=== PATIENT | female | born 1980 | race Hispanic/Latino ===

== ENCOUNTER 2018-11-14 14:36 | Emergency (ER) | payer SELFPAY ==
[2018-11-14] MEDS ORDERED: FAMOTIDINE 20 MG/2 ML VIAL IV ONE (16:04)
[2018-11-14] MEDS ORDERED: NA CHLORIDE 0.9% 1,000 ML ONE (16:04)
[2018-11-14] MEDS ORDERED: ONDANSETRON 4 MG/2 ML VIAL ONE (16:04)
[2018-11-14 16:24] LABS: Absolute Lymphocytes (CBC) 1.2 K/uL (0.7-4.9); Basophils % 0.2 % (0-1.3); Hematocrit 37.3 % (36.0-45.0); Lymphocytes % 13.4 % (15.3-44.8); MPV 9.2 fL (7.6-11.3); RBC Red Blood Cell Count 4.87 M/uL (3.86-4.86)
--- NOTE | 2018-11-14 16:27 | RAD REPORT ---
EXAM DESCRIPTION: RAD - Chest Pa And Lat (2 Views) - 11/14/2018 4:10 pm CLINICAL HISTORY: COUGHcough, fever COMPARISON: None. TECHNIQUE: PA and lateral views of the chest were obtained. FINDINGS: The lungs are underinflated. Interstitial and patchy alveolar opacity present at the left lung base. Heart size is normal and central vasculature is within normal limits. No pleural effusi on or pneumothorax seen. No acute bony finding noted. No aortic abnormality. IMPRESSION: Early left lung base pneumonia.
[2018-11-14 16:33] LABS: Albumin 3.6 g/dL (3.4-5.0); Bilirubin Direct 0.1 mg/dL (0-0.2); Bilirubin Total 0.4 mg/dL (0.2-1.0); Potassium 3.4 mmol/L (3.5-5.1); Protein, Total 7.4 g/dL (6.4-8.2)
[2018-11-14] MEDS ORDERED: POTASSIUM 25 MEQ EFFERV TAB ONE (16:56)
[2018-11-14] MEDS ORDERED: DOXYCYCLINE 100 MG CAP PO ONE (16:57)
[2018-11-14] MEDS ORDERED: CALCIUM CARBONATE CHEW 500MG TAB PO SCH (17:00)
--- NOTE | 2018-11-14 17:56 | EDPHYS ---
Physician Documentation [facility] Name: Chantel Davis Age: 38 yrs Sex: Female : 1980 Arrival Date: 11/14/2018 Time: 14:37 Bed 25 Private MD: None, None ED Physician Royer Millan HPI: 11/14 15:12 This 38 yrs old Female presents to ER via Ambulatory with complaints of Cough, rh1 Abdominal Pain, Fever, Nausea. 15:12 The patient or guardian reports cough, that is constant, described as moderate, with rh1 productive sputum, that is yellow, difficulty breathing. Onset: The symptoms/episode began/occurred 2 day(s) ago. Severity of symptoms: At their worst the symptoms were moderate, in the emergency department the symptoms are unchanged. Modifying factors: The symptoms are alleviated by nothing, the symptoms are aggravated by exertion. Associated signs and symptoms: Pertinent positives: fever, nausea, rhinorrhea, vomiting, Pertinent negatives: chest pain, sore throat. The patient has not experienced similar symptoms in the past. The patient has not recently seen a physician. She began with nasal congestion and coughing, fatigue and body aches with fever at home, t - max 100.2, 2 days ago. + yellow productive coughing, and some SOB with exertion, no hemoptysis. She has had N/V x 1 this am, denies any hematemesis, and diarrhea x 1. Pain in upper abdomen worse with emesis, and increased with coughing. Denies any chest pain, no urinary symptoms.. 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 - Social history:: Smoking status: Patient/guardian denies using tobacco. - Ebola Screening: : No symptoms or risks identified at this time. ROS: 15:12 Cardiovascular: Negative for chest pain, palpitations, and edema. rh1 15:12 Constitutional: Positive for body aches, fatigue, fever, malaise, Negative for poor PO intake. 15:12 ENT: Positive for nasal discharge, sinus congestion, Negative for ear pain. 15:12 Respiratory: Positive for cough, shortness of breath, Negative for hemoptysis. 15:12 Abdomen/GI: Positive for abdominal pain, nausea, vomiting, and diarrhea, Negative for hematemesis, rectal bleeding. 15:12 Back: Negative for decreased range of motion, pain at rest, pain with movement. 15:12 : Negative for burning with urination. 15:12 MS/extremity: Negative for swelling, tenderness. 15:12 Neuro: Negative for altered mental status. 15:12 All other systems are negative. Exam: 15:12 Constitutional: This is a well developed, well nourished patient who is awake, alert, rh1 and in no acute distress. Head/Face: Normocephalic, atraumatic. ENT: Nares patent. No nasal discharge, no septal abnormalities noted. Tympanic membranes are normal and external auditory canals are clear. Oropharynx with no redness, swelling, or masses, exudates, or evidence of obstruction, uvula midline. Mucous membranes moist. Neck: Trachea midline, and no cervical lymphadenopathy. Supple, full range of motion without nuchal rigidity. No Meningismus. Chest/axilla: Normal chest wall appearance and motion. Nontender with no deformity. No lesions are appreciated. Cardiovascular: Regular rate and rhythm with a normal S1 and S2. No gallops, murmurs, or rubs. No JVD. No pulse deficits. 15:12 Back: No spinal tenderness. No costovertebral tenderness. Full range of motion. Skin: Warm, dry with normal turgor. Normal color with no rashes, no lesions, and no evidence of cellulitis. MS/ Extremity: Pulses equal, no cyanosis. Neurovascular intact. Full, normal range of motion. 15:12 Respiratory: the patient does not display signs of respiratory distress, Respirations: normal, no use of accessory muscles, no prolonged exhalations, no pursed lip breathing, no retractions, no tachypnea, Breath sounds: decreased breath sounds, that are mild, are heard in the left posterior lower lobe and right posterior lower lobe, wheezing: is not appreciated. 15:12 Abdomen/GI: Inspection: abdomen appears normal, bruising, is not seen, distension, is not seen, Bowel sounds: normal, in all quadrants, active, all quadrants, Palpation: soft, in all quadrants, mild abdominal tenderness, in the epigastric area, rebound tenderness, is not appreciated, involuntary guarding, is not appreciated, Indicators: McBurney's point is not tender, Grijalva's sign is negative, Rovsing's sign is negative. 15:12 Neuro: Orientation: is normal, to person, place \T\ time. Mentation: is normal, lucid, able to follow commands, Motor: is normal, moves all fours, strength is 5/5 in all extremities, Sensation: is normal, no obvious gross deficits, Gait: is steady, at a normal pace, without difficulty. 17:53 Abdomen/GI: Inspection: abdomen appears normal, bruising, is not seen, distension, is rh1 not seen, Bowel sounds: normal, in all quadrants, Palpation: abdomen is soft and non-tender, in all quadrants. Vital Signs: 14:55 BP 129 / 72; Pulse 81; Resp 19 S; Temp 98.2(O); Pulse Ox 97% on R/A; Weight 104.33 kg aa5 (R); Height 5 ft. 2 in. (157.48 cm) (R); Pain 9/10; 16:19 BP 121 / 80; Pulse 72; Resp 17 S; Pulse Ox 97% on R/A; ca1 17:18 BP 108 / 80; Pulse 70; Resp 16; Pulse Ox 100% ; lt1 14:55 Body Mass Index 42.07 (104.33 kg, 157.48 cm) aa5 MDM: 15:12 Patient medically screened. rh1 17:54 Data reviewed: vital signs, nurses notes, lab test result(s), radiologic studies, plain rh1 films, and as a result, I will discharge patient. Data interpreted: Pulse oximetry: on room air is 100 %. Interpretation: normal. Counseling: I had a detailed discussion with the patient and/or guardian regarding: the historical points, exam findings, and any diagnostic results supporting the discharge/admit diagnosis, lab results, radiology results, the need for outpatient follow up, a family practitioner, to return to the emergency department if symptoms worsen or persist or if there are any questions or concerns that arise at home. Response to treatment: the patient's symptoms have markedly improved after treatment. Special discussion: I discussed with the patient/guardian in detail that at this point there is no indication for admission to the hospital. It is understood, however, that if the symptoms persist or worsen the patient needs to return immediately for re-evaluation. 11/14 15:33 Order name: Basic Metabolic Panel; Complete Time: 16:39 11/14 15:33 Order name: CBC with Diff; Complete Time: 16:39 11/14 15:33 Order name: Creatinine for Radiology; Complete Time: 17:06 11/14 15:33 Order name: Hepatic Function; Complete Time: 16:39 11/14 15:33 Order name: Lipase; Complete Time: 16:39 11/14 15:33 Order name: Flu; Complete Time: 16:39 11/14 15:33 Order name: Chest Pa And Lat (2 Views) XRAY; Complete Time: 16:39 11/14 16:30 Order name: Urine Dipstick--Ancillary (enter results) bd 11/14 16:30 Order name: Urine --Ancillary (enter results) bd 11/14 15:33 Order name: IV Saline Lock; Complete Time: 15:59 11/14 15:33 Order name: Labs collected and sent; Complete Time: 15:59 11/14 15:33 Order name: Urine Dipstick-Ancillary (obtain specimen); Complete Time: 16:23 11/14 15:33 Order name: Urine Test (obtain specimen); Complete Time: 16:23 rh1 Administered Medications: 16:22 Drug: Pepcid 20 mg Route: IVP; Site: right antecubital; tr5 17:13 Follow up: Response: Marked relief of symptoms tr5 16:23 Drug: NS 0.9% 1000 ml Route: IV; Rate: 1 bolus; Site: right antecubital; tr5 17:14 Follow up: Response: No adverse reaction; IV Status: Completed infusion; IV Intake: tr5 1000ml 16:23 Drug: Zofran 4 mg Route: IVP; Site: right antecubital; tr5 17:14 Follow up: Response: Nausea is decreased tr5 17:11 Drug: Potassium Effervescent Tablet 50 mEq Route: PO; tr5 17:53 Follow up: Response: No adverse reaction tr5 17:13 Drug: Calcium Carbonate 500 mg 2 tablet Route: PO; tr5 17:52 Follow up: Response: No adverse reaction tr5 17:13 Drug: Doxycycline 100 mg Route: PO; tr5 17:52 Follow up: Response: No adverse reaction tr5 18:04 Drug: Zofran 4 mg Route: PO; tr5 18:05 Follow up: Response: Medication administered at discharge. tr5 Disposition: 17:54 Chart complete. rh1 11/15 07:35 Co-signature as Attending Physician, Royer Millan MD. rn Disposition: 11/14/18 17:55 Discharged to Home. Impression: Unspecified bacterial pneumonia. - Condition is Stable. - Discharge Instructions: Community-Acquired Pneumonia, Adult. - Prescriptions for Zofran 4 mg Oral Tablet - take 1 tablet by ORAL route every 12 hours As needed; 20 tablet. Doxycycline Hyclate 100 mg Oral Tablet - take 1 tablet by ORAL route every 12 hours; 20 tablet. - Medication Reconciliation Form, Thank You Letter, Antibiotic Education, Prescription Opioid Use form. - Follow up: Private Physician; When: 2 - 3 days; Reason: Recheck today's complaints, Continuance of care, Re-evaluation by your physician. Follow up: Emergency Department; When: As needed; Reason: Fever > 102 F, If symptoms return, Trouble breathing, Worsening of condition. - Problem is new. - Symptoms have improved. Signatures: Dispatcher [employer] EDMS Royer Millan MD MD rn Calderon, Audri, RN RN aa5 Tanvi Bucio NP FREELANCE DESIGNER rh1 Migue Rodriguez RN RN tr5 Corrections: (The following items were deleted from the chart) 11/14 17:53 15:12 Abdomen/GI: Inspection: abdomen appears normal, bruising, is not seen, rh1 distension, is not seen, Bowel sounds: normal, in all quadrants, Palpation: abdomen is soft and non-tender, in all quadrants, rh1 18:24 17:55 11/14/2018 17:55 Discharged to Home. Impression: Unspecified bacterial pneumonia. tr5 Condition is Stable. Forms are Medication Reconciliation Form, Thank You Letter, Antibiotic Education, Prescription Opioid Use. Follow up: Private Physician; When: 2 - 3 days; Reason: Recheck today's complaints, Continuance of care, Re-evaluation by your physician. Follow up: Emergency Department; When: As needed; Reason: Fever > 102 F, If symptoms return, Trouble breathing, Worsening of condition. Problem is new. Symptoms have improved. rh1
--- NOTE | 2018-11-14 17:56 | ER ---
Nurse's Notes [facility] Name: Chantel Davis Age: 38 yrs Sex: Female : 1980 Arrival Date: 11/14/2018 Time: 14:37 Bed 25 Private MD: None, None Diagnosis: Unspecified bacterial pneumonia Presentation: 11/14 14:54 Presenting complaint: Patient states: productive cough, fever, nausea, diarrhea, and aa5 upper abd pain that began 3 days ago. Transition of care: patient was not received from another setting of care. Onset of symptoms was November 2018. Risk Assessment: Do you want to hurt yourself or someone else? Patient reports no desire to harm self or others. Initial Sepsis Screen: Does the patient meet any 2 criteria? No. Patient's initial sepsis screen is negative. Does the patient have a suspected source of infection? No. Patient's initial sepsis screen is negative. Care prior to arrival: None. 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 - Social history:: Smoking status: Patient/guardian denies using tobacco. - Ebola Screening: : No symptoms or risks identified at this time. Screenin:00 Abuse screen: Denies threats or abuse. Nutritional screening: No deficits noted. tr5 Tuberculosis screening: No symptoms or risk factors identified. Fall Risk None identified. Assessment: 15:00 General: Appears in no apparent distress. Behavior is calm, cooperative, appropriate tr5 for age. Pain: Complains of pain in abdomen Pain does not radiate. Pain currently is 5 out of 10 on a pain scale. Quality of pain is described as crampy, Pain began gradually, Is intermittent. Neuro: Level of Consciousness is awake, alert, obeys commands, Oriented to person, place, time, Engineering Systems Analyst are equal bilaterally Moves all extremities. Cardiovascular: Heart tones present Capillary refill < 3 seconds Pulses are all present. Edema is absent. Respiratory: Airway is patent Respiratory effort is even, unlabored, Respiratory pattern is regular, symmetrical. Respiratory: Reports cough that is productive. GI: Abdomen is round Bowel sounds present X 4 quads. Abd is soft Reports lower abdominal pain, diarrhea, nausea, vomiting. : No signs and/or symptoms were reported regarding the genitourinary system. EENT: No signs and/or symptoms were reported regarding the EENT system. Derm: Skin is intact, Skin is dry, Skin is normal, Skin temperature is warm. Musculoskeletal: Capillary refill < 3 seconds, Range of motion: intact in all extremities. 16:00 Reassessment: Patient and/or family updated on plan of care and expected duration. Pain tr5 level reassessed. Patient is alert, oriented x 3, equal unlabored respirations, skin warm/dry/pink. 17:00 Reassessment: Patient appears in no apparent distress at this time. Patient and/or tr5 family updated on plan of care and expected duration. Pain level reassessed. Patient is alert, oriented x 3, equal unlabored respirations, skin warm/dry/pink. Vital Signs: 14:55 BP 129 / 72; Pulse 81; Resp 19 S; Temp 98.2(O); Pulse Ox 97% on R/A; Weight 104.33 kg aa5 (R); Height 5 ft. 2 in. (157.48 cm) (R); Pain 9/10; 16:19 BP 121 / 80; Pulse 72; Resp 17 S; Pulse Ox 97% on R/A; ca1 17:18 BP 108 / 80; Pulse 70; Resp 16; Pulse Ox 100% ; lt1 14:55 Body Mass Index 42.07 (104.33 kg, 157.48 cm) aa5 ED Course: 14:37 Patient arrived in ED. ag5 14:39 None, None is Private Physician. ag5 14:55 Triage completed. aa5 14:55 Arm band placed on. aa5 15:00 Placed in gown. Bed in low position. Call light in reach. Door closed. Noise minimized. tr5 15:11 Tanvi Bucio NP is PHCP. rh1 15:11 Royer Millan MD is Attending Physician. rh1 15:40 Missed attempt(s): 20 gauge in left antecubital area. Bleeding controlled, band aid ca1 applied, catheter tip intact. 15:58 Migue Rodriguez, RN is Primary Nurse. tr5 16:08 Chest Pa And Lat (2 Views) XRAY In Process Unspecified. EDMS 16:16 Inserted saline lock: 22 gauge in right antecubital area, using aseptic technique. lt1 16:20 Initial lab(s) drawn, by ED staff, sent to lab. tr5 18:21 No provider procedures requiring assistance completed. IV discontinued. tr5 Administered Medications: 16:22 Drug: Pepcid 20 mg Route: IVP; Site: right antecubital; tr5 17:13 Follow up: Response: Marked relief of symptoms tr5 16:23 Drug: NS 0.9% 1000 ml Route: IV; Rate: 1 bolus; Site: right antecubital; tr5 17:14 Follow up: Response: No adverse reaction; IV Status: Completed infusion; IV Intake: tr5 1000ml 16:23 Drug: Zofran 4 mg Route: IVP; Site: right antecubital; tr5 17:14 Follow up: Response: Nausea is decreased tr5 17:11 Drug: Potassium Effervescent Tablet 50 mEq Route: PO; tr5 17:53 Follow up: Response: No adverse reaction tr5 17:13 Drug: Calcium Carbonate 500 mg 2 tablet Route: PO; tr5 17:52 Follow up: Response: No adverse reaction tr5 17:13 Drug: Doxycycline 100 mg Route: PO; tr5 17:52 Follow up: Response: No adverse reaction tr5 18:04 Drug: Zofran 4 mg Route: PO; tr5 18:05 Follow up: Response: Medication administered at discharge. tr5 Intake: 17:14 IV: 1000ml; Total: 1000ml. tr5 Outcome: 17:55 Discharge ordered by . rh1 18:21 Discharged to home tr5 18:21 Discharged to home ambulatory. 18:21 Condition: stable 18:21 Discharge instructions given to patient, Instructed on discharge instructions, follow up and referral plans. medication usage, Demonstrated understanding of instructions, follow-up care, medications, Prescriptions given X 2. 18:24 Patient left the ED. tr5 Signatures: Dispatcher [employer] EDMS Nisha Azul RN RN aa5 Tanvi Bucio, SIGN SHOP SUPERVISOR SIGN SHOP SUPERVISOR 1 Linda Christensen RN RN [facility] Tahira Brown 5 Yamilex Go lt1 Migue Rodriguez RN RN tr5
[2018-11-14] MEDS ORDERED: ONDANSETRON 4 MG (ODT) TAB ONE (17:59)
[2018-11-14 20:26] LABS: Urine Blood NEGATIVE (NEG); Urine Glucose NEGATIVE (NEG); Urine Protein NEGATIVE (NEG); Urine Specific Gravity 1.015 (1.005-1.030); Urine pH 6.5 (5.0-7.0)
[2018-11-14 21:22] VITALS: BP 108/80; O2SAT 100
[2018-11-14 21:50] VITALS: TEMP 98.2
== END 2018-11-14 18:24 | disposition home or self-care (01) ==
LOC: ER 14:36
DX: J15.9 Unspecified bacterial pneumonia (principal)
CPT/HCPCS: 36415; 71046; 80048; 80076; 81003; 81025; 83690; 85025; 87804; 96361; 96374; 96375; 99284; J2405; J7030

== ENCOUNTER 2019-05-06 12:46 | Emergency (ER) | payer SELFPAY ==
[2019-05-06] MEDS ORDERED: ONDANSETRON 4 MG (ODT) TAB ONE (13:20)
[2019-05-06] MEDS ORDERED: dexAMETHasone 4 MG/ML VIAL ONE (13:20)
--- NOTE | 2019-05-06 14:06 | EDPHYS ---
Physician Documentation [facility] Name: Chantel Davis Age: 39 yrs Sex: Female : 1980 Arrival Date: 05/06/2019 Time: 12:48 Bed 14 Private MD: ED Physician Ben Magana HPI: 05/06 13:11 This 39 yrs old Female presents to ER via Ambulatory with complaints of Chest ps1 Pain, Congestion, Vomiting. 13:11 States that onset of symptoms is 3 days. OOW for tamiflu. States that she has ps1 additionally had fatigue. No reportable fever. Still has nausea and sore throat. . 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 - Social history:: Patient/guardian denies using alcohol, street drugs, tobacco products, Smoking status: Patient denies any tobacco usage or history of. ROS: 13:11 Cardiovascular: Negative for chest pain, palpitations, and edema, MS/Extremity: ps1 Negative for injury and deformity, Skin: Negative for injury, rash, and discoloration, Neuro: Negative for headache, weakness, numbness, tingling, and seizure. 13:11 Constitutional: Positive for fatigue, malaise, poor PO intake. 13:11 ENT: Positive for sore throat. 13:11 Respiratory: Positive for cough. 13:11 Abdomen/GI: Positive for nausea and vomiting. Exam: 13:11 Constitutional: This is a well developed, well nourished patient who is awake, alert, ps1 and in no acute distress. Head/Face: Normocephalic, atraumatic. Eyes: Pupils equal round and reactive to light, extra-ocular motions intact. Lids and lashes normal. Conjunctiva and sclera are non-icteric and not injected. Cardiovascular: Regular rate and rhythm. No gallops, murmurs, or rubs. Normal PMI, no JVD. No pulse deficits. Respiratory: Lungs have equal breath sounds bilaterally, clear to auscultation and percussion. No rales, rhonchi or wheezes noted. No increased work of breathing, no retractions or nasal flaring. Abdomen/GI: Soft, non-tender, with normal bowel sounds. No distension or tympany. No guarding or rebound. No evidence of tenderness throughout. Skin: Warm, dry with normal turgor. Normal color with no rashes, no lesions, and no evidence of cellulitis. MS/ Extremity: Pulses equal, no cyanosis. Neurovascular intact. Full, normal range of motion. Neuro: Awake and alert, GCS 15, oriented to person, place, time, and situation. Cranial nerves II-XII grossly intact. Sensory grossly intact. Vital Signs: 12:52 Pulse 65; Resp 16; Temp 97.9; Pulse Ox 98% ; Weight 104.33 kg; Height 5 ft. 2 in. ll1 (157.48 cm); Pain 6/10; 14:00 BP 131 / 85; Pulse 81; Resp 16 S; Pulse Ox 99% on R/A; ca1 12:52 Body Mass Index 42.07 (104.33 kg, 157.48 cm) ll1 MDM: 13:30 Patient medically screened. ps1 14:08 Data reviewed: vital signs, nurses notes, lab test result(s), and as a result, I will ps1 discharge patient. Counseling: I had a detailed discussion with the patient and/or guardian regarding: the historical points, exam findings, and any diagnostic results supporting the discharge/admit diagnosis, lab results, to return to the emergency department if symptoms worsen or persist or if there are any questions or concerns that arise at home. 05/06 13:01 Order name: Flu; Complete Time: 14:01 ps1 Administered Medications: 13:17 Drug: Zofran (Ondansetron) 4 mg Route: PO; ca1 14:06 Follow up: Response: No adverse reaction; Nausea is decreased ca1 13:18 Drug: Decadron - Dexamethasone 10 mg {Note: PO.} Route: IVP; Site: Other; ca1 14:06 Follow up: Response: No adverse reaction ca1 Disposition: 05/06/19 14:05 Discharged to Home. Impression: Acute viral illness. - Condition is Stable. - Discharge Instructions: Viral Respiratory Infection, [id number]. - Prescriptions for Zofran 4 mg Oral Tablet - take 1 tablet by ORAL route every 12 hours As needed; 20 tablet. Tessalon Perles 100 mg Oral Capsule - take 1 capsule by ORAL route every 8 hours As needed; 15 capsule. - Medication Reconciliation Form, Thank You Letter, Antibiotic Education, Prescription Opioid Use, Work release form form. - Follow up: Emergency Department; When: As needed; Reason: Fever > 102 F, Trouble breathing, Worsening of condition. Follow up: Private Physician; When: As needed; Reason: Further diagnostic work-up, Recheck today's complaints, Continuance of care, Re-evaluation by your physician. - Problem is new. - Symptoms are unchanged. Signatures: Dispatcher [employer] EDBen Montoya MD MD ps1 Fermin, Linda RN RN ca1 Katelyn Abdalla RN RN ll1 Corrections: (The following items were deleted from the chart) 14:17 14:05 05/06/2019 14:05 Discharged to Home. Impression: Acute viral illness. Condition ca1 is Stable. Forms are Medication Reconciliation Form, Thank You Letter, Antibiotic Education, Prescription Opioid Use. Follow up: Emergency Department; When: As needed; Reason: Fever > 102 F, Trouble breathing, Worsening of condition. Follow up: Private Physician; When: As needed; Reason: Further diagnostic work-up, Recheck today's complaints, Continuance of care, Re-evaluation by your physician. Problem is new. Symptoms are unchanged. ps1
--- NOTE | 2019-05-06 14:06 | ER ---
Nurse's Notes [facility] Name: Chantel Davis Age: 39 yrs Sex: Female : 1980 Arrival Date: 05/06/2019 Time: 12:48 Bed 14 Private MD: Diagnosis: Acute viral illness Presentation: 05/06 12:52 Chief complaint: Patient states: 3 days of N/V, cough, chest hurts, nasal congestion. ll1 Burning throat pain. No fever. Dry cough. Coronavirus screen: The patient has NOT traveled to [place] in the past 14 days. Proceed with normal triage procedures. Ebola Screen: No symptoms or risks identified at this time. Initial Sepsis Screen: Does the patient meet any 2 criteria? No. Patient's initial sepsis screen is negative. Does the patient have a suspected source of infection? No. Patient's initial sepsis screen is negative. Risk Assessment: Do you want to hurt yourself or someone else? Patient reports no desire to harm self or others. 12:52 Method Of Arrival: Ambulatory ll1 12:52 Acuity: XENIA 3 ll1 13:22 Onset of symptoms was May 06, 2019. 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 - Social history:: Patient/guardian denies using alcohol, street drugs, tobacco products, Smoking status: Patient denies any tobacco usage or history of. Screenin:10 Abuse screen: Denies threats or abuse. Denies injuries from another. Nutritional ca1 screening: No deficits noted. Tuberculosis screening: No symptoms or risk factors identified. Fall Risk None identified. Assessment: 13:10 General: Appears in no apparent distress. comfortable, Behavior is calm, cooperative, ca1 appropriate for age, Reports chills for 2-3 days. Pain: Complains of pain in epigastric area Pain does not radiate. Pain currently is 4 out of 10 on a pain scale. Pain began 2-3 days ago. Neuro: Level of Consciousness is awake, alert, obeys commands, Oriented to person, place, time, situation, Appropriate for age. Cardiovascular: Heart tones S1 S2 present Capillary refill < 3 seconds Patient's skin is warm and dry. Respiratory: Reports cough that is Airway is patent Respiratory effort is even, unlabored, Respiratory pattern is regular, symmetrical, Breath sounds are clear bilaterally. GI: Abdomen is round non-distended, Bowel sounds present X 4 quads. Abd is soft and non tender X 4 quads. Reports nausea, vomiting. : No signs and/or symptoms were reported regarding the genitourinary system. EENT: Reports nasal congestion nasal discharge that is watery. Derm: Skin is intact, is healthy with good turgor, Skin is pink, warm \T\ dry. Musculoskeletal: Circulation, motion, and sensation intact. Capillary refill < 3 seconds. 14:00 Reassessment: Patient appears in no apparent distress at this time. Patient and/or ca1 family updated on plan of care and expected duration. Pain level reassessed. Patient is alert, oriented x 3, equal unlabored respirations, skin warm/dry/pink. Vital Signs: 12:52 Pulse 65; Resp 16; Temp 97.9; Pulse Ox 98% ; Weight 104.33 kg; Height 5 ft. 2 in. ll1 (157.48 cm); Pain 6/10; 14:00 BP 131 / 85; Pulse 81; Resp 16 S; Pulse Ox 99% on R/A; ca1 12:52 Body Mass Index 42.07 (104.33 kg, 157.48 cm) ll1 ED Course: 12:48 Patient arrived in ED. as 12:54 Triage completed. ll1 12:54 Arm band placed on right wrist. Patient placed in an exam room. ll1 12:59 Linda Christensen RN is Primary Nurse. ca1 13:01 Ben Magana MD is Attending Physician. ps1 13:10 Patient has correct armband on for positive identification. Bed in low position. Call ca1 light in reach. Side rails up X 1. Pulse ox on. NIBP on. Warm blanket given. 13:10 No provider procedures requiring assistance completed. Patient did not have IV access ca1 during this emergency room visit. Patient maintains SpO2 saturation greater than 95% on room air. Administered Medications: 13:17 Drug: Zofran (Ondansetron) 4 mg Route: PO; ca1 14:06 Follow up: Response: No adverse reaction; Nausea is decreased ca1 13:18 Drug: Decadron - Dexamethasone 10 mg {Note: PO.} Route: IVP; Site: Other; ca1 14:06 Follow up: Response: No adverse reaction ca1 Outcome: 14:05 Discharge ordered by . ps1 14:17 Discharged to home ambulatory. ca1 14:17 Condition: stable 14:17 Discharge instructions given to patient, Instructed on discharge instructions, follow up and referral plans. medication usage, Demonstrated understanding of instructions, follow-up care, medications, Prescriptions given X 2. 14:17 Patient left the ED. ca1 Signatures: Moira Red Phillip, MD MD ps1 Linda Christensen RN RN ca1 Katelyn Abdalla RN RN ll1 Corrections: (The following items were deleted from the chart) 13:22 13:10 General: Appears in no apparent distress. comfortable, Behavior is calm, ca1 cooperative, appropriate for age, ca1
[2019-05-06 14:37] VITALS: TEMP 97.9
[2019-05-06 14:38] VITALS: BP 131/85; O2SAT 99
== END 2019-05-06 14:17 | disposition home or self-care (01) ==
LOC: ER 12:46
DX: B34.9 Viral infection, unspecified (principal)
CPT/HCPCS: 87804; 96374; 99284

== ENCOUNTER 2019-08-10 12:18 | Emergency (ER) | payer SELFPAY ==
[2019-08-10] MEDS ORDERED: HYDROCODONE/APAP 10/325 TAB ONE (13:06)
--- NOTE | 2019-08-10 13:51 | RAD REPORT ---
EXAM DESCRIPTION: RAD - Elbow Left 3 View - 08/10/2019 1:39 pm CLINICAL HISTORY: Left elbow pain FINDINGS: No fracture or dislocation is seen.No bone or joint abnormality
--- NOTE | 2019-08-10 14:21 | EDPHYS ---
Physician Documentation [facility] Name: Chantel Davis Age: 39 yrs Sex: Female : 1980 Arrival Date: 08/10/2019 Time: 12:22 Bed 24 Private MD: ED Physician Diogo Mahan HPI: 08/09 13:01 This 39 yrs old Female presents to ER via Ambulatory with complaints of Elbow pm1 Injury. 13:01 The patient or guardian complains of pain. The complaints affect the left elbow. 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 Onset: The symptoms/episode began/occurred 3 day(s) ago. Treatment prior to arrival includes: no previous treatment. Modifying factors: The symptoms are alleviated by remaining still, the symptoms are aggravated by movement, lifting weight, bending arm. Associated signs and symptoms: Pertinent negatives: decreased range of motion, deformity, numbness, tingling. Severity of symptoms: in the emergency department the symptoms are actually worse. The patient has not experienced similar symptoms in the past. The patient has not recently seen a physician. 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 - Social history:: Smoking status: Patient denies any tobacco usage or history of. ROS: 13:01 Constitutional: Negative for fever, chills, and weight loss. pm1 13:01 Cardiovascular: Negative for chest pain, palpitations, and edema, Respiratory: Negative for shortness of breath, cough, wheezing, and pleuritic chest pain, Skin: Negative for injury, rash, and discoloration, Neuro: Negative for headache, weakness, numbness, tingling, and seizure. 13:01 MS/extremity: Positive for pain, swelling, of the left elbow, Negative for decreased range of motion, deformity. 13:01 All other systems are negative. Exam: 13:01 Constitutional: This is a well developed, well nourished patient who is awake, alert, pm1 and in no acute distress. Head/Face: Normocephalic, atraumatic. Neck: Trachea midline, no thyromegaly or masses palpated, and no cervical lymphadenopathy. Supple, full range of motion without nuchal rigidity, or vertebral point tenderness. No Meningismus. Chest/axilla: Normal chest wall appearance and motion. Nontender with no deformity. No lesions are appreciated. Cardiovascular: Regular rate and rhythm with a normal S1 and S2. No gallops, murmurs, or rubs. Normal PMI, no JVD. No pulse deficits. Respiratory: Lungs have equal breath sounds bilaterally, clear to auscultation and percussion. No rales, rhonchi or wheezes noted. No increased work of breathing, no retractions or nasal flaring. Abdomen/GI: Soft, non-tender, with normal bowel sounds. No distension or tympany. No guarding or rebound. No evidence of tenderness throughout. Skin: Warm, dry with normal turgor. Normal color with no rashes, no lesions, and no evidence of cellulitis. 13:01 Musculoskeletal/extremity: Extremities: grossly normal except: noted in the left elbow: tenderness, There is no evidence of decreased ROM, deformity, swelling, ROM: intact in all extremities, Circulation is intact in all extremities. the left hand Sensation intact. 13:01 Neuro: Exam negative for Orientation: is normal, Mentation: is normal, Motor: is normal, Sensation: is normal, no obvious gross deficits. Vital Signs: 12:33 BP 135 / 80; Pulse 67; Resp 18; Temp 98.1; Pulse Ox 98% on R/A; Weight 104.33 kg; ph Height 5 ft. 2 in. (157.48 cm); Pain 7/10; 14:45 BP 149 / 91; Pulse 59; Resp 17; Pulse Ox 98% ; Pain 4/10; ll1 12:33 Body Mass Index 42.07 (104.33 kg, 157.48 cm) ph MDM: 12:36 Patient medically screened. pm1 14:19 Data reviewed: vital signs. Data interpreted: Pulse oximetry: on room air is 98 %. pm1 Interpretation: normal. Counseling: I had a detailed discussion with the patient and/or guardian regarding: the historical points, exam findings, and any diagnostic results supporting the discharge/admit diagnosis, radiology results, the need for outpatient follow up, to return to the emergency department if symptoms worsen or persist or if there are any questions or concerns that arise at home. 08/09 12:54 Order name: Elbow Left 3 View XRAY; Complete Time: 13:58 pm1 08/09 12:54 Order name: Sling; Complete Time: 14:38 pm1 Administered Medications: 13:01 Drug: [place] 10 mg-325 mg 1 tabs {Note: RASS 0.} Route: PO; ll1 14:54 Follow up: Response: No adverse reaction; Pain is decreased; RASS: Alert and Calm (0) ll1 Disposition: 19:40 Co-signature as Attending Physician, Diogo Mahan MD. 7 Disposition: 08/10/19 14:20 Discharged to Home. Impression: Pain in left elbow. - Condition is Stable. - Discharge Instructions: Joint Pain, Musculoskeletal Pain, How to Use a Sling. - Prescriptions for Diclofenac Sodium 75 mg Oral Tablet, Delayed Release (E.C.) - take 1 tablet by ORAL route 2 times per day As needed; 30 tablet. Tramadol 50 mg Oral Tablet - take 1 tablet by ORAL route every 8 hours as needed; 12 tablet. - Work release form, Medication Reconciliation Form, Thank You Letter, Antibiotic Education, Prescription Opioid Use form. - Follow up: Emergency Department; When: As needed; Reason: Worsening of condition. Follow up: Private Physician; When: 2 - 3 days; Reason: Recheck today's complaints, Continuance of care, Re-evaluation by your physician. - Problem is new. - Symptoms have improved. Signatures: Dispatcher [employer] EDMO Steph Baez RN RN Ron Anderson, [facility] pm1 Katelyn Abdalla RN RN 1 Diogo Mahan MD MD 7 Corrections: (The following items were deleted from the chart) 14:51 14:20 08/10/2019 14:20 Discharged to Home. Impression: Pain in left elbow. Condition is ll1 Stable. Forms are Medication Reconciliation Form, Thank You Letter, Antibiotic Education, Prescription Opioid Use. Follow up: Emergency Department; When: As needed; Reason: Worsening of condition. Follow up: Private Physician; When: 2 - 3 days; Reason: Recheck today's complaints, Continuance of care, Re-evaluation by your physician. Problem is new. Symptoms have improved. pm1
--- NOTE | 2019-08-10 14:21 | ER ---
Nurse's Notes [facility] Name: Chantel Davis Age: 39 yrs Sex: Female : 1980 Arrival Date: 08/10/2019 Time: 12:22 Bed 24 Private MD: Diagnosis: Pain in left elbow Presentation: 08/09 12:33 Chief complaint: Patient states: L elbow pain and swelling x 3 weeks, reports that pain ph comes and goes, denies known injury. Coronavirus screen: Patient denies a cough. Patient denies shortness of breath or difficulty breathing. Patient denies measured and/or subjective temperature greater than 100.4F prior to today's visit. Patient denies travel on a cruise ship or to a country the [facility] currently lists as an affected area. Patient denies contact with known and/or suspected case of COVID-19. Ebola Screen: No symptoms or risks identified at this time. Initial Sepsis Screen: Does the patient meet any 2 criteria? No. Patient's initial sepsis screen is negative. Does the patient have a suspected source of infection? No. Patient's initial sepsis screen is negative. Risk Assessment: Do you want to hurt yourself or someone else? Patient reports no desire to harm self or others. Onset of symptoms was August 10, 2019. 12:33 Method Of Arrival: Ambulatory ph 12:33 Acuity: XENIA 4 ph Triage Assessment: 13:03 General: Appears in no apparent distress. Behavior is calm, cooperative, appropriate ll1 for age. Injury Description: no specific injury. 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 - Social history:: Smoking status: Patient denies any tobacco usage or history of. Screenin:03 Abuse screen: Denies threats or abuse. Nutritional screening: No deficits noted. ll1 Tuberculosis screening: No symptoms or risk factors identified. Fall Risk None identified. Total Maria Fall Scale indicates No Risk (0-24 pts). Assessment: 13:01 Pain: Complains of pain in left elbow Pain currently is 7 out of 10 on a pain scale. ll1 Quality of pain is described as aching, Pain began. Neuro: No deficits noted. Cardiovascular: No deficits noted. Respiratory: No deficits noted. Musculoskeletal: Circulation, motion, and sensation intact. Capillary refill < 3 seconds, Range of motion: intact in all extremities, Swelling present in left elbow Tenderness present in left elbow Reports pain in left elbow. 14:00 Reassessment: Patient appears in no apparent distress at this time. No changes from ll1 previously documented assessment. Patient and/or family updated on plan of care and expected duration. Pain level reassessed. Patient is alert, oriented x 3, equal unlabored respirations, skin warm/dry/pink. 14:50 Reassessment: Patient appears in no apparent distress at this time. No changes from ll1 previously documented assessment. Patient and/or family updated on plan of care and expected duration. Pain level reassessed. Patient is alert, oriented x 3, equal unlabored respirations, skin warm/dry/pink. PMS intact pre and post sling application to RUE. . Vital Signs: 12:33 BP 135 / 80; Pulse 67; Resp 18; Temp 98.1; Pulse Ox 98% on R/A; Weight 104.33 kg; ph Height 5 ft. 2 in. (157.48 cm); Pain 7/10; 14:45 BP 149 / 91; Pulse 59; Resp 17; Pulse Ox 98% ; Pain 4/10; ll1 12:33 Body Mass Index 42.07 (104.33 kg, 157.48 cm) ph ED Course: 12:22 Patient arrived in ED. fj1 12:34 Triage completed. ph 12:36 Katelyn Abdalla RN is Primary Nurse. ll1 12:36 Ron Azul NP is PHCP. pm1 12:36 Diogo Mahan MD is Attending Physician. pm1 13:04 Arm band placed on Patient placed in an exam room, on a stretcher. ll1 13:04 Patient has correct armband on for positive identification. Bed in low position. Call ll1 light in reach. Side rails up X 1. 13:42 Elbow Left 3 View XRAY In Process Unspecified. EDMS 14:00 X-ray(s) taken. jp3 14:38 Sling applied to left arm. jp3 14:54 No provider procedures requiring assistance completed. Patient did not have IV access ll1 during this emergency room visit. Administered Medications: 13:01 Drug: [place] 10 mg-325 mg 1 tabs {Note: RASS 0.} Route: PO; ll1 14:54 Follow up: Response: No adverse reaction; Pain is decreased; RASS: Alert and Calm (0) 1 Outcome: 14:20 Discharge ordered by MD. pm1 14:51 Patient left the ED. ll1 14:54 Discharged to home ambulatory. 1 14:54 Condition: stable 14:54 Discharge instructions given to patient, Instructed on discharge instructions, follow up and referral plans. no drinking with medication, no driving heavy equipment, Demonstrated understanding of instructions, follow-up care, medications, Prescriptions given X 2. Signatures: Dispatcher [employer] EDSteph Og, RN RN Ron Anderson NP TOOL KEEPER pm1 Iftikhar Shen jp3 Anthony Ruelas fj1 Katelyn Abdalla RN RN 1
[2019-08-10 15:00] VITALS: BP 135/80; TEMP 98.1; O2SAT 98
== END 2019-08-10 14:51 | disposition home or self-care (01) ==
LOC: ER 12:18
DX: M25.522 Pain in left elbow (principal)
CPT/HCPCS: 99284

== ENCOUNTER 2020-02-01 08:43 | Emergency (ER) | payer SELFPAY ==
[2020-02-01] MEDS ORDERED: ONDANSETRON 4 MG (ODT) TAB ONE (09:23)
--- NOTE | 2020-02-01 09:43 | EDPHYS ---
Physician Documentation [facility] Name: Chantel Davis Age: 39 yrs Sex: Female : 1980 Arrival Date: 02/01/2020 Time: 08:45 Bed 15 Private MD: ED Physician Ben Magana HPI: 01/31 09:18 This 39 yrs old Female presents to ER via Ambulatory with complaints of Sinus kb Congestion, Vomiting, Fever. 09:18 The patient or guardian reports flu symptoms, low-grade fever. Onset: The kb symptoms/episode began/occurred 4 day(s) ago. Severity of symptoms: At their worst the symptoms were moderate, in the emergency department the symptoms are unchanged. Modifying factors: The symptoms are alleviated by nothing, the symptoms are aggravated by nothing. Associated signs and symptoms: Pertinent positives: fever, nausea, rhinorrhea, vomiting, Pertinent negatives: chest pain, diarrhea, ear ache, sore throat. The patient has not experienced similar symptoms in the past. The patient has not recently seen a physician. Pt reports rhinorrhea and congestion for 3-4 days, fever and chills began last night. nausea and vomited x1 this morning. 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 - Social history:: Smoking status: . ROS: 09:18 Cardiovascular: Negative for chest pain, palpitations, and edema, Respiratory: Negative kb for shortness of breath, cough, wheezing, and pleuritic chest pain, MS/Extremity: Negative for injury and deformity, Skin: Negative for injury, rash, and discoloration, Neuro: Negative for headache, weakness, numbness, tingling, and seizure. 09:18 Constitutional: Positive for chills, fever, malaise. 09:18 ENT: Positive for rhinorrhea, sinus congestion. 09:18 Abdomen/GI: Positive for nausea and vomiting. Exam: 09:18 Constitutional: This is a well developed, well nourished patient who is awake, alert, kb and in no acute distress. Head/Face: Normocephalic, atraumatic. ENT: Nares patent. No nasal discharge, no septal abnormalities noted. Tympanic membranes are normal and external auditory canals are clear. Oropharynx with no redness, swelling, or masses, exudates, or evidence of obstruction, uvula midline. Mucous membranes moist. Chest/axilla: Normal chest wall appearance and motion. Nontender with no deformity. No lesions are appreciated. Cardiovascular: Regular rate and rhythm with a normal S1 and S2. No gallops, murmurs, or rubs. Normal PMI, no JVD. No pulse deficits. Respiratory: Lungs have equal breath sounds bilaterally, clear to auscultation and percussion. No rales, rhonchi or wheezes noted. No increased work of breathing, no retractions or nasal flaring. Abdomen/GI: Soft, non-tender, with normal bowel sounds. No distension or tympany. No guarding or rebound. No evidence of tenderness throughout. Skin: Warm, dry with normal turgor. Normal color with no rashes, no lesions, and no evidence of cellulitis. MS/ Extremity: Pulses equal, no cyanosis. Neurovascular intact. Full, normal range of motion. Neuro: Awake and alert, GCS 15, oriented to person, place, time, and situation. Cranial nerves II-XII grossly intact. Motor strength 5/5 in all extremities. Sensory grossly intact. Cerebellar exam normal. Normal gait. Vital Signs: 08:52 BP 134 / 70; Pulse 72; Resp 18; Temp 98.3(O); Pulse Ox 99% on R/A; Weight 109.77 kg tw2 (R); Height 5 ft. 2 in. (157.48 cm); Pain 7/10; 09:56 BP 131 / 86; Pulse 79; Resp 17; Pulse Ox 99% on R/A; tw2 08:52 Body Mass Index 44.26 (109.77 kg, 157.48 cm) tw2 08:52 "sinuses" tw2 MDM: 09:00 Patient medically screened. kb 09:18 Data reviewed: vital signs, nurses notes. Data interpreted: Pulse oximetry: on room air kb is 99 %. Interpretation: normal. 09:41 Counseling: I had a detailed discussion with the patient and/or guardian regarding: the kb historical points, exam findings, and any diagnostic results supporting the discharge/admit diagnosis, lab results, the need for outpatient follow up, a family practitioner, to return to the emergency department if symptoms worsen or persist or if there are any questions or concerns that arise at home. ED course: Pt reports nausea is resolved after zofran. Pt agrees to COVID test and will await results. Pt educated to stay home from work and quarantine until results are called to her. . 01/31 09:01 Order name: Flu; Complete Time: 09:39 kb 01/31 09:01 Order name: Strep; Complete Time: 09:30 kb 01/31 09:12 Order name: Urine Dipstick--Ancillary (enter results); Complete Time: 09:51 bd 01/31 09:12 Order name: Urine --Ancillary (enter results); Complete Time: 09:51 bd 01/31 09:31 Order name: Throat Culture EDWA 01/31 09:42 Order name: COVID-19 kb Administered Medications: 09:11 Drug: Zofran (Ondansetron) 4 mg Route: PO; tw2 09:55 Follow up: Response: No adverse reaction; Nausea is decreased tw2 Disposition: 02/01/20 09:42 Discharged to Home. Impression: Acute upper respiratory infection, unspecified. - Condition is Stable. - Discharge Instructions: Upper Respiratory Infection, Adult, [id number], COVID-19. - Work release form, Medication Reconciliation Form, Thank You Letter, Antibiotic Education, Prescription Opioid Use form. - Follow up: Emergency Department; When: As needed; Reason: Worsening of condition. Follow up: Private Physician; When: 2 - 3 days; Reason: Recheck today's complaints, Continuance of care, Re-evaluation by your physician. Addendum: 02/02/2020 19:04 Addendum: COVID results came in and pt is positive for the virus. Number on k b registration called with no answer. Message left. 19:09 Addendum: Pt called back. Pt educated on positive COVID results and need to stay home k b and quarantine from others.. 02/06/2020 20:58 Co-signature as Attending Physician, Ben Magana MD Did not see or evaluate patient. p s1 Signature for administrative purposes. . Signatures: Dispatcher [employer] EDWA Sirisha Mireles, OBED MORE-Anjali Granados, RN RN tw2 Ben Magana MD MD ps1 Corrections: (The following items were deleted from the chart) 01/31 10:04 09:42 02/01/2020 09:42 Discharged to Home. Impression: Acute upper respiratory tw2 infection, unspecified. Condition is Stable. Forms are Medication Reconciliation Form, Thank You Letter, Antibiotic Education, Prescription Opioid Use. Follow up: Emergency Department; When: As needed; Reason: Worsening of condition. Follow up: Private Physician; When: 2 - 3 days; Reason: Recheck today's complaints, Continuance of care, Re-evaluation by your physician. kb
--- NOTE | 2020-02-01 09:43 | ER ---
Nurse's Notes [facility] Name: Chantel Davis Age: 39 yrs Sex: Female : 1980 Arrival Date: 02/01/2020 Time: 08:45 Bed 15 Private MD: Diagnosis: Acute upper respiratory infection, unspecified Presentation: 01/31 08:52 Chief complaint: Patient states: i have been congested for 4 days, i had chills last tw2 night, and a fever this morning about 4 am it was 100 .something, but then i woke up again and i did not have a fever but i am nauseous and i have a headache too the past couple of days. Coronavirus screen: chills, congestion, fever, headache, Client presents with at least one sign or symptom that may indicate coronavirus-19. Standard/surgical mask placed on the client. Provider contacted for isolation considerations. Ebola Screen: Patient denies travel to an Ebola-affected area in the 21 days before illness onset. Initial Sepsis Screen: Does the patient meet any 2 criteria? No. Patient's initial sepsis screen is negative. Does the patient have a suspected source of infection? No. Patient's initial sepsis screen is negative. Risk Assessment: Do you want to hurt yourself or someone else? Patient reports no desire to harm self or others. Onset of symptoms was February 01, 2020. 08:52 Method Of Arrival: Ambulatory tw2 08:52 Acuity: XENIA 4 tw2 Triage Assessment: 08:55 General: Appears in no apparent distress. obese, well groomed, Behavior is calm, tw2 cooperative, appropriate for age. Pain: Complains of pain in headache and sinuses. EENT: Reports nasal congestion nasal discharge. Neuro: Level of Consciousness is awake, alert, obeys commands, Oriented to person, place, time, situation. Cardiovascular: Patient's skin is warm and dry. Respiratory: Airway is patent Respiratory effort is even, unlabored, Respiratory pattern is regular, symmetrical. GI: Abdomen is round non-distended, obese, Reports nausea. : No signs and/or symptoms were reported regarding the genitourinary system. Derm: No signs and/or symptoms reported regarding the dermatologic system. Musculoskeletal: Range of motion: intact in all extremities. 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 - Social history:: Smoking status: . Screenin:57 Abuse screen: Denies threats or abuse. Nutritional screening: No deficits noted. tw2 Tuberculosis screening: No symptoms or risk factors identified. Fall Risk None identified. Assessment: 08:57 Reassessment: see triage assessment. tw2 09:54 Reassessment: Patient appears in no apparent distress at this time. No changes from tw2 previously documented assessment. Patient and/or family updated on plan of care and expected duration. Pain level reassessed. Patient is alert, oriented x 3, equal unlabored respirations, skin warm/dry/pink. Vital Signs: 08:52 BP 134 / 70; Pulse 72; Resp 18; Temp 98.3(O); Pulse Ox 99% on R/A; Weight 109.77 kg tw2 (R); Height 5 ft. 2 in. (157.48 cm); Pain 7/10; 09:56 BP 131 / 86; Pulse 79; Resp 17; Pulse Ox 99% on R/A; tw2 08:52 Body Mass Index 44.26 (109.77 kg, 157.48 cm) tw2 08:52 "sinuses" tw2 ED Course: 08:45 Patient arrived in ED. as 08:48 Anjali Stone, RN is Primary Nurse. tw2 08:48 Bed in low position. Call light in reach. Pulse ox on. NIBP on. tw2 08:55 Triage completed. tw2 08:55 Arm band placed on. tw2 08:57 Warm blanket given. tw2 09:00 Sirisha [facility]ireles [facility]-C [facility]. kb 09:00 Ben Magana MD is Attending Physician. kb 09:10 Strep Sent. tw2 09:10 Flu Sent. tw2 09:54 No provider procedures requiring assistance completed. Patient did not have IV access tw2 during this emergency room visit. Administered Medications: 09:11 Drug: Zofran (Ondansetron) 4 mg Route: PO; tw2 09:55 Follow up: Response: No adverse reaction; Nausea is decreased tw2 Outcome: 09:42 Discharge ordered by MD. bunch 10:03 Discharged to home ambulatory. tw2 10:03 Condition: stable 10:03 Discharge instructions given to patient, Instructed on discharge instructions, follow up and referral plans. Demonstrated understanding of instructions, follow-up care. 10:04 Patient left the ED. tw2 Addendum: 02/02/2020 19:11 Addendum: COVID-19 Result: Positive result giiven to ED physician to notify pt. i w Physician: Sirisha CLAY Physician was able to contact pt and pt was notified of positive COVID-19 swab result. Physician answered pt questions. Signatures: Sirisha Mireles, OBED MORE-Moira Foss as Zainab Arce, RN RN iw Anjali Stone RN RN tw2
[2020-02-01 09:48] LABS: Urine Blood NEGATIVE (NEG); Urine Glucose NEGATIVE (NEG); Urine Protein TRACE (NEG); Urine Specific Gravity 1.025 (1.005-1.030); Urine pH 6.5 (5.0-7.0)
[2020-02-01 11:39] VITALS: TEMP 98.3; O2SAT 99
[2020-02-01 11:42] VITALS: BP 131/86
== END 2020-02-01 10:04 | disposition home or self-care (01) ==
LOC: ER 08:43
DX: U07.1 COVID-19 (principal); J06.9 Acute upper respiratory infection, unspecified
CPT/HCPCS: 81003; 81025; 87070; 87081; 87804; 99283; U0002

== ENCOUNTER 2020-02-19 11:37 | Emergency (ER) | payer SELFPAY ==
[2020-02-19 14:17] LABS: Absolute Lymphocytes (CBC) 1.1 K/uL (0.7-4.9); Basophils % 0.3 % (0-1.3); Hematocrit 36.7 % (36.0-45.0); Lymphocytes % 5.7 % (15.3-44.8)
[2020-02-19] MEDS ORDERED: ONDANSETRON 4 MG/2 ML VIAL ONE (14:17)
[2020-02-19] MEDS ORDERED: ACETAMINOPHEN 500 MG TAB ONE (14:17)
[2020-02-19] MEDS ORDERED: KETOROLAC 30 MG/ML INJ ONE (14:17)
[2020-02-19 14:18] LABS: Albumin 3.4 g/dL (3.4-5.0); Bilirubin Direct 0.3 mg/dL (0-0.2); Bilirubin Total 0.8 mg/dL (0.2-1.0); Potassium 3.4 mmol/L (3.5-5.1)
--- NOTE | 2020-02-19 14:18 | RAD REPORT ---
EXAM DESCRIPTION: Lynne Single View02/19/2020 1:46 pm CLINICAL HISTORY: Cough COMPARISON: 2019 FINDINGS: The lungs appear clear of acute infiltrate. The heart is normal size IMPRESSION: No acute abnormalities displayed
[2020-02-19] MEDS ORDERED: NA CHLORIDE 0.9% 1,000 ML ONE (14:43)
--- NOTE | 2020-02-19 14:46 | ER ---
Nurse's Notes [facility] Name: Chantel Davis Age: 39 yrs Sex: Female : 1980 Arrival Date: 02/19/2020 Time: 11:39 Bed 18 Private MD: Diagnosis: Urinary tract infection, site not specified Presentation: 02/18 12:33 Chief complaint: Patient states: Had COVID on 24, quarantined for 14 days, went back to [facility] work and started having fever and chills x 2 days, back and chest pain on inspiration x 2 days, took ibuprofen this morning at 1000. Coronavirus screen: chills, fever, Client presents with at least one sign or symptom that may indicate coronavirus-19. Standard/surgical mask placed on the client. Provider contacted for isolation considerations. Client reports previous positive COVID test result. Date of collection: February 01, 2020 The client reports previous COVID testing was negative. results are located within the EHR/EMR. Ebola Screen: No symptoms or risks identified at this time. Initial Sepsis Screen: Does the patient meet any 2 criteria? No. Patient's initial sepsis screen is negative. Does the patient have a suspected source of infection? No. Patient's initial sepsis screen is negative. Risk Assessment: Do you want to hurt yourself or someone else? Patient reports no desire to harm self or others. Onset of symptoms was February 18, 2020. Care prior to arrival: None. 12:33 Method Of Arrival: Ambulatory [facility] 12:33 Acuity: XENIA 3 jl7 Triage Assessment: 12:37 General: Appears in no apparent distress. uncomfortable, Behavior is cooperative, jl7 anxious. Pain: Denies pain. 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 - Social history:: Smoking status: Patient denies any tobacco usage or history of. Screenin:00 Abuse screen: Denies threats or abuse. Denies injuries from another. Nutritional ca1 screening: No deficits noted. Tuberculosis screening: No symptoms or risk factors identified. Fall Risk IV access (20 points). Assessment: 13:00 General: Appears in no apparent distress. comfortable, Behavior is calm, cooperative, ca1 appropriate for age. General: Reports fever for 1-2 days. Pain: Complains of pain in back and chest Pain currently is 6 out of 10 on a pain scale. Pain began 1 day ago. Neuro: Level of Consciousness is awake, alert, obeys commands, Oriented to person, place, time, situation. Cardiovascular: Heart tones S1 S2 present Capillary refill < 3 seconds Patient's skin is warm and dry. Respiratory: Airway is patent Respiratory effort is even, unlabored, Respiratory pattern is regular, symmetrical, Breath sounds are clear bilaterally. GI: Abdomen is round non-distended, Bowel sounds present X 4 quads. Abd is soft and non tender X 4 quads. : No signs and/or symptoms were reported regarding the genitourinary system. EENT: No signs and/or symptoms were reported regarding the EENT system. Derm: Skin is intact, is healthy with good turgor, Skin is pink, warm \T\ dry. Musculoskeletal: Circulation, motion, and sensation intact. Capillary refill < 3 seconds. 14:00 Reassessment: Patient appears in no apparent distress at this time. Patient and/or ca1 family updated on plan of care and expected duration. Pain level reassessed. Patient is alert, oriented x 3, equal unlabored respirations, skin warm/dry/pink. 15:00 Reassessment: Patient appears in no apparent distress at this time. Patient and/or ca1 family updated on plan of care and expected duration. Pain level reassessed. Patient is alert, oriented x 3, equal unlabored respirations, skin warm/dry/pink. Pending completion of IVF bolus. 15:55 Reassessment: Patient appears in no apparent distress at this time. Patient is alert, ca1 oriented x 3, equal unlabored respirations, skin warm/dry/pink. Vital Signs: 12:33 BP 140 / 75; Pulse 108; Resp 17; Temp 100; Pulse Ox 99% ; Weight 108.86 kg; Height 5 jl7 ft. 2 in. (157.48 cm); Pain 0/10; 14:30 BP 135 / 86; Pulse 92; Resp 16 S; Pulse Ox 100% on R/A; ca1 15:30 BP 129 / 81; Pulse 98; Resp 16 S; Temp 98.3(O); Pulse Ox 100% ; ca1 12:33 Body Mass Index 43.90 (108.86 kg, 157.48 cm) jl7 ED Course: 11:39 Patient arrived in ED. ag5 12:37 Triage completed. jl7 12:37 Arm band placed on right wrist. jl7 12:52 Javier Alcocer PA is PHCP. cp 12:52 Javier Sands MD is Attending Physician. cp 12:54 Linda Christensen RN is Primary Nurse. ca1 13:00 Patient has correct armband on for positive identification. Bed in low position. Call ca1 light in reach. Side rails up X2. Pulse ox on. NIBP on. 13:35 Inserted saline lock: 20 gauge in right forearm, using aseptic technique. Blood jd3 collected. 13:37 Influenza Screen (a \T\ B) Sent. ca1 13:37 Strep Sent. ca1 13:47 XRAY Chest (1 view) In Process Unspecified. EDMS 15:59 No provider procedures requiring assistance completed. IV discontinued, intact, ca1 bleeding controlled, No redness/swelling at site. Pressure dressing applied. Administered Medications: 13:32 Drug: Tylenol 1000 mg Route: PO; ca1 14:30 Follow up: Response: No adverse reaction; Temperature is decreased ca1 14:00 Drug: Zofran (Ondansetron) 4 mg Route: IVP; Site: right antecubital; ca1 15:00 Follow up: Response: No adverse reaction; Nausea is decreased ca1 14:02 Drug: TORadol - Ketorolac 15 mg Route: IVP; Site: right antecubital; ca1 15:00 Follow up: Response: No adverse reaction; Pain is decreased ca1 14:31 Drug: NS 0.9% 1000 ml Route: IV; Rate: 1 bolus; Site: left antecubital; ca1 15:36 Follow up: Response: No adverse reaction; IV Status: Completed infusion; IV Intake: ca1 1000ml 14:55 Drug: Bactrim (160 mg-800 mg (DS) 1 tablet Route: PO; ca1 15:30 Follow up: Response: No adverse reaction ca1 14:58 Drug: Potassium Effervescent Tablet 25 mEq Route: PO; ca1 15:30 Follow up: Response: No adverse reaction ca1 15:04 Drug: Rocephin 1 grams Route: IV; Rate: calculated rate; Site: right forearm; ca1 15:36 Follow up: Response: No adverse reaction; IV Status: Completed infusion ca1 Intake: 15:36 IV: 1000ml; Total: 1000ml. ca1 Outcome: 14:45 Discharge ordered by . cp 15:59 Discharged to home ambulatory. ca1 15:59 Condition: stable 15:59 Discharge instructions given to patient, Instructed on discharge instructions, follow up and referral plans. medication usage, Demonstrated understanding of instructions, follow-up care, medications, Prescriptions given X 2. 16:01 Patient left the ED. ca1 Addendum: 02/23/2020 08:02 Addendum: Culture Results: Positive urine culture. No further action required. Bacteria a a5 sensitive to prescribed antibiotic. Signatures: Dispatcher [employer] EDMS Nisha Azul RN RN aa5 Javier Alcocer PA PA cp Leal, Jahala, RN RN jl7 Siva Kumar RN RN jd3 Linda Christensen RN RN ca1 Tahira Brown ag5 Corrections: (The following items were deleted from the chart) 02/18 16:01 15:00 Reassessment: Patient appears in no apparent distress at this time. Patient ca1 and/or family updated on plan of care and expected duration. Pain level reassessed. Patient is alert, oriented x 3, equal unlabored respirations, skin warm/dry/pink. ca1
--- NOTE | 2020-02-19 14:47 | EDPHYS ---
Physician Documentation [facility] Name: Chantel Davis Age: 39 yrs Sex: Female : 1980 Arrival Date: 02/19/2020 Time: 11:39 Bed 18 Private MD: ED Physician Javier Sands HPI: 02/18 13:15 This 39 yrs old Female presents to ER via Ambulatory with complaints of Fever. cp 13:15 The patient reports fever, that was measured at 102 degrees Fahrenheit. cp 13:15 Onset: The symptoms/episode began/occurred 2 day(s) ago. Associated signs and symptoms: cp Pertinent positives: abdominal pain, chest pain, cough, back pain, Pertinent negatives: diarrhea, vomiting. Patient reports being diagnosed with COVID-19 on 02-01-2020. Patient states she quarantined for 14 days. Fever times 2 days. Chest, mid back, abdomen pain. 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 - Social history:: Smoking status: Patient denies any tobacco usage or history of. ROS: 13:20 Constitutional: Negative for poor PO intake. cp 13:20 Eyes: Negative for injury, pain, redness, and discharge. cp 13:20 Cardiovascular: Positive for chest pain, Negative for palpitations. 13:20 Respiratory: Positive for cough, Negative for shortness of breath, wheezing. 13:20 Abdomen/GI: Positive for abdominal pain, Negative for vomiting, diarrhea, constipation. 13:20 Back: Positive for pain at rest, of the left mid back. 13:20 : Negative for urinary symptoms. 13:20 Neuro: Negative for altered mental status, headache, weakness. 13:20 All other systems are negative. Exam: 13:25 Constitutional: The patient appears in no acute distress, alert, awake, comfortable, cp non-diaphoretic, non-toxic, well developed, well nourished. 13:25 Head/Face: Normocephalic, atraumatic. cp 13:25 Eyes: Periorbital structures: appear normal, Conjunctiva: normal, no exudate, no injection, Sclera: no appreciated abnormality, Lids and lashes: appear normal, bilaterally. 13:25 ENT: External ear(s): are unremarkable, Ear canal(s): are normal, clear, TM's: dullness, bilaterally, Nose: is normal, Mouth: Lips: moist, Oral mucosa: pink and intact, moist, Posterior pharynx: Airway: no evidence of obstruction, patent. 13:25 Neck: ROM/movement: is normal, is supple, without pain, no range of motions limitations. 13:25 Chest/axilla: Inspection: normal, Palpation: is normal, no crepitus, no tenderness. 13:25 Cardiovascular: Rate: tachycardic, Rhythm: regular. 13:25 Respiratory: the patient does not display signs of respiratory distress, Respirations: normal, no use of accessory muscles, no retractions, labored breathing, is not present, Breath sounds: are clear throughout, no decreased breath sounds, no stridor, no wheezing. 13:25 Abdomen/GI: Inspection: abdomen appears normal, Bowel sounds: active, all quadrants, Palpation: soft, in all quadrants, nontender, in all quadrants, rebound tenderness, is not appreciated, involuntary guarding, is not appreciated. 13:25 Back: pain, that is very mild, of the left mid back, ROM is normal. 13:25 Skin: no rash present. 13:25 Neuro: Orientation: to person, place \T\ time. Mentation: is normal, Motor: moves all fours, strength is normal. Vital Signs: 12:33 BP 140 / 75; Pulse 108; Resp 17; Temp 100; Pulse Ox 99% ; Weight 108.86 kg; Height 5 jl7 ft. 2 in. (157.48 cm); Pain 0/10; 14:30 BP 135 / 86; Pulse 92; Resp 16 S; Pulse Ox 100% on R/A; ca1 15:30 BP 129 / 81; Pulse 98; Resp 16 S; Temp 98.3(O); Pulse Ox 100% ; ca1 12:33 Body Mass Index 43.90 (108.86 kg, 157.48 cm) 7 MDM: 12:52 Patient medically screened. [facility] 14:00 Differential diagnosis: URI, bronchitis, pneumonia gastroenteritis, meningitis, cp pyelonephritis, UTI. 14:45 Data reviewed: vital signs, nurses notes, lab test result(s), radiologic studies, plain cp films. 14:45 Counseling: I had a detailed discussion with the patient and/or guardian regarding: the cp historical points, exam findings, and any diagnostic results supporting the discharge/admit diagnosis, lab results, radiology results, to return to the emergency department if symptoms worsen or persist or if there are any questions or concerns that arise at home. Response to treatment: the patient's symptoms have markedly improved after treatment, and as a result, I will discharge patient. 02/18 13:12 Order name: Urine Microscopic Only; Complete Time: 15:44 02/18 15:44 Interpretation: Normal except: UWBC TNTC; UBACT >50. 02/18 13:12 Order name: Basic Metabolic Panel; Complete Time: 14:21 02/18 14:21 Interpretation: Normal except: K 3.4; GLUC 211; BUN 5; GFR 81. 02/18 13:12 Order name: CBC with Diff; Complete Time: 14:21 02/18 14:22 Interpretation: Normal except: WBC 19.5; RBC 5.00; HGB 11.8; MCV 73.3; MCH 23.6; RDW cp 16.5; DIANE% 83.8; LYM% 5.7; NEUT A 16.4; MNA 2.0. 02/18 13:12 Order name: Hepatic Function; Complete Time: 14:21 02/18 13:12 Order name: Lipase; Complete Time: 14:21 02/18 13:12 Order name: Influenza Screen (a \T\ B); Complete Time: 14:21 02/18 13:12 Order name: XRAY Chest (1 view); Complete Time: 14:21 02/18 13:12 Order name: Strep; Complete Time: 14:21 02/18 14:19 Order name: Throat Culture [facility] 02/18 14:41 Order name: Urine Dipstick--Ancillary (enter results) [facility] 02/18 14:41 Order name: Urine --Ancillary (enter results) [facility] 02/18 15:29 Order name: Urine Culture [facility] 02/18 13:12 Order name: Urine Dipstick-Ancillary (obtain specimen); Complete Time: 14:39 cp 02/18 13:12 Order name: Urine Test (obtain specimen); Complete Time: 14:38 cp 02/18 13:12 Order name: IV Saline Lock; Complete Time: 13:35 cp 02/18 13:12 Order name: Labs collected and sent; Complete Time: 13:35 cp 02/18 14:37 Order name: PO challenge; Complete Time: 14:56 cp Administered Medications: 13:32 Drug: Tylenol 1000 mg Route: PO; ca1 14:30 Follow up: Response: No adverse reaction; Temperature is decreased ca1 14:00 Drug: Zofran (Ondansetron) 4 mg Route: IVP; Site: right antecubital; ca1 15:00 Follow up: Response: No adverse reaction; Nausea is decreased ca1 14:02 Drug: TORadol - Ketorolac 15 mg Route: IVP; Site: right antecubital; ca1 15:00 Follow up: Response: No adverse reaction; Pain is decreased ca1 14:31 Drug: NS 0.9% 1000 ml Route: IV; Rate: 1 bolus; Site: left antecubital; ca1 15:36 Follow up: Response: No adverse reaction; IV Status: Completed infusion; IV Intake: ca1 1000ml 14:55 Drug: Bactrim (160 mg-800 mg (DS) 1 tablet Route: PO; ca1 15:30 Follow up: Response: No adverse reaction ca1 14:58 Drug: Potassium Effervescent Tablet 25 mEq Route: PO; ca1 15:30 Follow up: Response: No adverse reaction ca1 15:04 Drug: Rocephin 1 grams Route: IV; Rate: calculated rate; Site: right forearm; ca1 15:36 Follow up: Response: No adverse reaction; IV Status: Completed infusion ca1 Disposition: 02/19/20 14:45 Discharged to Home. Impression: Urinary tract infection, site not specified. - Condition is Stable. - Discharge Instructions: Urinary Tract Infection, Adult. - Prescriptions for Zofran 4 mg Oral Tablet - take 1 tablet by ORAL route every 12 hours As needed; 20 tablet. Bactrim DS 800- 160 mg Oral Tablet - take 1 tablet by ORAL route every 12 hours for 7 days; 14 tablet. - Medication Reconciliation Form, Thank You Letter, Antibiotic Education, Prescription Opioid Use, Work release form form. - Follow up: Private Physician; When: 2 - 3 days; Reason: Recheck today's complaints. - Problem is new. - Symptoms have improved. Addendum: 02/20/2020 17:58 Co-signature as Attending Physician, Javier Sands MD I agree with the assessment and c logan plan of care. Signatures: Dispatcher [employer] EDNE Javier Sands MD MD cha Page, Corey, Leena Reyes cp, RN RN jl7 Linda Christensen RN RN ca1 Corrections: (The following items were deleted from the chart) 02/18 16:01 14:45 02/19/2020 14:45 Discharged to Home. Impression: Urinary tract infection, site ca1 not specified. Condition is Stable. Forms are Medication Reconciliation Form, Thank You Letter, Antibiotic Education, Prescription Opioid Use. Follow up: Private Physician; When: 2 - 3 days; Reason: Recheck today's complaints. Problem is new. Symptoms have improved. cp
[2020-02-19] MEDS ORDERED: SMZ./TMP. 800/160 MG TABLET ONE (15:13)
[2020-02-19] MEDS ORDERED: CEFTRIAXONE/SWI 1gm 1 GM/10 ML SYR ONE (15:14)
[2020-02-19] MEDS ORDERED: POTASSIUM 25 MEQ EFFERV TAB ONE (15:14)
[2020-02-19 15:23] LABS: Urine Bacteria >50 /HPF (<20); Urine RBC <5 /HPF (NONE SEEN)
[2020-02-19 16:43] LABS: Urine Blood TRACE (NEG); Urine Glucose NEGATIVE (NEG); Urine Protein 2+ (NEG); Urine pH 6.5 (5.0-7.0)
[2020-02-23 17:01] VITALS: O2SAT 100
[2020-02-23 17:02] VITALS: BP 129/81; TEMP 98.3
== END 2020-02-19 16:01 | disposition home or self-care (01) ==
LOC: ER 11:37
DX: N39.0 Urinary tract infection, site not specified (principal); Z20.828 Contact with and (suspected) exposure to other viral communicable diseases
CPT/HCPCS: 36415; 71045; 80048; 80076; 81003; 81015; 81025; 83690; 85025; 87070; 87077; 87081; 87086; 87088; 87186; 87804; 96361; 96365; 96375; 99284; J0696; J2405; J7030

== ENCOUNTER 2020-12-17 15:44 | Emergency (ER) | payer SELFPAY ==
[2020-12-17 17:21] LABS: Absolute Lymphocytes (CBC) 2.2 K/uL (0.7-4.9); Basophils % 0.5 % (0-1.3); Hematocrit 29.2 % (36.0-45.0); Lymphocytes % 28.7 % (15.3-44.8); MPV 8.3 fL (7.6-11.3)
[2020-12-17 17:25] LABS: Protime INR 1.12
[2020-12-17] MEDS ORDERED: NA CHLORIDE 0.9% 1,000 ML ONE ×2 (17:42→20:55)
[2020-12-17 17:45] LABS: BUN Blood Urea Nitrogen 9 mg/dL (7-18); Bicarbonate 27 mmol/L (21-32); Glucose Level 347 mg/dL (74-106); Potassium 3.6 mmol/L (3.5-5.1); Sodium Level 137 mmol/L (136-145)
[2020-12-17 17:47] LABS: HCG, Quantitative < 1 mIU/mL (1-3)
[2020-12-17 17:57] LABS: Urine Blood 2+ (Negative); Urine Glucose 2+ (Negative); Urine Protein Negative (Negative); Urine Specific Gravity 1.025 (1.005-1.030)
[2020-12-17 18:50] LABS: Urine Specific Gravity/Preg 1.025 (1.005-1.030)
[2020-12-17 19:02] LABS: Anisocytosis 1+; Blood Morphology Comment NOTED (NOT SEEN); Hypochromasia 1+; Platelet Estimate ADEQ; Polychromasia 1+; White Blood Cell Scan OK (OK)
--- NOTE | 2020-12-17 19:42 | RAD REPORT ---
EXAM DESCRIPTION: US - Transvaginal Study Probe - 12/17/2020 7:01 pm CLINICAL HISTORY: VAGINAL BLEEDING Preliminary findings provided at time of the study. COMPARISON: CT ABD PELVIS W CONTRAST dated 04/14/2015 TECHNIQUE: Endovaginal sonography was performed. FINDINGS: Uterine size is normal with no myometrial mass. No endometrial mass, polyp or hematoma. No abnormality of the endometrial cavity identifiable. Endometrial thickness is 3 mm. Right ovary is identified and shows normal blood flow within the ovarian stroma. An 18 millimeter rig ht ovarian anechoic cyst is present. Left ovary is not clearly identified may be posterior to the uterus. No left adnexal mass identifiabl e. IMPRESSION: No endometrial abnormality. Uterus normal size. No significant right ovarian or right adnexal finding. Nonvisualization of the left ovary due to bowel or posterior uterine positioning. No left adnexal mas s identifiable.
[2020-12-17] MEDS ORDERED: INSULIN -REGULAR HUMAN 50 UNIT/0.5 ML ML ONE (20:57)
[2020-12-17] MEDS ORDERED: ACETAMINOPHEN 500 MG TAB ONE (21:43)
--- NOTE | 2020-12-17 22:21 | ER ---
Nurse's Notes [facility] Name: Chantel Davis Age: 40 yrs Sex: Female : 1980 Arrival Date: 12/17/2020 Time: 15:46 Bed 16 Private MD: Diagnosis: Abnormal uterine and vaginal bleeding, unspecified;Diabetes mellitus due to underlying condition with hyperglycemia Presentation: 12/17 16:05 Chief complaint: Patient states: "I have been on my period for about a month now, today vg1 I noticed to flow get heavier" States blood is dark read, having 'small chunks of clots' and is having to change pad and tampon every hour. Denies NVD. Coronavirus screen: Vaccine status: Patient reports receiving the 2nd dose of the covid vaccine. Ebola Screen: Patient negative for fever greater than or equal to 101.5 degrees Fahrenheit, and additional compatible Ebola Virus Disease symptoms. Initial Sepsis Screen: Does the patient meet any 2 criteria? No. Patient's initial sepsis screen is negative. Does the patient have a suspected source of infection? No. Patient's initial sepsis screen is negative. Risk Assessment: Do you want to hurt yourself or someone else? Patient reports no desire to harm self or others. Onset of symptoms was December 17, 2020. 16:05 Method Of Arrival: Ambulatory vg1 16:05 Acuity: XENIA 3 vg1 Triage Assessment: 16:08 General: Appears in no apparent distress. comfortable, Behavior is calm, cooperative. vg1 Pain: Complains of pain in suprapubic area, right lower quadrant and left lower quadrant. : Reports vaginal bleeding that is with clots, heavy flow dark red. 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 - Social history:: Smoking status: Patient denies any tobacco usage or history of. Screenin:14 Abuse screen: Denies threats or abuse. Nutritional screening: No deficits noted. ll1 Tuberculosis screening: No symptoms or risk factors identified. Fall Risk IV access (20 points). Gait- Weak (10 pts.). Total Maria Fall Scale indicates Low Risk Score (25-44 pts). Fall prevention measures have been instituted. Side Rails Up X 2 Frequent Obs/Assesments occuring As available Patient and Family Educated on Fall Prevention Program and strategies. Assessment: 17:05 Reassessment: No changes from previously documented assessment. Patient and/or family ll1 updated on plan of care and expected duration. Pain level reassessed. Patient is alert, oriented x 3, equal unlabored respirations, skin warm/dry/pink. 17:57 Reassessment: No changes from previously documented assessment. Patient and/or family ll1 updated on plan of care and expected duration. Pain level reassessed. Patient is alert, oriented x 3, equal unlabored respirations, skin warm/dry/pink. 19:03 Reassessment: No changes from previously documented assessment. Patient and/or family ll1 updated on plan of care and expected duration. Pain level reassessed. Patient is alert, oriented x 3, equal unlabored respirations, skin warm/dry/pink. 19:59 Reassessment: Patient appears in no apparent distress at this time. Accucheck glucose cc4 338 mg/dl; Blank Alcocer NP notified. 20:35 Reassessment: No changes from previously documented assessment. 1000 ml NS hung to cc4 right AC saline lock \\T\\ infusing \\T\\ bolus rate with no s/sx's of infection/infiltration of site; Humulin R (novolin) insulin 5 units given IV as ordered; NAD. 21:19 Pain: Complains of pain in scalp Pain currently is 8 out of 10 on a pain scale. cc4 21:47 Reassessment: Reports decreasing headache to "4" on pain scale; accucheck glucose 276 cc4 mg/dl with SONIYA Gilliland notified with no new orders rec'd. 22:50 : Reports vaginal bleeding that is heavy flow. cc4 Vital Signs: 16:05 BP 133 / 69; Pulse 93; Resp 16; Temp 98.3; Pulse Ox 100% ; Weight 113.4 kg; Height 5 vg1 ft. 2 in. (157.48 cm); Pain 4/10; 17:08 BP 140 / 75 Supine; Pulse 88; ll1 17:10 BP 148 / 90 Sitting; Pulse 91; ll1 17:12 BP 158 / 103 Standing; Pulse 91; ll1 22:50 BP 144 / 83; Pulse 88; Resp 20; Temp 98.1; Pulse Ox 98% on R/A; cc4 16:05 Body Mass Index 45.73 (113.40 kg, 157.48 cm) vg1 ED Course: 15:46 Patient arrived in ED. mr 16:08 Triage completed. vg1 16:08 Arm band placed on. vg1 16:12 Katelyn Abdalla, NATAN is Primary Nurse. ll1 16:12 Patient placed in an exam room, on a stretcher. ll1 16:14 Javier Alcocer PA is PHCP. cp 16:14 Royer Millan MD is Attending Physician. cp 17:14 Patient has correct armband on for positive identification. Bed in low position. Call ll1 light in reach. Side rails up X 1. Pulse ox on. NIBP on. 19:01 US Transvaginal Study (Probe) In Process Unspecified. EDMS 19:03 Inserted. ll1 22:19 Kelsie Funk MD is Referral Physician. cp 22:50 Assist provider with pelvic exam: Performed by Javier QUINONES Patient tolerated well. cc4 22:50 IV discontinued, intact, bleeding controlled, No redness/swelling at site. Pressure cc4 dressing applied. Administered Medications: 12/18 05:33 Discontinued: NS 0.9% 1000 ml IV at 1 bolus Per protocol; 1000 mL bolus cc4 12/17 17:21 Drug: NS 0.9% 1000 ml Route: IV; Rate: 1 bolus; Site: right forearm; ll1 20:35 Drug: NS 0.9% 1000 ml Route: IV; Rate: 1 bolus; Site: right antecubital; cc4 22:50 Follow up: IV Intake: 2000ml cc4 20:35 Drug: Insulin Regular Human 5 units {Co-Signature: dc2 (Makayla Bryson RN).} Route: cc4 IVP; Site: right antecubital; 22:50 Follow up: Response: No adverse reaction; Blood sugar is lowered cc4 21:19 Drug: Acetaminophen 1000 mg Route: PO; cc4 22:50 Follow up: Response: No adverse reaction; Pain is decreased cc4 Intake: 22:50 IV: 2000ml; Total: 2000ml. cc4 Outcome: 22:21 Discharge ordered by . cp 22:50 Discharged to home ambulatory. cc4 22:50 Condition: stable 22:50 Discharge instructions given to patient, Instructed on discharge instructions, follow up and referral plans. medication usage, Demonstrated understanding of instructions, follow-up care, medications, Prescriptions given X 2. 23:43 Patient left the ED. em Signatures: Dispatcher [employer] [facility] ZaragozaOlivia romo Edgar, RN RN em Javier Alcocer, PA PA Kati Oakes, RN RN vg1 Katelyn Abdalla RN RN ll1 Deysi Keating RN RN cc4 Makayla Bryson RN dc2
--- NOTE | 2020-12-17 22:21 | EDPHYS ---
Physician Documentation [facility] Name: Chantel Davis Age: 40 yrs Sex: Female : 1980 Arrival Date: 12/17/2020 Time: 15:46 Bed 16 Private MD: ED Physician Royer Millan HPI: 12/17 19:33 This 40 yrs old Female presents to ER via Ambulatory with complaints of cp Vaginal Bleeding. 19:33 The patient presents with vaginal bleeding that is with clots. Onset: The cp symptoms/episode began/occurred 1 month(s) ago. Associated signs and symptoms: Pertinent positives: cramping, dizziness, Pertinent negatives: fever, vomiting, urinary symptoms. Severity of symptoms: in the emergency department the symptoms are unchanged, despite home interventions. The patient is sexually active, does not use protection during intercourse. The patient's method of control includes nothing. Patient reports vaginal bleeding became heavier today with passage of clots. [address]RA[address] FREIGHT: 16:08 LMP 11/17/2020 vg1 Historical: - Allergies: 16:08 No Known Allergies; vg1 - Home Meds: 16:08 None [Active]; vg1 - PMHx: 16:08 None; vg1 - PSHx: 16:08 Ligation of fallopian tube; vg1 - Immunization history:: Adult Immunizations up to date, Client reports receiving the 2nd dose of the Covid vaccine. - Social history:: Smoking status: Patient denies any tobacco usage or history of. ROS: 19:40 Constitutional: Negative for body aches, chills, fever, poor PO intake. cp 19:40 Eyes: Negative for injury, pain, redness, and discharge. cp 19:40 ENT: Negative for ear pain, sore throat, difficulty swallowing, difficulty handling secretions. 19:40 Cardiovascular: Negative for chest pain, edema, palpitations. 19:40 Respiratory: Negative for cough, shortness of breath, wheezing. 19:40 Abdomen/GI: Positive for abdominal cramps, Negative for nausea, vomiting, and diarrhea. 19:40 Back: Negative for radiated pain. 19:40 : Positive for vaginal bleeding. 19:40 Neuro: Positive for dizziness, Negative for altered mental status, headache, syncope, weakness. 19:40 All other systems are negative. Exam: 19:45 Constitutional: The patient appears in no acute distress, alert, awake, cp non-diaphoretic, non-toxic, well developed, well nourished, obese. 19:45 Head/Face: Normocephalic, atraumatic. cp 19:45 Eyes: Periorbital structures: appear normal, Conjunctiva: normal, no exudate, no injection, Sclera: no appreciated abnormality, Lids and lashes: appear normal, bilaterally. 19:45 ENT: External ear(s): are unremarkable, Nose: is normal, Mouth: Lips: moist, Oral mucosa: moist, Posterior pharynx: Airway: no evidence of obstruction, patent. 19:45 Chest/axilla: Inspection: normal. 19:45 Cardiovascular: Rate: normal, Rhythm: regular, Edema: is not appreciated, JVD: is not appreciated. 19:45 Respiratory: the patient does not display signs of respiratory distress, Respirations: normal, no use of accessory muscles, no retractions, labored breathing, is not present, Breath sounds: are clear throughout, no decreased breath sounds, no stridor, no wheezing. 19:45 Abdomen/GI: Inspection: abdomen appears normal, Bowel sounds: active, all quadrants, Palpation: abdomen is soft and non-tender, in all quadrants, voluntary guarding, is not appreciated, involuntary guarding, is not appreciated. 19:45 Back: pain, is absent, ROM is normal. 19:45 Neuro: Orientation: to person, place \T\ time. Mentation: is normal, Motor: moves all fours, strength is normal, Sensation: is normal. 20:15 : Pelvic Exam: External exam: is normal, Speculum exam: mild bleeding, no cervicitis, cp os that is closed, the nurse was present for the exam. Vital Signs: 16:05 BP 133 / 69; Pulse 93; Resp 16; Temp 98.3; Pulse Ox 100% ; Weight 113.4 kg; Height 5 vg1 ft. 2 in. (157.48 cm); Pain 4/10; 17:08 BP 140 / 75 Supine; Pulse 88; ll1 17:10 BP 148 / 90 Sitting; Pulse 91; ll1 17:12 BP 158 / 103 Standing; Pulse 91; ll1 22:50 BP 144 / 83; Pulse 88; Resp 20; Temp 98.1; Pulse Ox 98% on R/A; cc4 16:05 Body Mass Index 45.73 (113.40 kg, 157.48 cm) vg1 MDM: 16:22 Patient medically screened. cp 22:20 Data reviewed: vital signs, nurses notes, lab test result(s), radiologic studies, cp ultrasound. 22:20 Differential diagnosis: dysmenorrhea, uterine fibroids, urinary tract infection, cp vaginosis, DKA. Counseling: I had a detailed discussion with the patient and/or guardian regarding: the historical points, exam findings, and any diagnostic results supporting the discharge/admit diagnosis, lab results, radiology results, the need for outpatient follow up, for definitive care, a family practitioner, an OB/Gyne specialist, to return to the emergency department if symptoms worsen or persist or if there are any questions or concerns that arise at home. Response to treatment: the patient's symptoms have markedly improved after treatment, patient is well hydrated. VSS. Discussed labs indicating diabetes and anemia. Will start patient on Metformin and Provera. Patient instructed on need for urgent f/u for diabetes and to return to ED worsening bleeding. 12/17 16:27 Order name: Abo/rh Typing cp 12/17 16:27 Order name: Basic Metabolic Panel cp 12/17 16:27 Order name: CBC with Diff cp 12/17 16:27 Order name: Quantitative Hcg; Complete Time: 17:49 cp 12/17 16:27 Order name: PT-INR; Complete Time: 17:49 cp 12/17 16:27 Order name: Ptt, Activated; Complete Time: 17:49 cp 12/17 16:27 Order name: ABO/RH typing; Complete Time: 19:12 EDMS 12/17 16:28 Order name: Basic Metabolic Panel; Complete Time: 17:49 EDMS 12/17 19:13 Interpretation: Normal except: GLUC 347. cp 12/17 16:28 Order name: CBC with Automated Diff; Complete Time: 19:12 EDMS 12/17 17:49 Interpretation: Normal except: HGB 9.0; HCT 29.2; MCV 66.5; MCH 20.4; MCHC 30.7; RDW cp 16.7. 12/17 17:25 Order name: CBC Smear Scan; Complete Time: 19:12 EDMS 12/17 17:57 Order name: Urine Dipstick-Ancillary; Complete Time: 19:12 EDMS 12/17 19:13 Interpretation: Normal except: UGLUC 2+; UKET Trace; UBLD 2+. cp 12/17 17:59 Order name: Urine --Ancillary (enter results); Complete Time: 19:12 eb 12/17 20:12 Order name: Glucose, Ancillary Testing; Complete Time: 21:01 EDMS 12/17 22:01 Order name: Glucose, Ancillary Testing EDMS 12/17 16:27 Order name: Orthostatics; Complete Time: 17:12 cp 12/17 16:27 Order name: IV Saline Lock; Complete Time: 16:50 cp 12/17 16:27 Order name: Labs collected and sent; Complete Time: 16:51 cp 12/17 16:27 Order name: NPO; Complete Time: 16:51 cp 12/17 16:27 Order name: Urine Dipstick-Ancillary (obtain specimen); Complete Time: 17:12 cp 12/17 16:27 Order name: Urine Test (obtain specimen); Complete Time: 17:12 cp 12/17 16:27 Order name: Pelvic Exam Setup; Complete Time: 17:21 cp 12/17 16:27 Order name: Cath; Complete Time: 17:43 cp 12/17 17:50 Order name: US Transvaginal Study (Probe); Complete Time: 19:45 cp 12/17 19:45 Interpretation: Reviewed report. cp 12/17 19:13 Order name: Accucheck Blood Glucose; Complete Time: 22:48 cp 12/17 21:46 Order name: Accucheck Blood Glucose; Complete Time: 22:42 cp Administered Medications: 12/18 05:33 Discontinued: NS 0.9% 1000 ml IV at 1 bolus Per protocol; 1000 mL bolus cc4 12/17 17:21 Drug: NS 0.9% 1000 ml Route: IV; Rate: 1 bolus; Site: right forearm; ll1 20:35 Drug: NS 0.9% 1000 ml Route: IV; Rate: 1 bolus; Site: right antecubital; cc4 22:50 Follow up: IV Intake: 2000ml cc4 20:35 Drug: Insulin Regular Human 5 units {Co-Signature: dc2 (Makayla Bryson RN).} Route: cc4 IVP; Site: right antecubital; 22:50 Follow up: Response: No adverse reaction; Blood sugar is lowered cc4 21:19 Drug: Acetaminophen 1000 mg Route: PO; cc4 22:50 Follow up: Response: No adverse reaction; Pain is decreased cc4 Disposition Summary: 12/17/20 22:21 Discharge Ordered Location: Home cp Problem: new cp Symptoms: have improved cp Condition: Stable cp Diagnosis - Abnormal uterine and vaginal bleeding, unspecified cp - Diabetes mellitus due to underlying condition with hyperglycemia cp Followup: cp - With: Private Physician - When: 1 - 2 days - Reason: hyperglycemia Followup: cp - With: Kelsie Funk MD - When: 2 - 3 days - Reason: vaginal bleed Discharge Instructions: - Discharge Summary Sheet cp - Abnormal Uterine Bleeding cp - Hyperglycemia cp - Dysfunctional Uterine Bleeding cp - Blood Glucose Monitoring, Adult cp Forms: - Medication Reconciliation Form cp - Thank You Letter cp - Antibiotic Education cp - Prescription Opioid Use cp - Work release form cc4 Prescriptions: - Provera 10 mg Oral tablet - take 1 tablet by ORAL route once daily for 7 days; 7 tablet; Refills: 0, cp Product Selection Permitted - Metformin 500 mg Oral Tablet - take 1 tablet by ORAL route once daily for 7 days Then take 1 tablet with cp morning meals AND evening meals; 21 tablet; Refills: 0, Product Selection Permitted Addendum: 12/21/2020 01:57 Co-signature as Attending Physician, Royer Millan MD. r n Signatures: Dispatcher [employer] Royer Martinez MD MD rn Page, Corey, PA PA cp Garcia, Victoria RN RN vg1 Katelyn Abdalla RN RN ll1 Deysi Keating RN RN cc4 Makayla Bryson RN dc2 Corrections: (The following items were deleted from the chart) 12/17 22:26 22:21 Hyperglycemia, unspecified cp cp
[2020-12-17 23:54] VITALS: TEMP 98.3; O2SAT 100
[2020-12-17 23:57] VITALS: BP 158/103
== END 2020-12-17 23:43 | disposition home or self-care (01) ==
LOC: ER 15:44
DX: N93.9 Abnormal uterine and vaginal bleeding, unspecified (principal); E11.65 Type 2 diabetes mellitus with hyperglycemia
CPT/HCPCS: 36415; 76830; 80048; 81003; 81025; 82947; 84702; 85025; 85610; 85730; 86900; 86901; 96374; 99284; J7030

== ENCOUNTER 2021-04-28 17:51 | Emergency (ER) | payer SELFPAY ==
[2021-04-28 20:02] LABS: SARS-COV-2 RT PCR NEGATIVE (NEGATIVE)
--- NOTE | 2021-04-28 20:21 | ER ---
Nurse's Notes [facility] Name: Chantel Davis Age: 41 yrs Sex: Female : 1980 Arrival Date: 04/28/2021 Time: 17:53 Bed 11 Private MD: Diagnosis: Viral infection, unspecified Presentation: 04/28 18:00 Chief complaint: Patient states: "Since yesterday I've had a fever, congestion and sore ab2 throat." Patient denies chest pain or SOB. Coronavirus screen: Vaccine status: Patient reports receiving the 2nd dose of the covid vaccine. Client denies travel out of the [place] in the last 14 days. congestion, fever, headache, runny nose, sore throat, Client presents with at least one sign or symptom that may indicate coronavirus-19. Standard/surgical mask placed on the client. Provider contacted for isolation considerations. Ebola Screen: Patient negative for fever greater than or equal to 101.5 degrees Fahrenheit, and additional compatible Ebola Virus Disease symptoms Patient denies exposure to infectious person. Patient denies travel to an Ebola-affected area in the 21 days before illness onset. No symptoms or risks identified at this time. Initial Sepsis Screen: Does the patient meet any 2 criteria? No. Patient's initial sepsis screen is negative. Does the patient have a suspected source of infection? No. Patient's initial sepsis screen is negative. Risk Assessment: Do you want to hurt yourself or someone else? Patient reports no desire to harm self or others. Onset of symptoms is unknown. 18:00 Method Of Arrival: Ambulatory ab2 18:00 Acuity: XENIA 4 ab2 Triage Assessment: 18:04 General: Appears in no apparent distress. comfortable, Behavior is calm, cooperative, ab2 appropriate for age. Pain: Complains of pain in head Pain currently is 7 out of 10 on a pain scale. Respiratory:. Historical: - Allergies: 18:03 No Known Allergies; ab2 - PMHx: 18:03 Diabetes mellitus; ab2 - PSHx: 18:03 Ligation of fallopian tube; ab2 - Immunization history:: Adult Immunizations up to date, Client reports receiving the 2nd dose of the Covid vaccine, Flu vaccine is not up to date. - Social history:: Smoking status: Patient denies any tobacco usage or history of. Screenin:51 Abuse screen: Denies threats or abuse. Denies injuries from another. Nutritional ld1 screening: No deficits noted. Tuberculosis screening: No symptoms or risk factors identified. Fall Risk None identified. Assessment: 18:51 Reassessment: see triage assessment. Cardiovascular: Capillary refill < 3 seconds ld1 Patient's skin is warm and dry. Respiratory: Airway is patent Respiratory effort is even, unlabored, Breath sounds are clear bilaterally. Vital Signs: 18:00 BP 154 / 81; Pulse 96; Resp 18; Temp 98.2(TE); Pulse Ox 98% on R/A; Weight 99.79 kg; ab2 Height 5 ft. 2 in. (157.48 cm); Pain 7/10; 18:00 Body Mass Index 40.24 (99.79 kg, 157.48 cm) ab2 ED Course: 17:53 Patient arrived in ED. as 18:03 Triage completed. ab2 18:05 Arm band placed on left wrist. ab2 18:10 [facility] Tomlin [facility]. jr8 18:10 Royer Millan MD is Attending Physician. jr8 18:17 Trudy Campos RN is Primary Nurse. ld1 18:51 Patient has correct armband on for positive identification. Bed in low position. Call ld1 light in reach. Side rails up X2. Pulse ox on. NIBP on. Door closed. Noise minimized. 18:51 COVID-19/FLU A+B (Document "Date of Onset" if Symptomatic) Sent. ld1 18:51 No provider procedures requiring assistance completed. Patient did not have IV access ld1 during this emergency room visit. Administered Medications: 20:31 Drug: Zofran (Ondansetron) 4 mg Route: PO; vc1 20:31 Follow up: Response: No adverse reaction vc1 Outcome: 20:20 Discharge ordered by . jr8 20:31 Discharged to home ambulatory. vc1 20:31 Condition: good 20:31 Discharge instructions given to patient, Instructed on discharge instructions, follow up and referral plans. medication usage, Demonstrated understanding of instructions, follow-up care, medications, Prescriptions given X 3. 20:31 Patient left the ED. vc1 Signatures: Moira Red as Aleksey Tomlin PA PA jr8 Trudy Campos, RN RN ld1 Jordan Damon ab2 Calcote, Kristi, RN RN vc1
--- NOTE | 2021-04-28 20:21 | EDPHYS ---
Physician Documentation [facility] Name: Chantel Davis Age: 41 yrs Sex: Female : 1980 Arrival Date: 04/28/2021 Time: 17:53 Bed 11 Private MD: ED Physician Royer Millan HPI: 04/28 18:41 This 41 yrs old Female presents to ER via Ambulatory with complaints of Fever, jr8 Congestion, Headache, Runny Nose. 18:41 Onset: The symptoms/episode began/occurred acutely, yesterday. Modifying factors: there jr8 are no obvious modifying factors. Associated signs and symptoms: Pertinent positives: decreased appetite, nausea. Severity of symptoms: At their worst the symptoms were mild in the emergency department the symptoms are unchanged. The patient has not experienced similar symptoms in the past. The patient has not recently seen a physician. Historical: - Allergies: 18:03 No Known Allergies; ab2 - PMHx: 18:03 Diabetes mellitus; ab2 - PSHx: 18:03 Ligation of fallopian tube; ab2 - Immunization history:: Adult Immunizations up to date, Client reports receiving the 2nd dose of the Covid vaccine, Flu vaccine is not up to date. - Social history:: Smoking status: Patient denies any tobacco usage or history of. ROS: 18:41 Constitutional: Positive for chills, fever. jr8 18:41 ENT: Positive for rhinorrhea, sore throat. 18:41 Abdomen/GI: Positive for nausea and vomiting, Negative for abdominal pain, diarrhea. 18:41 Neuro: Positive for dizziness. 18:41 All other systems are negative. Exam: 18:41 Eyes: Pupils equal round and reactive to light, extra-ocular motions intact. Lids and jr8 lashes normal. Conjunctiva and sclera are non-icteric and not injected. Cornea within normal limits. Periorbital areas with no swelling, redness, or edema. ENT: Nares patent. No nasal discharge, no septal abnormalities noted. Tympanic membranes are normal and external auditory canals are clear. Oropharynx with no redness, swelling, or masses, exudates, or evidence of obstruction, uvula midline. Mucous membranes moist. Neck: Trachea midline, no thyromegaly or masses palpated, and no cervical lymphadenopathy. Supple, full range of motion without nuchal rigidity, or vertebral point tenderness. No Meningismus. Cardiovascular: Regular rate and rhythm with a normal S1 and S2. No gallops, murmurs, or rubs. Normal PMI, no JVD. No pulse deficits. Respiratory: Lungs have equal breath sounds bilaterally, clear to auscultation and percussion. No rales, rhonchi or wheezes noted. No increased work of breathing, no retractions or nasal flaring. Abdomen/GI: Soft, non-tender, with normal bowel sounds. No distension or tympany. No guarding or rebound. No evidence of tenderness throughout. Back: No spinal tenderness. No costovertebral tenderness. Full range of motion. Skin: Warm, dry with normal turgor. Normal color with no rashes, no lesions, and no evidence of cellulitis. MS/ Extremity: Pulses equal, no cyanosis. Neurovascular intact. Full, normal range of motion. Neuro: Awake and alert, GCS 15, oriented to person, place, time, and situation. Cranial nerves II-XII grossly intact. Motor strength 5/5 in all extremities. Sensory grossly intact. Vital Signs: 18:00 BP 154 / 81; Pulse 96; Resp 18; Temp 98.2(TE); Pulse Ox 98% on R/A; Weight 99.79 kg; ab2 Height 5 ft. 2 in. (157.48 cm); Pain 7/10; 18:00 Body Mass Index 40.24 (99.79 kg, 157.48 cm) ab2 MDM: 18:10 Patient medically screened. [facility] 20:20 Data reviewed: vital signs, nurses notes, lab test result(s), and as a result, I will [facility] discharge patient. Data interpreted: Pulse oximetry: on room air is 98 %. Interpretation: normal. Counseling: I had a detailed discussion with the patient and/or guardian regarding: the historical points, exam findings, and any diagnostic results supporting the discharge/admit diagnosis, lab results, the need for outpatient follow up, a family practitioner, to return to the emergency department if symptoms worsen or persist or if there are any questions or concerns that arise at home. 04/28 18:33 Order name: COVID-19/FLU A+B (Document "Date of Onset" if Symptomatic); Complete Time: 20:19 Administered Medications: 20:31 Drug: Zofran (Ondansetron) 4 mg Route: PO; vc1 20:31 Follow up: Response: No adverse reaction vc1 Disposition: 04/29 07:16 Co-signature as Attending Physician, Royer Millan MD. rn Disposition Summary: 04/28/21 20:20 Discharge Ordered Location: Home jr8 Problem: new jr8 Symptoms: have improved jr8 Condition: Stable jr8 Diagnosis - Viral infection, unspecified jr8 Followup: jr8 - With: Private Physician - When: 1 week - Reason: Recheck today's complaints, Continuance of care, Re-evaluation by your physician Discharge Instructions: - Discharge Summary Sheet jr8 - Viral Respiratory Infection jr8 Forms: - Medication Reconciliation Form jr8 - Thank You Letter jr8 - Antibiotic Education jr8 - Prescription Opioid Use jr8 Prescriptions: - Zofran 4 mg Oral Tablet - take 1 tablet by ORAL route every 12 hours As needed; 20 tablet; Refills: 0, jr8 Product Selection Permitted - Tessalon Perles 100 mg Oral Capsule - take 1 capsule by ORAL route every 8 hours As needed; 15 capsule; Refills: 0, jr8 Product Selection Permitted - Medrol (Facundo) 4 mg Oral Tablets, Dose Pack - take 1 tablet by ORAL route as directed - follow package instructions; 1 jr8 packet; Refills: 0, Product Selection Permitted Signatures: Dispatcher [employer] Royer Martinez MD MD rn Roszak, Josh, PA PA jr8 Jordan Damon ab2 Kristi Hanson RN RN vc1
[2021-04-28] MEDS ORDERED: ONDANSETRON 4 MG (ODT) TAB ONE (20:30)
[2021-04-28 20:36] VITALS: BP 154/81; TEMP 98.2; O2SAT 98
== END 2021-04-28 20:31 | disposition home or self-care (01) ==
LOC: ER 17:51
DX: B34.9 Viral infection, unspecified (principal); Z20.822 Contact with and (suspected) exposure to COVID-19; E11.9 Type 2 diabetes mellitus without complications
CPT/HCPCS: 0240U; 99284

== ENCOUNTER 2021-07-27 11:16 | Emergency (ER) | payer SELFPAY ==
--- NOTE | 2021-07-27 15:09 | RAD REPORT ---
EXAM DESCRIPTION: RAD - Chest Pa And Lat (2 Views) - 07/27/2021 2:49 pm CLINICAL HISTORY: Cough COMPARISON: Portable chest 02/19/2020 TECHNIQUE: Frontal and lateral views of the chest were obtained. FINDINGS: The lungs are clear. Interstitial pattern is similar to comparison. Heart size is normal and central vasculature is within normal limits. No pleural effusion or pneumothorax seen. No acute bony finding noted. No aortic abnormality. IMPRESSION: No acute cardiopulmonary process.
--- NOTE | 2021-07-27 15:17 | EDPHYS ---
Physician Documentation [facility] Name: Chantel Davis Age: 41 yrs Sex: Female : 1980 Arrival Date: 07/27/2021 Time: 11:19 Bed Waiting Private MD: ED Physician Adriana Cast HPI: 07/27 13:51 This 41 yrs old Female presents to ER via Ambulatory with complaints of Cough, pm1 Congestion. 13:51 The patient or guardian reports cough. Onset: The symptoms/episode began/occurred pm1 yesterday. Severity of symptoms: in the emergency department the symptoms are actually worse. Modifying factors: The symptoms are alleviated by nothing, the symptoms are aggravated by nothing. Associated signs and symptoms: Pertinent positives: sore throat, shortness of breath, Pertinent negatives: chest pain, ear ache, fever. The patient has not experienced similar symptoms in the past. The patient has not recently seen a physician. Patient with onset of sore throat with coughing and shortness of breath. 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 - Social history:: Smoking status: Patient denies any tobacco usage or history of. ROS: 13:51 Constitutional: Negative for fever, chills, and weight loss. pm1 13:51 Cardiovascular: Negative for chest pain, palpitations, and edema. 13:51 Abdomen/GI: Negative for abdominal pain, nausea, vomiting, diarrhea, and constipation, Back: Negative for injury and pain, MS/Extremity: Negative for injury and deformity, Skin: Negative for injury, rash, and discoloration, Neuro: Negative for headache, weakness, numbness, tingling, and seizure. 13:51 ENT: Positive for sore throat, Negative for ear pain. 13:51 Respiratory: Positive for cough, shortness of breath. 13:51 All other systems are negative. Exam: 13:51 Constitutional: This is a well developed, well nourished patient who is awake, alert, pm1 and in no acute distress. Head/Face: Normocephalic, atraumatic. 13:51 Back: No spinal tenderness. No costovertebral tenderness. Full range of motion. Skin: Warm, dry with normal turgor. Normal color with no rashes, no lesions, and no evidence of cellulitis. MS/ Extremity: Pulses equal, no cyanosis. Neurovascular intact. Full, normal range of motion. 13:51 Eyes: Exam is negative for acute changes, Periorbital structures: appear normal, Extraocular movements: no acute changes. 13:51 ENT: Posterior pharynx: Tonsils: bilaterally enlarged, with erythema, no exudate, no ulcerations, erythema, that is moderate, peritonsillar mass, is not appreciated, pooling of secretions, is not appreciated. 13:51 Neck: Lymph nodes: lymphadenopathy is appreciated. 13:51 Cardiovascular: Exam negative for acute changes, Rate: normal, Rhythm: regular, Pulses: no pulse deficits are appreciated, Heart sounds: normal. 13:51 Respiratory: Exam negative for acute changes, respiratory distress, shortness of breath. 13:51 Neuro: Exam negative for acute changes, Orientation: is normal, Mentation: is normal, Motor: is normal, moves all fours. Vital Signs: 11:39 Pulse 70; Temp 97.9; Pulse Ox 100% ; Weight 111.13 kg; Height 5 ft. 2 in. (157.48 cm); ap3 13:02 BP 145 / 78; ap3 11:39 Body Mass Index 44.81 (111.13 kg, 157.48 cm) ap3 MDM: 13:44 Patient medically screened. pm1 15:15 Data reviewed: vital signs. Data interpreted: Pulse oximetry: on room air is 100 %. pm1 Interpretation: normal. Counseling: I had a detailed discussion with the patient and/or guardian regarding: the historical points, exam findings, and any diagnostic results supporting the discharge/admit diagnosis, lab results, radiology results, the need for outpatient follow up, to return to the emergency department if symptoms worsen or persist or if there are any questions or concerns that arise at home. 07/27 11:43 Order name: Flu; Complete Time: 12:22 ap3 07/27 11:43 Order name: COVID-19 SARS RT PCR (Document "Date of Onset" if Symptomatic); Complete ap3 Time: 13:08 05/20 13:51 Order name: Strep; Complete Time: 14:14 pm1 07/27 13:51 Order name: Chest Pa And Lat (2 Views) XRAY; Complete Time: 15:15 pm1 07/27 14:14 Order name: Throat Culture EDMS Administered Medications: No medications were administered Disposition Summary: 07/27/21 15:16 Discharge Ordered Location: Home pm1 Problem: new pm1 Symptoms: have improved pm1 Condition: Stable pm1 Diagnosis - Acute pharyngitis, unspecified pm1 Followup: pm1 - With: Emergency Department - When: As needed - Reason: Worsening of condition Followup: pm1 - With: Private Physician - When: 2 - 3 days - Reason: Recheck today's complaints, Continuance of care, Re-evaluation by your physician Discharge Instructions: - Discharge Summary Sheet pm1 - Pharyngitis pm1 - Cough, Adult pm1 Forms: - Medication Reconciliation Form pm1 - Thank You Letter pm1 - Antibiotic Education pm1 - Prescription Opioid Use pm1 Prescriptions: - Guaifenesin AC 10-100 mg/5 mL Oral Liquid - take 10 milliliters by ORAL route every 4 hours As needed; 240 milliliter; pm1 Refills: 0, Product Selection Permitted Signatures: Dispatcher [employer] EDRon Bennett NP UTILITY SPECIALIST pm1 Cindy Alcantar, RN RN ap3
--- NOTE | 2021-07-27 15:17 | ER ---
Nurse's Notes [facility] Name: Chantel Davis Age: 41 yrs Sex: Female : 1980 Arrival Date: 07/27/2021 Time: 11:19 Bed Waiting Private MD: Diagnosis: Acute pharyngitis, unspecified Presentation: 07/27 11:39 Chief complaint: Patient states: she started having cough and congestion yesterday ap3 afternoon. patient states symptoms have worsened since onset. Coronavirus screen: congestion, cough unrelated to allergies, fatigue. Ebola Screen: No symptoms or risks identified at this time. Initial Sepsis Screen: Does the patient meet any 2 criteria? No. Patient's initial sepsis screen is negative. Does the patient have a suspected source of infection? No. Patient's initial sepsis screen is negative. Risk Assessment: Do you want to hurt yourself or someone else? Patient reports no desire to harm self or others. Onset of symptoms was July 26, 2021. 11:39 Method Of Arrival: Ambulatory ap3 11:39 Acuity: XENIA 4 ap3 Triage Assessment: 11:41 General: Appears in no apparent distress. Behavior is calm, cooperative. General: ap3 Reports chills for feeling ill for fatigue for. Pain: Complains of pain in general body aches. Neuro: Level of Consciousness is awake, alert, obeys commands, Oriented to person, place, time, situation, Gait is steady, Speech is normal. Cardiovascular: Patient's skin is warm and dry. Respiratory: Reports cough that is Airway is patent Breath sounds are clear bilaterally. 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 - Social history:: Smoking status: Patient denies any tobacco usage or history of. Screenin:41 Abuse screen: Denies threats or abuse. Nutritional screening: No deficits noted. ap3 Tuberculosis screening: No symptoms or risk factors identified. Fall Risk None identified. Assessment: 15:42 Reassessment: Patient appears in no apparent distress at this time. Patient and/or ss family updated on plan of care and expected duration. Pain level reassessed. Patient is alert, oriented x 3, equal unlabored respirations, skin warm/dry/pink. Vital Signs: 11:39 Pulse 70; Temp 97.9; Pulse Ox 100% ; Weight 111.13 kg; Height 5 ft. 2 in. (157.48 cm); ap3 13:02 BP 145 / 78; ap3 11:39 Body Mass Index 44.81 (111.13 kg, 157.48 cm) ap3 ED Course: 11:19 Patient arrived in ED. mr 11:40 Triage completed. ap3 11:42 Arm band placed on right wrist. ap3 11:42 Patient has correct armband on for positive identification. Pulse ox on. NIBP on. ap3 11:50 Ron Azul NP is PHCP. pm1 11:50 Adriana Cast MD is Attending Physician. pm1 14:51 Chest Pa And Lat (2 Views) XRAY In Process Unspecified. EDMS 14:56 No provider procedures requiring assistance completed. Patient did not have IV access ap3 during this emergency room visit. Administered Medications: No medications were administered Medication: 11:42 VIS not applicable for this client. ap3 Outcome: 14:56 Discharged to home ambulatory. ap3 14:56 Condition: good 15:16 Discharge ordered by . pm1 15:42 Discharge instructions given to patient, Instructed on discharge instructions, follow ss up and referral plans. medication usage, Demonstrated understanding of instructions, follow-up care, medications, Prescriptions given X 1. 15:43 Patient left the ED. ss Signatures: Dispatcher [employer] [facility] NikOlivia mr MosleyMikayla, RN RN ss Ron Azul, SONIYA SUPERVISOR GENERAL pm1 Cindy Alcantar RN RN ap3
[2021-07-27 15:50] VITALS: TEMP 97.9; O2SAT 100
[2021-07-27 15:52] VITALS: BP 145/78
== END 2021-07-27 15:43 | disposition home or self-care (01) ==
LOC: ER 11:16
DX: J02.9 Acute pharyngitis, unspecified (principal); R05.9 Cough, unspecified; Z20.822 Contact with and (suspected) exposure to COVID-19; E11.9 Type 2 diabetes mellitus without complications
CPT/HCPCS: 71046; 87070; 87081; 87804; 99283; U0003

== ENCOUNTER 2023-01-12 12:43 | Emergency (ER) | payer SELFPAY ==
[2023-01-12] MEDS ORDERED: ONDANSETRON 4 MG (ODT) TAB ONE (13:26)
[2023-01-12 13:41] LABS: SARS-CoV-2 Antigen Rapid Res Negative (Negative)
[2023-01-12 14:23] LABS: Absolute Lymphocytes (CBC) 3.4 K/uL (0.7-4.9); Hematocrit 24.1 % (36.0-45.0); Lymphocytes % 31.4 % (15.3-44.8); MCV 51.5 fL (80-100); MPV 8.3 fL (7.6-11.3); Platelets 408 thou/uL (152-406); RBC Red Blood Cell Count 4.68 M/uL (3.86-4.86)
[2023-01-12 14:25] LABS: Specific Gravity 1.005 (1.005-1.030)
[2023-01-12 14:30] LABS: Specific Gravity 1.005 (1.005-1.030); Urine Bacteria 20-50 /HPF (<20); Urine Bilirubin NEGATIVE (Negative); Urine Blood Negative (Negative); Urine Clarity Extremely Turbid (Clear); Urine Color Colorless (Yellow); Urine Crystals Unidentified Few /HPF (None Seen); Urine Glucose NEGATIVE (Negative); Urine Mucus Slight /HPF (None Seen); Urine Protein NEGATIVE (Negative); Urine RBC <5 /HPF (None Seen); Urine Urobilinogen Normal (Normal)
[2023-01-12 14:47] LABS: Albumin 3.9 g/dL (3.4-5.0); Bilirubin Total 0.4 mg/dL (0.2-1.0); Potassium 3.2 mEq/L (3.5-5.1); Protein, Total 8.4 g/dL (6.4-8.2)
--- NOTE | 2023-01-12 15:59 | RAD REPORT ---
EXAM DESCRIPTION: CT - Abdomen Pelvis W Contrast - 01/12/2023 3:02 pm CLINICAL HISTORY: Abd pain;Nausea / vomiting COMPARISON: CT ABD PELVIS W CONTRAST dated 04/14/2015; CT ABD PELVIS W CONTRAST dated 06/25/2014; CT AB D PELVIS W CONTRAST dated 05/29/2014 TECHNIQUE: Thin cut axial CT imaging of the abdomen and pelvis was performed following intravenous a dministration of 100 mL Isovue 300. Multiplanar reformats were generated and reviewed. All CT scans are performed using dose optimization technique as appropriate and may include automated exposure control or mA/KV adjustment according to patient size. FINDINGS: No suspicious findings in the lung bases. The liver, spleen, adrenal glands, and pancreas show no suspicious findings. Gallbladder was surgical ly removed. Symmetric renal function is seen with no hydronephrosis or suspicious renal mass. Progressive enlargement of right adnexal cystic lesion now measuring 14.2 x 9.4 cm in greatest axial dimensions , previously measured 6.5 x 4.4 cm. Complex left ovarian cystic lesion measuring up to 3.2 cm, with a marginally enhancing component is grossly stable in size, although the marginally enhance component appears new. No dilated bowel loops or bowel wall thickening. No free air, free fluid or inflammatory stranding. N o hernia, mass or bulky lymphadenopathy. The urinary bladder is without significant finding. No suspicious bony findings. IMPRESSION: Progressive enlargement of right adnexal thin-walled cystic lesion, now up to 14.2 cm in greatest dimension. Given the size and progressive enlargement, concern for underlying cystic malign nusrat should be raised, and gynecologic referral for appropriate management is recommended. Probably physiologic cystic lesion of the left ovary as above. No other acute intra- abdominal process.
[2023-01-12 16:03] LABS: White Blood Cell Scan OK (OK)
[2023-01-12 16:04] LABS: Platelet Estimate ADEQ
[2023-01-12 16:05] LABS: Anisocytosis 1+; Blood Morphology Comment NOTED (NOT SEEN); Poikilocytosis 3+; Polychromasia 3+
--- NOTE | 2023-01-12 16:23 | EDPHYS ---
Physician Documentation [facility] Name: Chantel Davis Age: 42 yrs Sex: Female : 1980 Arrival Date: 01/12/2023 Time: 12:43 Bed 5 Private MD: ED Physician Royer Millan HPI: 01/12 13:17 This 42 yrs old Female presents to ER via Ambulatory with complaints of rn Vomiting. 13:17 The patient presents to the emergency department with nausea, vomiting. Onset: The rn symptoms/episode began/occurred yesterday. Possible causes: unknown. The symptoms are aggravated by nothing. The symptoms are alleviated by nothing. Severity of symptoms: At their worst the symptoms were mild in the emergency department the symptoms are unchanged. The patient has not experienced similar symptoms in the past. The patient has not recently seen a physician. Patient reports nausea and vomiting, several times began yesterday, associated with sore throat, headache, myalgias. No shortness of breath. No abdominal pain. Has had cholecystectomy in past. No urinary symptoms. Denies .. Historical: - Allergies: 13:05 No Known Allergies; cm10 - PMHx: 13:05 diabetes mellitus; cm10 - PSHx: 13:05 Ligation of fallopian tube; cm10 - Immunization history:: Adult Immunizations unknown. - Social history:: Smoking status: Patient denies any tobacco usage or history of. - Family history:: not pertinent. - Hospitalizations: : No recent hospitalization is reported. ROS: 13:17 Constitutional: Negative for fever, chills, and weight loss, Eyes: Negative for injury, rn pain, redness, and discharge, ENT: Positive for sore throat and congestion Neck: Negative for injury, pain, and swelling, Cardiovascular: Negative for chest pain, palpitations, and edema, Respiratory: Negative for shortness of breath, cough, wheezing, and pleuritic chest pain, Abdomen/GI: Positive for nausea/vomiting Back: Negative for injury and pain, : Negative for injury, bleeding, discharge, and swelling, MS/Extremity: Negative for injury and deformity, Skin: Negative for injury, rash, and discoloration, Neuro: Positive for headache and generalized weakness Exam: 13:17 Constitutional: This is a well developed, well nourished patient who is awake, alert, rn and in no acute distress. Head/Face: Normocephalic, atraumatic. Eyes: Pupils equal round and reactive to light, extra-ocular motions intact. ENT: Mild pharyngeal erythema, no stridor Neck: Trachea midline, no masses palpated, and no cervical lymphadenopathy. Supple, full range of motion without nuchal rigidity, or vertebral point tenderness. No Meningismus. Cardiovascular: Regular rate and rhythm. No pulse deficits. Respiratory: No increased work of breathing, no retractions or nasal flaring. Abdomen/GI: Soft, non-tender Neuro: Awake and alert, GCS 15 Vital Signs: 13:04 BP 134 / 73; Pulse 75; Resp 18; Temp 97.2; Pulse Ox 100% on R/A; Weight 95.25 kg; cm10 Height 5 ft. 2 in. ; Pain 7/10; 14:06 BP 115 / 63; Pulse 74; Resp 18; Pulse Ox 100% on R/A; mb9 16:07 BP 119 / 65; Pulse 72; Resp 18; Pulse Ox 99% on R/A; mb9 13:04 Body Mass Index 38.41 (95.25 kg, 157.48 cm) cm10 13:04 Pain Scale: Adult cm10 MDM: 13:05 Patient medically screened. rn 16:21 Differential diagnosis: Nonspecific abd pain, cholecystitis, pancreatitis, rn appendicitis, diverticulitis, viral gastroenteritis, gastroenteritis. Data reviewed: vital signs, nurses notes, lab test result(s), radiologic studies, CT scan, and as a result, I will discharge patient. Counseling: I had a detailed discussion with the patient and/or guardian regarding the historical points, exam findings, and any diagnostic results supporting the discharge/admit diagnosis, lab results, radiology results, the need for outpatient follow up, to return to the emergency department if symptoms worsen or persist or if there are any questions or concerns that arise at home. Special discussion: I discussed with the patient/guardian in detail that at this point there is no indication for admission to the hospital. It is understood, however, that if the symptoms persist or worsen the patient needs to return immediately for re-evaluation. Based on the history and exam findings, there is no indication for further emergent testing or inpatient evaluation. I discussed with the patient/guardian the need to see the OB Gyne specialist for further evaluation of the symptoms. I discussed with the patient/guardian the need to see the primary care provider for further evaluation of the symptoms. ED course: CT shows enlargement of previous right adnexal cyst. Spoke at length with patient, knows about cyst and knows that had been growing but did not follow-up when told she needed to see some specialist in [place]. Reports uterus has been biopsied 2 years ago and was negative but cyst was never biopsied. Also reports has heavy vaginal bleeding but no current bleeding from vagina or stool. No clear etiology for vomiting but will DC home with as needed Zofran and urged her to follow-up with gynecology for cyst and vaginal bleeding.. 01/12 13:12 Order name: Flu; Complete Time: 13:48 cm10 01/12 13:12 Order name: SARS RAPID; Complete Time: 13:48 cm10 01/12 13:49 Order name: Urinalysis w/ reflexes; Complete Time: 16:10 rn 01/12 13:49 Order name: Test, Urine; Complete Time: 16:10 rn 01/12 13:55 Order name: CBC with Diff; Complete Time: 16:12 rn 01/12 13:55 Order name: CMP; Complete Time: 16:10 rn 01/12 14:30 Order name: CBC Smear Scan; Complete Time: 16:12 EDNE 01/12 14:33 Order name: Urine Culture EDNE 01/12 13:55 Order name: CT Abd/Pelvis - IV Contrast Only; Complete Time: 16:10 rn 01/12 13:55 Order name: IV Start; Complete Time: 14:06 rn Administered Medications: 13:16 Drug: Ondansetron Oral Disintegrating Tablet Oral Disintegrating Tablet 4 mg PO once cm10 Route: PO; 14:06 Follow up: Response: No adverse reaction mb9 Disposition Summary: 01/12/23 16:23 Discharge Ordered Notes: Location: Home rn Problem: new rn Symptoms: have improved rn Condition: Stable rn Diagnosis - Vomiting rn - Adnexal mass rn - Anemia, unspecified rn Followup: rn - With: Private Physician - When: As needed - Reason: Recheck today's complaints, Re-evaluation by your physician Discharge Instructions: - Discharge Summary Sheet rn - Anemia rn - Vomiting, Adult rn Forms: - Medication Reconciliation Form rn - Thank You Letter rn - Antibiotic digital media intern - Prescription Opioid Use rn - Patient Portal Instructions rn - Leadership Thank You Letter rn Prescriptions: - ondansetron 4 mg Oral Tablet,disintegrating - take 1 tablet ORAL route every 8-12 hours As needed; 12 tablet; Refills: 0, rn Product Selection Permitted Signatures: Dispatcher [employer] Royer Martinez MD MD rn Sabiha Red RN RN cm10 Olivia South RN mb9
--- NOTE | 2023-01-12 16:23 | ER ---
Nurse's Notes [facility] Name: Chantel Davis Age: 42 yrs Sex: Female : 1980 Arrival Date: 01/12/2023 Time: 12:43 Bed 5 Private MD: Diagnosis: Vomiting;Adnexal mass;Anemia, unspecified Presentation: 01/12 13:04 Chief complaint: Patient states: vomiting, headache and decrease in appetite X2 days. cm10 pt also reports that she has had abdominal pain. Coronavirus screen: Vaccine status: Patient reports receiving the 2nd dose of the covid vaccine. Client denies travel out of the [place] in the last 14 days. Ebola Screen: Patient denies travel to an Ebola-affected area in the 21 days before illness onset. No symptoms or risks identified at this time. Initial Sepsis Screen: Does the patient meet any 2 criteria? No. Patient's initial sepsis screen is negative. Does the patient have a suspected source of infection? No. Patient's initial sepsis screen is negative. Risk Assessment: Do you want to hurt yourself or someone else? Patient reports no desire to harm self or others. Onset of symptoms was January 12, 2023. 13:04 Method Of Arrival: Ambulatory cm10 13:04 Acuity: XENIA 3 cm10 Triage Assessment: 13:10 General: Appears in no apparent distress. comfortable, Behavior is calm, cooperative. cm10 Pain: Complains of pain in head and abdomen. EENT: No deficits noted. No signs and/or symptoms were reported regarding the EENT system. Neuro: No deficits noted. Moses Agitation-Sedation Scale (RASS): 0 - Alert and Calm Level of Consciousness is awake, alert, obeys commands, Oriented to person, place, time, situation. Cardiovascular: No deficits noted. Patient's skin is warm and dry. Respiratory: No deficits noted. Airway is patent Respiratory effort is even, unlabored, Respiratory pattern is regular, symmetrical. GI: Reports nausea, vomiting. : No deficits noted. No signs and/or symptoms were reported regarding the genitourinary system. Derm: No deficits noted. No signs and/or symptoms reported regarding the dermatologic system. Skin is intact, Skin is pink, warm \T\ dry. Musculoskeletal: No deficits noted. No signs and/or symptoms reported regarding the musculoskeletal system. Range of motion: intact in all extremities. Historical: - Allergies: 13:05 No Known Allergies; cm10 - PMHx: 13:05 diabetes mellitus; cm10 - PSHx: 13:05 Ligation of fallopian tube; cm10 - Immunization history:: Adult Immunizations unknown. - Social history:: Smoking status: Patient denies any tobacco usage or history of. - Family history:: not pertinent. - Hospitalizations: : No recent hospitalization is reported. Screenin:55 [facility] ED Fall Risk Assessment (Adult) History of falling in the last 3 months, mb9 including since admission No falls in past 3 months (0 pts) Confusion or Disorientation No (0 pts) Intoxicated or Sedated No (0 pts) Impaired Gait No (0 pts) Mobility Assist Device Used No (0 pt) Altered Elimination No (0 pt) Score/Fall Risk Level 0 - 2 = Low Risk Oriented to surroundings, Maintained a safe environment, Educated pt \T\ family on fall prevention, incl call for assistance when getting out of bed. Abuse screen: Denies threats or abuse. Nutritional screening: No deficits noted. Tuberculosis screening: No symptoms or risk factors identified. Assessment: 13:55 Reassessment: pt brought back to ER 5. mb9 14:07 General: Appears in no apparent distress. Behavior is calm, cooperative. Pain: mb9 Complains of pain in abdomen Pain radiates to RLQ and RUQ. Neuro: Moses Agitation-Sedation Scale (RASS): 0 - Alert and Calm Level of Consciousness is awake, alert, obeys commands, Oriented to person, place, time, situation, Appropriate for age. Cardiovascular: Patient's skin is warm and dry. Respiratory: Airway is patent Respiratory effort is even, unlabored, Respiratory pattern is regular, symmetrical, Breath sounds are clear bilaterally. GI: Abdomen is round non-distended, Bowel sounds present X 4 quads. Abd is soft Abdomen is tender to palpation in right upper quadrant and right lower quadrant Reports nausea, vomiting. : No signs and/or symptoms were reported regarding the genitourinary system. EENT: No signs and/or symptoms were reported regarding the EENT system. Derm: Skin is pink, warm \T\ dry. Musculoskeletal: Range of motion: intact in all extremities. 16:00 Reassessment: No changes from previously documented assessment. Patient and/or family mb9 updated on plan of care and expected duration. Pain level reassessed. Patient is alert, oriented x 3, equal unlabored respirations, skin warm/dry/pink. Vital Signs: 13:04 BP 134 / 73; Pulse 75; Resp 18; Temp 97.2; Pulse Ox 100% on R/A; Weight 95.25 kg; cm10 Height 5 ft. 2 in. ; Pain 7/10; 14:06 BP 115 / 63; Pulse 74; Resp 18; Pulse Ox 100% on R/A; mb9 16:07 BP 119 / 65; Pulse 72; Resp 18; Pulse Ox 99% on R/A; mb9 13:04 Body Mass Index 38.41 (95.25 kg, 157.48 cm) cm10 13:04 Pain Scale: Adult cm10 ED Course: 12:45 Patient arrived in ED. mr 13:05 Royer Millan MD is Attending Physician. rn 13:05 Triage completed. cm10 13:06 Arm band placed on Patient placed in waiting room. cm10 13:16 SARS RAPID Sent. cm10 13:16 Flu Sent. cm10 13:53 Olivia South, NATAN is Primary Nurse. mb9 13:55 Placed in gown. Bed in low position. Call light in reach. Side rails up X 1. Client mb9 placed on continuous cardiac and pulse oximetry monitoring. NIBP monitoring applied. 14:06 Inserted saline lock: 20 gauge in right antecubital area, using aseptic technique. mb9 Blood collected. 14:06 CMP Sent. mb9 14:06 CBC with Diff Sent. mb9 14:06 Test, Urine Sent. mb9 14:06 Urinalysis w/ reflexes Sent. mb9 14:08 No provider procedures requiring assistance completed. mb9 15:04 CT Abd/Pelvis - IV Contrast Only In Process Unspecified. EDMS 16:31 IV discontinued, intact, bleeding controlled, No redness/swelling at site. Pressure mb9 dressing applied. Administered Medications: 13:16 Drug: Ondansetron Oral Disintegrating Tablet Oral Disintegrating Tablet 4 mg PO once cm10 Route: PO; 14:06 Follow up: Response: No adverse reaction mb9 Medication: 14:08 VIS not applicable for this client. mb9 Outcome: 16:23 Discharge ordered by . rn 16:32 Discharged to home ambulatory, mb9 16:32 Condition: stable 16:32 Discharge instructions given to patient, Instructed on discharge instructions, follow up and referral plans. Demonstrated understanding of instructions, follow-up care, medications, Prescriptions given X 1, 16:32 Patient left the ED. mb9 Signatures: Dispatcher [employer] EDOlivia Kyle, Mitchel Grullon Royer Millan MD MD rn Breneman, Olivia Santana RN RN mb9 Sabiha Red RN RN cm10
[2023-01-12 16:41] VITALS: TEMP 97.2
[2023-01-12 16:52] VITALS: BP 119/65; O2SAT 99
== END 2023-01-12 16:32 | disposition home or self-care (01) ==
LOC: ER 12:43
DX: R11.10 Vomiting, unspecified (principal); D64.9 Anemia, unspecified; N83.8 Other noninflammatory disorders of ovary, fallopian tube and broad ligament
CPT/HCPCS: 36415; 74177; 80053; 81001; 81025; 85025; 87077; 87086; 87088; 87186; 87804; 87811; 99284; Q0162; Q9967

== ENCOUNTER → 2023-06-02 | Emergency (ER) | payer SELFPAY ==
[~2023-06-02] MED LIST: KETOROLAC 30 MG/ML INJ ONE; NA CHLORIDE 0.9% 1,000 ML ONE; ONDANSETRON 4 MG/2 ML VIAL ONE
[2023-06-02 15:43] LABS: Specific Gravity 1.013 (1.005-1.030)
[2023-06-02 15:48] LABS: Specific Gravity 1.013 (1.005-1.030); Sqamous Epithelial <5 /HPF (None Seen); Urine Bacteria <20 /HPF (<20); Urine Bilirubin NEGATIVE (Negative); Urine Blood 3+ (OVER) (Negative); Urine Clarity Extremely Turbid (Clear); Urine Color Light-Orange (Yellow); Urine Culture Reflex Order NOT NEEDED; Urine Glucose NEGATIVE (Negative); Urine Ketones NEGATIVE (Negative); Urine Microscopic Reflex YN ORDER UMIC; Urine Nitrite NEGATIVE (Negative); Urine Protein TRACE (Negative); Urine RBC >50 /HPF (None Seen); Urine Urobilinogen Normal (Normal)
[2023-06-02 15:49] LABS: Absolute Eosinophils 0.1 K/uL (0-0.5); Absolute Lymphocytes (CBC) 1.8 K/uL (0.7-4.9); Absolute Monocytes 1.2 K/uL (0.1-1.3); Absolute Neutrophil 13.3 K/uL (1.8-8.0); Basophils % 0.3 % (0-1.3); Eosinophils % 0.6 % (0-4.4); Hematocrit 27.6 % (36.0-45.0); Hemoglobin 7.9 g/dL (12.0-15.0); Lymphocytes % 11.1 % (15.3-44.8); MCH 16.1 pg (27.0-35.0); MCHC 28.8 g/dL (32.0-36.0); MPV 8.6 fL (7.6-11.3); Platelets 408 thou/uL (152-406); RBC Red Blood Cell Count 4.92 M/uL (3.86-4.86); Red Cell Distribution Width 19.1 % (12.1-15.2)
[2023-06-02 16:00] LABS: Albumin 3.6 g/dL (3.4-5.0); Albumin/Globulin Ratio 0.7 (1.1-1.8); Anion Gap 8.3 mEq/L (5.0-15.0); Bilirubin Total 0.4 mg/dL (0.2-1.0); Potassium 3.3 mEq/L (3.5-5.1); Protein, Total 8.6 g/dL (6.4-8.2)
--- NOTE | 2023-06-02 16:53 | RAD REPORT ---
EXAM DESCRIPTION: CT - Abdomen Pelvis W Contrast - 06/02/2023 4:28 pm CLINICAL HISTORY: Abdominal pain COMPARISON: January 2023 TECHNIQUE: Computed axial tomography of the abdomen pelvis was obtained. 100 cc Isovue-300 was admin istered intravenously. Oral contrast was not requested which limits evaluation of bowel and appendix All CT scans are performed using dose optimization technique as appropriate and may include automated exposure control or mA/KV adjustment according to patient size. FINDINGS: Cholecystectomy. The liver, spleen, pancreas, adrenal and kidneys appear unremarkable. There is no evidence of diverticulitis. Normal appendix 14.3 x 8.6 cm cystic mass upper pelvis/lower abdomen without significant change from the 2022. It has enlarged from 2016. 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 5.1 centimeter complex cystic mass left adnexa may represent an additional cystic ovarian neoplasm, b enign ovarian complex cyst or tubo-ovarian abscess
--- NOTE | 2023-06-02 19:03 | RAD REPORT ---
EXAM DESCRIPTION: US - Transvaginal Study Probe - 06/02/2023 6:37 pm CLINICAL HISTORY: Pelvic pain COMPARISON: June 02, 2023 FINDINGS: The uterus measures 10 x 5 x 5 cm. 2.3 centimeter palpable solid mass is present within the uterine body compatible with a fibroid. The endometrial stripe measures 9 millimeters. 9 millimeter heterogeneous structure within cervix probably complex nabothian cyst. 1 centimeter isoe choic structure within the cervix may represent a fibroid The right ovary. Normal in size and echotexture. Blood flow is present to the right ovary. A cystic m ass abuts the right ovary and superior aspect of the uterus. It is only partially included in the fie ld of view. Left ovary/adnexa not well visualized. There is an approximately 5 centimeter heterogeneous mass cont aining solid and cystic appearing elements. No significant free fluid is seen. IMPRESSION: Patient's known large cystic mass upper pelvis/abdomen extending to the right and left o f midline is only partially imaged on this exam. A 5 centimeter complex cystic mass left adnexa may represent a tubo-ovarian abscess or hemorrhagic ov rodney cyst
--- NOTE | 2023-06-02 19:13 | ER ---
Nurse's Notes [facility] Name: Chantel Davis Age: 43 yrs Sex: Female : 1980 Arrival Date: 06/02/2023 Time: 15:02 Bed 10 Private MD: Diagnosis: Lower abdominal pain, unspecified-adnexal masses;Anemia, unspecified Presentation: 06/01 15:15 Chief complaint: Patient states: "I've had lower abdominal pain for 3 days now that mb9 radiates to my back." Pt denies N/V/D and urinary symptoms. Coronavirus screen: Vaccine status: Patient reports receiving the 2nd dose of the covid vaccine. Ebola Screen: No symptoms or risks identified at this time. Initial Sepsis Screen: Does the patient meet any 2 criteria? No. Patient's initial sepsis screen is negative. Does the patient have a suspected source of infection? No. Patient's initial sepsis screen is negative. Risk Assessment: Do you want to hurt yourself or someone else? Patient reports no desire to harm self or others. Onset of symptoms was June 02, 2023. 15:15 Method Of Arrival: Ambulatory mb9 15:15 Acuity: XENIA 3 mb9 Triage Assessment: 15:16 General: Appears in no apparent distress. Behavior is calm, cooperative. Pain: mb9 Complains of pain in abdomen Pain radiates to back. EENT: No signs and/or symptoms were reported regarding the EENT system. Neuro: Moses Agitation-Sedation Scale (RASS): 0 - Alert and Calm Level of Consciousness is awake, alert, obeys commands, Oriented to person, place, time, situation, Appropriate for age. Cardiovascular: Patient's skin is warm and dry. Respiratory: Airway is patent Respiratory effort is even, unlabored, Respiratory pattern is regular, symmetrical. GI: Abdomen is round non-distended, Abdomen is tender to palpation in suprapubic area, right lower quadrant and left lower quadrant Patient currently denies diarrhea, nausea, vomiting. : No signs and/or symptoms were reported regarding the genitourinary system. Derm: Skin is pink, warm \\T\\ dry. Musculoskeletal: Range of motion: intact in all extremities. 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 - Social history:: Smoking status: Patient denies any tobacco usage or history of. Screenin:41 [facility] ED Fall Risk Assessment (Adult) History of falling in the last 3 months, mb9 including since admission No falls in past 3 months (0 pts) Confusion or Disorientation No (0 pts) Intoxicated or Sedated No (0 pts) Impaired Gait No (0 pts) Mobility Assist Device Used No (0 pt) Altered Elimination No (0 pt) Score/Fall Risk Level 0 - 2 = Low Risk Oriented to surroundings, Maintained a safe environment, Educated pt \\T\\ family on fall prevention, incl call for assistance when getting out of bed. Abuse screen: Denies threats or abuse. Nutritional screening: No deficits noted. Tuberculosis screening: No symptoms or risk factors identified. Assessment: 16:05 General: Appears in no apparent distress. Behavior is calm, cooperative. Pain: tl4 Complains of pain in abdomen. Neuro: Level of Consciousness is awake, alert, obeys commands, Oriented to person, place, time, situation, Moves all extremities. Speech is normal, Facial symmetry appears normal. Cardiovascular: Capillary refill < 3 seconds Patient's skin is warm and dry. Respiratory: Airway is patent Respiratory effort is even, unlabored, Respiratory pattern is regular, symmetrical, Breath sounds are clear bilaterally. GI: Abdomen is non-distended, Bowel sounds present X 4 quads. Abd is soft Abdomen is tender to palpation in right lower quadrant and left lower quadrant. : No deficits noted. No signs and/or symptoms were reported regarding the genitourinary system. EENT: No deficits noted. No signs and/or symptoms were reported regarding the EENT system. Derm: No deficits noted. No signs and/or symptoms reported regarding the dermatologic system. Musculoskeletal: No deficits noted. No signs and/or symptoms reported regarding the musculoskeletal system. 17:05 Reassessment: No changes from previously documented assessment. Patient and/or family tl4 updated on plan of care and expected duration. Pain level reassessed. Patient is alert, oriented x 3, equal unlabored respirations, skin warm/dry/pink. 19:02 Reassessment: Patient and/or family updated on plan of care and expected duration. Pain tl4 level reassessed. Patient is alert, oriented x 3, equal unlabored respirations, skin warm/dry/pink. Vital Signs: 15:15 BP 135 / 87; Pulse 83; Resp 18; Temp 98.2; Pulse Ox 100% ; Weight 92.53 kg; Height 5 mb9 ft. 2 in. ; Pain 7/10; 16:15 BP 110 / 62; Pulse 72; Resp 16; Pulse Ox 99% on R/A; Pain 7/10; tl4 17:05 BP 138 / 79; Pulse 61; Resp 18; Pulse Ox 100% on R/A; Pain 4/10; tl4 19:51 BP 127 / 74; Pulse 72; Resp 18; Temp 97.9; Pulse Ox 99% on R/A; Pain 6/10; tl4 15:15 Body Mass Index 37.31 (92.53 kg, 157.48 cm) mb9 15:15 Pain Scale: Adult mb9 16:15 Pain Scale: Adult tl4 17:05 Pain Scale: Adult tl4 19:51 Pain Scale: Adult tl4 ED Course: 15:05 Patient arrived in ED. im 15:05 [facility] kb 15:05 Aleksandra Ponce MD is Attending Physician. kb 15:11 Arm band placed on. mb9 15:16 Triage completed. mb9 15:27 CBC with Diff Sent. mb9 15:27 CMP Sent. mb9 15:27 Lipase Sent. mb9 15:27 Test, Urine Sent. mb9 15:27 Urinalysis w/ reflexes Sent. mb9 15:27 Initial lab(s) drawn, by ia, sent to lab. Urine collected: clean catch specimen, clear. mb9 Inserted saline lock: 20 gauge in right antecubital area, using aseptic technique. Blood collected. 15:41 Placed in gown. Bed in low position. Call light in reach. Side rails up X 1. Client mb9 placed on continuous cardiac and pulse oximetry monitoring. NIBP monitoring applied. Door closed. Noise minimized. Warm blanket given. 15:42 No provider procedures requiring assistance completed. mb9 15:44 Miguel Angel Guevara, RN is Primary Nurse. tl4 16:07 Provided Education on: ED process. tl4 16:30 CT Abd/Pelvis - IV Contrast Only In Process Unspecified. EDMS 18:39 US Transvaginal Study (Probe) In Process Unspecified. EDMS 19:40 IV discontinued, intact, bleeding controlled, No redness/swelling at site. Pressure tl4 dressing applied. Administered Medications: 16:05 Drug: NS 0.9% IV 1000 ml IV at 1 bolus Per protocol; 1000 mL bolus Route: IV; Rate: 1 tl4 bolus; Site: right antecubital; 19:51 Follow up: Response: No adverse reaction; IV Status: Completed infusion; IV Intake: tl4 1000ml 16:05 Drug: TORadol - Ketorolac IVP 15 mg IVP once Route: IVP; Site: right antecubital; tl4 19:51 Follow up: Response: Pain is decreased tl4 16:05 Drug: Ondansetron IVP 4 mg IVP once; over 2 minutes Route: IVP; Site: right antecubital;tl4 19:51 Follow up: Response: No adverse reaction tl4 Medication: 15:42 VIS not applicable for this client. mb9 Intake: 19:51 IV: 1000ml; Total: 1000ml. tl4 Outcome: 19:12 Discharge ordered by . kb 19:55 Discharged to home ambulatory, tl4 19:55 Condition: stable 19:55 Discharge instructions given to patient, Instructed on discharge instructions, follow up and referral plans. medication usage, Demonstrated understanding of instructions, follow-up care, medications, 19:55 Patient left the ED. tl4 Signatures: Dispatcher [employer] EDMS Sirisha Mireles, OBED PATELP-Olivia Romo, RN RN mb9 Ekta Flaherty Toni RN RN tl4 Corrections: (The following items were deleted from the chart) 15:16 15:16 PSHx: Ligation of fallopian tube; vesta serrato9
--- NOTE | 2023-06-02 19:13 | EDPHYS ---
Physician Documentation [facility] Name: Chantel Davis Age: 43 yrs Sex: Female : 1980 Arrival Date: 06/02/2023 Time: 15:02 Bed 10 Private MD: ED Physician Aleksandra Ponce HPI: 06/01 15:24 This 43 yrs old Female presents to ER via Ambulatory with complaints of kb Abdominal Pain, Low Back Pain. 15:24 Pt is a 43 year old female who presents for lower abd pain that started 3 days ago. kb Denies fever, n/v/d. Reports she is currently on her cycle. . 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 - Social history:: Smoking status: Patient denies any tobacco usage or history of. ROS: 15:23 Constitutional: As per HPI kb Exam: 15:23 Constitutional: This is a well developed, well nourished patient who is awake, alert, kb and in no acute distress. Head/Face: Normocephalic, atraumatic. ENT: Moist Mucous membranes Cardiovascular: Regular rate Respiratory: Respirations even and unlabored. No increased work of breathing. Talking in full sentences Back: No spinal tenderness. No costovertebral tenderness. Full range of motion. Skin: Warm, dry with normal turgor. Normal color. MS/ Extremity: Pulses equal, no cyanosis. Neurovascular intact. Full, normal range of motion. Neuro: Awake and alert, GCS 15, oriented to person, place, time, and situation. Moves all extremities. Normal gait. 15:23 Abdomen/GI: Inspection: abdomen appears normal, Bowel sounds: normal, Palpation: soft, in all quadrants, mild abdominal tenderness, in the right lower quadrant and left lower quadrant, Vital Signs: 15:15 BP 135 / 87; Pulse 83; Resp 18; Temp 98.2; Pulse Ox 100% ; Weight 92.53 kg; Height 5 mb9 ft. 2 in. ; Pain 7/10; 16:15 BP 110 / 62; Pulse 72; Resp 16; Pulse Ox 99% on R/A; Pain 7/10; tl4 17:05 BP 138 / 79; Pulse 61; Resp 18; Pulse Ox 100% on R/A; Pain 4/10; tl4 19:51 BP 127 / 74; Pulse 72; Resp 18; Temp 97.9; Pulse Ox 99% on R/A; Pain 6/10; tl4 15:15 Body Mass Index 37.31 (92.53 kg, 157.48 cm) mb9 15:15 Pain Scale: Adult mb9 16:15 Pain Scale: Adult tl4 17:05 Pain Scale: Adult tl4 19:51 Pain Scale: Adult tl4 MDM: 15:05 Patient medically screened. kb 15:24 Data reviewed: vital signs, nurses notes. kb 15:24 Differential diagnosis: uti, appendicitis, ovarian cyst. kb 17:53 ED course: Discussed CT findings with pt. Pt states she did follow up with [facility] for the kb mass in her pelvis, they did a cervical biopsy and told her it was not cancer. States she was concerned about cancer so she called them back to confirm and they said they ruled out cancer and the mass was just a cyst. Pt educated to follow back up with [facility] and take her CT results with her. Educated on chance of the masses being cancerous and importance of follow up. Verbal understanding received. . 18:45 Counseling: I had a detailed discussion with the patient and/or guardian regarding the kb historical points, exam findings, and any diagnostic results supporting the discharge/admit diagnosis, lab results, radiology results, the need for outpatient follow up, an OB/Gyne specialist, to return to the emergency department if symptoms worsen or persist or if there are any questions or concerns that arise at home. 19:09 ED course: US results explained to pt and copy given. HPI more consistent with cystic kb mass versus tubo-ovarian abscess. Discussed this differential with patient, patient agrees to follow-up with gynecology. Patient has had no recent illness, no fever, no vaginal discharge. Patient has mild tenderness across lower abdomen but more severe in the right side. Patient educated on return precautions. Verbal understanding received.. 06/01 15:15 Order name: CBC with Diff kb 06/01 15:15 Order name: CMP; Complete Time: 16:02 kb 06/01 15:15 Order name: Lipase; Complete Time: 16:02 kb 06/01 15:15 Order name: Test, Urine; Complete Time: 15:44 kb 06/01 15:15 Order name: Urinalysis w/ reflexes; Complete Time: 15:54 kb 06/01 15:15 Order name: CT Abd/Pelvis - IV Contrast Only; Complete Time: 17:00 kb 06/01 17:13 Order name: US Transvaginal Study (Probe); Complete Time: 19:06 kb 06/01 15:15 Order name: IV Saline Lock; Complete Time: 15:27 kb 06/01 15:15 Order name: Labs collected and sent; Complete Time: 15:27 kb Administered Medications: 16:05 Drug: NS 0.9% IV 1000 ml IV at 1 bolus Per protocol; 1000 mL bolus Route: IV; Rate: 1 tl4 bolus; Site: right antecubital; 19:51 Follow up: Response: No adverse reaction; IV Status: Completed infusion; IV Intake: tl4 1000ml 16:05 Drug: TORadol - Ketorolac IVP 15 mg IVP once Route: IVP; Site: right antecubital; tl4 19:51 Follow up: Response: Pain is decreased tl4 16:05 Drug: Ondansetron IVP 4 mg IVP once; over 2 minutes Route: IVP; Site: right antecubital;tl4 19:51 Follow up: Response: No adverse reaction tl4 Disposition Summary: 06/02/23 19:12 Discharge Ordered Notes: Location: Home kb Condition: Stable kb Diagnosis - Lower abdominal pain, unspecified - adnexal masses kb - Anemia, unspecified kb Followup: kb - With: Emergency Department - When: As needed - Reason: Worsening of condition Followup: kb - With: Private Physician - When: 2 - 3 days - Reason: Recheck today's complaints, Continuance of care, Re-evaluation by your physician Discharge Instructions: - Discharge Summary Sheet kb - Abdominal Pain, Adult, [id number] kb - Ovarian Cyst, [id number] kb Forms: - Medication Reconciliation Form kb - Thank You Letter kb - Antibiotic Education kb - Prescription Opioid Use kb - Patient Portal Instructions kb - Leadership Thank You Letter kb - Work release form tl4 Signatures: Dispatcher [employer] Sirisha Joyner, HARDWOOD SAWYER-C HARDWOOD SAWYER-Ckb Olivia South, RN RN mb9 Miguel Angel Guevara RN RN tl4 Corrections: (The following items were deleted from the chart) 15:16 15:16 PSHx: Ligation of fallopian tube; mb9 mb9 17:56 17:53 ED course: Discussed CT findings with pt. Pt states she did follow up with [facility] kb for the mass in her pelvis, they did a cervical biopsy and told her it was not cancer. States she was concerned about cancer so she called them back to confirm and they said they ruled out cancer and the mass was just a cyst. . kb
[2023-06-02 20:45] LABS: White Blood Cell Scan OK (OK)
[2023-06-02 20:46] LABS: Anisocytosis 1+; Blood Morphology Comment NOTED (NOT SEEN); Platelet Estimate ADEQ; Poikilocytosis 2+
[2023-06-02 21:12] VITALS: BP 127/74; TEMP 97.9; O2SAT 99
== END ==
LOC: ER 15:02
DX: R10.30 Lower abdominal pain, unspecified (principal); D64.9 Anemia, unspecified; D23.9 Other benign neoplasm of skin, unspecified
CPT/HCPCS: 36415; 74177; 76830; 80053; 81001; 81025; 83690; 85025; 96361; 96374; 96375; 99284; J2405; J7030; Q9967

== ENCOUNTER 2023-06-10 07:46 | Emergency (ER) | payer SELFPAY ==
--- OUTSIDE RECORDS SUMMARY | 2023-06-10 07:50 | XMS REPORT | Continuity of Care Document ---
Author Name Unknown Address [address] [facility] [address] [place] [address] [facility] Address [address] [facility] [address] [place] [address] Care Team Providers Care Instrument Specialist Name Role Phone CYNTHIA BELLA Primary Care Physician Unav ailable CYNTHIA BELLA Attending Clinician Unavail able Shayne WHCynthia VELASQUEZ Attending Clinician + Doctor Unassigned, Gregory Attending Clinician U fox Scott MD, Lesterrooq Y Attending Clinician Lab, Ang[facility] Attending Clinician Unavailable JONO OLSON Attending Clinician Unavailable Pgy2 Attending Clinician Unavailable Jono Olson MD Attending Clinician [phone] Arina Rizvi PA-C Attending Clinician [phone] Pgy3 Attending Clinician Unavailable Kita Grey MD Attending Clinician [phone] MANJINDER SU Attending Clinician Unavailable MANJINDER SU Attending Clinician Unavailable ARINA RIZVI Attending Clinician Unavailable Provider, [facility] Temp Attending Clinician Robyn DAVID Salazar Attending Clinician Unavailab le UNKNOWN, ATTENDING Attending Clinician Unavailab JUDITH Santana Attending Clinician Unavailable TIFF MUNOZ Attending Clinician Unavailable PEYMAN LAW Attending Clinician Peyman Owens DO Attending Clinician David Lynne Attending Clinician [phone] Payers Payer Name Policy Type Policy Number Effective Date Expirati on Date Source [id number] 2017 00:00:00 [facility] [id number] 2022 00:00:00 Problems Condition Name Condition Details Condition Category Status Onset Date Resolution Date Last Treatment Date Treating Clinician Comments Source Morbid obesity with body mass index (BMI) of 40.0 or higher Morbid obesity with body mass index (BMI) of 40.0 or higher Disease Active 2021-03 00:00: 00 [facility] Type 2 diabetes mellitus with morbid obesity Type 2 diabetes mellitus with morbid obesity Disease Active 2021-03 00:00: 00 [facility] Abnormal uterine bleeding (AUB) Abnormal uterine bleeding (AUB) Disease Active 2021-03 00:00: 00 [facility] Bulky or enlarged uterus Bulky or enlarged uterus Disease Active 2021-03 00:00: 00 [facility] BMI 45.0-49.9, adult BMI 45.0-49.9, adult Disease Active 05-16 00:00: 00 [facility] Papanicola ou smear of cervix with high grade squamous intraepith elial lesion (HGSIL) Papanicola ou smear of cervix with high grade squamous intraepith elial lesion (HGSIL) Disease Active 05-16 00:00: 00 [facility] Dysplasia of cervix, high grade YUE 2 Dysplasia of cervix, high grade YUE 2 Disease Active 2017-03 0- 00:00: 00 Overview: Formattin g of this note might be different from the original. 38 year old with ASCUS pap 8. Colpo and bx 01/15/2018 - YUE 2Will need cotesting in 1 year [facility] Nipple discharge Nipple discharge Disease Active 2017-03 0- 00:00: 00 [facility] Screening for STD (sexually transmitte d disease) Screening for STD (sexually transmitte d disease) Disease Active 06-28 00:00: 00 Overview: Formattin g of this note might be different from the original. ICD10 Diagnosis Term Content Checker Utility [facility] History of bilateral tubal ligation History of bilateral tubal ligation Disease Active 06-28 00:00: 00 [facility] Other and unspecifie d ovarian cyst Other and unspecifie d ovarian cyst Disease Active 06-28 00:00: 00 [facility] Metrorrhag ia Metrorrhag ia Disease Active 06-28 00:00: 00 [facility] Morbid obesity Morbid obesity Disease Active 06-28 00:00: 00 [facility] Encounter for surveillan ce of contracept darvin, unspecifie d contracept jazmin Encounter for surveillan ce of contracept darvin, unspecifie d contracept jazmin Disease Active 06-28 00:00: 00 Overview: Formattin g of this note might be different from the original. ICD10 Diagnosis Term Content Checker Utility [facility] Obesity, unspecifie d classifica tion, unspecifie d obesity type, unspecifie d whether serious comorbidit y present Obesity, unspecifie d classifica tion, unspecifie d obesity type, unspecifie d whether serious comorbidit y present Disease Active 06-28 00:00: 00 [facility] Allergies, Adverse Reactions, Alerts Allergy Name Allergy Type Status Severity Reaction(s) Onset Date Inactive Date Treating Clinician Comments Source NO KNOWN ALLERGIE S Drug Class Active [facility] Social History Social Habit Start Date Stop Date Quantity Comments Source [facility] 2023-06-03 00:00:00 2023-06-03 00:00:00 Current non-drinker of alcohol (finding) [facility] History of Social function 2023-06-03 00:00:00 2023-06-03 00:00:00 [facility] Exposure to SARS-CoV-2 (event) 2022-01-14 00:00:00 2022-01-24 13:20:00 Not sure [facility] Tobacco use and exposure 2022-01-12 00:00:00 2022-01-12 00:00:00 Smokeless tobacco non-user [facility] Sex Assigned At 1980 00:00:00 1980 00:00:00 [facility] Smoking Status Start Date Stop Date Source Never smoked tobacco [facility] Medications Ordered Medication Name Filled Medication Name Start Date Stop Date Current Medication? Ordering Clinician Indication Dosage Frequency Signature (SIG) Comments Components Source ferrous sulfate (IRON, FERROUS SULFATE,) 325 mg (65 mg iron) tablet 2022-03 00:00: 00 Yes [id number] 325mg Take 1 tablet by mouth in the morning and 1 tablet at noon and 1 tablet in the evening. Take with meals. [facility] ferrous sulfate (IRON, FERROUS SULFATE,) 325 mg (65 mg iron) tablet 2022-03 00:00: 00 Yes [id number] 325mg Take 1 tablet by mouth in the morning and 1 tablet at noon and 1 tablet in the evening. Take with meals. [facility] ferrous sulfate (IRON, FERROUS SULFATE,) 325 mg (65 mg iron) tablet 2022-03 00:00: 00 Yes [id number] 325mg Take 1 tablet by mouth in the morning and 1 tablet at noon and 1 tablet in the evening. Take with meals. [facility] ferrous sulfate (IRON, FERROUS SULFATE,) 325 mg (65 mg iron) tablet 2022-03 00:00: 00 Yes [id number] 325mg Take 1 tablet by mouth in the morning and 1 tablet at noon and 1 tablet in the evening. Take with meals. [facility] ferrous sulfate (IRON, FERROUS SULFATE,) 325 mg (65 mg iron) tablet 2022-03 00:00: 00 Yes [id number] 325mg Take 1 tablet by mouth in the morning and 1 tablet at noon and 1 tablet in the evening. Take with meals. [facility] ferrous sulfate (IRON, FERROUS SULFATE,) 325 mg (65 mg iron) tablet 2022-03 00:00: 00 Yes [id number] 325mg Take 1 tablet by mouth in the morning and 1 tablet at noon and 1 tablet in the evening. Take with meals. [facility] ferrous sulfate (IRON, FERROUS SULFATE,) 325 mg (65 mg iron) tablet 2022-03 00:00: 00 Yes [id number] 325mg Take 1 tablet by mouth in the morning and 1 tablet at noon and 1 tablet in the evening. Take with meals. [facility] ferrous sulfate (IRON, FERROUS SULFATE,) 325 mg (65 mg iron) tablet 2022-03 00:00: 00 Yes [id number] 325mg Take 1 tablet by mouth in the morning and 1 tablet at noon and 1 tablet in the evening. Take with meals. [facility] ferrous sulfate (IRON, FERROUS SULFATE,) 325 mg (65 mg iron) tablet 2022-03 00:00: 00 Yes [id number] 325mg Take 1 tablet by mouth in the morning and 1 tablet at noon and 1 tablet in the evening. Take with meals. [facility] ferrous sulfate (IRON, FERROUS SULFATE,) 325 mg (65 mg iron) tablet 2022-03 00:00: 00 Yes [id number] 325mg Take 1 tablet by mouth in the morning and 1 tablet at noon and 1 tablet in the evening. Take with meals. [facility] ferrous sulfate (IRON, FERROUS SULFATE,) 325 mg (65 mg iron) tablet 2022-03 00:00: 00 Yes [id number] 325mg Take 1 tablet by mouth in the morning and 1 tablet at noon and 1 tablet in the evening. Take with meals. [facility] ferrous sulfate (IRON, FERROUS SULFATE,) 325 mg (65 mg iron) tablet 2022-03 00:00: 00 Yes [id number] 325mg Take 1 tablet by mouth in the morning and 1 tablet at noon and 1 tablet in the evening. Take with meals. [facility] ferrous sulfate (IRON, FERROUS SULFATE,) 325 mg (65 mg iron) tablet 2022-03 00:00: 00 Yes [id number] 325mg Take 1 tablet by mouth in the morning and 1 tablet at noon and 1 tablet in the evening. Take with meals. [facility] ferrous sulfate (IRON, FERROUS SULFATE,) 325 mg (65 mg iron) tablet 2022-0308 00:00: 00 Yes [id number] 325mg Take 1 tablet by mouth in the morning and 1 tablet at noon and 1 tablet in the evening. Take with meals. [facility] docusate 100 mg capsule 2022-03 00:00: 00 Yes [id number] 100mg Take 1 capsule by mouth in the morning. [facility] docusate 100 mg capsule 2022-03 00:00: 00 Yes [id number] 100mg Take 1 capsule by mouth in the morning. [facility] docusate 100 mg capsule 2022-03 00:00: 00 Yes [id number] 100mg Take 1 capsule by mouth in the morning. [facility] docusate 100 mg capsule 2022-03 00:00: 00 Yes [id number] 100mg Take 1 capsule by mouth in the morning. [facility] docusate 100 mg capsule 2022-03 00:00: 00 Yes [id number] 100mg Take 1 capsule by mouth in the morning. [facility] docusate 100 mg capsule 2022-03 00:00: 00 Yes [id number] 100mg Take 1 capsule by mouth in the morning. [facility] docusate 100 mg capsule 2022-03 00:00: 00 Yes [id number] 100mg Take 1 capsule by mouth in the morning. [facility] docusate 100 mg capsule 2022-03 00:00: 00 Yes [id number] 100mg Take 1 capsule by mouth in the morning. [facility] docusate 100 mg capsule 2022-03 00:00: 00 Yes [id number] 100mg Take 1 capsule by mouth in the morning. [facility] docusate 100 mg capsule 2022-03 00:00: 00 Yes [id number] 100mg Take 1 capsule by mouth in the morning. [facility] docusate 100 mg capsule 2022-03 00:00: 00 Yes [id number] 100mg Take 1 capsule by mouth in the morning. [facility] docusate 100 mg capsule 2022-03 00:00: 00 Yes [id number] 100mg Take 1 capsule by mouth in the morning. [facility] docusate 100 mg capsule 2022-03 00:00: 00 Yes [id number] 100mg Take 1 capsule by mouth in the morning. [facility] docusate 100 mg capsule 2022-03 00:00: 00 Yes [id number] 100mg Take 1 capsule by mouth in the morning. [facility] docusate 100 mg capsule 2022-03 00:00: 00 Yes [id number] 100mg Take 1 capsule by mouth in the morning. [facility] docusate 100 mg capsule 2022-03 00:00: 00 Yes [id number] 100mg Take 1 capsule by mouth in the morning. [facility] docusate 100 mg capsule 2022-03 00:00: 00 Yes [id number] 100mg Take 1 capsule by mouth in the morning. [facility] docusate 100 mg capsule 2022-03 00:00: 00 Yes [id number] 100mg Take 1 capsule by mouth in the morning. [facility] docusate 100 mg capsule 2022-03 00:00: 00 Yes [id number] 100mg Take 1 capsule by mouth in the morning. [facility] norethindro ne 0.35 mg tablet 2022-03 00:00: 00 01-15 00:00 :00 No [id number] 1{tbl} Take 1 tablet by mouth in the morning. [facility] norethindro ne 0.35 mg tablet 2022-03 00:00: 00 01-15 00:00 :00 No [id number] 1{tbl} Take 1 tablet by mouth in the morning. [facility] metroNIDAZO LE 500 mg tablet 2021-03 00:00: 00 02-04 05:59 :00 No [id number] 500mg Take 1 tablet by mouth every 12 (twelve) hours for 5 days. [facility] fluconazole (DIFLUCAN) 150 mg tablet 2021-03 00:00: 00 01-30 05:59 :00 No [id number] 150mg Take 1 tablet by mouth once now for 1 dose. [facility] norethindro ne 0.35 mg tablet 2021-03 00:00: 00 01-25 05:59 :00 No [id number] 100 1{tbl} Take 1 tablet by mouth in the morning. [facility] norethindro ne 0.35 mg tablet 2021-03 00:00: 00 01-25 05:59 :00 No [id number] 100 1{tbl} Take 1 tablet by mouth in the morning. [facility] norethindro ne 0.35 mg tablet 2021-03 00:00: 00 01-25 05:59 :00 No [id number] 100 1{tbl} Take 1 tablet by mouth in the morning. [facility] norethindro ne 0.35 mg tablet 2021-03 00:00: 00 01-25 05:59 :00 No [id number] 100 1{tbl} Take 1 tablet by mouth in the morning. [facility] norethindro ne 0.35 mg tablet 2021-03 00:00: 00 01-25 05:59 :00 No [id number] 100 1{tbl} Take 1 tablet by mouth in the morning. [facility] norethindro ne 0.35 mg tablet 2021-03 00:00: 00 01-25 05:59 :00 No [id number] 100 1{tbl} Take 1 tablet by mouth in the morning. [facility] norethindro ne 0.35 mg tablet 2021-03 00:00: 00 01-25 05:59 :00 No [id number] 100 1{tbl} Take 1 tablet by mouth in the morning. [facility] norethindro ne 0.35 mg tablet 2021-03 00:00: 00 01-25 05:59 :00 No [id number] 100 1{tbl} Take 1 tablet by mouth in the morning. [facility] norethindro ne 0.35 mg tablet 2021-03 00:00: 00 01-25 05:59 :00 No [id number] 100 1{tbl} Take 1 tablet by mouth in the morning. [facility] norethindro ne 0.35 mg tablet 2021-03 00:00: 00 01-25 05:59 :00 No [id number] 100 1{tbl} Take 1 tablet by mouth in the morning. [facility] norethindro ne 0.35 mg tablet 2021-03 00:00: 00 01-25 05:59 :00 No [id number] 100 1{tbl} Take 1 tablet by mouth in the morning. [facility] norethindro ne 0.35 mg tablet 2021-03 00:00: 00 01-25 05:59 :00 No [id number] 100 1{tbl} Take 1 tablet by mouth in the morning. [facility] norethindro ne 0.35 mg tablet 2021-03 00:00: 00 01-15 00:00 :00 No [id number] 100 1{tbl} Take 1 tablet by mouth in the morning. [facility] norethindro ne 0.35 mg tablet 2021-03 00:00: 00 01-15 00:00 :00 No [id number] 100 1{tbl} Take 1 tablet by mouth in the morning. [facility] ferrous sulfate 325 mg (65 mg iron) EC tablet 2021-03 00:00: 00 04-15 05:59 :00 No [id number] 325mg Take 1 tablet by mouth in the morning and 1 tablet in the evening. Take with meals. Do all this for 90 days. [facility] ferrous sulfate 325 mg (65 mg iron) EC tablet 2021-03 00:00: 04-15 05:59 :00 No [id number] 325mg Take 1 tablet by mouth in the morning and 1 tablet in the evening. Take with meals. Do all this for 90 days. [facility] ferrous sulfate 325 mg (65 mg iron) EC tablet 2021-03 00:00: 00 04-15 05:59 :00 No [id number] 325mg Take 1 tablet by mouth in the morning and 1 tablet in the evening. Take with meals. Do all this for 90 days. [facility] ferrous sulfate 325 mg (65 mg iron) EC tablet 2021-03 00:00: 00 04-15 05:59 :00 No [id number] 325mg Take 1 tablet by mouth in the morning and 1 tablet in the evening. Take with meals. Do all this for 90 days. [facility] ferrous sulfate 325 mg (65 mg iron) EC tablet 2021-03 00:00: 04-15 05:59 :00 No [id number] 325mg Take 1 tablet by mouth in the morning and 1 tablet in the evening. Take with meals. Do all this for 90 days. [facility] ferrous sulfate 325 mg (65 mg iron) EC tablet 2021-03 00:00: 00 04-15 05:59 :00 No [id number] 325mg Take 1 tablet by mouth in the morning and 1 tablet in the evening. Take with meals. Do all this for 90 days. [facility] ferrous sulfate 325 mg (65 mg iron) EC tablet 2021-03 00:00: 00 04-15 05:59 :00 No [id number] 325mg Take 1 tablet by mouth in the morning and 1 tablet in the evening. Take with meals. Do all this for 90 days. [facility] ferrous sulfate 325 mg (65 mg iron) EC tablet 2021-03 00:00: 00 04-15 05:59 :00 No [id number] 325mg Take 1 tablet by mouth in the morning and 1 tablet in the evening. Take with meals. Do all this for 90 days. [facility] ferrous sulfate 325 mg (65 mg iron) EC tablet 2021-03 00:00: 00 04-15 05:59 :00 No [id number] 325mg Take 1 tablet by mouth in the morning and 1 tablet in the evening. Take with meals. Do all this for 90 days. [facility] ferrous sulfate 325 mg (65 mg iron) EC tablet 2021-03 00:00: 00 04-15 05:59 :00 No [id number] 325mg Take 1 tablet by mouth in the morning and 1 tablet in the evening. Take with meals. Do all this for 90 days. [facility] No known medications 2021-03 11:48: 31 No No known medication s [facility] No known medications 2021-03 11:48: 31 No No known medication s [facility] No known medications 05-16 16:02: 19 No No known medication s [facility] No known medications No [facility] No known medications No Un [facility] ity [facility] No known medications No Un [facility] ity [facility] No known medications No Un charan ity [facility] No known medications No Un [facility] No known medications No Un charan ity [facility] No known medications No Un charan ity [facility] Immunizations Ordered Immunization Name Filled Immunization Name Date Status Comments Source SARS-COV-2 COVID-19 PFIZER VACCINE 2020-06-23 00:00:00 Completed [facility] SARS-COV-2 COVID-19 PFIZER VACCINE 2020-06-23 00:00:00 Completed [facility] SARS-COV-2 COVID-19 PFIZER VACCINE 2020-06-23 00:00:00 Completed [facility] SARS-COV-2 COVID-19 PFIZER VACCINE 2020-06-23 00:00:00 Completed [facility] SARS-COV-2 COVID-19 PFIZER VACCINE 2020-06-23 00:00:00 Completed [facility] SARS-COV-2 COVID-19 PFIZER VACCINE 2020-06-23 00:00:00 Completed [facility] SARS-COV-2 COVID-19 PFIZER VACCINE 2020-06-23 00:00:00 Completed [facility] SARS-COV-2 COVID-19 PFIZER VACCINE 2020-06-23 00:00:00 Completed [facility] SARS-COV-2 COVID-19 PFIZER VACCINE 2020-06-23 00:00:00 Completed [facility] SARS-COV-2 COVID-19 PFIZER VACCINE 2020-06-23 00:00:00 Completed [facility] SARS-COV-2 COVID-19 PFIZER VACCINE 2020-06-23 00:00:00 Completed [facility] SARS-COV-2 COVID-19 PFIZER VACCINE 2020-06-23 00:00:00 Completed [facility] SARS-COV-2 COVID-19 PFIZER VACCINE 2020-06-23 00:00:00 Completed [facility] SARS-COV-2 COVID-19 PFIZER VACCINE 2020-06-02 00:00:00 Completed [facility] SARS-COV-2 COVID-19 PFIZER VACCINE 2020-06-02 00:00:00 Completed [facility] SARS-COV-2 COVID-19 PFIZER VACCINE 2020-06-02 00:00:00 Completed [facility] SARS-COV-2 COVID-19 PFIZER VACCINE 2020-06-02 00:00:00 Completed [facility] SARS-COV-2 COVID-19 PFIZER VACCINE 2020-06-02 00:00:00 Completed [facility] SARS-COV-2 COVID-19 PFIZER VACCINE 2020-06-02 00:00:00 Completed [facility] SARS-COV-2 COVID-19 PFIZER VACCINE 2020-06-02 00:00:00 Completed [facility] SARS-COV-2 COVID-19 PFIZER VACCINE 2020-06-02 00:00:00 Completed [facility] SARS-COV-2 COVID-19 PFIZER VACCINE 2020-06-02 00:00:00 Completed [facility] SARS-COV-2 COVID-19 PFIZER VACCINE 2020-06-02 00:00:00 Completed [facility] SARS-COV-2 COVID-19 PFIZER VACCINE 2020-06-02 00:00:00 Completed [facility] SARS-COV-2 COVID-19 PFIZER VACCINE 2020-06-02 00:00:00 Completed [facility] SARS-COV-2 COVID-19 PFIZER VACCINE 2020-06-02 00:00:00 Completed [facility] Influenza Virus Vaccine Quad .5 mL IM 6+ MO 2019-05-17 00:00:00 Completed [facility] Influenza Virus Vaccine Quad .5 mL IM 6+ MO 2019-05-17 00:00:00 Completed [facility] Influenza Virus Vaccine Quad .5 mL IM 6+ MO 2019-05-17 00:00:00 Completed [facility] Influenza Virus Vaccine Quad .5 mL IM 6+ MO 2019-05-17 00:00:00 Completed [facility] Influenza Virus Vaccine Quad .5 mL IM 6+ MO 2019-05-17 00:00:00 Completed [facility] Influenza Virus Vaccine Quad .5 mL IM 6+ MO 2019-05-17 00:00:00 Completed [facility] Influenza Virus Vaccine Quad .5 mL IM 6+ MO 2019-05-17 00:00:00 Completed [facility] Influenza Virus Vaccine Quad .5 mL IM 6+ MO 2019-05-17 00:00:00 Completed [facility] Influenza Virus Vaccine Quad .5 mL IM 6+ MO 2019-05-17 00:00:00 Completed [facility] Influenza Virus Vaccine Quad .5 mL IM 6+ MO 2019-05-17 00:00:00 Completed [facility] Influenza Virus Vaccine Quad .5 mL IM 6+ MO 2019-05-17 00:00:00 Completed [facility] Influenza Virus Vaccine Quad .5 mL IM 6+ MO 2019-05-17 00:00:00 Completed [facility] Influenza Virus Vaccine Quad .5 mL IM 6+ MO 2019-05-17 00:00:00 Completed [facility] Influenza Virus Vaccine Quad .5 mL IM 6+ MO 2019-05-17 00:00:00 Completed [facility] Influenza Virus Vaccine Quad .5 mL IM 6+ MO 2019-05-17 00:00:00 Completed [facility] Influenza Virus Vaccine Quad .5 mL IM 6+ MO 2019-05-17 00:00:00 Completed [facility] Influenza Virus Vaccine Quad .5 mL IM 6+ MO 2019-05-17 00:00:00 Completed [facility] Influenza Virus Vaccine Quad .5 mL IM 6+ MO 2019-05-17 00:00:00 Completed [facility] Influenza Virus Vaccine Quad .5 mL IM 6+ MO 2019-05-17 00:00:00 Completed [facility] TDAP 2014-01-28 00:00:00 Completed [facility] TDAP 2014-01-28 00:00:00 Completed [facility] TDAP 2014-01-28 00:00:00 Completed [facility] TDAP 2014-01-28 00:00:00 Completed [facility] TDAP 2014-01-28 00:00:00 Completed [facility] TDAP 2014-01-28 00:00:00 Completed [facility] TDAP 2014-01-28 00:00:00 Completed [facility] TDAP 2014-01-28 00:00:00 Completed [facility] TDAP 2014-01-28 00:00:00 Completed [facility] TDAP 2014-01-28 00:00:00 Completed [facility] TDAP 2014-01-28 00:00:00 Completed [facility] TDAP 2014-01-28 00:00:00 Completed [facility] TDAP 2014-01-28 00:00:00 Completed [facility] Tdap 2014-01-28 00:00:00 Completed [facility] Tdap 2014-01-28 00:00:00 Completed [facility] Tdap 2014-01-28 00:00:00 Completed [facility] Tdap 2014-01-28 00:00:00 Completed [facility] Tdap 2014-01-28 00:00:00 Completed [facility] Tdap 2014-01-28 00:00:00 Completed [facility] TDAP 2014-01-28 00:00:00 Completed [facility] TDAP Unknown Completed [facility] Influenza Virus Vaccine Quad .5 mL IM 6+ MO (FLUZONE/FLULAVAL/F LUARIX) Unknown Completed [facility] SARS-COV-2 COVID-19 PFIZER VACCINE Unknown Completed [facility] SARS-COV-2 COVID-19 PFIZER VACCINE Unknown Completed [facility] TDAP Unknown Completed [facility] Influenza Virus Vaccine Quad .5 mL IM 6+ MO (FLUZONE/FLULAVAL/F LUARIX) Unknown Completed [facility] SARS-COV-2 COVID-19 PFIZER VACCINE Unknown Completed [facility] SARS-COV-2 COVID-19 PFIZER VACCINE Unknown Completed [facility] TDAP Unknown Completed [facility] Influenza Virus Vaccine Quad .5 mL IM 6+ MO (FLUZONE/FLULAVAL/F LUARIX) Unknown Completed [facility] SARS-COV-2 COVID-19 PFIZER VACCINE Unknown Completed [facility] SARS-COV-2 COVID-19 PFIZER VACCINE Unknown Completed [facility] TDAP Unknown Completed [facility] Influenza Virus Vaccine Quad .5 mL IM 6+ MO (FLUZONE/FLULAVAL/F LUARIX) Unknown Completed [facility] SARS-COV-2 COVID-19 PFIZER VACCINE Unknown Completed [facility] SARS-COV-2 COVID-19 PFIZER VACCINE Unknown Completed [facility] TDAP Unknown Completed [facility] Influenza Virus Vaccine Quad .5 mL IM 6+ MO (FLUZONE/FLULAVAL/F LUARIX) Unknown Completed [facility] SARS-COV-2 COVID-19 PFIZER VACCINE Unknown Completed [facility] SARS-COV-2 COVID-19 PFIZER VACCINE Unknown Completed [facility] TDAP Unknown Completed [facility] Influenza Virus Vaccine Quad .5 mL IM 6+ MO (FLUZONE/FLULAVAL/F LUARIX) Unknown Completed [facility] SARS-COV-2 COVID-19 PFIZER VACCINE Unknown Completed [facility] SARS-COV-2 COVID-19 PFIZER VACCINE Unknown Completed [facility] HPV9 Unknown Completed [facility] TDAP Unknown Completed [facility] Influenza Virus Vaccine Quad .5 mL IM 6+ MO (FLUZONE/FLULAVAL/F LUARIX) Unknown Completed [facility] SARS-COV-2 COVID-19 PFIZER VACCINE Unknown Completed [facility] SARS-COV-2 COVID-19 PFIZER VACCINE Unknown Completed [facility] HPV9 Unknown Completed [facility] TDAP Unknown Completed [facility] Influenza Virus Vaccine Quad .5 mL IM 6+ MO (FLUZONE/FLULAVAL/F LUARIX) Unknown Completed [facility] SARS-COV-2 COVID-19 PFIZER VACCINE Unknown Completed [facility] SARS-COV-2 COVID-19 PFIZER VACCINE Unknown Completed [facility] HPV9 Unknown Completed [facility] TDAP Unknown Completed [facility] Influenza Virus Vaccine Quad .5 mL IM 6+ MO (FLUZONE/FLULAVAL/F LUARIX) Unknown Completed [facility] SARS-COV-2 COVID-19 PFIZER VACCINE Unknown Completed [facility] SARS-COV-2 COVID-19 PFIZER VACCINE Unknown Completed [facility] HPV9 Unknown Completed [facility] TDAP Unknown Completed [facility] Influenza Virus Vaccine Quad .5 mL IM 6+ MO (FLUZONE/FLULAVAL/F LUARIX) Unknown Completed [facility] SARS-COV-2 COVID-19 PFIZER VACCINE Unknown Completed [facility] SARS-COV-2 COVID-19 PFIZER VACCINE Unknown Completed [facility] HPV9 Unknown Completed [facility] TDAP Unknown Completed [facility] Influenza Virus Vaccine Quad .5 mL IM 6+ MO (FLUZONE/FLULAVAL/F LUARIX) Unknown Completed [facility] SARS-COV-2 COVID-19 PFIZER VACCINE Unknown Completed [facility] SARS-COV-2 COVID-19 PFIZER VACCINE Unknown Completed [facility] HPV9 Unknown Completed [facility] TDAP Unknown Completed [facility] Influenza Virus Vaccine Quad .5 mL IM 6+ MO (FLUZONE/FLULAVAL/F LUARIX) Unknown Completed [facility] SARS-COV-2 COVID-19 PFIZER VACCINE Unknown Completed [facility] SARS-COV-2 COVID-19 PFIZER VACCINE Unknown Completed [facility] HPV9 Unknown Completed [facility] TDAP Unknown Completed [facility] Influenza Virus Vaccine Quad .5 mL IM 6+ MO (FLUZONE/FLULAVAL/F LUARIX) Unknown Completed [facility] SARS-COV-2 COVID-19 PFIZER VACCINE Unknown Completed [facility] SARS-COV-2 COVID-19 PFIZER VACCINE Unknown Completed [facility] TDAP Unknown Completed [facility] Influenza Virus Vaccine Quad .5 mL IM 6+ MO (FLUZONE/FLULAVAL/F LUARIX) Unknown Completed [facility] SARS-COV-2 COVID-19 PFIZER VACCINE Unknown Completed [facility] SARS-COV-2 COVID-19 PFIZER VACCINE Unknown Completed [facility] HPV9 Unknown Completed [facility] TDAP Unknown Completed [facility] Influenza Virus Vaccine Quad .5 mL IM 6+ MO (FLUZONE/FLULAVAL/F LUARIX) Unknown Completed [facility] SARS-COV-2 COVID-19 PFIZER VACCINE Unknown Completed [facility] SARS-COV-2 COVID-19 PFIZER VACCINE Unknown Completed [facility] HPV9 Unknown Completed [facility] TDAP Unknown Completed [facility] Influenza Virus Vaccine Quad .5 mL IM 6+ MO (FLUZONE/FLULAVAL/F LUARIX) Unknown Completed [facility] SARS-COV-2 COVID-19 PFIZER VACCINE Unknown Completed [facility] SARS-COV-2 COVID-19 PFIZER VACCINE Unknown Completed [facility] HPV9 Unknown Completed [facility] TDAP Unknown Completed [facility] Influenza Virus Vaccine Quad .5 mL IM 6+ MO (FLUZONE/FLULAVAL/F LUARIX) Unknown Completed [facility] SARS-COV-2 COVID-19 PFIZER VACCINE Unknown Completed [facility] SARS-COV-2 COVID-19 PFIZER VACCINE Unknown Completed [facility] HPV9 Unknown Completed [facility] TDAP Unknown Completed [facility] Influenza Virus Vaccine Quad .5 mL IM 6+ MO (FLUZONE/FLULAVAL/F LUARIX) Unknown Completed [facility] SARS-COV-2 COVID-19 PFIZER VACCINE Unknown Completed [facility] SARS-COV-2 COVID-19 PFIZER VACCINE Unknown Completed [facility] HPV9 Unknown Completed [facility] TDAP Unknown Completed [facility] Influenza Virus Vaccine Quad .5 mL IM 6+ MO (FLUZONE/FLULAVAL/F LUARIX) Unknown Completed [facility] SARS-COV-2 COVID-19 PFIZER VACCINE Unknown Completed [facility] SARS-COV-2 COVID-19 PFIZER VACCINE Unknown Completed [facility] HPV9 Unknown Completed [facility] TDAP Unknown Completed [facility] Influenza Virus Vaccine Quad .5 mL IM 6+ MO (FLUZONE/FLULAVAL/F LUARIX) Unknown Completed [facility] SARS-COV-2 COVID-19 PFIZER VACCINE Unknown Completed [facility] SARS-COV-2 COVID-19 PFIZER VACCINE Unknown Completed [facility] HPV9 Unknown Completed [facility] TDAP Unknown Completed [facility] Influenza Virus Vaccine Quad .5 mL IM 6+ MO (FLUZONE/FLULAVAL/F LUARIX) Unknown Completed [facility] SARS-COV-2 COVID-19 PFIZER VACCINE Unknown Completed [facility] SARS-COV-2 COVID-19 PFIZER VACCINE Unknown Completed [facility] HPV9 Unknown Completed [facility] TDAP Unknown Completed [facility] Influenza Virus Vaccine Quad .5 mL IM 6+ MO (FLUZONE/FLULAVAL/F LUARIX) Unknown Completed [facility] SARS-COV-2 COVID-19 PFIZER VACCINE Unknown Completed [facility] SARS-COV-2 COVID-19 PFIZER VACCINE Unknown Completed [facility] HPV9 Unknown Completed [facility] TDAP Unknown Completed [facility] Influenza Virus Vaccine Quad .5 mL IM 6+ MO (FLUZONE/FLULAVAL/F LUARIX) Unknown Completed [facility] SARS-COV-2 COVID-19 PFIZER VACCINE Unknown Completed [facility] SARS-COV-2 COVID-19 PFIZER VACCINE Unknown Completed [facility] HPV9 Unknown Completed [facility] TDAP Unknown Completed [facility] Influenza Virus Vaccine Quad .5 mL IM 6+ MO (FLUZONE/FLULAVAL/F LUARIX) Unknown Completed [facility] SARS-COV-2 COVID-19 PFIZER VACCINE Unknown Completed [facility] SARS-COV-2 COVID-19 PFIZER VACCINE Unknown Completed [facility] HPV9 Unknown Completed [facility] TDAP Unknown Completed [facility] Influenza Virus Vaccine Quad .5 mL IM 6+ MO (FLUZONE/FLULAVAL/F LUARIX) Unknown Completed [facility] SARS-COV-2 COVID-19 PFIZER VACCINE Unknown Completed [facility] SARS-COV-2 COVID-19 PFIZER VACCINE Unknown Completed [facility] HPV9 Unknown Completed [facility] TDAP Unknown Completed [facility] Influenza Virus Vaccine Quad .5 mL IM 6+ MO (FLUZONE/FLULAVAL/F LUARIX) Unknown Completed [facility] SARS-COV-2 COVID-19 PFIZER VACCINE Unknown Completed [facility] SARS-COV-2 COVID-19 PFIZER VACCINE Unknown Completed [facility] HPV9 Unknown Completed [facility] TDAP Unknown Completed [facility] Influenza Virus Vaccine Quad .5 mL IM 6+ MO (FLUZONE/FLULAVAL/F LUARIX) Unknown Completed [facility] SARS-COV-2 COVID-19 PFIZER VACCINE Unknown Completed [facility] SARS-COV-2 COVID-19 PFIZER VACCINE Unknown Completed [facility] HPV9 Unknown Completed [facility] TDAP Unknown Completed [facility] Influenza Virus Vaccine Quad .5 mL IM 6+ MO (FLUZONE/FLULAVAL/F LUARIX) Unknown Completed [facility] SARS-COV-2 COVID-19 PFIZER VACCINE Unknown Completed [facility] SARS-COV-2 COVID-19 PFIZER VACCINE Unknown Completed [facility] HPV9 Unknown Completed [facility] TDAP Unknown Completed [facility] Influenza Virus Vaccine Quad .5 mL IM 6+ MO (FLUZONE/FLULAVAL/F LUARIX) Unknown Completed [facility] SARS-COV-2 COVID-19 PFIZER VACCINE Unknown Completed [facility] SARS-COV-2 COVID-19 PFIZER VACCINE Unknown Completed [facility] HPV9 Unknown Completed [facility] TDAP Unknown Completed [facility] Influenza Virus Vaccine Quad .5 mL IM 6+ MO (FLUZONE/FLULAVAL/F LUARIX) Unknown Completed [facility] SARS-COV-2 COVID-19 PFIZER VACCINE Unknown Completed [facility] SARS-COV-2 COVID-19 PFIZER VACCINE Unknown Completed [facility] HPV9 Unknown Completed [facility] Vital Signs Vital Name Observation Time Observation Value Comments S ource Systolic blood pressure 2023-06-03 14:49:00 154 mm[Hg] [facility] Diastolic blood pressure 2023-06-03 14:49:00 82 mm[Hg] [facility] Heart rate 2023-06-03 14:49:00 74 /min [facility] Body temperature 2023-06-03 14:49:00 36.22 Marlene [facility] Respiratory rate 2023-06-03 14:49:00 17 /min [facility] Body height 2023-06-03 14:49:00 157.5 cm [facility] Body weight 2023-06-03 14:49:00 93.35 kg [facility] BMI 2023-06-03 14:49:00 37.64 kg/m2 [facility] Systolic blood pressure 2023-01-28 20:42:00 127 mm[Hg] [facility] Diastolic blood pressure 2023-01-28 20:42:00 69 mm[Hg] [facility] Heart rate 2023-01-28 20:42:00 63 /min [facility] Body temperature 2023-01-28 20:42:00 35.89 Marlene [facility] Respiratory rate 2023-01-28 20:42:00 18 /min [facility] Body height 2023-01-28 20:42:00 157.5 cm [facility] Body weight 2023-01-28 20:42:00 95.391 kg [facility] BMI 2023-01-28 20:42:00 38.46 kg/m2 [facility] Systolic blood pressure 2023-01-15 22:04:00 135 mm[Hg] [facility] Diastolic blood pressure 2023-01-15 22:04:00 78 mm[Hg] [facility] Heart rate 2023-01-15 22:04:00 71 /min [facility] Body temperature 2023-01-15 22:04:00 35.83 Marlene [facility] Respiratory rate 2023-01-15 22:04:00 18 /min [facility] Body height 2023-01-15 22:04:00 157.5 cm [facility] Body weight 2023-01-15 22:04:00 95.981 kg [facility] BMI 2023-01-15 22:04:00 38.70 kg/m2 [facility] Systolic blood pressure 2022-01-24 19:19:00 122 mm[Hg] [facility] Diastolic blood pressure 2022-01-24 19:19:00 72 mm[Hg] [facility] Heart rate 2022-01-24 19:19:00 68 /min [facility] Body temperature 2022-01-24 19:19:00 36.06 Marlene [facility] Respiratory rate 2022-01-24 19:19:00 16 /min [facility] Body height 2022-01-24 19:19:00 157.5 cm [facility] Body weight 2022-01-24 19:19:00 106.278 kg [facility] BMI 2022-01-24 19:19:00 42.85 kg/m2 [facility] Systolic blood pressure 2022-01-12 15:57:00 139 mm[Hg] [facility] Diastolic blood pressure 2022-01-12 15:57:00 70 mm[Hg] [facility] Heart rate 2022-01-12 15:57:00 77 /min [facility] Body temperature 2022-01-12 15:57:00 36 Marlene [facility] Respiratory rate 2022-01-12 15:57:00 18 /min [facility] Body height 2022-01-12 15:57:00 157.5 cm [facility] Body weight 2022-01-12 15:57:00 106.686 kg [facility] BMI 2022-01-12 15:57:00 43.02 kg/m2 [facility] Systolic blood pressure 2019-05-17 20:33:00 130 mm[Hg] [facility] Diastolic blood pressure 2019-05-17 20:33:00 81 mm[Hg] [facility] Heart rate 2019-05-17 20:33:00 74 /min [facility] Body temperature 2019-05-17 20:33:00 36.44 Marlene [facility] Respiratory rate 2019-05-17 20:33:00 16 /min [facility] Body height 2019-05-17 20:33:00 157.5 cm [facility] Body weight 2019-05-17 20:33:00 118.559 kg [facility] BMI 2019-05-17 20:33:00 47.81 kg/m2 [facility] Procedures Procedure Date / Time Performed Performing Clinician Source CANCER ANTIGEN-GI (CA 19-9) 2023-02-13 14:28:00 Sukhdev Scott Y [facility] COMP. METABOLIC PANEL ([id number]) 2023-02-13 14:28:00 Jono Olson [facility] CA-125 2023-02-13 14:28:00 Sukhdev Scott [facility] CBC WITH DIFF 2023-02-13 14:28:00 Sukhdev Scott Y [facility] AUTHORIZATION TO RELEASE PHI TO [facility] 2023-01-28 06:01:00 Doctor Unassigned, Gregory [facility] HIGH RISK HPV-THIN PREP 2023-01-15 22:49:00 Cynthia Bella [facility] PAP SMEAR-LIQUID BASED-CP 2023-01-15 22:49:00 Cynthia Bella [facility] GARDASIL 9 (HPV 9V) VACCINE 2023-01-15 22:13:15 Cynthia Bella [facility] DISCLOSURE AND CONSENT, MEDICAL AND SURGICAL PROCEDURES 2022-01-24 06:01:00 Doctor Unassigned, Gregory [facility] POCT TEST 2022-01-12 18:57:00 Arina Rizvi [facility] ASSIGNMENT OF BENEFITS 2022-01-12 15:50:36 Docto r Unassigned, Gregory [facility] FLU VACC ([id number]), 6+ MONTHS, IM, QUAD 2019-05-17 21:08:32 David Armendariz [facility] NOTICE OF PRIVACY PRACTICES 2019-05-17 20:15:00 Doctor Unassigned, Gregory [facility] Encounters Start Date/Time End Date/Time Encounter Type Admission Type Attending [facility] Care Facility Care Department Encounter ID Source 2023-07-23 14:00:00 2023-07-23 14:00:00 Outpatient R [facility] [id number] [facility] 2023-06-03 09:15:00 2023-06-03 10:15:37 Outpatient R CYNTHIA BELLA [facility] [id number] [facility] 2023-06-03 09:15:00 2023-06-03 10:15:37 Office Visit Cynthia Bella [facility] SOAP [facility] MATERNAL & [facility]ILD HEALTH [facility] ..[id number] [facility] 2023-05-29 16:52:59 2023-05-29 16:52:59 Outpatient [facility] [id number] Parth Torres 2023-05-26 10:55:58 2023-05-26 10:55:58 Outpatient [facility] [id number] Parth aFy Brian 2023-04-01 07:14:37 2023-04-01 23:59:00 Outpatient R CYNTHIA BELLA [facility] [id number] [facility] 2023-04-01 07:14:37 2023-04-01 23:59:00 Hospital Encounter [facility] [facility] ..840.114 350.1.13.10 4.2.7.2.686 [id number] [facility] 2023-04-01 15:00:00 2023-04-01 15:00:00 Outpatient R [facility] [id number] [facility] 2023-04-01 00:00:00 2023-04-01 00:00:00 Patient Secure Msg Doctor Unassigned, Gregory [facility] 03.11.840.114 350.1.13.10 4.2.7.2.686 [id number] [facility] 2023-04-01 00:00:00 2023-04-01 00:00:00 Patient Secure Msg Cynthia Bella [facility] 1.2.840.114 350.1.13.10 4.2.7.2.686 [id number] [facility] 2023-03-17 10:45:00 2023-03-17 10:45:00 Outpatient R [facility] [id number] [facility] 2023-02-26 10:30:00 2023-02-26 10:30:00 Outpatient R CYNTHIA BELLA [facility] [id number] [facility] 2023-02-21 00:00:00 2023-02-21 00:00:00 Patient Secure Msg Doctor Unassigned, Gregory [facility] 1.84.114 350.1.13.10 4.2.7.2.686 [id number] [facility] 2023-02-19 14:00:00 2023-02-19 14:00:00 Outpatient R [facility] [id number] [facility] 2023-02-19 00:00:00 2023-02-19 00:00:00 Telephone Sukhdev [facility] 1..114 350.1.13.10 4.2.7.2.686 [id number] [facility] 2023-02-18 00:00:00 2023-02-18 00:00:00 Patient Secure Msg Doctor Unassigned, Gregory [facility] 1.84.114 350.1.13.10 4.2.7.2.686 [id number] [facility] 2023-02-17 00:00:00 2023-02-17 00:00:00 Telephone Cynthia Bella [facility] 1..114 350.1.13.10 4.2.7.2.686 [id number] [facility] 2023-02-17 00:00:00 2023-02-17 00:00:00 Patient Secure Msg Doctor Unassigned, Gregory [facility] ..114 350.1.13.10 4.2.7.2.686 [id number] [facility] 2023-02-15 00:00:00 2023-02-15 00:00:00 Patient Secure Msg Doctor Unassigned, Gregory [facility] 1.114 350.1.13.10 4.2.7.2.686 [id number] [facility] 2023-02-13 08:30:00 2023-02-13 08:30:00 Foot Miter Operator Visit Lab, Ang-Rmchp Cynthia Bella [facility] 1..114 350.1.13.10 4.2.7.2.686 [id number] [facility] 2023-02-13 08:30:00 2023-02-13 08:26:42 Outpatient R CYNTHIA BELLA [facility] [id number] [facility] 2023-02-13 00:00:00 2023-02-13 00:00:00 Patient Secure Msg Cynthia Bella [facility] 1.114 350.1.13.10 4.2.7.2.686 [id number] [facility] 2023-02-05 00:00:00 2023-02-05 00:00:00 Patient Secure Msg Doctor Unassigned, Gregory [facility] 1.2.840.114 350.1.13.10 4.2.7.2.686 [id number] [facility] 2023-01-28 14:15:00 2023-01-28 16:15:24 Outpatient R JONO OLSON [facility] [id number] [facility] 2023-01-28 14:15:00 2023-01-28 16:15:24 Office Visit Pgy2 Jono Olson [facility] 1.840.114 350.1.13.10 4.2.7.2.686 [id number] [facility] 2023-01-28 00:00:00 2023-01-28 00:00:00 Orders Only Doctor Unassigned, Gregory [facility] 1.2840.114 350.1.13.10 4.2.7.2.686 [id number] [facility] 2023-01-27 00:00:00 2023-01-27 00:00:00 Patient Secure Msg Doctor Unassigned, Gregory [facility] 1.2840.114 350.1.13.10 4.2.7.2.686 [id number] [id number] [facility] 2023-01-24 00:00:00 2023-01-24 00:00:00 Patient Secure Msg Doctor Unassigned, Gregory [facility] 1.2840.114 350.1.13.10 4.2.7.2.686 [id number] [facility] 2023-01-22 00:00:00 2023-01-22 00:00:00 Patient Secure Msg Cynthia Bella [facility] 1.840.114 350.1.13.10 4.2.7.2.686 [id number] [facility] 2023-01-15 16:00:00 2023-01-15 16:46:46 Outpatient R CYNTHIA BELLA [facility] [id number] [facility] 2023-01-15 16:00:00 2023-01-15 16:46:46 Office Visit Cynthia Bella [facility] 1..114 350.1.13.10 4.2.7.2.686 [id number] 107 [id number] [facility] 2023-01-13 00:00:00 2023-01-13 00:00:00 Patient Secure Msg Doctor Unassigned, Gregory [facility] ..114 350.1.13.10 4.2.7.2.686 [id number] [facility] 2022-10-23 13:22:44 2022-10-23 13:22:44 Outpatient [facility] [id number] Parth Aponte Brian 2022-10-15 16:03:53 2022-10-15 16:03:53 Outpatient [facility] [place] [id number] Parth Fay [place] 2022-10-14 15:56:07 2022-10-14 15:56:07 Outpatient [facility] [place] [id number] Parth Aponte [place] 2022-06-20 08:09:58 2022-06-20 08:09:58 Outpatient [facility] [id number] Parth Aponte [place] 2022-03-26 13:00:00 2022-03-26 13:00:00 Outpatient R [facility] [id number] [facility] 2022-02-14 10:30:00 2022-02-14 10:30:00 Outpatient R CYNTHIA BELLA [facility] [id number] [facility] 2022-02-08 00:00:00 2022-02-08 00:00:00 Telephone Arina Rizvi [facility] 1..114 350.1.13.10 4.2.7.2.686 [id number] [facility] 2022-02-07 00:00:00 2022-02-07 00:00:00 Patient Secure Msg Doctor Unassigned, Gregory [facility] 1.2.840.114 350.1.13.10 4.2.7.2.686 [id number] [facility] 2022-02-07 00:00:00 2022-02-07 00:00:00 Patient Secure Msg Doctor Unassigned, Gregory [facility] 1.2.840.114 350.1.13.10 4.2.7.2.686 [id number] [facility] 2022-02-05 00:00:00 2022-02-05 00:00:00 Telephone Pgy3 [facility] 1.2.840.114 350.1.13.10 4.2.7.2.686 [id number] [facility] 2022-01-29 00:00:00 2022-01-29 00:00:00 Telephone Kita Grey [facility] 1.2.840.114 350.1.13.10 4.2.7.2.686 [id number] [facility] 2022-01-28 00:00:00 2022-01-28 00:00:00 Telephone Pgy3 [facility] 1.2.840.114 350.1.13.10 4.2.7.2.686 [id number] [facility] 2022-01-28 00:00:00 2022-01-28 00:00:00 Patient Secure Msg Doctor Unassigned, Gregory [facility] 1.2.840.114 350.1.13.10 4.2.7.2.686 [id number] [facility] 2022-01-25 00:00:00 2022-01-25 00:00:00 Patient Secure Msg Doctor Unassigned, Gregory [facility] 1.2.84.114 350.1.13.10 4.2.7.2.686 [id number] [facility] 2022-01-24 13:30:00 2022-01-24 14:57:38 Outpatient R MANJINDER SU KARREN [facility] [id number] [facility] 2022-01-24 13:30:00 2022-01-24 14:57:38 Office Visit Pgy3 Manjinder Su [facility] 1..114 350.1.13.10 4.2.7.2.686 [id number] [facility] 2022-01-24 00:00:00 2022-01-24 00:00:00 Orders Only Doctor Unassigned, Gregory [facility] 1..114 350.1.13.10 4.2.7.2.686 [id number] [facility] 2022-01-14 00:00:00 2022-01-14 00:00:00 Telephone Dmitri [facility] 1.840.114 350.1.13.10 4.2.7.2.686 [id number] [facility] 2022-01-12 10:45:00 2022-01-12 11:56:21 Outpatient R DMITRI [facility] [id number] [facility] 2022-01-12 10:45:00 2022-01-12 11:56:21 Office Visit Provider[facility] 1.840.114 350.1.13.10 4.2.7.2.686 [id number] [facility] 2022-01-12 00:00:00 2022-01-12 00:00:00 Orders Only Doctor Unassigned, Gregory [facility] .840.114 350.1.13.10 4.2.7.2.686 [id number] [facility] 2022-01-07 08:15:00 2022-01-07 08:15:00 Outpatient R DAVID ARMENDARIZ [facility] [id number] [facility] 2022-01-03 11:00:00 2022-01-03 11:00:00 Outpatient R UNKNOWN, ATTENDING [facility] [id number] [facility] 2021-02-12 10:00:00 2021-02-12 10:00:00 Outpatient R [facility] [id number] [facility] 2021-02-09 00:00:00 2021-02-09 00:00:00 Patient Secure Msg Doctor Unassigned, Gregory [facility] ..840.114 350.1.13.10 4.2.7.2.686 [id number] [facility] 2020-10-26 11:20:00 2020-10-26 11:20:00 Outpatient R JUDITH GUTHRIE [facility] [id number] [facility] 2020-06-23 11:30:00 2020-06-23 11:14:33 Outpatient R TIFF MUNOZ [facility] [id number] [facility] 2020-06-02 11:30:00 2020-06-02 11:30:00 Outpatient PEYMAN LAW [facility] [id number] [facility] 2020-05-30 11:00:00 2020-05-30 11:00:00 Outpatient PEYMAN LAW [facility] [id number] [facility] 2020-05-29 00:00:00 2020-05-29 00:00:00 Patient Outreach Peyman Law [facility] .840.114 350.1.13.10 4.2.7.2.686 [id number] [facility] 2020-05-16 09:30:00 2020-05-16 09:30:00 Outpatient R DAVID ARMENDARIZ [facility] [id number] [facility] 2019-05-25 00:00:00 2019-05-25 00:00:00 Patient Secure Cynthia Romeo [facility] SO[facility] 1.2.840.114 350.1.13.10 4.2.7.2.686 [id number] [facility] 2019-05-17 15:19:29 2019-05-17 16:34:26 Office Visit David Armendariz [facility] 1..840.114 350.1.13.10 4.2.7.2.686 [id number] [facility] 2019-05-17 15:30:00 2019-05-17 15:30:00 Outpatient R JOHAN ARMENDARIZHERVE [facility] [id number] [facility] 2019-05-17 15:30:00 2019-05-17 15:30:00 Outpatient DAVID KIRK [facility] [id number] [facility] 2019-05-17 00:00:00 2019-05-17 00:00:00 Orders Only Doctor Unassigned, Gregory [facility] 1..840.114 350.1.13.10 4.2.7.2.686 [id number] [facility] Results Test Description Test Time Test Comments Results Result Co mments Source [facility]CA 19-9)2023-02-14 13:26:26 * Test Item Value Reference Range Interpretation Comme nts CA 19-9 (test code = 0767038661) 1.8 U/mL 0.0-35.0 SUE (test code = SUE) Biotin has been reported to cause a negative bias, interpret results relative to patient's use of biotin. Lab Interpretation (test code = 15470-3) Normal [id number] 13:26:25* Test Item Value Reference Range Interpretation Comme nts CA-125 (test code = 5043996330) 5.0 U/mL 0.0-35.0 Lab Interpretation (test cod e = 99250-9) Normal [facility] WITH [id number] 07:21:34* Test Item Value Reference Range Interpretation Comme nts WBC (test code = 6690-2) 8.86 See_Comment [Automated [employer]] The system which generated this result transmitted reference range: 4.30 - 11.10 10*3/?L. The reference range was not used to interpret this result as normal/abnormal. RBC (test code = 789-8) 4.66 See_Comment [Automated [employer]] The system which generated this result transmitted reference range: 3.93 - 5.25 10*6/?L. The reference range was not used to interpret this result as normal/abnormal. HGB (test code = 718-7) 6.9 g/dL 11.6-15.0 L HCT (test code = 4544-3) 26.0 % 35.7-45.2 L MCV (test code = 787-2) 55.8 fL 80.6-95.5 L MCH (test code = 785-6) 14.8 pg 25.9-32.8 L MCHC (test code = 786-4) 26.5 g/dL 31.6-35.1 L RDW-SD (test code = 44507-5) 39.4 fL 39.0-49.9 RDW-CV (test code = 788-0) 21.3 % 12.0-15.5 H PLT (test code = 777-3) 351 See_Comment [Automated [employer]] The system which generated this result transmitted reference range: 166 - 358 10*3/?L. The reference range was not used to interpret this result as normal/abnormal. MPV (test code = 98907-5) Not Measured IPF % (test code = 5360051141) 6.5 % 1.3-7.7 Platelet count measured by fluorescence method. NRBC/100 WBC (test code = 9938011817) 0.0 See_Comment [Automated me ssage] The system which generated this result transmitted reference range: 0.0 - 10.0 /100 WBCs. The reference range was not used to interpret this result as normal/abnormal. NRBC x10^3 (test code = 5090125452) See_Comment [Automated messa ge] The system which generated this result transmitted reference range: 10*3/?L. The reference range was not used to interpret this result as normal/abnormal. GRAN MAT (NEUT) % (test code = 770-8) 69.7 % IMM GRAN % (test code = 1901282383) 0.30 % LYMPH % (test code = 736-9) 20.2 % MONO % (test code = 5905-5) 7.7 % EOS % (test code = 713-8) 1.6 % BASO % (test code = 706-2) 0.5 % GRAN MAT x10^3(ANC) (test code = 4510830454) 6.18 10*3/uL 1.88-7.09 IMM GRAN x10^3 (test code = 9502893318) 0.03 10*3/uL 0.00-0.06 LYMPH x10^3 (test code = 731-0) 1.79 10*3/uL 1.32-3.29 MONO x10^3 (test code = 742-7) 0.68 10*3/uL 0.33-0.92 EOS x10^3 (test code = 711-2) 0.14 10*3/uL 0.03-0.39 BASO x10^3 (test code = 704-7) 0.04 10*3/uL 0.01-0.07 Lab Interpretation (test code = 90445-5) Abnormal [facility] IgG AND [id number] 00:12:07* Test Item Value Reference Range Interpretation Comme nts MUMPS VIRUS IgG (test code = 74672) <5.0 AU/mL INTERPRETIVE INF ORMATION: Mumps Ab, IgG by BARBARA 8.9 AU/mL or less .... Negative - No significant level of detectable IgG mumps virus antibody 9.0-10.9 AU/mL ....... Equivocal - Repeat testing in 10-14 days may be helpful 11.0 AU/mL or greater: Positive - IgG antibody to mumps virus detected, which may indicate a current or past exposure/ immunization to mumps virus. The best evidence for current infection is a significant change on two appropriately timed specimens, where both tests are done in the same laboratory at the same time. TESTING PERFORMED AT [facility] [address], [place] [address] [place]. [id number] CLIA NO. [id number] MUMPS VIRUS IgM (test code = 4587) 0.39 IV See_Comment INTERPRETIVE INFORMATION: Mumps Virus Antibody, IgM 0.79 IV or less: Negative - No significant level of detectable IgM antibody to mumps virus. 0.80 - 1.20 IV: Equivocal - Borderline levels of IgM antibody to mumps virus. Repeat testing in 10-14 days may be helpful. 1.21 IV or greater: Positive - Presence of IgM antibody to mumps virus detected, which may indicate a current or recent infection. However, low levels of IgM antibody may occasionally persist for more than 12 months post-infection or immunization. TESTING PERFORMED AT [facility] [address], [place] [address] [place]. [id number] CLIA NO. [id number] [Automated message] The system which generated this result transmitted reference range: <=0.79. The reference range was not used to interpret this result as normal/abnormal. RUBEOLA AB, [id number] 11:43:28* Test Item Value Reference Range Interpretation Comme [facility] RUBEOLA AB, IgG (test code = 57740) 68.0 AU/ML SEE BELOW INTERPRETATION U NITS RANGE ----- ----- NEGATIVE AU/ML <13.5 EQUIVOCAL AU/ML 13.5-16.4 NOTE: CONSIDER RETESTING IN A CLINICALLY SUITABLE PERIOD OF TIME, NO SOONER THAN 1-2 WEEKS. POSITIVE AU/ML >=16.5 VARICELLA ZOSTER [id number] 11:43:28* Test Item Value Reference Range Interpretation Comme nts VARICELLA ZOSTER IgG (test code = 04024) 1013 INDEX SEE BELOW INTERPRETATION V ZV IgG NEGATIVE . . . . . . . . . . . . INDEX <135 EQUIVOCAL. . . . . . . . . . . . INDEX 135-164 NOTE: CONSIDER RETESTING IN A CLINICALLY SUITABLE PERIOD OF TIME, NO SOONER THAN 1-2 WEEKS. POSITIVE . . . . . . . . . . . . INDEX >=165 UNLESS OTHERWISE INDICATED, ALL TESTING PERFORMED AT [facility] [employer] [address] [place] [address] HOSE TENDER: AI TAYLOR M.D. [place] NUMBER [id number] [facility] [place]. [id number] HEPATITIS A TOTAL AB REFLEX TO [id number] 04:13:02* Test Item Value Reference Range Interpretation Comme [facility] HEPATITIS A TOTAL AB (test c ode = 2725) NON-REACTIVE NON-REACTIVE HEPATITIS B SURFACE [id number] 04:13:02* Test Item Value Reference Range Interpretation Comme [facility] HEPATITIS B SURFACE AB (test code = 2737) NON-REACTIVE NON-REACTIVE RUBELLA ANTIBODY [id number] 04:13:02* Test Item Value Reference Range Interpretation Comme [facility] RUBELLA ANTIBODY SCREEN (test code = 4600) 29 IU/ML SEE BELOW RUBELLA IgG INTERP (test code = 67068) REACTIVE REACTIVE INTERPRETATI ON UNITS RANGE NON-REACTIVE/NON-IMMUNE IU/ML <10 REACTIVE/IMMUNE IU/ML >=10 HEMOGLOBIN [id number] 21:01:29* Test Item Value Reference Range Interpretation Comme [facility] HEMOGLOBIN A1c (test code = 20652) 6.8 % 4.2-5.6 H [employer] GUIDELINES FOR HGB A1C: PREDIABETES/INCREASED RISK . . . . . . . 5.7-6.4% DIAGNOSIS OF DIABETES . . . . . . . . . >=6.5% WITH CONFIRMATION OR APPROPRIATE SYMPTOMS NOTE: ASSAY MAY BE AFFECTED BY HEMOGLOBINOPATHIES (SICKLE CELL ANEMIA, S-C DISEASE, OTHERS) OR ARTIFICIALLY LOWERED BY DECREASED RED CELL SURVIVAL (HEMOLYTIC ANEMIAS, BLOOD LOSS, ETC.). CONSIDER ALTERNATE TESTING OR LABORATORY CONSULTATION. CBC W/AUTO DIFF WITH [id number] 15:06:18* Test Item Value Reference Range Interpretation Comme [facility] WBC (test code = 1001) 6.6 K/UL 3.5-11.0 RBC (test code = 1002) 4.60 M/UL 3.80-5.40 HEMOGLOBIN (test code = 1003) 7.4 G/DL 11.5-15.5 L HEMATOCRIT (test code = 1004) 27.9 % 34.0-45.0 L MCV (test code = 1005) 60.7 fL 80.0-99.0 L MCH (test code = 1006) 16.1 PG 25.0-33.0 L MCHC (test code = 1007) 26.5 G/DL 31.0-36.0 L RDW (test code = 1038) 18.9 % 11.5-15.0 H NEUTROPHILS (test code = 1008) 58.2 % AUTOMATED DIFFERENTIAL CONFIRMED WITH MANUAL SLIDE REVIEW. LYMPHOCYTES (test code = 1010) 31.4 % MONOCYTES (test code = 1011) 8.1 % EOSINOPHILS (test code = 1012) 1.8 % BASOPHILS (test code = 1013) 0.3 % IMMATURE GRANULOCYTES (test code = 1036) 0.2 % NUCLEATED RBCS (test code = 1065) 0.0 /100 WBC'S See_Comment [Automated message] The system which generated this result transmitted reference range: 0.0. The reference range was not used to interpret this result as normal/abnormal. PLATELET COUNT (test code = 1015) 399 K/UL 130-400 ABSOLUTE NEUTROPHILS (test code = 1066) 3.82 K/UL 1.50-7.50 ABSOLUTE LYMPHOCYTES (test code = 1067) 2.06 K/UL 1.00-4.00 ABSOLUTE MONOCYTES (test code = 1068) 0.53 K/UL 0.20-1.00 ABSOLUTE EOSINOPHILS (test code = 1040) 0.12 K/UL 0.00-0.50 ABSOLUTE BASOPHILS (test code = 1069) 0.02 K/UL 0.00-0.20 ABS IMMATURE GRANULOCYTES (test code = 1020) 0.01 K/UL 0.00-0.10 ABS NUCLEATED RBCS (test code = 49845) 0.00 K/UL 0.00-0.11 COMMENTS (test code = 1016) (NOTE) MODERATE ANISOCY TOSIS FEW ELLIPTOCYTES MARKED HYPOCHROMASIA MARKED MICROCYTOSIS MODERATE POIKILOCYTOSIS SLIGHT POLYCHROMASIA FEW SCHISTOCYTES FEW TEAR DROP CELLS PLATELETS APPEAR NORMAL [facility] has important pathology staff changes effective 05/08/2022. New pathology staff will provide uninterrupted, excellent patient care and clinical consultation. See URL: [email or web address] UNLESS OTHERWISE INDICATED, ALL TESTING PERFORMED AT [facility] [address] [place] [address] HOSE TENDER: AI TAYLOR M.D. CLIA NUMBER [id number] [facility] [place]. [id number] COMPREHENSIVE METABOLIC [id number] 05:59:27* Test Item Value Reference Range Interpretation Comme nts GLUCOSE (test code = 2217) 102 MG/DL 70-99 H BUN (test code = 2208) 6 MG/DL 6-20 CREATININE (test code = 2214) 0.61 MG/DL 0.60-1.30 eGFR (2020 CKD-EPI) (test code = 66438) 116 ML/MIN/1.73 >60 CALC BUN/CREAT (test code = 2235) 10 RATIO 6-28 SODIUM (test code = 2231) 139 MEQ/L 133-146 POTASSIUM (test code = 2228) 4.1 MEQ/L 3.5-5.4 CHLORIDE (test code = 2215) 104 MEQ/L 95-107 CARBON DIOXIDE (test code = 2206) 24 MEQ/L 19-31 CALCIUM (test code = 2209) 8.9 MG/DL 8.5-10.5 PROTEIN, TOTAL (test code = 2229) 7.5 G/DL 6.1-8.3 ALBUMIN (test code = 2201) 4.4 G/DL 3.5-5.2 CALC GLOBULIN (test code = 2240) 3.1 G/DL 1.9-3.7 CALC A/G RATIO (test code = 2234) 1.4 RATIO 1.0-2.6 BILIRUBIN, TOTAL (test code = 2207) 0.3 MG/DL See_Comment [Automated me ssage] The system which generated this result transmitted reference range: <=1.2. The reference range was not used to interpret this result as normal/abnormal. ALKALINE PHOSPHATASE (test code = 2204) 63 U/L 40-112 AST (test code = 2218) 16 U/L 9-40 ALT (test code = 2219) 10 U/L 5-40 LIPID [id number] 05:59:27* Test Item Value Reference Range Interpretation Comme nts CHOLESTEROL (test code = 2210) 121 MG/DL <200 TRIGLYCERIDES (test code = 2232) 79 MG/DL <150 HDL CHOLESTEROL (test code = 2220) 37 MG/DL >39 L CALC LDL CHOL (test code = 2237) 68 MG/DL <100 NOTE: CALCULATED LDL IS BASED ON JOYCELYN-FRIEDMAN METHOD WHICHINCLUDES ADJUSTABLE TRIGLYCERIDE:VLDL CHOLESTEROL RATIO.THIS FACTOR VARIES BY MEASURED TRIGLYCERIDE AND NON-HDLCHOLESTEROL CONCENTRATIONS WITH INCREASED CALCULATED LDL SEENIN HIGHER TRIGLYCERIDE OR LOWER NON-HDL SPECIMENS. FOR MOREINFORMATION, SEE CLIENT ANNOUNCEMENT AT [email or web address] RATIO LDL/HDL (test code = 2238) 1.84 RATIO <3.22 POCT [id number] 18:57:00* Test Item Value Reference Range Interpretation Comme nts POCT PREG (test code = 1605) Negative On board controls acceptable with C Line (test code = 3574) Yes POCT PREG LOT # (test code = 3575) POCT PREG TEST DATE ( test code = 3576) [id number]57:[facility]* Test Item Value Reference Range Interpretation Comme nts POCT PREG (test code = 1605) Negative On board controls acceptable with C Line (test code = 3574) Yes POCT PREG LOT # (test code = 3575) POCT PREG TEST DATE ( test code = 3576) [facility]-PCR/[id number] 06:23:46* Test Item Value Reference Range Interpretation Comments SARS-CoV-2 INTERPRETATION (test code = 34694) NEGATIVE SEE NOTE SARS-CoV-2 R NA NOT DETECTEDNegative results do not preclude SARS-CoV-2 infection and should notbe used as the sole basis for patient management decisions. Negativeresults must be combined with clinical observations, patient history,and epidemiological information. Optimum specimen types and timingfor peak viral levels during infections caused by SARS-CoV-2 have notbeen determined. Collection of multiple specimens or types ofspecimens may be necessary to detect virus. Improper specimencollection and handling, sequence variability under primers/probes,or organism present below the limit of detection may lead to falsenegative results. Positive and negative predictive values oftesting are highly dependent on prevalence. False negative testresults are more likely when prevalence is high. SOURCE (test code = 34424) NASOPHARYNGEAL Note: Methodolog y is Candice Zenia Real-Time RT-PCR. The expected result or reference range is NEGATIVE (Not Detected). For more information regarding COVID-19 testing to include clinicalinformation, methodology detail, intended use, FDA authorization andrecommended fact sheets for patients or healthcare providers, see [employer] Announcement: SARS-CoV-2 (COVID-19) by NAAT at URL below (note,fact sheets are provided by method given in report:[email or web address]/clinicians/cl ient-communications/ Alternatively, see downloadable PDF fact sheet at:https://www.[employer]/JUMBJ-41-KR-PCR UNLESS OTHERWISE INDICATED, ALL TESTING PERFORMED [facility] [address] [place] [id number] HOSE TENDER: CHU HAAS M.D. CLIA NUMBER [id number] [facility] [place]. [id number]
[2023-06-10] MEDS ORDERED: KETOROLAC 30 MG/ML INJ ONE (08:16)
[2023-06-10] MEDS ORDERED: MORPHINE 4 MG/ML SYR ONE (08:16)
[2023-06-10] MEDS ORDERED: ONDANSETRON 4 MG/2 ML VIAL ONE (08:16)
[2023-06-10 08:19] LABS: Absolute Basophils 0.1 K/uL (0-0.5); Absolute Eosinophils 0.1 K/uL (0-0.5); Absolute Lymphocytes (CBC) 2.1 K/uL (0.7-4.9); Absolute Monocytes 0.7 K/uL (0.1-1.3); Absolute Neutrophil 6.7 K/uL (1.8-8.0); Basophils % 0.5 % (0-1.3); Eosinophils % 1.3 % (0-4.4); Hematocrit 25.2 % (36.0-45.0); Hemoglobin 7.4 g/dL (12.0-15.0); Lymphocytes % 21.5 % (15.3-44.8); MCH 16.6 pg (27.0-35.0); MCHC 29.5 g/dL (32.0-36.0); MCV 56.2 fL (80-100); MPV 8.5 fL (7.6-11.3); Monocytes % 7.3 % (3.3-12.3); Neutrophils % 69.4 % (41.7-73.7); Nucleated Red Blood Cells % 0.1 % (0-0); Platelets 629 thou/uL (152-406); RBC Red Blood Cell Count 4.49 M/uL (3.86-4.86); Red Cell Distribution Width 18.5 % (12.1-15.2)
[2023-06-10 08:33] LABS: Specific Gravity 1.011 (1.005-1.030); Sqamous Epithelial <5 /HPF (None Seen); Urine Bacteria <20 /HPF (<20); Urine Bilirubin NEGATIVE (Negative); Urine Blood Negative (Negative); Urine Clarity Extremely Turbid (Clear); Urine Color Light-Yellow (Yellow); Urine Culture Reflex Order NOT NEEDED; Urine Glucose NEGATIVE (Negative); Urine Ketones NEGATIVE (Negative); Urine Microscopic Reflex YN ORDER UMIC; Urine Mucus Slight /HPF (None Seen); Urine Nitrite NEGATIVE (Negative); Urine Protein NEGATIVE (Negative); Urine RBC <5 /HPF (None Seen); Urine Urobilinogen Normal (Normal); Urine WBC <5 /HPF (<5)
[2023-06-10 08:37] LABS: Albumin 3.1 g/dL (3.4-5.0); Albumin/Globulin Ratio 0.7 (1.1-1.8); Anion Gap 6.6 mEq/L (5.0-15.0); Bilirubin Total 0.4 mg/dL (0.2-1.0); Globulin 4.6 g/dL (2.3-3.5); Potassium 3.6 mEq/L (3.5-5.1); Protein, Total 7.7 g/dL (6.4-8.2)
[2023-06-10 08:47] LABS: White Blood Cell Scan OK (OK)
[2023-06-10 08:48] LABS: Anisocytosis 2+; Blood Morphology Comment NOTED (NOT SEEN); Hypochromasia 2+; Platelet Estimate INCR; Poikilocytosis 2+; Target Cells 1+
--- NOTE | 2023-06-10 10:08 | RAD REPORT ---
EXAM DESCRIPTION: US - Transvaginal Study Probe - 06/10/2023 8:52 am CLINICAL HISTORY: ABD PAIN Pelvic pain. COMPARISON: Transvaginal Study Probe dated 06/02/2023; Abdomen Pelvis W Contrast dated 06/02/2023 FINDINGS: The uterus is normal in size, shape and echotexture. The uterus measures 8.1 cm x 4.9 cm x 5.8 cm. A subserosal uterine fibroid measuring 1.8 cm is noted. The endometrial stripe measures 1 mm, within normal limits Cystic right adnexal mass measuring 13.5 cm measures similar in size compared with the CT from 2023. The right ovary measures 3.9 x 2 x 2.2 cm with volume of 8.9 cc. The left ovary measures 2.9 x 1.9 x 2.3 cm with volume of 6.5 cc. Both ovaries demonstrate vascular flow. The left ovary has severa l hypoechoic cystic spaces which may represent small follicles but the overall appearance of the left ovary and adnexa is abnormal. Normal Doppler blood flow was demonstrated to both ovaries. No significant pelvic ascites. IMPRESSION: 1. Both ovaries demonstrate vascular flow. Atypical appearance of the left ovary when co rrelating with today's pelvic ultrasound and the CT from 06/02/23. There is the suggestion of inflamma tion at this location on the CT. An infectious process such as pelvic inflammatory disease is a consi deration without abscess identified. Suggest gynecology referral and/or short term pelvic ultrasound follow-up. 2. Large right adnexal cystic lesion measuring approximately 13.5 cm. Gynecology referral is recommen ded.
--- NOTE | 2023-06-10 10:16 | ER ---
Nurse's Notes [facility] Name: Chantel Davis Age: 43 yrs Sex: Female : 1980 Arrival Date: 06/10/2023 Time: 07:46 Bed 20 Private MD: Diagnosis: Pelvic and perineal pain;Other ovarian cysts Presentation: 06/09 07:58 Chief complaint: Patient states: ABD PAIN X 3 WEEKS WORSE OVER LAST 2 DAYS. PAIN LOWER db ABD TO BACK PAIN AND NAUSEA. STATES HAS DOCTOR APPT FRIDAY BUT UNABLE TO WAIT BECAUSE TOO PAINFUL. Coronavirus screen: Client denies travel out of the [place] in the last 14 days. At this time, the client does not indicate any symptoms associated with coronavirus-19. Ebola Screen: Patient negative for fever greater than or equal to 101.5 degrees Fahrenheit, and additional compatible Ebola Virus Disease symptoms Patient denies exposure to infectious person. Patient denies travel to an Ebola-affected area in the 21 days before illness onset. No symptoms or risks identified at this time. Initial Sepsis Screen: Does the patient meet any 2 criteria? No. Patient's initial sepsis screen is negative. Does the patient have a suspected source of infection? No. Patient's initial sepsis screen is negative. Risk Assessment: Do you want to hurt yourself or someone else? Patient reports no desire to harm self or others. Onset of symptoms was June 08, 2023. 07:58 Method Of Arrival: Ambulatory db 07:58 Acuity: XENIA 3 db Triage Assessment: 08:00 General: Appears in no apparent distress. comfortable, Behavior is calm, cooperative. db Pain: Complains of pain in back and abdomen. Neuro: Level of Consciousness is awake, alert, obeys commands, Oriented to person, place, time, situation, Speech is normal. Cardiovascular: No deficits noted. Capillary refill < 3 seconds Patient's skin is warm and dry. Respiratory: No deficits noted. Airway is patent Respiratory effort is even, unlabored, Respiratory pattern is regular, symmetrical. GI: Abdomen is non-distended, Reports lower abdominal pain, nausea. : No deficits noted. No signs and/or symptoms were reported regarding the genitourinary system. Derm: No deficits noted. No signs and/or symptoms reported regarding the dermatologic system. Musculoskeletal: No deficits noted. No signs and/or symptoms reported regarding the musculoskeletal system. 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 - Infectious Disease History:: Denies. - Social history:: Smoking status: Patient denies any tobacco usage or history of. Screenin:02 [facility] ED Fall Risk Assessment (Adult) History of falling in the last 3 months, db including since admission No falls in past 3 months (0 pts) Confusion or Disorientation No (0 pts) Intoxicated or Sedated No (0 pts) Impaired Gait No (0 pts) Mobility Assist Device Used No (0 pt) Altered Elimination No (0 pt) Score/Fall Risk Level 0 - 2 = Low Risk Oriented to surroundings, Maintained a safe environment. Abuse screen: Denies threats or abuse. Denies injuries from another. Nutritional screening: No deficits noted. Tuberculosis screening: No symptoms or risk factors identified. Assessment: 08:00 General: Appears in no apparent distress. uncomfortable, Behavior is cooperative. Pain: rs5 Complains of pain in lower abdomen bilat Pain currently is 9 out of 10 on a pain scale. Quality of pain is described as aching, Is continuous. Neuro: Level of Consciousness is awake, alert, obeys commands, Oriented to person, place, time, situation. Cardiovascular: Patient's skin is warm and dry. Rhythm is regular. Respiratory: Airway is patent Respiratory effort is even, unlabored, Respiratory pattern is regular, symmetrical. GI: Abdomen is round non-distended, Bowel sounds present X 4 quads. Abd is soft and non tender X 4 quads. : No signs and/or symptoms were reported regarding the genitourinary system. EENT: No signs and/or symptoms were reported regarding the EENT system. Derm: Skin is intact, Skin is pink, warm \T\ dry. Musculoskeletal: Range of motion: intact in all extremities. 09:05 Reassessment: Patient and/or family updated on plan of care and expected duration. Pain rs5 level reassessed. Patient is alert, oriented x 3, equal unlabored respirations, skin warm/dry/pink. Patient denies pain at this time. Patient states feeling better. Patient states symptoms have improved. 10:01 Reassessment: No changes from previously documented assessment. rs5 10:35 Reassessment: Patient and/or family updated on plan of care and expected duration. Pain rs5 level reassessed. Patient is alert, oriented x 3, equal unlabored respirations, skin warm/dry/pink. Vital Signs: 07:58 BP 132 / 60; Pulse 66; Resp 16; Temp 97.9(O); Pulse Ox 98% on R/A; Weight 92.53 kg; db Height 5 ft. 2 in. ; Pain 9/10; 09:59 BP 125 / 69; Pulse 70; Resp 18; Pulse Ox 99% on R/A; rs5 10:30 BP 127 / 72; Pulse 76; Resp 18; Pulse Ox 99% on R/A; rs5 07:58 Body Mass Index 37.31 (92.53 kg, 157.48 cm) db 07:58 Pain Scale: Adult db ED Course: 07:48 Patient arrived in ED. rg4 07:49 Christopher Bright MD is Attending Physician. ec2 08:00 Triage completed. db 08:00 Arm band placed on Patient placed in an exam room. db 08:02 Patient has correct armband on for positive identification. Call light in reach. Side db rails up X 1. Pulse ox on. NIBP on. 08:05 Cesario Baker, RN is Primary Nurse. rs5 08:05 Inserted saline lock: 22 gauge in right antecubital area, using aseptic technique. rs5 Blood collected. 08:30 No provider procedures requiring assistance completed. rs5 08:54 Transvaginal Study Probe In Process Unspecified. EDMS 10:15 Kelsie Funk MD is Referral Physician. ec2 10:15 Referral Physician role handed off by Kelsie Funk MD ec2 10:35 IV discontinued, intact, bleeding controlled, No redness/swelling at site. Pressure rs5 dressing applied. Administered Medications: 08:10 Drug: TORadol - Ketorolac IVP 15 mg IVP once Route: IVP; Site: right antecubital; rs5 08:32 Follow up: Response: No adverse reaction rs5 08:10 Drug: Ondansetron IVP 4 mg IVP once; over 2 minutes Route: IVP; Site: right antecubital;rs5 08:32 Follow up: Response: No adverse reaction rs5 08:10 Drug: morphine IVP or IV 4 mg IVP once over 4 mins Route: IVP; Infused Over: 4 mins; rs5 Site: right antecubital; 08:31 Follow up: Response: No adverse reaction; Pain is decreased rs5 10:15 Drug: Rocephin (cefTRIAXone) IM 500 mg IM once Route: IM; Site: left deltoid; rs5 10:30 Follow up: Response: No adverse reaction rs5 10:15 Drug: Doxycycline PO 100 mg PO once Route: PO; rs5 10:30 Follow up: Response: No adverse reaction rs5 10:15 Drug: metroNIDAZOLE PO 500 mg PO once Route: PO; rs5 10:30 Follow up: Response: No adverse reaction rs5 Medication: 08:31 VIS not applicable for this client. rs5 Outcome: 10:15 Discharge ordered by . ec2 10:35 Discharged to home ambulatory, rs5 10:35 Condition: stable rs5 10:35 Discharge instructions given to patient, family, Instructed on discharge instructions, follow up and referral plans. medication usage, Demonstrated understanding of instructions, follow-up care, medications, Prescriptions given X 3, 10:40 Patient left the ED. rs5 Signatures: Dispatcher [employer] Shikha Ohara rg4 Regine Freeman RN RN db Cesario Baker RN RN rs5 Christopher Bright MD MD ec2
--- NOTE | 2023-06-10 10:16 | EDPHYS ---
Physician Documentation [facility] Name: Chantel Davis Age: 43 yrs Sex: Female : 1980 Arrival Date: 06/10/2023 Time: 07:46 Bed 20 Private MD: ED Physician Christopher Bright HPI: 06/09 08:06 This 43 yrs old Female presents to ER via Ambulatory with complaints of ec2 Abdominal Pain. 08:06 Patient arrives today due to concern for lower abdominal pain. Patient reports history ec2 of previous hemorrhagic cyst, complaining of lower abdominal pain. No issues with p.o. intake, recently seen and had an ultrasound that showed a hemorrhagic cyst. Previous history of bilateral salpingectomy as well as cholecystectomy.. 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 - Infectious Disease History:: Denies. - Social history:: Smoking status: Patient denies any tobacco usage or history of. ROS: 08:06 Constitutional: as per hpi ec2 Exam: 08:06 Constitutional: GEN: NAD Head: atraumatic Eyes: EOMI Ears: External ears are ec2 normal. CV: regular rate LUNGS: no respiratory distress ABD: non-distended, soft, not guarding, not rigid SKIN: no evidence of rashes MSK: no evidence of trauma NEURO: moves all extremities equally Vital Signs: 07:58 BP 132 / 60; Pulse 66; Resp 16; Temp 97.9(O); Pulse Ox 98% on R/A; Weight 92.53 kg; db Height 5 ft. 2 in. ; Pain 9/10; 09:59 BP 125 / 69; Pulse 70; Resp 18; Pulse Ox 99% on R/A; rs5 10:30 BP 127 / 72; Pulse 76; Resp 18; Pulse Ox 99% on R/A; rs5 07:58 Body Mass Index 37.31 (92.53 kg, 157.48 cm) db 07:58 Pain Scale: Adult db MDM: 07:58 Patient medically screened. ec2 08:06 Data reviewed: vital signs. ED course: Patient arrives today due to concern for lower ec2 abdominal pain but examination markable for abdominal findings noted above. Will obtain lab work treat the patient symptoms and obtain ultrasound. Evaluate for UTI, electrolyte disturbance, anemia, . External control patient recent ultrasound that showed hemorrhagic cyst as well as negative urine studies. 08:40 ED course: CBC shows anemia, metabolic profile is reassuring. Urine is noninfectious ec2 appearing. Lipase within normal ranges. Urine test negative. . 10:14 ED course: Ultrasound shows possible inflammation around the left ovary, will start the ec2 patient on antibiotics. Patient with follow-up with gynecology in 2 days, will have her proceed with this. Otherwise will discharge home and instructed on [id number] medications. . 06/09 08:04 Order name: CBC with Diff; Complete Time: 08:51 ec2 06/09 08:04 Order name: CMP; Complete Time: 08:39 ec2 06/09 08:04 Order name: Lipase; Complete Time: 08:39 ec2 06/09 08:04 Order name: Test, Urine; Complete Time: 08:39 ec2 06/09 08:04 Order name: Urinalysis w/ reflexes; Complete Time: 08:39 ec2 06/09 08:48 Order name: CBC Smear Scan; Complete Time: 08:51 EDMS 06/09 08:30 Order name: Transvaginal Study Probe; Complete Time: 10:13 EDMS 06/09 08:04 Order name: IV Saline Lock; Complete Time: 08:27 ec2 06/09 08:04 Order name: Labs collected and sent; Complete Time: 08:27 ec2 Administered Medications: 08:10 Drug: TORadol - Ketorolac IVP 15 mg IVP once Route: IVP; Site: right antecubital; rs5 08:32 Follow up: Response: No adverse reaction rs5 08:10 Drug: Ondansetron IVP 4 mg IVP once; over 2 minutes Route: IVP; Site: right antecubital;rs5 08:32 Follow up: Response: No adverse reaction rs5 08:10 Drug: morphine IVP or IV 4 mg IVP once over 4 mins Route: IVP; Infused Over: 4 mins; rs5 Site: right antecubital; 08:31 Follow up: Response: No adverse reaction; Pain is decreased rs5 10:15 Drug: Rocephin (cefTRIAXone) IM 500 mg IM once Route: IM; Site: left deltoid; rs5 10:30 Follow up: Response: No adverse reaction rs5 10:15 Drug: Doxycycline PO 100 mg PO once Route: PO; rs5 10:30 Follow up: Response: No adverse reaction rs5 10:15 Drug: metroNIDAZOLE PO 500 mg PO once Route: PO; rs5 10:30 Follow up: Response: No adverse reaction rs5 Disposition Summary: 06/10/23 10:15 Discharge Ordered Condition: Stable ec2 Diagnosis - Pelvic and perineal pain ec2 - Other ovarian cysts ec2 Followup: ec2 - With: Kelsie Funk MD - When: - Reason: Recheck today's complaints Followup: ec2 - With: Private Physician - When: - Reason: Re-evaluation by your physician Discharge Instructions: - Discharge Summary Sheet ec2 - Ovarian Cyst, [id number] ec2 Forms: - Work release form rs5 - Medication Reconciliation Form ec2 - Thank You Letter ec2 - Antibiotic Education ec2 - Prescription Opioid Use ec2 - Patient Portal Instructions ec2 - Leadership Thank You Letter ec2 Prescriptions: - acetaminophen-codeine 300-15 mg Oral tablet - take 1 tablet ORAL route 4 times per day as needed for pain; 20 tablet; ec2 Refills: 0, Product Selection Permitted - Flagyl 500 mg Oral tablet - take 1 tablet ORAL route every 12 hours for 14 days; 28 tablet; Refills: 0, ec2 Product Selection Permitted - Doxycycline Hyclate 100 mg Oral tablet - take 1 tablet ORAL route every 12 hours for 14 days; 28 tablet; Refills: 0, ec2 Product Selection Permitted Signatures: Dispatcher [employer] EDRegine Cruz, RN RN db Cesario Baker RN RN rs5 Christopher Bright MD MD ec2 Corrections: (The following items were deleted from the chart) 08:05 08:05 CBC+H.LAB.BRZ ordered. EDMS EDMS 08:05 08:05 COMPREHENSIVE METABOLIC PANEL+C.LAB.BRZ ordered. EDMS EDMS 08:05 08:05 LIPASE+C.LAB.BRZ ordered. EDMS EDMS 08:05 08:05 Test, Urine+UC.LAB.BRZ ordered. EDMS EDMS 08:05 08:05 Urinalysis+U.LAB.BRZ ordered. EDMS EDMS 08:30 08:06 Transvaginal Ob+US.RAD.BRZ ordered. EDMS EDMS
[2023-06-10] MEDS ORDERED: CEFTRIAXONE 1000 MG/VIAL ONE (10:27)
[2023-06-10] MEDS ORDERED: DOXYCYCLINE 100 MG CAP PO ONE (10:27)
[2023-06-10] MEDS ORDERED: metroNIDAZOLE 500 MG TABLET ONE (10:27)
[2023-06-10] MEDS ORDERED: LIDOCAINE 2% MPF 5 ML VIAL ONE (10:30)
[2023-06-10 17:35] VITALS: BP 125/69; TEMP 97.9; O2SAT 99
== END 2023-06-10 10:40 | disposition home or self-care (01) ==
LOC: ER 07:46
DX: N83.299 Other ovarian cyst, unspecified side (principal)
CPT/HCPCS: 36415; 76830; 80053; 81001; 81025; 83690; 85025; 96372; 96374; 96375; 99284; J0696; J2001; J2405

== ENCOUNTER 2023-11-05 07:35 | Emergency (ER) | payer SELFPAY ==
--- OUTSIDE RECORDS SUMMARY | 2023-11-05 07:45 | XMS REPORT | Continuity of Care Document ---
Author Name Unknown Address [address] [facility] [address] [place] [address] [facility] thconnect Address [address] [facility] [address] [place] [address] Care Team Providers Care Technical Communication Teacher Name Role Phone Felicia Candelario Primary Care Physicia n WOODY DENG Attending Clinician Unavailable RADU SHAFFER Attending Clinician Unavailable RADU SHAFFER Attending Clinician Un[facility] U Radu Alcaraz MD Attending Clinician [phone] Patt Kan Attending Clinician [phone] Woody Deng MD Attending Clinician [phone] Felicia Candelario Attending Clinician + Doctor Unassigned, [place] Attending Clinician U fox Doctor Unassigned, [place] Attending Clinician U fox Garcia [facility] Attending Clinician Unavailable Monica Ernst CNM Attending Clinician [phone] MONICA ERNST Attending Clinician UnavailWoody Turcios MD Attending Clinician [phone] Jesus BANKS, Carmella Carrasco Attending Clinician Shayne Felicia VELASQUEZ Attending Clinician + Owen Epps MD Attending Clinician [phone] [facility] Resident Attending Clinician U KAROLINA Oquendo Attending Clinician Unavailable Pgy3 Attending Clinician Unavailable [facility] Attending Clinician Unavailable FELICIA BELLA Attending Clinician Unavail able Sukhdev Scott MD Attending Clinician [phone] JENS OLSON Attending Clinician Unavailable Pgy[facility] Attending Clinician Unavailable Jens Olson MD Attending Clinician + [phone] Arina Rizvi PA-C Attending Clinician [phone] Kita Grey MD Attending Clinician + [phone] LINDA SU Attending Clinician Unavailable LINDA SU Attending Clinician Unavailable ARINA RIZVI Attending Clinician Unavailable [facility] Attending Clinician Robyn DAVID Salazar Attending Clinician Unavailab le JASE, ATTENDING Attending Clinician Unavailab JUDITH Santana Attending Clinician Unavailable TIFF MUNOZ Attending Clinician Unavailable PEYMAN LAW Attending Clinician Unavail able Peyman Law DO Attending Clinician [phone] David Lynne Attending Clinician + [phone] WOODY DENG Admitting Clinician Unavailable Woody Deng MD Admitting Clinician [phone] RADU SHAFFER Admitting Clinician Unavailable Payers Payer Name Policy Type Policy Number Effective Date Expirati on Date Source [facility] [id number] 2017 00:00:00 [facility] [id number] 2022 00:00:00 Problems Condition Name Condition Details Condition Category Status Onset Date Resolution Date Last Treatment Date Treating Clinician Comments Source Abnormal uterine bleeding Abnormal uterine bleeding Disease Active 08-06 00:00: 00 [facility] Right ovarian cyst Right ovarian cyst Disease Active 08-06 00:00: 00 [facility] Morbid obesity with body mass index (BMI) of 40.0 or higher Morbid obesity with body mass index (BMI) of 40.0 or higher Disease Active 2021-03 00:00: 00 [facility] Type 2 diabetes mellitus with morbid obesity Type 2 diabetes mellitus with morbid obesity Disease Active 2021-03 00:00: 00 [facility] Abnormal uterine bleeding (AUB) Abnormal uterine bleeding (AUB) Disease Active 2021-03 00:00: 00 [facility] Bulky or enlarged uterus Bulky or enlarged uterus Disease Active 2021-03 00:00: 00 [facility] Papanicola ou smear of cervix with high grade squamous intraepith elial lesion (HGSIL) Papanicola ou smear of cervix with high grade squamous intraepith elial lesion (HGSIL) Disease Active 05-16 00:00: 00 [facility] Dysplasia of cervix, high grade YUE 2 Dysplasia of cervix, high grade YUE 2 Disease Active 2017-03 00:00: 00 Overview: Formattin g of this note might be different from the original. 38 year old with ASCUS pap 8. Colpo and bx 01/15/2018 - YUE 2Will need cotesting in 1 year [facility] Screening for STD (sexually transmitte d disease) Screening for STD (sexually transmitte d disease) Disease Active 06-28 00:00: 00 Overview: Formattin g of this note might be different from the original. 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 [facility] History of bilateral tubal ligation History of bilateral tubal ligation Disease Active 06-28 00:00: 00 [facility] Other and unspecifie d ovarian cyst Other and unspecifie d ovarian cyst Disease Active 06-28 00:00: 00 [facility] Metrorrhag ia Metrorrhag ia Disease Active 06-28 00:00: 00 [facility] Morbid obesity Morbid obesity Disease Active 06-28 00:00: 00 [facility] BMI 45.0-49.9, adult BMI 45.0-49.9, adult Disease Resolve d 2020-0 3-09 00:00: 00 2022-01-12 00:00:00 2022-01-12 11:25:19 [facility] Nipple discharge Nipple discharge Disease Resolve d 2017-03 0-10 00:00: 00 2022-01-12 00:00:00 2022-01-12 11:48:38 [facility] Encounter for surveillan ce of contracept darvin, unspecifie d contracept jazmin Encounter for surveillan ce of contracept darvin, unspecifie d contracept jazmin Disease Resolve d 21 00:00: 00 2022-01-12 00:00:00 2022-01-12 11:25:11 Overview: Formattin g of this note might be different from the original. 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 [facility] Obesity, unspecifie d classifica tion, unspecifie d obesity type, unspecifie d whether serious comorbidit y present Obesity, unspecifie d classifica tion, unspecifie d obesity type, unspecifie d whether serious comorbidit y present Disease Resolve d 06-28 00:00: 00 2022-01-12 00:00:00 2022-01-12 11:25:22 [facility] Cervical high risk human papillomav irus (HPV) DNA test positive Cervical high risk human papillomav irus (HPV) DNA test positive Disease Resolve d 07-04 00:00: 00 2018-05-15 00:00:00 2021-09-23 00:35:45 [facility] Allergies, Adverse Reactions, Alerts Allergy Name Allergy Type Status Severity Reaction(s) Onset Date Inactive Date Treating Clinician Comments Source POVIDONE -IODINE- ETHYL ALCOHOL DRUG Active Rash 10-15 00:00: 00 [facility] Povidone -Iodine- Ethyl Alcohol Propensi ty to adverse reaction s Active Rash 10-15 00:00: 00 Skin noted to be peeling after applicati on for surgical prep post-oper atively. [facility] NO KNOWN ALLERGIE S Drug Class Active [facility] Social History Social Habit Start Date Stop Date Quantity Comments Source History of tobacco use Cigarette Smoker [facility] Sexual orientation [facility] Alcoholic beverage intake 2023-10-17 00:00:00 2023-10-17 00:00:00 Current non-drinker of alcohol (finding) [facility] Tobacco use and exposure 2023-10-09 00:00:00 2023-10-09 00:00:00 Smokeless tobacco non-user [facility] Alcohol intake 2023-06-03 00:00:00 2023-06-03 00:00:00 Current non-drinker of alcohol (finding) [facility] History of Social function 2023-06-03 00:00:00 2023-06-03 00:00:00 [facility] Exposure to SARS-CoV-2 (event) 2022-01-14 00:00:00 2022-01-24 13:20:00 Not sure [facility] Sex assigned at 1980 00:00:00 1980 00:00:00 [facility] Smoking Status Start Date Stop Date Source Ex-smoker 2023-10-09 00:00:00 2023-10-09 00:00:00 [facility] Never smoked tobacco [facility] Medications Ordered Medication Name Filled Medication Name Start Date Stop Date Current Medication? Ordering Clinician Indication Dosage Frequency Signature (SIG) Comments Components Source ondansetron (ZOFRAN (PF)) injection 4 mg 10-15 17:30: 00 10-15 16:30 :00 No 4mg 4 mg, Slow IV Push, ONCE, On Richa 10/16/23 at 1230, For 1 dose, Doses of ondansetro n 16 mg and above need to be administer ed via IV piggyback. For Dose >=24mg ECG monitoring is advisable. [facility] ketorolac (TORADOL) injection 30 mg 10-15 17:00: 00 10-15 16:12 :00 No 30mg 30 mg, Slow IV Push, ONCE, 1 dose, On Richa 10/16/23 at 1200, Routine [facility] ibuprofen (IBU) tablet 800 mg 10-15 15:17: 22 10-15 18:45 :50 No 800mg [facility] acetaminoph en (TYLENOL) tablet 650 mg 10-15 15:17: 22 10-15 18:45 :50 No 650mg [facility] HYDROcodone -acetaminop hen (NORCO 5) tablet 1 tablet 10-15 15:00: 00 10-15 15:27 :00 No 1{tbl} 1 tablet, Oral, ONCE, 1 dose, On Richa 10/16/23 at 1000, Routine, PACU [facility] lactated ringers IV infusion 1,000 mL 10-15 15:00: 00 10-15 18:45 :50 No 1000mL at 75 mL/hr, 1,000 mL, IV Infusion, CONTINUOUS , Starting on Richa 10/16/23 at 1000, Until Richa 10/16/23 at 1345, Routine, PACU [facility] HYDROmorpho ne (DILAUDID) injection 0.2 mg 10-15 14:57: 39 10-15 18:45 :50 No .2mg 0.2 mg, Slow IV Push, Q5MIN PRN, 10 doses, Starting on Richa 10/16/23 at 0957, Until Richa 10/16/23 at 1345, Routine, Pain (scale 7-10), PACU, Is this medication approved by a Faculty level provider? Yes, membership coordinator approving Restricted medication : RAFAEL GARCIA [facility] FENTanyl PF (SUBLIMAZE (PF)) injection 25 mcg 10-15 14:57: 39 10-15 15:46 :00 No 25ug 25 mcg, Slow IV Push, Q5MIN PRN, 4 doses, Starting on Richa 10/16/23 at 0957, Until Richa 10/16/23 at 1046, Routine, Pain (scale 4-6), PACU [facility] proMETHazin e (PHENERGAN) 12.5 mg in NS 50 mL IV piggyback (CNR) 10-15 14:57: 39 10-15 18:45 :50 No 12.5mg 12.5 mg, IV Piggyback, at 200 mL/hr Administer over 15 Minutes, PRN, 1 dose, Starting on Richa 10/16/23 at 0957, Until Richa 10/16/23 at 1345, Routine, Nausea and Vomiting (N/V), PACU [facility] bupivacaine (preserv free) (SENSORCAIN E MPF) 0.25 % (2.5 mg/mL) injection 10-15 12:46: 00 10-15 15:15 :50 No PRN, Starting on Richa 10/16/23 at 0746, Until Richa 10/16/23 at 1015, Routine, Intra-op [facility] ibuprofen 600 mg tablet 10-15 00:00: 00 Yes [id number] 100 600mg Take 1 tablet by mouth every 6 (six) hours as needed for Pain (scale 4-6). [facility] acetaminoph en (TYLENOL) 325 mg tablet 10-15 00:00: 00 10-16 04:59 :00 Yes [id number] 100 650mg Take 2 tablets by mouth every 6 (six) hours as needed for Pain (scale 1-3). [facility] oxyCODONE 5 mg immediate release tablet 10-15 00:00: 00 10-23 04:59 :00 Yes [id number] 5mg Take 1 tablet by mouth every 6 (six) hours as needed for Pain (scale 7-10) for up to 7 days. Indication s: acute pain [facility] docusate 100 mg capsule 10-10 00:00: 00 11-10 04:59 :00 Yes [id number] 100mg Take 1 capsule by mouth in the morning for 30 days. [facility] Ibuprofen 200 mg capsule 10-08 16:25: 28 10-15 00:00 :00 No Take by mouth. [facility] ferrous sulfate (IRON, FERROUS SULFATE,) 325 mg (65 mg iron) tablet 2022-03 00:00: 00 Yes [id number] 325mg Take 1 tablet by mouth in the morning and 1 tablet at noon and 1 tablet in the evening. Take with meals. [facility] docusate 100 mg capsule 2022-03 00:00: 00 10-15 00:00 :00 No [id number] 100mg Take 1 capsule by mouth in the morning. [facility] norethindro ne 0.35 mg tablet 2022-03 00:00: 00 01-15 00:00 :00 No [id number] 1{tbl} Take 1 tablet by mouth in the morning. [facility] metroNIDAZO LE 500 mg tablet 2021-03 00:00: 00 02-04 05:59 :00 No [id number] 500mg Take 1 tablet by mouth every 12 (twelve) hours for 5 days. [facility] fluconazole (DIFLUCAN) 150 mg tablet 2021-03 00:00: 00 01-30 05:59 :00 No [id number] 150mg Take 1 tablet by mouth once now for 1 dose. [facility] norethindro ne 0.35 mg tablet 2021-03 00:00: 00 01-15 00:00 :00 No [id number] 100 1{tbl} Take 1 tablet by mouth in the morning. [facility] ferrous sulfate 325 mg (65 mg iron) EC tablet 2021-03 00:00: 00 04-15 05:59 :00 No [id number] 325mg Take 1 tablet by mouth in the morning and 1 tablet in the evening. Take with meals. Do all this for 90 days. [facility] No known medications 2021-03 11:48: 31 No No known medication s [facility] No known medications 05-16 16:02: 19 No No known medication s [facility] No known medications No Un charan [facility] No known medications No Un charan [facility] No known medications No Un charan [facility] No known [facility] No [facility] Immunizations Ordered Immunization Name Filled Immunization Name Date Status Comments Source SARS-COV-2 COVID-19 PFIZER VACCINE 2020-06-23 00:00:00 Completed [facility] SARS-COV-2 COVID-19 PFIZER VACCINE 2020-06-23 00:00:00 Completed [facility] SARS-COV-2 COVID-19 PFIZER VACCINE 2020-06-23 00:00:00 Completed [facility] SARS-COV-2 COVID-19 PFIZER VACCINE 2020-06-23 00:00:00 Completed [facility] SARS-COV-2 COVID-19 PFIZER VACCINE 2020-06-23 00:00:00 Completed [facility] SARS-COV-2 COVID-19 PFIZER VACCINE 2020-06-23 00:00:00 Completed [facility] SARS-COV-2 COVID-19 PFIZER VACCINE 2020-06-23 00:00:00 Completed [facility] SARS-COV-2 COVID-19 PFIZER VACCINE 2020-06-23 00:00:00 Completed [facility] SARS-COV-2 COVID-19 PFIZER VACCINE 2020-06-23 00:00:00 Completed [facility] SARS-COV-2 COVID-19 PFIZER VACCINE 2020-06-23 00:00:00 Completed [facility] SARS-COV-2 COVID-19 PFIZER VACCINE 2020-06-23 00:00:00 Completed [facility] SARS-COV-2 COVID-19 PFIZER VACCINE 2020-06-23 00:00:00 Completed [facility] SARS-COV-2 COVID-19 PFIZER VACCINE 2020-06-23 00:00:00 Completed [facility] SARS-COV-2 COVID-19 PFIZER VACCINE 2020-06-02 00:00:00 Completed [facility] SARS-COV-2 COVID-19 PFIZER VACCINE 2020-06-02 00:00:00 Completed [facility] SARS-COV-2 COVID-19 PFIZER VACCINE 2020-06-02 00:00:00 Completed [facility] SARS-COV-2 COVID-19 PFIZER VACCINE 2020-06-02 00:00:00 Completed [facility] SARS-COV-2 COVID-19 PFIZER VACCINE 2020-06-02 00:00:00 Completed [facility] SARS-COV-2 COVID-19 PFIZER VACCINE 2020-06-02 00:00:00 Completed [facility] SARS-COV-2 COVID-19 PFIZER VACCINE 2020-06-02 00:00:00 Completed [facility] SARS-COV-2 COVID-19 PFIZER VACCINE 2020-06-02 00:00:00 Completed [facility] SARS-COV-2 COVID-19 PFIZER VACCINE 2020-06-02 00:00:00 Completed [facility] SARS-COV-2 COVID-19 PFIZER VACCINE 2020-06-02 00:00:00 Completed [facility] SARS-COV-2 COVID-19 PFIZER VACCINE 2020-06-02 00:00:00 Completed [facility] SARS-COV-2 COVID-19 PFIZER VACCINE 2020-06-02 00:00:00 Completed [facility] SARS-COV-2 COVID-19 PFIZER VACCINE 2020-06-02 00:00:00 Completed [facility] Influenza Virus Vaccine Quad .5 mL IM 6+ MO 2019-05-17 00:00:00 Completed [facility] Influenza Virus Vaccine Quad .5 mL IM 6+ MO 2019-05-17 00:00:00 Completed [facility] Influenza Virus Vaccine Quad .5 mL IM 6+ MO 2019-05-17 00:00:00 Completed [facility] Influenza Virus Vaccine Quad .5 mL IM 6+ MO 2019-05-17 00:00:00 Completed [facility] Influenza Virus Vaccine Quad .5 mL IM 6+ MO 2019-05-17 00:00:00 Completed [facility] Influenza Virus Vaccine Quad .5 mL IM 6+ MO 2019-05-17 00:00:00 Completed [facility] Influenza Virus Vaccine Quad .5 mL IM 6+ MO 2019-05-17 00:00:00 Completed [facility] Influenza Virus Vaccine Quad .5 mL IM 6+ MO 2019-05-17 00:00:00 Completed [facility] Influenza Virus Vaccine Quad .5 mL IM 6+ MO 2019-05-17 00:00:00 Completed [facility] Influenza Virus Vaccine Quad .5 mL IM 6+ MO 2019-05-17 00:00:00 Completed [facility] Influenza Virus Vaccine Quad .5 mL IM 6+ MO 2019-05-17 00:00:00 Completed [facility] Influenza Virus Vaccine Quad .5 mL IM 6+ MO 2019-05-17 00:00:00 Completed [facility] Influenza Virus Vaccine Quad .5 mL IM 6+ MO 2019-05-17 00:00:00 Completed [facility] Influenza Virus Vaccine Quad .5 mL IM 6+ MO 2019-05-17 00:00:00 Completed [facility] Influenza Virus Vaccine Quad .5 mL IM 6+ MO 2019-05-17 00:00:00 Completed [facility] Influenza Virus Vaccine Quad .5 mL IM 6+ MO 2019-05-17 00:00:00 Completed [facility] Influenza Virus Vaccine Quad .5 mL IM 6+ MO 2019-05-17 00:00:00 Completed [facility] Influenza Virus Vaccine Quad .5 mL IM 6+ MO 2019-05-17 00:00:00 Completed [facility] Influenza Virus Vaccine Quad .5 mL IM 6+ MO 2019-05-17 00:00:00 Completed [facility] TDAP 2014-01-28 00:00:00 Completed [facility] TDAP 2014-01-28 00:00:00 Completed [facility] TDAP 2014-01-28 00:00:00 Completed [facility] TDAP 2014-01-28 00:00:00 Completed [facility] TDAP 2014-01-28 00:00:00 Completed [facility] TDAP 2014-01-28 00:00:00 Completed [facility] TDAP 2014-01-28 00:00:00 Completed [facility] TDAP 2014-01-28 00:00:00 Completed [facility] TDAP 2014-01-28 00:00:00 Completed [facility] TDAP 2014-01-28 00:00:00 Completed [facility] TDAP 2014-01-28 00:00:00 Completed [facility] TDAP 2014-01-28 00:00:00 Completed [facility] TDAP 2014-01-28 00:00:00 Completed [facility] Tdap 2014-01-28 00:00:00 Completed [facility] Tdap 2014-01-28 00:00:00 Completed [facility] Tdap 2014-01-28 00:00:00 Completed [facility] Tdap 2014-01-28 00:00:00 Completed [facility] Tdap 2014-01-28 00:00:00 Completed [facility] Tdap 2014-01-28 00:00:00 Completed [facility] TDAP 2014-01-28 00:00:00 Completed [facility] HPV9 Unknown Completed [facility] TDAP Unknown Completed [facility] Influenza Virus Vaccine Quad .5 mL IM 6+ MO (FLUZONE/FLULAVAL/F LUARIX) Unknown Completed [facility] SARS-COV-2 COVID-19 PFIZER VACCINE Unknown Completed [facility] SARS-COV-2 COVID-19 PFIZER VACCINE Unknown Completed [facility] HPV9 Unknown Completed [facility] TDAP Unknown Completed [facility] Influenza Virus Vaccine Quad .5 mL IM 6+ MO (FLUZONE/FLULAVAL/F LUARIX) Unknown Completed [facility] SARS-COV-2 COVID-19 PFIZER VACCINE Unknown Completed [facility] SARS-COV-2 COVID-19 PFIZER VACCINE Unknown Completed [facility] HPV9 Unknown Completed [facility] TDAP Unknown Completed [facility] Influenza Virus Vaccine Quad .5 mL IM 6+ MO (FLUZONE/FLULAVAL/F LUARIX) Unknown Completed [facility] SARS-COV-2 COVID-19 PFIZER VACCINE Unknown Completed [facility] SARS-COV-2 COVID-19 PFIZER VACCINE Unknown Completed [facility] HPV9 Unknown Completed [facility] TDAP Unknown Completed [facility] Influenza Virus Vaccine Quad .5 mL IM 6+ MO (FLUZONE/FLULAVAL/F LUARIX) Unknown Completed [facility] SARS-COV-2 COVID-19 PFIZER VACCINE Unknown Completed [facility] SARS-COV-2 COVID-19 PFIZER VACCINE Unknown Completed [facility] HPV9 Unknown Completed [facility] TDAP Unknown Completed [facility] Influenza Virus Vaccine Quad .5 mL IM 6+ MO (FLUZONE/FLULAVAL/F LUARIX) Unknown Completed [facility] SARS-COV-2 COVID-19 PFIZER VACCINE Unknown Completed [facility] SARS-COV-2 COVID-19 PFIZER VACCINE Unknown Completed [facility] HPV9 Unknown Completed [facility] TDAP Unknown Completed [facility] Influenza Virus Vaccine Quad .5 mL IM 6+ MO (FLUZONE/FLULAVAL/F LUARIX) Unknown Completed [facility] SARS-COV-2 COVID-19 PFIZER VACCINE Unknown Completed [facility] SARS-COV-2 COVID-19 PFIZER VACCINE Unknown Completed [facility] HPV9 Unknown Completed [facility] TDAP Unknown Completed [facility] Influenza Virus Vaccine Quad .5 mL IM 6+ MO (FLUZONE/FLULAVAL/F LUARIX) Unknown Completed [facility] SARS-COV-2 COVID-19 PFIZER VACCINE Unknown Completed [facility] SARS-COV-2 COVID-19 PFIZER VACCINE Unknown Completed [facility] HPV9 Unknown Completed [facility] TDAP Unknown Completed [facility] Influenza Virus Vaccine Quad .5 mL IM 6+ MO (FLUZONE/FLULAVAL/F LUARIX) Unknown Completed [facility] SARS-COV-2 COVID-19 PFIZER VACCINE Unknown Completed [facility] SARS-COV-2 COVID-19 PFIZER VACCINE Unknown Completed [facility] HPV9 Unknown Completed [facility] TDAP Unknown Completed [facility] Influenza Virus Vaccine Quad .5 mL IM 6+ MO (FLUZONE/FLULAVAL/F LUARIX) Unknown Completed [facility] SARS-COV-2 COVID-19 PFIZER VACCINE Unknown Completed [facility] SARS-COV-2 COVID-19 PFIZER VACCINE Unknown Completed [facility] HPV9 Unknown Completed [facility] TDAP Unknown Completed [facility] Influenza Virus Vaccine Quad .5 mL IM 6+ MO (FLUZONE/FLULAVAL/F LUARIX) Unknown Completed [facility] SARS-COV-2 COVID-19 PFIZER VACCINE Unknown Completed [facility] SARS-COV-2 COVID-19 PFIZER VACCINE Unknown Completed [facility] HPV9 Unknown Completed [facility] TDAP Unknown Completed [facility] Influenza Virus Vaccine Quad .5 mL IM 6+ MO (FLUZONE/FLULAVAL/F LUARIX) Unknown Completed [facility] SARS-COV-2 COVID-19 PFIZER VACCINE Unknown Completed [facility] SARS-COV-2 COVID-19 PFIZER VACCINE Unknown Completed [facility] HPV9 Unknown Completed [facility] TDAP Unknown Completed [facility] Influenza Virus Vaccine Quad .5 mL IM 6+ MO (FLUZONE/FLULAVAL/F LUARIX) Unknown Completed [facility] SARS-COV-2 COVID-19 PFIZER VACCINE Unknown Completed [facility] SARS-COV-2 COVID-19 PFIZER VACCINE Unknown Completed [facility] HPV9 Unknown Completed [facility] TDAP Unknown Completed [facility] Influenza Virus Vaccine Quad .5 mL IM 6+ MO (FLUZONE/FLULAVAL/F LUARIX) Unknown Completed [facility] SARS-COV-2 COVID-19 PFIZER VACCINE Unknown Completed [facility] SARS-COV-2 COVID-19 PFIZER VACCINE Unknown Completed [facility] HPV9 Unknown Completed [facility] TDAP Unknown Completed [facility] Influenza Virus Vaccine Quad .5 mL IM 6+ MO (FLUZONE/FLULAVAL/F LUARIX) Unknown Completed [facility] SARS-COV-2 COVID-19 PFIZER VACCINE Unknown Completed [facility] SARS-COV-2 COVID-19 PFIZER VACCINE Unknown Completed [facility] HPV9 Unknown Completed [facility] TDAP Unknown Completed [facility] Influenza Virus Vaccine Quad .5 mL IM 6+ MO (FLUZONE/FLULAVAL/F LUARIX) Unknown Completed [facility] SARS-COV-2 COVID-19 PFIZER VACCINE Unknown Completed [facility] SARS-COV-2 COVID-19 PFIZER VACCINE Unknown Completed [facility] HPV9 Unknown Completed [facility] TDAP Unknown Completed [facility] Influenza Virus Vaccine Quad .5 mL IM 6+ MO (FLUZONE/FLULAVAL/F LUARIX) Unknown Completed [facility] SARS-COV-2 COVID-19 PFIZER VACCINE Unknown Completed [facility] SARS-COV-2 COVID-19 PFIZER VACCINE Unknown Completed [facility] HPV9 Unknown Completed [facility] TDAP Unknown Completed [facility] Influenza Virus Vaccine Quad .5 mL IM 6+ MO (FLUZONE/FLULAVAL/F LUARIX) Unknown Completed [facility] SARS-COV-2 COVID-19 PFIZER VACCINE Unknown Completed [facility] SARS-COV-2 COVID-19 PFIZER VACCINE Unknown Completed [facility] HPV9 Unknown Completed [facility] TDAP Unknown Completed [facility] Influenza Virus Vaccine Quad .5 mL IM 6+ MO (FLUZONE/FLULAVAL/F LUARIX) Unknown Completed [facility] SARS-COV-2 COVID-19 PFIZER VACCINE Unknown Completed [facility] SARS-COV-2 COVID-19 PFIZER VACCINE Unknown Completed [facility] HPV9 Unknown Completed [facility] TDAP Unknown Completed [facility] Influenza Virus Vaccine Quad .5 mL IM 6+ MO (FLUZONE/FLULAVAL/F LUARIX) Unknown Completed [facility] SARS-COV-2 COVID-19 PFIZER VACCINE Unknown Completed [facility] SARS-COV-2 COVID-19 PFIZER VACCINE Unknown Completed [facility] HPV9 Unknown Completed [facility] TDAP Unknown Completed [facility] Influenza Virus Vaccine Quad .5 mL IM 6+ MO (FLUZONE/FLULAVAL/F LUARIX) Unknown Completed [facility] SARS-COV-2 COVID-19 PFIZER VACCINE Unknown Completed [facility] SARS-COV-2 COVID-19 PFIZER VACCINE Unknown Completed [facility] HPV9 Unknown Completed [facility] TDAP Unknown Completed [facility] Influenza Virus Vaccine Quad .5 mL IM 6+ MO (FLUZONE/FLULAVAL/F LUARIX) Unknown Completed [facility] SARS-COV-2 COVID-19 PFIZER VACCINE Unknown Completed [facility] SARS-COV-2 COVID-19 PFIZER VACCINE Unknown Completed [facility] HPV9 Unknown Completed [facility] TDAP Unknown Completed [facility] Influenza Virus Vaccine Quad .5 mL IM 6+ MO (FLUZONE/FLULAVAL/F LUARIX) Unknown Completed [facility] SARS-COV-2 COVID-19 PFIZER VACCINE Unknown Completed [facility] SARS-COV-2 COVID-19 PFIZER VACCINE Unknown Completed [facility] HPV9 Unknown Completed [facility] TDAP Unknown Completed [facility] Influenza Virus Vaccine Quad .5 mL IM 6+ MO (FLUZONE/FLULAVAL/F LUARIX) Unknown Completed [facility] SARS-COV-2 COVID-19 PFIZER VACCINE Unknown Completed [facility] SARS-COV-2 COVID-19 PFIZER VACCINE Unknown Completed [facility] HPV9 Unknown Completed [facility] TDAP Unknown Completed [facility] Influenza Virus Vaccine Quad .5 mL IM 6+ MO (FLUZONE/FLULAVAL/F LUARIX) Unknown Completed [facility] SARS-COV-2 COVID-19 PFIZER VACCINE Unknown Completed [facility] SARS-COV-2 COVID-19 PFIZER VACCINE Unknown Completed [facility] HPV9 Unknown Completed [facility] TDAP Unknown Completed [facility] Influenza Virus Vaccine Quad .5 mL IM 6+ MO (FLUZONE/FLULAVAL/F LUARIX) Unknown Completed [facility] SARS-COV-2 COVID-19 PFIZER VACCINE Unknown Completed [facility] SARS-COV-2 COVID-19 PFIZER VACCINE Unknown Completed [facility] HPV9 Unknown Completed [facility] TDAP Unknown Completed [facility] Influenza Virus Vaccine Quad .5 mL IM 6+ MO (FLUZONE/FLULAVAL/F LUARIX) Unknown Completed [facility] SARS-COV-2 COVID-19 PFIZER VACCINE Unknown Completed [facility] SARS-COV-2 COVID-19 PFIZER VACCINE Unknown Completed [facility] HPV9 Unknown Completed [facility] TDAP Unknown Completed [facility] Influenza Virus Vaccine Quad .5 mL IM 6+ MO (FLUZONE/FLULAVAL/F LUARIX) Unknown Completed [facility] SARS-COV-2 COVID-19 PFIZER VACCINE Unknown Completed [facility] SARS-COV-2 COVID-19 PFIZER VACCINE Unknown Completed [facility] HPV9 Unknown Completed [facility] TDAP Unknown Completed [facility] Influenza Virus Vaccine Quad .5 mL IM 6+ MO (FLUZONE/FLULAVAL/F LUARIX) Unknown Completed [facility] SARS-COV-2 COVID-19 PFIZER VACCINE Unknown Completed [facility] SARS-COV-2 COVID-19 PFIZER VACCINE Unknown Completed [facility] HPV9 Unknown Completed [facility] TDAP Unknown Completed [facility] Influenza Virus Vaccine Quad .5 mL IM 6+ MO (FLUZONE/FLULAVAL/F LUARIX) Unknown Completed [facility] SARS-COV-2 COVID-19 PFIZER VACCINE Unknown Completed [facility] SARS-COV-2 COVID-19 PFIZER VACCINE Unknown Completed [facility] HPV9 Unknown Completed [facility] TDAP Unknown Completed [facility] Influenza Virus Vaccine Quad .5 mL IM 6+ MO (FLUZONE/FLULAVAL/F LUARIX) Unknown Completed [facility] SARS-COV-2 COVID-19 PFIZER VACCINE Unknown Completed [facility] SARS-COV-2 COVID-19 PFIZER VACCINE Unknown Completed [facility] HPV9 Unknown Completed [facility] TDAP Unknown Completed [facility] Influenza Virus Vaccine Quad .5 mL IM 6+ MO (FLUZONE/FLULAVAL/F LUARIX) Unknown Completed [facility] SARS-COV-2 COVID-19 PFIZER VACCINE Unknown Completed [facility] SARS-COV-2 COVID-19 PFIZER VACCINE Unknown Completed [facility] HPV9 Unknown Completed [facility] TDAP Unknown Completed [facility] Influenza Virus Vaccine Quad .5 mL IM 6+ MO (FLUZONE/FLULAVAL/F LUARIX) Unknown Completed [facility] SARS-COV-2 COVID-19 PFIZER VACCINE Unknown Completed [facility] SARS-COV-2 COVID-19 PFIZER VACCINE Unknown Completed [facility] HPV9 Unknown Completed [facility] TDAP Unknown Completed [facility] Influenza Virus Vaccine Quad .5 mL IM 6+ MO (FLUZONE/FLULAVAL/F LUARIX) Unknown Completed [facility] SARS-COV-2 COVID-19 PFIZER VACCINE Unknown Completed [facility] SARS-COV-2 COVID-19 PFIZER VACCINE Unknown Completed [facility] HPV9 Unknown Completed [facility] TDAP Unknown Completed [facility] Influenza Virus Vaccine Quad .5 mL IM 6+ MO (FLUZONE/FLULAVAL/F LUARIX) Unknown Completed [facility] SARS-COV-2 COVID-19 PFIZER VACCINE Unknown Completed [facility] SARS-COV-2 COVID-19 PFIZER VACCINE Unknown Completed [facility] HPV9 Unknown Completed [facility] TDAP Unknown Completed [facility] Influenza Virus Vaccine Quad .5 mL IM 6+ MO (FLUZONE/FLULAVAL/F LUARIX) Unknown Completed [facility] SARS-COV-2 COVID-19 PFIZER VACCINE Unknown Completed [facility] SARS-COV-2 COVID-19 PFIZER VACCINE Unknown Completed [facility] HPV9 Unknown Completed [facility] TDAP Unknown Completed [facility] Influenza Virus Vaccine Quad .5 mL IM 6+ MO (FLUZONE/FLULAVAL/F LUARIX) Unknown Completed [facility] SARS-COV-2 COVID-19 PFIZER VACCINE Unknown Completed [facility] SARS-COV-2 COVID-19 PFIZER VACCINE Unknown Completed [facility] HPV9 Unknown Completed [facility] TDAP Unknown Completed [facility] Influenza Virus Vaccine Quad .5 mL IM 6+ MO (FLUZONE/FLULAVAL/F LUARIX) Unknown Completed [facility] SARS-COV-2 COVID-19 PFIZER VACCINE Unknown Completed [facility] SARS-COV-2 COVID-19 PFIZER VACCINE Unknown Completed [facility] HPV9 Unknown Completed [facility] TDAP Unknown Completed [facility] Influenza Virus Vaccine Quad .5 mL IM 6+ MO (FLUZONE/FLULAVAL/F LUARIX) Unknown Completed [facility] SARS-COV-2 COVID-19 PFIZER VACCINE Unknown Completed [facility] SARS-COV-2 COVID-19 PFIZER VACCINE Unknown Completed [facility] HPV9 Unknown Completed [facility] TDAP Unknown Completed [facility] Influenza Virus Vaccine Quad .5 mL IM 6+ MO (FLUZONE/FLULAVAL/F LUARIX) Unknown Completed [facility] SARS-COV-2 COVID-19 PFIZER VACCINE Unknown Completed [facility] SARS-COV-2 COVID-19 PFIZER VACCINE Unknown Completed [facility] HPV9 Unknown Completed [facility] TDAP Unknown Completed [facility] Influenza Virus Vaccine Quad .5 mL IM 6+ MO (FLUZONE/FLULAVAL/F LUARIX) Unknown Completed [facility] SARS-COV-2 COVID-19 PFIZER VACCINE Unknown Completed [facility] SARS-COV-2 COVID-19 PFIZER VACCINE Unknown Completed [facility] HPV9 Unknown Completed [facility] TDAP Unknown Completed [facility] Influenza Virus Vaccine Quad .5 mL IM 6+ MO (FLUZONE/FLULAVAL/F LUARIX) Unknown Completed [facility] SARS-COV-2 COVID-19 PFIZER VACCINE Unknown Completed [facility] SARS-COV-2 COVID-19 PFIZER VACCINE Unknown Completed [facility] HPV9 Unknown Completed [facility] TDAP Unknown Completed [facility] Influenza Virus Vaccine Quad .5 mL IM 6+ MO (FLUZONE/FLULAVAL/F LUARIX) Unknown Completed [facility] SARS-COV-2 COVID-19 PFIZER VACCINE Unknown Completed [facility] SARS-COV-2 COVID-19 PFIZER VACCINE Unknown Completed [facility] HPV9 Unknown Completed [facility] TDAP Unknown Completed [facility] Influenza Virus Vaccine Quad .5 mL IM 6+ MO (FLUZONE/FLULAVAL/F LUARIX) Unknown Completed [facility] SARS-COV-2 COVID-19 PFIZER VACCINE Unknown Completed [facility] SARS-COV-2 COVID-19 PFIZER VACCINE Unknown Completed [facility] HPV9 Unknown Completed [facility] TDAP Unknown Completed [facility] Influenza Virus Vaccine Quad .5 mL IM 6+ MO (FLUZONE/FLULAVAL/F LUARIX) Unknown Completed [facility] SARS-COV-2 COVID-19 PFIZER VACCINE Unknown Completed [facility] SARS-COV-2 COVID-19 PFIZER VACCINE Unknown Completed [facility] HPV9 Unknown Completed [facility] TDAP Unknown Completed [facility] Influenza Virus Vaccine Quad .5 mL IM 6+ MO (FLUZONE/FLULAVAL/F LUARIX) Unknown Completed [facility] SARS-COV-2 COVID-19 PFIZER VACCINE Unknown Completed [facility] SARS-COV-2 COVID-19 PFIZER VACCINE Unknown Completed [facility] HPV9 Unknown Completed [facility] TDAP Unknown Completed [facility] Influenza Virus Vaccine Quad .5 mL IM 6+ MO (FLUZONE/FLULAVAL/F LUARIX) Unknown Completed [facility] SARS-COV-2 COVID-19 PFIZER VACCINE Unknown Completed [facility] SARS-COV-2 COVID-19 PFIZER VACCINE Unknown Completed [facility] HPV9 Unknown Completed [facility] TDAP Unknown Completed [facility] Influenza Virus Vaccine Quad .5 mL IM 6+ MO (FLUZONE/FLULAVAL/F LUARIX) Unknown Completed [facility] SARS-COV-2 COVID-19 PFIZER VACCINE Unknown Completed [facility] SARS-COV-2 COVID-19 PFIZER VACCINE Unknown Completed [facility] HPV9 Unknown Completed [facility] TDAP Unknown Completed [facility] Influenza Virus Vaccine Quad .5 mL IM 6+ MO (FLUZONE/FLULAVAL/F LUARIX) Unknown Completed [facility] SARS-COV-2 COVID-19 PFIZER VACCINE Unknown Completed [facility] SARS-COV-2 COVID-19 PFIZER VACCINE Unknown Completed [facility] HPV9 Unknown Completed [facility] TDAP Unknown Completed [facility] Influenza Virus Vaccine Quad .5 mL IM 6+ MO (FLUZONE/FLULAVAL/F LUARIX) Unknown Completed [facility] SARS-COV-2 COVID-19 PFIZER VACCINE Unknown Completed [facility] SARS-COV-2 COVID-19 PFIZER VACCINE Unknown Completed [facility] HPV9 Unknown Completed [facility] TDAP Unknown Completed [facility] Influenza Virus Vaccine Quad .5 mL IM 6+ MO (FLUZONE/FLULAVAL/F LUARIX) Unknown Completed [facility] SARS-COV-2 COVID-19 PFIZER VACCINE Unknown Completed [facility] SARS-COV-2 COVID-19 PFIZER VACCINE Unknown Completed [facility] HPV9 Unknown Completed [facility] TDAP Unknown Completed [facility] Influenza Virus Vaccine Quad .5 mL IM 6+ MO (FLUZONE/FLULAVAL/F LUARIX) Unknown Completed [facility] SARS-COV-2 COVID-19 PFIZER VACCINE Unknown Completed [facility] SARS-COV-2 COVID-19 PFIZER VACCINE Unknown Completed [facility] HPV9 Unknown Completed [facility] TDAP Unknown Completed [facility] Influenza Virus Vaccine Quad .5 mL IM 6+ MO (FLUZONE/FLULAVAL/F LUARIX) Unknown Completed [facility] SARS-COV-2 COVID-19 PFIZER VACCINE Unknown Completed [facility] SARS-COV-2 COVID-19 PFIZER VACCINE Unknown Completed [facility] HPV9 Unknown Completed [facility] TDAP Unknown Completed [facility] Influenza Virus Vaccine Quad .5 mL IM 6+ MO (FLUZONE/FLULAVAL/F LUARIX) Unknown Completed [facility] SARS-COV-2 COVID-19 PFIZER VACCINE Unknown Completed [facility] SARS-COV-2 COVID-19 PFIZER VACCINE Unknown Completed [facility] TDAP Unknown Completed [facility] Influenza Virus Vaccine Quad .5 mL IM 6+ MO (FLUZONE/FLULAVAL/F LUARIX) Unknown Completed [facility] SARS-COV-2 COVID-19 PFIZER VACCINE Unknown Completed [facility] SARS-COV-2 COVID-19 PFIZER VACCINE Unknown Completed [facility] TDAP Unknown Completed [facility] Influenza Virus Vaccine Quad .5 mL IM 6+ MO (FLUZONE/FLULAVAL/F LUARIX) Unknown Completed [facility] SARS-COV-2 COVID-19 PFIZER VACCINE Unknown Completed [facility] SARS-COV-2 COVID-19 PFIZER VACCINE Unknown Completed [facility] TDAP Unknown Completed [facility] Influenza Virus Vaccine Quad .5 mL IM 6+ MO (FLUZONE/FLULAVAL/F LUARIX) Unknown Completed [facility] SARS-COV-2 COVID-19 PFIZER VACCINE Unknown Completed [facility] SARS-COV-2 COVID-19 PFIZER VACCINE Unknown Completed [facility] TDAP Unknown Completed [facility] Influenza Virus Vaccine Quad .5 mL IM 6+ MO (FLUZONE/FLULAVAL/F LUARIX) Unknown Completed [facility] SARS-COV-2 COVID-19 PFIZER VACCINE Unknown Completed [facility] SARS-COV-2 COVID-19 PFIZER VACCINE Unknown Completed [facility] TDAP Unknown Completed [facility] Influenza Virus Vaccine Quad .5 mL IM 6+ MO (FLUZONE/FLULAVAL/F LUARIX) Unknown Completed [facility] SARS-COV-2 COVID-19 PFIZER VACCINE Unknown Completed [facility] SARS-COV-2 COVID-19 PFIZER VACCINE Unknown Completed [facility] HPV9 Unknown Completed [facility] TDAP Unknown Completed [facility] Influenza Virus Vaccine Quad .5 mL IM 6+ MO (FLUZONE/FLULAVAL/F LUARIX) Unknown Completed [facility] SARS-COV-2 COVID-19 PFIZER VACCINE Unknown Completed [facility] SARS-COV-2 COVID-19 PFIZER VACCINE Unknown Completed [facility] HPV9 Unknown Completed [facility] TDAP Unknown Completed [facility] Influenza Virus Vaccine Quad .5 mL IM 6+ MO (FLUZONE/FLULAVAL/F LUARIX) Unknown Completed [facility] SARS-COV-2 COVID-19 PFIZER VACCINE Unknown Completed [facility] SARS-COV-2 COVID-19 PFIZER VACCINE Unknown Completed [facility] HPV9 Unknown Completed [facility] TDAP Unknown Completed [facility] Influenza Virus Vaccine Quad .5 mL IM 6+ MO (FLUZONE/FLULAVAL/F LUARIX) Unknown Completed [facility] SARS-COV-2 COVID-19 PFIZER VACCINE Unknown Completed [facility] SARS-COV-2 COVID-19 PFIZER VACCINE Unknown Completed [facility] HPV9 Unknown Completed [facility] TDAP Unknown Completed [facility] Influenza Virus Vaccine Quad .5 mL IM 6+ MO (FLUZONE/FLULAVAL/F LUARIX) Unknown Completed [facility] SARS-COV-2 COVID-19 PFIZER VACCINE Unknown Completed [facility] SARS-COV-2 COVID-19 PFIZER VACCINE Unknown Completed [facility] HPV9 Unknown Completed [facility] TDAP Unknown Completed [facility] Influenza Virus Vaccine Quad .5 mL IM 6+ MO (FLUZONE/FLULAVAL/F LUARIX) Unknown Completed [facility] SARS-COV-2 COVID-19 PFIZER VACCINE Unknown Completed [facility] SARS-COV-2 COVID-19 PFIZER VACCINE Unknown Completed [facility] HPV9 Unknown Completed [facility] TDAP Unknown Completed [facility] Influenza Virus Vaccine Quad .5 mL IM 6+ MO (FLUZONE/FLULAVAL/F LUARIX) Unknown Completed [facility] SARS-COV-2 COVID-19 PFIZER VACCINE Unknown Completed [facility] SARS-COV-2 COVID-19 PFIZER VACCINE Unknown Completed [facility] HPV9 Unknown Completed [facility] TDAP Unknown Completed [facility] Influenza Virus Vaccine Quad .5 mL IM 6+ MO (FLUZONE/FLULAVAL/F LUARIX) Unknown Completed [facility] SARS-COV-2 COVID-19 PFIZER VACCINE Unknown Completed [facility] SARS-COV-2 COVID-19 PFIZER VACCINE Unknown Completed [facility] TDAP Unknown Completed [facility] Influenza Virus Vaccine Quad .5 mL IM 6+ MO (FLUZONE/FLULAVAL/F LUARIX) Unknown Completed [facility] SARS-COV-2 COVID-19 PFIZER VACCINE Unknown Completed [facility] SARS-COV-2 COVID-19 PFIZER VACCINE Unknown Completed [facility] HPV9 Unknown Completed [facility] TDAP Unknown Completed [facility] Influenza Virus Vaccine Quad .5 mL IM 6+ MO (FLUZONE/FLULAVAL/F LUARIX) Unknown Completed [facility] SARS-COV-2 COVID-19 PFIZER VACCINE Unknown Completed [facility] SARS-COV-2 COVID-19 PFIZER VACCINE Unknown Completed [facility] HPV9 Unknown Completed [facility] TDAP Unknown Completed [facility] Influenza Virus Vaccine Quad .5 mL IM 6+ MO (FLUZONE/FLULAVAL/F LUARIX) Unknown Completed [facility] SARS-COV-2 COVID-19 PFIZER VACCINE Unknown Completed [facility] SARS-COV-2 COVID-19 PFIZER VACCINE Unknown Completed [facility] HPV9 Unknown Completed [facility] TDAP Unknown Completed [facility] Influenza Virus Vaccine Quad .5 mL IM 6+ MO (FLUZONE/FLULAVAL/F LUARIX) Unknown Completed [facility] SARS-COV-2 COVID-19 PFIZER VACCINE Unknown Completed [facility] SARS-COV-2 COVID-19 PFIZER VACCINE Unknown Completed [facility] HPV9 Unknown Completed [facility] TDAP Unknown Completed [facility] Influenza Virus Vaccine Quad .5 mL IM 6+ MO (FLUZONE/FLULAVAL/F LUARIX) Unknown Completed [facility] SARS-COV-2 COVID-19 PFIZER VACCINE Unknown Completed [facility] SARS-COV-2 COVID-19 PFIZER VACCINE Unknown Completed [facility] HPV9 Unknown Completed [facility] TDAP Unknown Completed [facility] Influenza Virus Vaccine Quad .5 mL IM 6+ MO (FLUZONE/FLULAVAL/F LUARIX) Unknown Completed [facility] SARS-COV-2 COVID-19 PFIZER VACCINE Unknown Completed [facility] SARS-COV-2 COVID-19 PFIZER VACCINE Unknown Completed [facility] HPV9 Unknown Completed [facility] TDAP Unknown [facility]pleted [facility] [facility] Virus Vaccine Quad .5 mL IM 6+ MO (FLUZONE/FLULAVAL/F LUARIX) Unknown Completed [facility] SARS-COV-2 COVID-19 PFIZER VACCINE Unknown Completed [facility] SARS-COV-2 COVID-19 PFIZER VACCINE Unknown Completed [facility] HPV9 Unknown Completed [facility] TDAP Unknown Completed [facility] Influenza Virus Vaccine Quad .5 mL IM 6+ MO (FLUZONE/FLULAVAL/F LUARIX) Unknown Completed [facility] SARS-COV-2 COVID-19 PFIZER VACCINE Unknown Completed [facility] SARS-COV-2 COVID-19 PFIZER VACCINE Unknown Completed [facility] HPV9 Unknown Completed [facility] TDAP Unknown Completed [facility] Influenza Virus Vaccine Quad .5 mL IM 6+ MO (FLUZONE/FLULAVAL/F LUARIX) Unknown Completed [facility] SARS-COV-2 COVID-19 PFIZER VACCINE Unknown Completed [facility] SARS-COV-2 COVID-19 PFIZER VACCINE Unknown Completed [facility] HPV9 Unknown Completed [facility] TDAP Unknown Completed [facility] Influenza Virus Vaccine Quad .5 mL IM 6+ MO (FLUZONE/FLULAVAL/F LUARIX) Unknown Completed [facility] SARS-COV-2 COVID-19 PFIZER VACCINE Unknown Completed [facility] SARS-COV-2 COVID-19 PFIZER VACCINE Unknown Completed [facility] HPV9 Unknown Completed [facility] TDAP Unknown Completed [facility] Influenza Virus Vaccine Quad .5 mL IM 6+ MO (FLUZONE/FLULAVAL/F LUARIX) Unknown Completed [facility] SARS-COV-2 COVID-19 PFIZER VACCINE Unknown Completed [facility] SARS-COV-2 COVID-19 PFIZER VACCINE Unknown Completed [facility] HPV9 Unknown Completed [facility] TDAP Unknown Completed [facility] Influenza Virus Vaccine Quad .5 mL IM 6+ MO (FLUZONE/FLULAVAL/F LUARIX) Unknown Completed [facility] SARS-COV-2 COVID-19 PFIZER VACCINE Unknown Completed [facility] SARS-COV-2 COVID-19 PFIZER VACCINE Unknown Completed [facility] HPV9 Unknown Completed [facility] TDAP Unknown Completed [facility] Influenza Virus Vaccine Quad .5 mL IM 6+ MO (FLUZONE/FLULAVAL/F LUARIX) Unknown Completed [facility] SARS-COV-2 COVID-19 PFIZER VACCINE Unknown Completed [facility] SARS-COV-2 COVID-19 PFIZER VACCINE Unknown Completed [facility] HPV9 Unknown Completed [facility] TDAP Unknown Completed [facility] Influenza Virus Vaccine Quad .5 mL IM 6+ MO (FLUZONE/FLULAVAL/F LUARIX) Unknown Completed [facility] SARS-COV-2 COVID-19 PFIZER VACCINE Unknown Completed [facility] SARS-COV-2 COVID-19 PFIZER VACCINE Unknown Completed [facility] HPV9 Unknown Completed [facility] TDAP Unknown Completed [facility] Influenza Virus Vaccine Quad .5 mL IM 6+ MO (FLUZONE/FLULAVAL/F LUARIX) Unknown Completed [facility] SARS-COV-2 COVID-19 PFIZER VACCINE Unknown Completed [facility] SARS-COV-2 COVID-19 PFIZER VACCINE Unknown Completed [facility] HPV9 Unknown Completed [facility] TDAP Unknown Completed [facility] Influenza Virus Vaccine Quad .5 mL IM 6+ MO (FLUZONE/FLULAVAL/F LUARIX) Unknown Completed [facility] SARS-COV-2 COVID-19 PFIZER VACCINE Unknown Completed [facility] SARS-COV-2 COVID-19 PFIZER VACCINE Unknown Completed [facility] Vital Signs Vital Name Observation Time Observation Value Comments S ource Systolic blood pressure 2023-11-03 18:15:00 136 mm[Hg] [facility] Diastolic blood pressure 2023-11-03 18:15:00 67 mm[Hg] [facility] Heart rate 2023-11-03 18:15:00 76 /min [facility] Body temperature 2023-11-03 18:15:00 36.17 Marlene [facility] Respiratory rate 2023-11-03 18:15:00 20 /min [facility] Body height 2023-11-03 18:15:00 157.5 cm [facility] Body weight 2023-11-03 18:15:00 92.942 kg [facility] BMI 2023-11-03 18:15:00 37.48 kg/m2 [facility] Oxygen saturation in Arterial blood by Pulse oximetry 2023-11-03 18:15:00 100 /min [facility] Systolic blood pressure 2023-10-16 16:15:00 120 mm[Hg] [facility] Diastolic blood pressure 2023-10-16 16:15:00 74 mm[Hg] [facility] Heart rate 2023-10-16 16:15:00 69 /min [facility] Respiratory rate 2023-10-16 16:15:00 13 /min [facility] Oxygen saturation in Arterial blood by Pulse oximetry 2023-10-16 16:15:00 97 /min [facility] Body temperature 2023-10-16 15:13:00 37 Marlene [facility] Body height 2023-10-16 10:15:00 157.5 cm [facility] Body weight 2023-10-16 10:15:00 92.7 kg [facility] BMI 2023-10-16 10:15:00 37.38 kg/m2 [facility] Systolic blood pressure 2023-10-16 15:13:00 117 mm[Hg] [facility] Diastolic blood pressure 2023-10-16 15:13:00 86 mm[Hg] [facility] Heart rate 2023-10-16 15:13:00 79 /min [facility] Body temperature 2023-10-16 15:13:00 37 Marlene [facility] Oxygen saturation in Arterial blood by Pulse oximetry 2023-10-16 15:13:00 100 /min [facility] Respiratory rate 2023-10-16 10:15:00 18 /min [facility] Body height 2023-10-16 10:15:00 157.5 cm [facility] Body weight 2023-10-16 10:15:00 92.7 kg [facility] BMI 2023-10-16 10:15:00 37.38 kg/m2 [facility] Systolic blood pressure 2023-08-07 18:21:00 137 mm[Hg] [facility] Diastolic blood pressure 2023-08-07 18:21:00 70 mm[Hg] [facility] Heart rate 2023-08-07 18:21:00 57 /min [facility] Body temperature 2023-08-07 18:21:00 35.72 Marlene [facility] Respiratory rate 2023-08-07 18:21:00 18 /min [facility] Body height 2023-08-07 18:21:00 157.5 cm [facility] Body weight 2023-08-07 18:21:00 91.899 kg [facility] BMI 2023-08-07 18:21:00 37.06 kg/m2 [facility] Systolic blood pressure 2023-08-01 15:51:00 133 mm[Hg] [facility] Diastolic blood pressure 2023-08-01 15:51:00 69 mm[Hg] [facility] Heart rate 2023-08-01 15:51:00 70 /min [facility] Body temperature 2023-08-01 15:51:00 36.17 Marlene [facility] Respiratory rate 2023-08-01 15:51:00 18 /min [facility] Body height 2023-08-01 15:51:00 157.5 cm [facility] Body weight 2023-08-01 15:51:00 91.853 kg [facility] BMI 2023-08-01 15:51:00 37.04 kg/m2 [facility] Systolic blood pressure 2023-07-03 15:43:00 132 mm[Hg] [facility] Diastolic blood pressure 2023-07-03 15:43:00 73 mm[Hg] [facility] Heart rate 2023-07-03 15:43:00 65 /min [facility] Body temperature 2023-07-03 15:43:00 35.67 Marlene [facility] Respiratory rate 2023-07-03 15:43:00 18 /min [facility] Body height 2023-07-03 15:43:00 157.5 cm [facility] Body weight 2023-07-03 15:43:00 91.899 kg [facility] BMI 2023-07-03 15:43:00 37.06 kg/m2 [facility] Oxygen saturation in Arterial blood by Pulse oximetry 2023-07-03 15:43:00 100 /min [facility] Systolic blood pressure 2023-06-12 19:06:00 123 mm[Hg] [facility] Diastolic blood pressure 2023-06-12 19:06:00 66 mm[Hg] [facility] Heart rate 2023-06-12 19:06:00 68 /[facility] Body temperature 2023-06-12 19:06:00 36.22 Marlene [facility] Body height 2023-06-12 19:06:00 157.5 cm [facility] Body weight 2023-06-12 19:06:00 93.532 kg [facility] BMI 2023-06-12 19:06:00 37.71 kg/m2 [facility] Systolic blood pressure 2023-06-03 14:49:00 154 mm[Hg] [facility] Diastolic blood pressure 2023-06-03 14:49:00 82 mm[Hg] [facility] Heart rate 2023-06-03 14:49:00 74 /min [facility] Body temperature 2023-06-03 14:49:00 36.22 Marlene [facility] Respiratory rate 2023-06-03 14:49:00 17 /min [facility] Body height 2023-06-03 14:49:00 157.5 cm [facility] Body weight 2023-06-03 14:49:00 93.35 kg [facility] BMI 2023-06-03 14:49:00 37.64 kg/m2 [facility] Systolic blood pressure 2023-01-28 20:42:00 127 mm[Hg] [facility] Diastolic blood pressure 2023-01-28 20:42:00 69 mm[Hg] [facility] Heart rate 2023-01-28 20:42:00 63 /min [facility] Body temperature 2023-01-28 20:42:00 35.89 Marlene [facility] Respiratory rate 2023-01-28 20:42:00 18 /min [facility] Body height 2023-01-28 20:42:00 157.5 cm [facility] Body weight 2023-01-28 20:42:00 95.391 kg [facility] BMI 2023-01-28 20:42:00 38.46 kg/m2 [facility] Systolic blood pressure 2023-01-15 22:04:00 135 mm[Hg] [facility] Diastolic blood pressure 2023-01-15 22:04:00 78 mm[Hg] [facility] Heart rate 2023-01-15 22:04:00 71 /min [facility] Body temperature 2023-01-15 22:04:00 35.83 Marlene [facility] Respiratory rate 2023-01-15 22:04:00 18 /min [facility] Body height 2023-01-15 22:04:00 157.5 cm [facility] Body weight 2023-01-15 22:04:00 95.981 kg [facility] BMI 2023-01-15 22:04:00 38.70 kg/m2 [facility] Systolic blood pressure 2022-01-24 19:19:00 122 mm[Hg] [facility] Diastolic blood pressure 2022-01-24 19:19:00 72 mm[Hg] [facility] Heart rate 2022-01-24 19:19:00 68 /min [facility] Body temperature 2022-01-24 19:19:00 36.06 Marlene [facility] Respiratory rate 2022-01-24 19:19:00 16 /min [facility] Body height 2022-01-24 19:19:00 157.5 cm [facility] Body weight 2022-01-24 19:19:00 106.278 kg [facility] BMI 2022-01-24 19:19:00 42.85 kg/m2 [facility] Systolic blood pressure 2022-01-12 15:57:00 139 mm[Hg] [facility] Diastolic blood pressure 2022-01-12 15:57:00 70 mm[Hg] [facility] Heart rate 2022-01-12 15:57:00 77 /min [facility] Body temperature 2022-01-12 15:57:00 36 Marlene [facility] Respiratory rate 2022-01-12 15:57:00 18 /min [facility] Body height 2022-01-12 15:57:00 157.5 cm [facility] Body weight 2022-01-12 15:57:00 106.686 kg Univ [facility] BMI 2022-01-12 15:57:00 43.02 kg/m2 [facility] Systolic blood pressure 2019-05-17 20:33:00 130 mm[Hg] [facility] Diastolic blood pressure 2019-05-17 20:33:00 81 mm[Hg] [facility] Heart rate 2019-05-17 20:33:00 74 /min [facility] Body temperature 2019-05-17 20:33:00 36.44 Marlene [facility] Respiratory rate 2019-05-17 20:33:00 16 /min [facility] Body height 2019-05-17 20:33:00 157.5 cm [facility] Body weight 2019-05-17 20:33:00 118.559 kg [facility] BMI 2019-05-17 20:33:00 47.81 kg/m2 [facility] Procedures Procedure Date / Time Performed Performing Clinician Source PREPARE PACKED RBC 2023-10-16 12:47:13 Filippo Torres [facility] POCT GLUCOSE (AUTOMATED) 2023-10-16 12:02:00 Woody Deng [facility] POCT GLUCOSE (AUTOMATED) 2023-10-16 12:02:00 Woody Deng [facility] 60915 - AR LAPS VAGINAL HYSTERECTOMY UTERUS 250 GM/< 2023-10-16 11:53:00 Woody Deng [facility] CYSTOSCOPY 2023-10-16 11:53:00 Woody Deng [facility] SALPINGO-OOPHORECTOMY 2023-10-16 11:53:00 Julio Deng [facility] LAPAROSCOPIC OVARIAN CYSTECTOMY 2023-10-16 11:53:00 Woody Deng [facility] CBC WITHOUT DIFF 2023-10-16 10:36:00 Elina Torres [facility] HB ABO GROUPING 2023-10-16 10:36:00 Most [facility] CBC WITHOUT DIFF 2023-10-16 10:36:00 Elina Torres [facility] HB ABO GROUPING 2023-10-16 10:36:00 Emigdio Most[facility] POCT TEST 2023-10-16 10:30:00 Trice Torres [facility] POCT TEST 2023-10-16 10:30:00 Trice Torres [facility] POCT TEST 2023-10-16 10:20:00 [facility] 2023-10-16 10:20:00 Danielle Ponce [facility] CBC WITH DIFF 2023-08-07 19:55:00 Owen Epps [facility] HB ABO GROUPING 2023-08-07 19:55:00 Owen Epps in [facility] GALV ONLY - VAGINAL PATHOGENS BY NUCLEIC ACID TESTING 2023-08-07 19:33:00 Owen Epps [facility] POCT TEST 2023-08-07 18:29:00 Woody Deng [facility] CANCER ANTIGEN-GI (CA 19-9) 2023-02-13 14:28:00 Sukhdev Scott Y [facility] COMP. METABOLIC PANEL (78091) 2023-02-13 14:28:00 Jens Olson [facility] CA-125 2023-02-13 14:28:00 Sukhdev Scott Y [facility] CBC WITH DIFF 2023-02-13 14:28:00 Sukhdev Scott Y [facility] AUTHORIZATION TO RELEASE PHI TO [facility] 2023-01-28 06:01:00 Doctor Unassigned, [place] [facility] HIGH RISK HPV-THIN PREP 2023-01-15 22:49:00 Felicia Bella [facility] PAP SMEAR-LIQUID BASED-CP 2023-01-15 22:49:00 Felicia Bella [facility] GARDASIL 9 (HPV 9V) VACCINE 2023-01-15 22:13:15 Felicia Bella [facility] DISCLOSURE AND CONSENT, MEDICAL AND SURGICAL PROCEDURES 2022-01-24 06:01:00 Doctor Unassigned, [place] [facility] POCT TEST 2022-01-12 18:57:00 Arina Rizvi [facility] ASSIGNMENT OF BENEFITS 2022-01-12 15:50:36 Docto r Unassigned, [place] [facility] FLU VACC ([id number]), 6+ MONTHS, IM, QUAD 2019-05-17 21:08:32 David Armendariz [facility] NOTICE OF PRIVACY PRACTICES 2019-05-17 20:15:00 Doctor Unassigned, [place] [facility] Encounters Start Date/Time End Date/Time Encounter Type Admission Type Attending Clinicians Care Facility Care Department Encounter ID Source 2023-08-07 14:38:47 Outpatient R WOODY DENG [facility] 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 [id number] [facility] 2023-11-24 08:15:00 2023-11-24 08:15:00 Outpatient R [facility] [id number] [facility] 2023-11-03 13:15:00 2023-11-03 13:34:46 Outpatient R RADU SHAFFER YVETTE [facility] [id number] [facility] 2023-11-03 13:15:00 2023-11-03 13:34:46 Office Visit Clinic, [facility] Resident [facility] Resident [facility] 1..840.114 350.1.13.10 4.2.7.2.686 [id number] [facility] 2023-10-30 00:00:00 2023-10-30 10:59:26 Telephone Patt Barnes [facility] .2.840.114 350.1.13.10 4.2.7.2.686 [id number] [facility] 2023-10-28 00:00:00 2023-10-28 10:11:40 Telephone Patt Barnes [facility] .2.840.114 350.1.13.10 4.2.7.2.686 [id number] [facility] 2023-09-22 00:00:00 2023-10-25 18:21:40 Patient Secure Msg Woody Deng [facility] 1.2.840.114 350.1.13.10 4.2.7.2.686 [id number] [facility] 2023-09-24 00:00:00 2023-10-25 18:18:39 Patient Secure Msg Felicia Bella Danny [facility] SIPHON OPERATOR [facility] MATERNAL & [facility]ILD [facility] 1.2.840.114 350.1.13.10 4.2.7.2.686 [id number] [facility] 2023-10-17 00:00:00 2023-10-17 15:37:44 Patient Secure Msg Doctor Unassigned, [place] Doctor Unassigned, [place] [facility] 1.2.840.114 350.1.13.10 4.2.7.2.686 [id number] [facility] 2023-10-16 00:00:00 2023-10-16 14:40:35 Telephone Patt Barnes [facility] 1.2.840.114 350.1.13.10 4.2.7.2.686 [id number] 113 [id number] [facility] 2023-10-16 05:05:00 2023-10-16 11:45:00 Hospital Encounter Deng, Woody W [facility] 1.2.840.114 350.1.13.10 4.2.7.2.686 [id number] [facility] 2023-10-16 05:05:00 2023-10-16 11:45:00 Outpatient R WOODY DENG [facility] 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7.2.686 [id number] [facility] 2023-10-09 08:15:00 2023-10-09 08:30:00 Camera Person Visit Lab, Ang-Rmchp Monica Ernst [facility] SIPHON OPERATOR [facility] 1..114 350.1.13.10 4.2.7.2.686 [id number] [facility] 2023-10-09 08:15:00 2023-10-09 08:15:00 Outpatient R MONICA ERNST [facility] [id number] [facility] 2023-10-06 00:00:00 2023-10-07 14:02:28 Telephone Ish Woody W [facility] 1..114 350.1.13.10 4.2.7.2.686 [id number] 113 [id number] [facility] 2023-10-03 12:00:00 2023-10-03 12:00:00 Outpatient R [facility] [id number] [facility] 2023-10-02 00:00:00 2023-10-02 12:49:52 Patient Secure Msg Julio Dengo [facility] 1..114 350.1.13.10 4.2.7.2.686 [id number] [facility] 2023-10-02 00:00:00 2023-10-02 09:22:43 Patient Secure Msg Woody Deng [facility] 1.2.840.114 350.1.13.10 4.2.7.2.686 [id number] [facility] 2023-10-01 00:00:00 2023-10-02 07:27:45 Telephone Woody Deng [facility] 1.2.840.114 350.1.13.10 4.2.7.2.686 [id number] [facility] 2023-07-21 00:00:00 2023-09-12 07:45:04 Telephone Carmella Lee [facility] 1.2.840.114 350.1.13.10 4.2.7.2.686 [id number] [facility] 2023-09-08 14:30:00 2023-09-08 14:30:00 Outpatient R [facility] [id number] [facility] 2023-08-05 00:00:00 2023-09-06 18:18:39 Patient Secure Msg Doctor Unassigned, [place] [facility] 1.2840.114 350.1.13.10 4.2.7.2.686 [id number] [facility] 2023-08-06 00:00:00 2023-09-06 18:15:34 Patient Secure Msg Doctor Unassigned, [place] [facility] 1.2840.114 350.1.13.10 4.2.7.2.686 [id number] [facility] 2023-08-25 13:15:00 2023-08-25 13:15:00 Outpatient R [facility] [id number] [facility] 2023-07-18 00:00:00 2023-08-23 18:22:50 Patient Secure Msg Doctor Unassigned, [place] [facility] 1.2.840.114 350.1.13.10 4.2.7.2.686 [id number] [facility] 2023-07-21 00:00:00 2023-08-23 18:20:31 Patient Secure Msg Felicia Bella Danny [facility] SIPHON OPERATOR [facility] & CHILD [facility] 1.2.840.114 350.1.13.10 4.2.7.2.686 [id number] [facility] 2023-07-22 00:00:00 2023-08-23 18:19:23 Patient Secure Msg Felicia Bella [facility] SIPHON OPERATOR [facility] CHILD [facility] 1.2.840.114 350.1.13.10 4.2.7.2.686 [id number] [facility] 2023-07-22 00:00:00 2023-08-23 18:19:03 Patient Secure Msg Doctor Unassigned, [place] [facility] 1.2840.114 350.1.13.10 4.2.7.2.686 [id number] [facility] 2023-08-19 00:00:00 2023-08-21 13:48:33 Telephone Woody Deng [facility] 1.0.114 350.1.13.10 4.2.7.2.686 [id number] [facility] 2023-08-21 00:00:00 2023-08-21 08:42:48 Case Management Owen Epps [facility] 1.2840.114 350.1.13.10 4.2.7.2.686 [id number] [facility] 2023-08-07 13:45:00 2023-08-07 14:56:37 Outpatient R WOODY DENG [facility] [id number] [facility] 2023-08-07 13:45:00 2023-08-07 14:56:37 Office Visit Clinic, [facility] Resident Woody Deng [facility] 1..840.114 350.1.13.10 4.2.7.2.686 [id number] [facility] 2023-08-01 10:45:00 2023-08-01 11:59:29 Outpatient R KAROLINA MULLINS [facility] [id number] [facility] 2023-08-01 10:45:00 2023-08-01 11:59:29 Office Visit Pgy3 Karolina Mullins [facility] 1..840.114 350.1.13.10 4.2.7.2.686 [id number] [facility] 2023-07-23 14:00:00 2023-07-23 14:00:00 Outpatient R [facility] [id number] [facility] 2023-07-23 09:30:00 2023-07-23 09:30:00 Outpatient R [facility] [id number] [facility] 2023-07-16 10:47:55 2023-07-16 23:59:00 Outpatient R RADU SHAFFER YVETTE [facility] [id number] [facility] 2023-07-16 10:47:55 2023-07-16 23:59:00 Hospital Encounter Radu Shaffer [facility] 1..840.114 350.1.13.10 4.2.7.2.686 [id number] [facility] 2023-07-03 11:00:00 2023-07-03 11:20:24 Outpatient R RADU SHAFFER [facility] [id number] [facility] 2023-07-03 11:00:00 2023-07-03 11:20:24 [facility]..114 350.1.13.10 4.2.7.2.686 [id number] 113 [id number] [facility] 2023-06-12 16:15:00 2023-06-12 16:30:00 Camera Person Visit [facility] 1..114 350.1.13.10 4.2.7.2.686 [id number] [facility] 2023-06-12 16:15:00 2023-06-12 16:15:00 Outpatient RADU ALEXANDER [facility] [id number] [facility] 2023-06-12 14:30:00 2023-06-12 16:01:28 Outpatient RADU ALEXANDER YVETTE [facility] [id number] [facility] 2023-06-12 14:30:00 2023-06-12 16:01:28 Office Visit Clinic, [facility]..114 350.1.13.10 4.2.7.2.686 [id number] [facility] 2023-06-10 00:00:00 2023-06-10 00:00:00 Telephone Felicia Bella [facility] SIPHON OPERATOR [facility] 1..114 350.1.13.10 4.2.7.2.686 [id number] [facility] 2023-06-10 00:00:00 2023-06-10 00:00:00 Patient Secure Msg Doctor Unassigned, Jasper [facility] 1.840.114 350.1.13.10 4.2.7.2.686 [id number] 044 [id number] [facility] 2023-06-09 00:00:00 2023-06-09 00:00:00 Patient Secure Msg Doctor Unassigned, Jasper [facility] 1.2.840.114 350.1.13.10 4.2.7.2.686 [id number] [id number] [facility] 2023-06-03 09:15:00 2023-06-03 10:15:37 Outpatient R FELICIA BELLA [facility] [id number] [facility] 2023-06-03 09:15:00 2023-06-03 10:15:37 Office Visit Felicia Bella [facility] SIPHON OPERATOR [facility] & CHILD [facility] 1.2.840.114 350.1.13.10 4.2.7.2.686 [id number] [facility] 2023-06-03 00:00:00 2023-06-03 00:00:00 Patient Secure Msg Doctor Unassigned, Jasper [facility] 1.2.840.114 350.1.13.10 4.2.7.2.686 [id number] 044 [id number] [facility] 2023-06-02 00:00:00 2023-06-02 00:00:00 Patient Secure Msg Felicia Bella [facility] SIPHON OPERATOR [facility] 1.2.840.114 350.1.13.10 4.2.7.2.686 [id number] [facility] 2023-05-29 16:52:59 2023-05-29 16:52:59 Outpatient [facility] [id number] Parth F Brian 2023-05-26 10:55:58 2023-05-26 10:55:58 Outpatient [facility] [id number] Parth Torres 2023-04-01 07:14:37 2023-04-01 23:59:00 Outpatient R FELICIA BELLA [facility] [id number] [facility] 2023-04-01 07:14:37 2023-04-01 23:59:00 Hospital Encounter Akinsipe, Felicia C [facility] 1.840.114 350.1.13.10 4.2.7.2.686 [id number] [facility] 2023-04-01 15:00:00 2023-04-01 15:00:00 Outpatient R [facility] [id number] [facility] 2023-04-01 00:00:00 2023-04-01 00:00:00 Patient Secure Msg Doctor Unassigned, Jasper [facility] 1.2840.114 350.1.13.10 4.2.7.2.686 [id number] [facility] 2023-04-01 00:00:00 2023-04-01 00:00:00 Patient Secure Msg Felicia Bella [facility] SIPHON OPERATOR [facility] 1.840.114 350.1.13.10 4.2.7.2.686 [id number] [facility] 2023-03-17 10:45:00 2023-03-17 10:45:00 Outpatient R [facility] [id number] [facility] 2023-02-26 10:30:00 2023-02-26 10:30:00 Outpatient R FELICIA BELLA [facility] [id number] [facility] 2023-02-21 00:00:00 2023-02-21 00:00:00 Patient Secure Msg Doctor Unassigned, Jasper [facility] 1.840.114 350.1.13.10 4.2.7.2.686 [id number] [facility] 2023-02-19 14:00:00 2023-02-19 14:00:00 Outpatient R [facility] [id number] [facility] 2023-02-19 00:00:00 2023-02-19 00:00:00 Telephone Sukhdev Scott Y [facility] 1.0.114 350.1.13.10 4.2.7.2.686 [id number] [facility] 2023-02-18 00:00:00 2023-02-18 00:00:00 Patient Secure Msg Doctor Unassigned, Jasper [facility] 1.840.114 350.1.13.10 4.2.7.2.686 [id number] [facility] 2023-02-17 00:00:00 2023-02-17 00:00:00 Telephone Felicia Bella [facility] SIPHON OPERATOR [facility] 1.840.114 350.1.13.10 4.2.7.2.686 [id number] [facility] 2023-02-17 00:00:00 2023-02-17 00:00:00 Patient Secure Msg Doctor Unassigned, Jasper [facility] 1.0.114 350.1.13.10 4.2.7.2.686 [id number] [facility] 2023-02-15 00:00:00 2023-02-15 00:00:00 Patient Secure Msg Doctor Unassigned, Jasper [facility] 1.0.114 350.1.13.10 4.2.7.2.686 [id number] 044 [id number] [facility] 2023-02-13 08:30:00 2023-02-13 08:30:00 Camera Person Visit Lab, [facility] Felicia Bella [facility] SIPHON OPERATOR [facility] 1.0.114 350.1.13.10 4.2.7.2.686 [id number] [facility] 2023-02-13 08:30:00 2023-02-13 08:26:42 Outpatient R FELICIA BELLA [facility] [id number] [facility] 2023-02-13 00:00:00 2023-02-13 00:00:00 Patient Secure Msg Felicia Bella [facility] SIPHON OPERATOR [facility] 1.0.114 350.1.13.10 4.2.7.2.686 [id number] 107 [id number] [facility] 2023-02-05 00:00:00 2023-02-05 00:00:00 Patient Secure Msg Doctor Unassigned, Jasper [facility] 1..114 350.1.13.10 4.2.7.2.686 [id number] [facility] 2023-01-28 14:15:00 2023-01-28 16:15:24 Outpatient R JENS OLSON [facility] [id number] [facility] 2023-01-28 14:15:00 2023-01-28 16:15:24 Office Visit Pgy2 Jens Olson L [facility] 1..114 350.1.13.10 4.2.7.2.686 [id number] [facility] 2023-01-28 00:00:00 2023-01-28 00:00:00 Orders Only Doctor Unassigned, Jasper [facility] 1.0.114 350.1.13.10 4.2.7.2.686 [id number] [facility] 2023-01-27 00:00:00 2023-01-27 00:00:00 Patient Secure Msg Doctor Unassigned, Jasper [facility] 1.0.114 350.1.13.10 4.2.7.2.686 [id number] [facility] 2023-01-24 00:00:00 2023-01-24 00:00:00 Patient Secure Msg Doctor Unassigned, Jasper [facility] 1.2.840.114 350.1.13.10 4.2.7.2.686 [id number] [facility] 2023-01-22 00:00:00 2023-01-22 00:00:00 Patient Secure Msg Felicia Bella [facility] SIPHON OPERATOR [facility] CHILD [facility] 1.2.840.114 350.1.13.10 4.2.7.2.686 [id number] 107 [id number] [facility] 2023-01-15 16:00:00 2023-01-15 16:46:46 Outpatient R FELICIA BELLA [facility] [id number] [facility] 2023-01-15 16:00:00 2023-01-15 16:46:46 Office Visit Felicia Bella [facility] SIPHON OPERATOR [facility] 1..840.114 350.1.13.10 4.2.7.2.686 [id number] [facility] 2023-01-13 00:00:00 2023-01-13 00:00:00 Patient Secure Msg Doctor Unassigned, Jasper [facility] 1.2.840.114 350.1.13.10 4.2.7.2.686 [id number] [facility] 2022-10-23 13:22:44 2022-10-23 13:22:44 Outpatient [facility] [id number] Parth Torres 2022-10-15 16:03:53 2022-10-15 16:03:53 Outpatient [facility] [id number] Parth Torres 2022-10-14 15:56:07 2022-10-14 15:56:07 Outpatient [facility] [id number] Parth Torres 2022-06-20 08:09:58 2022-06-20 08:09:58 Outpatient [facility] [id number] Parth Torres 2022-03-26 13:00:00 2022-03-26 13:00:00 Outpatient R [facility] [id number] [facility] 2022-02-14 10:30:00 2022-02-14 10:30:00 Outpatient R FELICIA BELLA [facility] [id number] [facility] 2022-02-08 00:00:00 2022-02-08 00:00:00 Telephone Arina Rizvi [facility] SIPHON OPERATOR [facility] 1.840.114 350.1.13.10 4.2.7.2.686 [id number] [facility] 2022-02-07 00:00:00 2022-02-07 00:00:00 Patient Secure Msg Doctor Unassigned, Jasper [facility] 1.0.114 350.1.13.10 4.2.7.2.686 [id number] [facility] 2022-02-07 00:00:00 2022-02-07 00:00:00 Patient Secure Msg Doctor Unassigned, Jasper [facility] 1.840.114 350.1.13.10 4.2.7.2.686 [id number] [facility] 2022-02-05 00:00:00 2022-02-05 00:00:00 Telephone Pgy3 [facility] 1.840.114 350.1.13.10 4.2.7.2.686 [id number] [facility] 2022-01-29 00:00:00 2022-01-29 00:00:00 Telephone Kita Grey [facility] 1..114 350.1.13.10 4.2.7.2.686 [id number] [facility] 2022-01-28 00:00:00 2022-01-28 00:00:00 Telephone Pgy3 [facility] 1.0.114 350.1.13.10 4.2.7.2.686 [id number] [facility] 2022-01-28 00:00:00 2022-01-28 00:00:00 Patient Secure Msg Doctor Unassigned, Jasper [facility] 1.2840.114 350.1.13.10 4.2.7.2.686 [id number] [facility] 2022-01-25 00:00:00 2022-01-25 00:00:00 Patient Secure Msg Doctor Unassigned, Jasper [facility] 1.0.114 350.1.13.10 4.2.7.2.686 [id number] [facility] 2022-01-24 13:30:00 2022-01-24 14:57:38 Outpatient R LINDA SU LINDA [facility] [id number] [facility] 2022-01-24 13:30:00 2022-01-24 14:57:38 [facility] 1..114 350.1.13.10 4.2.7.2.686 [id number] [facility] 2022-01-24 00:00:00 2022-01-24 00:00:00 Orders Only Doctor Unassigned, Jasper [facility] 1..114 350.1.13.10 4.2.7.2.686 [id number] [facility] 2022-01-14 00:00:00 2022-01-14 00:00:00 Telephone Arina Rizvi [facility] SIPHON OPERATOR [facility] 1.0.114 350.1.13.10 4.2.7.2.686 [id number] [facility] 2022-01-12 10:45:00 2022-01-12 11:56:21 Outpatient R ARINA RIZVI [facility] [id number] [facility] 2022-01-12 10:45:00 2022-01-12 11:56:21 Office Visit Provider, JermainechArina Truong [facility] SIPHON OPERATOR [facility] 1..840.114 350.1.13.10 4.2.7.2.686 [id number] 107 [id number] [facility] 2022-01-12 00:00:00 2022-01-12 00:00:00 Orders Only Doctor Unassigned, Jasper [facility] ..840.114 350.1.13.10 4.2.7.2.686 [id number] [facility] 2022-01-07 08:15:00 2022-01-07 08:15:00 Outpatient R DAVID ARMENDARIZ [facility] [id number] [facility] 2022-01-03 11:00:00 2022-01-03 11:00:00 Outpatient R UNKNOWN, RAQUEL [facility] [id number] [facility] 2021-02-12 10:00:00 2021-02-12 10:00:00 Outpatient R [facility] [id number] [facility] 2021-02-09 00:00:00 2021-02-09 00:00:00 Patient Secure Msg Doctor Unassigned, Jasper [facility] 1..840.114 350.1.13.10 4.2.7.2.686 [id number] [facility] 2020-10-26 11:20:00 2020-10-26 11:20:00 Outpatient R JUDITH GUTHRIE [facility] [id number] [facility] 2020-06-23 11:30:00 2020-06-23 11:14:33 Outpatient R TIFF MUNOZ [facility] [id number] [facility] 2020-06-02 11:30:00 2020-06-02 11:30:00 Outpatient THANHLINAS [facility] [id number] [facility] 2020-05-30 11:00:00 2020-05-30 11:00:00 Outpatient THANHPEYMAN [facility] [id number] [facility] 2020-05-29 00:00:00 2020-05-29 00:00:00 Patient Outreach Peyman Law Dillan [facility] 1..840.114 350.1.13.10 4.2.7.2.686 [id number] [facility] 2020-05-16 09:30:00 2020-05-16 09:30:00 Outpatient DAVID KIRK [facility] [id number] [facility] 2019-05-25 00:00:00 2019-05-25 00:00:00 Patient Secure Msg Felicia Bella [facility] SIPHON OPERATOR [facility] 1.2.840.114 350.1.13.10 4.2.7.2.686 [id number] [facility] 2019-05-17 15:19:29 2019-05-17 16:34:26 Office Visit David Armendariz [facility] SIPHON OPERATOR [facility] 1.2.840.114 350.1.13.10 4.2.7.2.686 [id number] [facility] 2019-05-17 15:30:00 2019-05-17 15:30:00 Outpatient DAVID KIRK [facility] [id number] [facility] 2019-05-17 15:30:00 2019-05-17 15:30:00 Outpatient DAVID KIRK [facility] [id number] [facility] 2019-05-17 00:00:00 2019-05-17 00:00:00 Orders Only Doctor Unassigned, Jasper [facility] 1.2.840.114 350.1.13.10 4.2.7.2.686 [id number] [facility] Results Test Description Test Time Test Comments Results Result Co mments Source [facility] GLUCOSE (AUTOMATED)2023-10-16 12:03:34* Test Item Value Reference Range Interpretation Comme nts POCT GLU (test code = 4706413774) 109 mg/dL 70-110 Lab Interpretation (test cod e = 05316-6) Normal [facility] GLUCOSE (AUTOMATED)2023-10-16 12:03:34* Test Item Value Reference Range Interpretation Comme nts POCT GLU (test code = 9895781861) 109 mg/dL 70-110 Lab Interpretation (test cod e = 38186-1) [facility] This is a pre-surgical type and screen. ONCE [id number] 11:39:00* Test Item Value Reference Range Interpretation Comme nts ABO & RH (test code = 20) O POSITIVE IAT (test code = 1185) Negative [facility] This is a pre-surgical type and screen. ONCE [id number] 11:39:00* Test Item Value Reference Range Interpretation Comme nts ABO & RH (test code = 20) O POSITIVE IAT (test code = 1185) Negative [facility] without [id number] 11:25:57* Test Item Value Reference Range Interpretation Comme nts WBC (test code = 6690-2) 6.77 4.30-11.10 RBC (test code = 789-8) 4.64 3.93-5.25 HGB (test code = 718-7) 7.9 g/dL 11.6-15.0 L HCT (test code = 4544-3) 28.1 % 35.7-45.2 L MCH (test code = 785-6) 17.0 pg 25.9-32.8 L MCV (test code = 787-2) 60.6 fL 80.6-95.5 L MCHC (test code = 786-4) 28.1 g/dL 31.6-35.1 L PLT (test code = 777-3) 365 166-358 H MPV (test code = 85247-7) 10.0 fL 9.5-12.9 RDW-CV (test code = 788-0) 18.6 % 12.0-15.5 H RDW-SD (test code = 18928-2) 39.2 fL 39.0-49.9 NRBC x10^3 (test code = 1903664590) See_Comment [Automated [place]] The system which generated this result transmitted reference range: 10*3/?L. The reference range was not used to interpret this result as normal/abnormal. NRBC/100 WBC (test code = 1888721177) 0.0 0.0-10.0 IPF % (test code = 0291885973) Lab Interpretation (test code = 50648-9) Abnormal [facility] without [id number] 11:25:57* Test Item Value Reference Range Interpretation Comme nts WBC (test code = 6690-2) 6.77 4.30-11.10 RBC (test code = 789-8) 4.64 3.93-5.25 HGB (test code = 718-7) 7.9 g/dL 11.6-15.0 L HCT (test code = 4544-3) 28.1 % 35.7-45.2 L MCH (test code = 785-6) 17.0 pg 25.9-32.8 L MCV (test code = 787-2) 60.6 fL 80.6-95.5 L MCHC (test code = 786-4) 28.1 g/dL 31.6-35.1 L PLT (test code = 777-3) 365 166-358 H MPV (test code = 86714-8) 10.0 fL 9.5-12.9 RDW-CV (test code = 788-0) 18.6 % 12.0-15.5 H RDW-SD (test code = 77055-7) 39.2 fL 39.0-49.9 NRBC x10^3 (test code = 6712885083) See_Comment [Automated [place] [employer]] The system which generated this result transmitted reference range: 10*3/?L. The reference range was not used to interpret this result as normal/abnormal. NRBC/100 WBC (test code = 5044846268) 0.0 0.0-10.0 IPF % (test code = 3354454885) Lab Interpretation (test code = 09571-1) Abnormal [facility] [id number] 10:50:00* Test Item Value Reference Range Interpretation Comme nts POCT PREG (test code = 1605) Negative On board controls acceptable with C Line (test code = 3574) Yes POCT PREG LOT # (test code = 3575) POCT PREG TEST DATE ( test code = 3576) Lab Interpretation (test cod e = 17063-0) Normal [facility] [id number] 10:50:00* Test Item Value Reference Range Interpretation Comme nts POCT PREG (test code = 1605) Negative On board controls acceptable with C Line (test code = 3574) Yes POCT PREG LOT # (test code = 3575) POCT PREG TEST DATE ( test code = 3576) Lab Interpretation (test cod e = 94245-7) Normal [facility] [id number] 10:25:00* Test Item Value Reference Range Interpretation Comme nts POCT PREG (test code = 1605) Negative On board controls acceptable with C Line (test code = 3574) Yes POCT PREG LOT # (test code = 3575) POCT PREG TEST DATE ( test code = 3576) [facility] [id number] 10:25:00* Test Item Value Reference Range Interpretation Comme nts POCT PREG (test code = 1605) Negative On board controls acceptable with C Line (test code = 3574) Yes POCT PREG LOT # (test code = 3575) POCT PREG TEST DATE ( test code = 3576) [facility] [id number] 18:30:00* Test Item Value Reference Range Interpretation Comme nts POCT PREG (test code = 1605) Negative On board controls acceptable with C Line (test code = 3574) Yes POCT PREG LOT # (test code = 3575) POCT PREG TEST DATE ( test code = 3576) Lab Interpretation (test cod e = 95234-2) [facility] [id number] 18:30:00* Test Item Value Reference Range Interpretation Comme nts POCT PREG (test code = 1605) Negative On board controls acceptable with C Line (test code = 3574) Yes POCT PREG LOT # (test code = 3575) POCT PREG TEST DATE ( test code = 3576) Lab Interpretation (test cod e = 48871-9) [facility] [id number] 18:30:00* Test Item Value Reference Range Interpretation Comme nts POCT PREG (test code = 1605) Negative On board controls acceptable with C Line (test code = 3574) Yes POCT PREG LOT # (test code = 3575) POCT PREG TEST DATE ( test code = 3576) Lab Interpretation (test cod e = 32928-0) [facility] [id number] 18:30:00* Test Item Value Reference Range Interpretation Comme nts POCT PREG (test code = 1605) Negative On board controls acceptable with C Line (test code = 3574) Yes POCT PREG LOT # (test code = 3575) POCT PREG TEST DATE ( test code = 3576) Lab Interpretation (test cod e = 97398-9) [facility] METABOLIC PANEL (02965)2023-02-14 17:33:39* Test Item Value Reference Range Interpretation Comme nts NA (test code = 5243782172) 140 mmol/L 135-145 K (test code = 8084255799) 3.7 mmol/L 3.5-5.0 CL (test code = 5575990480) 107 mmol/L 98-108 CO2 TOTAL (test code = 8583473591) 21 mmol/L 23-31 L AGAP (test code = 7618466908) 12 2-16 BUN (test code = 4394627896) 9 mg/dL 7-23 GLUCOSE (test code = 4711525202) 98 mg/dL 70-110 CREATININE (test code = 1400800276) 0.45 mg/dL 0.50-1.04 L TOTAL BILI (test code = 8415783220) 0.2 mg/dL 0.1-1.1 CALCIUM (test code = 2414769479) 8.8 mg/dL 8.6-10.6 T PROTEIN (test code = 7510756426) 8.0 g/dL 6.3-8.2 ALBUMIN (test code = 0720680828) 4.3 g/dL 3.5-5.0 ALK PHOS (test code = 4779604291) 62 U/L 34-122 ALTv (test code = 1742-6) 13 U/L 5-35 AST(SGOT) (test code = 7636421634) 30 U/L 13-40 eGFR (test code = 02760-9) 124.9 mL/min/1.73m2 CKD-EPI eGFR (2020). Assuming creatinine has been stable day-to-day for at least three months, the eGFR indicates Category G1 (>= 90 mL/min/1.73 m2) Lab Interpretation (test code = 09750-8) [facility]normal [facility] (CA 19-9)2023-02-14 13:26:26 * Test Item Value Reference Range Interpretation Comme nts CA 19-9 (test code = 9000965711) 1.8 U/mL 0.0-35.0 SUE (test code = SUE) Biotin has been reported to cause a negative bias, interpret results relative to patient's use of biotin. Lab Interpretation (test code = 13163-3) Normal [facility]- 13:26:25* Test Item Value Reference Range Interpretation Comme nts CA-125 (test code = 9226324653) 5.0 U/mL 0.0-35.0 Lab Interpretation (test cod e = 80788-1) Normal [facility] WITH [id number] 07:21:34* Test Item Value Reference Range Interpretation Comme nts WBC (test code = 6690-2) 8.86 See_Comment [Automated [place] [employer]] The system which generated this result transmitted reference range: 4.30 - 11.10 10*3/?L. The reference range was not used to interpret this result as normal/abnormal. RBC (test code = 789-8) 4.66 See_Comment [Automated [place] [employer]] The system which generated this result transmitted [...] g/dL 31.6-35.1 L RDW-SD (test code = 83969-4) 39.4 fL 39.0-49.9 RDW-CV (test code = 788-0) 21.3 % 12.0-15.5 H PLT (test code = 777-3) 351 See_Comment [Automated [place] [employer]] The system which generated this result transmitted reference range: 166 - 358 10*3/?L. The reference range was not used to interpret this result as normal/abnormal. MPV (test code = 29088-0) Not Measured IPF % (test code = 2747430945) 6.5 % 1.3-7.7 Platelet count measured by fluorescence method. NRBC/100 WBC (test code = 0589462562) 0.0 See_Comment [[employer]] The system which generated this result transmitted reference range: 0.0 - 10.0 /100 WBCs. The reference range was not used to interpret this result as normal/abnormal. NRBC x10^3 (test code = 5157425791) See_Comment [Automated [place] [employer]] The system which generated this result transmitted reference range: 10*3/?L. The reference range was not used to interpret this result as normal/abnormal. GRAN MAT (NEUT) % (test code = 770-8) 69.7 % IMM GRAN % (test code = 2578850231) 0.30 % LYMPH % (test code = 736-9) 20.2 % MONO % (test code = 5905-5) 7.7 % EOS % (test code = 713-8) 1.6 % BASO % (test code = 706-2) 0.5 % GRAN MAT x10^3(ANC) (test code = 6463103139) 6.18 10*3/uL 1.88-7.09 IMM GRAN x10^3 (test code = 9624037628) 0.03 10*3/uL 0.00-0.06 LYMPH x10^3 (test code = 731-0) 1.79 10*3/uL 1.32-3.29 MONO x10^3 (test code = 742-7) 0.68 10*3/uL 0.33-0.92 EOS x10^3 (test code = 711-2) 0.14 10*3/uL 0.03-0.39 BASO x10^3 (test code = 704-7) 0.04 10*3/uL 0.01-0.07 Lab Interpretation (test code = 59443-8) [id number] 00:12:07* Test Item Value Reference Range Interpretation Comme nts MUMPS VIRUS IgG (test code = 01599) <5.0 AU/mL INTERPRETIVE INF ORMATION: Mumps Ab, [...] at the same time. TESTING PERFORMED AT [facility] [address] [place] [id number] [place]. [id number] CLIA NO. [id number] MUMPS VIRUS IgM (test code = 4587) [...] months post-infection or immunization. TESTING PERFORMED AT [facility], [address] [address] [place]. [id number] CLIA NO. [id number] [Automated message] The system which generated this result transmitted reference range: <=0.79. The reference range was not used to interpret this result as normal/abnormal. RUBEOLA AB, [id number] 11:43:28* Test Item Value Reference Range Interpretation Comme nts RUBEOLA AB, IgG (test code = 73100) 68.0 AU/ML SEE BELOW INTERPRETATION UNITS RANGE ----- ----- NEGATIVE AU/ML <13.5 EQUIVOCAL AU/ML 13.5-16.4 NOTE: CONSIDER RETESTING IN A CLINICALLY SUITABLE PERIOD OF TIME, NO SOONER THAN 1-2 WEEKS. POSITIVE AU/ML >=16.5 VARICELLA ZOSTER [id number] 11:43:28* Test Item Value Reference Range Interpretation Comme nts VARICELLA ZOSTER IgG (test code = 55359) 1013 INDEX SEE BELOW INTERPRETATION V ZV [...] TESTING PERFORMED AT [facility] [address] [place] [id number] CABLE INSTALLER REPAIRER: AI TAYLOR M.D. CLIA NUMBER [id number] [place]. [id number] RUBELLA ANTIBODY [id number] 04:13:02* Test Item Value Reference Range Interpretation Comme nts RUBELLA ANTIBODY SCREEN (test code = 4600) 29 IU/ML SEE BELOW RUBELLA IgG INTERP (test code = 15186) REACTIVE REACTIVE INTERPRETATI ON UNITS RANGE NON-REACTIVE/NON-IMMUNE IU/ML <10 REACTIVE/IMMUNE IU/ML >=10 HEPATITIS A TOTAL AB REFLEX TO [id number] 04:13:02* Test Item Value Reference Range Interpretation Comme nts HEPATITIS A TOTAL AB (test c ode = 2725) NON-REACTIVE NON-REACTIVE HEPATITIS B SURFACE [id number] 04:13:02* Test Item Value Reference Range Interpretation Comme nts HEPATITIS B SURFACE AB (test code = 2737) NON-REACTIVE NON-REACTIVE HEMOGLOBIN [id number] 21:01:29* Test Item Value Reference Range Interpretation Comme nts HEMOGLOBIN A1c (test code = 98384) 6.8 % 4.2-5.6 H CITIZEN OF [employer] GUIDELINES FOR HGB A1C: [...] OR LABORATORY CONSULTATION. CBC W/AUTO DIFF WITH [id number] 15:06:18* Test Item Value Reference Range Interpretation Comme nts WBC (test code = 1001) 6.6 K/UL [...] 0.00-0.10 ABS NUCLEATED RBCS (test code = 17787) 0.00 K/UL 0.00-0.11 COMMENTS (test code = 1016) (NOTE) MODERATE ANISOCY TOSIS FEW ELLIPTOCYTES MARKED HYPOCHROMASIA MARKED MICROCYTOSIS MODERATE POIKILOCYTOSIS SLIGHT POLYCHROMASIA FEW SCHISTOCYTES FEW TEAR DROP CELLS PLATELETS APPEAR NORMAL [facility] has important pathology staff changes effective 05/08/2022. New pathology staff will provide uninterrupted, excellent patient care and clinical consultation. See URL: [email or web address]. UNLESS OTHERWISE INDICATED, ALL TESTING PERFORMED AT [facility] [address] [place] [id number] CABLE INSTALLER REPAIRER: AI TAYLOR M.D. CLIA NUMBER [id number] [facility] [place]. [id number] LIPID [id number] 05:59:27* Test Item Value Reference Range Interpretation [...] SPECIMENS. FOR MOREINFORMATION, SEE CLIENT ANNOUNCEMENT AT [email or web address] RISK RATIO LDL/HDL (test code = 2237) 1.84 RATIO <3.22 COMPREHENSIVE METABOLIC [id number] 05:59:27* Test Item Value Reference Range Interpretation Comme nts GLUCOSE (test code = 2216) 102 MG/DL 70-99 H BUN (test code = 2207) 6 MG/DL 6-20 CREATININE (test code = 2213) 0.61 MG/DL 0.60-1.30 eGFR (2020 CKD-EPI) (test code = 62033) 116 ML/MIN/1.73 >60 CALC BUN/CREAT (test code = 2234) 10 RATIO 6-28 SODIUM (test code = 2230) 139 MEQ/L 133-146 POTASSIUM (test code = 222) 4.1 MEQ/L 3.5-5.4 CHLORIDE (test code = 2214) 104 MEQ/L 95-107 CARBON DIOXIDE (test code = 2205) 24 MEQ/L 19-31 CALCIUM (test code = 2208) 8.9 MG/DL 8.5-10.5 PROTEIN, TOTAL (test code = 2228) 7.5 G/DL 6.1-8.3 ALBUMIN (test code = 2200) 4.4 G/DL 3.5-5.2 CALC GLOBULIN (test code = 2240) 3.1 G/DL 1.9-3.7 CALC A/G RATIO (test code = 2233) 1.4 RATIO 1.0-2.6 BILIRUBIN, TOTAL (test code = 2206) 0.3 MG/DL See_Comment [Automated me ssage] The system which generated this result transmitted reference range: <=1.2. The reference range was not used to interpret this result as normal/abnormal. ALKALINE PHOSPHATASE (test code = 2203) 63 U/L 40-112 AST (test code = 8) 16 U/L 9-40 ALT (test code = 2219) 10 U/L 5-40 POCT [id number] 18:57:00* Test Item Value Reference Range Interpretation Comme nts POCT PREG (test code = 1605) Negative On board controls acceptable with C Line (test code = 3574) Yes POCT PREG LOT # (test code = 3575) POCT PREG TEST DATE ( test code = 3576) [facility] [id number] 18:57:00* Test Item Value Reference Range Interpretation Comme nts POCT PREG (test code = 1605) Negative On board controls acceptable with C Line (test code = 3574) Yes POCT PREG LOT # (test code = 3575) POCT PREG TEST DATE ( test code = 3576) [facility] SystemSARS-CoV-2 (COVID-19), RT-PCR/[id number] 06:23:46* Test Item Value Reference Range Interpretation Comments SARS-CoV-2 INTERPRETATION (test code = 81013) NEGATIVE SEE NOTE SARS-CoV-2 R NA NOT [...] prevalence is high. SOURCE (test code = 45194) NASOPHARYNGEAL Note: Methodolog y is Candice Zenia Real-Time RT-PCR. The expected result or reference range is NEGATIVE (Not Detected). For more information regarding COVID-19 testing to include clinicalinformation, methodology detail, intended use, FDA authorization andrecommended fact sheets for patients or healthcare providers, see [employer] Announcement: SARS-CoV-2 (COVID-19) by NAAT at URL below (note,fact sheets are provided by method given in report:[email or web address] Alternatively, see downloadable PDF fact sheet at:[email or web address] UNLESS OTHERWISE INDICATED, ALL TESTING PERFORMED [facility] [employer] [employer] [address] [place] [id number] CABLE INSTALLER REPAIRER: CHU HAAS M.D. [facility] NUMBER [id number] [facility] [place]. 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 She had been undergoing workup in clinic for right ovarian cyst and abnormal uterine bleeding with persistent anemia. She endorses mild RLQ pain this morning but otherwise feels well. She denies any changes in her medical history since pre-operative evaluation. Current Medications: No current facility-administered medications for this encounter. Home Medications: Medications Prior to Admission Medication Sig Dispense Refill Last Dose docusate 100 mg capsule Take 1 capsule by mouth in the morning for 30 days. 30 capsule 0 Ibuprofen 200 mg capsule Take by mouth. none in one week ferrous sulfate (IRON, FERROUS SULFATE,) 325 mg (65 mg iron) tablet Take 1 tablet by mouth in the morning and 1 tablet at noon and 1 tablet in the evening. Take with meals. 120 tablet 0 prn docusate 100 mg capsule Take 1 capsule by mouth in the morning. 30 capsule 0 prn Allergies: Patient has no known allergies. History: Past Medical History: Diagnosis Date Anemia 2020 not on meds Depression Denies at this time Diabetes mellitus 2019 managed by PCP, pt not on meds Metrorrhagia 06/28/2014 Nipple discharge 12/17/2017 Denies at this time Other and unspecified ovarian cyst Pap smear abnormality of cervix Screening for STD (sexually transmitted disease) Surgical History: Past Surgical History: Procedure Laterality Date CHOLECYSTECTOMY COLPOSCOPY 01/2018 TUBAL LIGATION OB History Para Term AB Living 4 4 4 4 SAB IAB Ectopic Multiple Live Births 4 # Outcome Date GA Lbr Froy/2nd Weight Sex Delivery Anes PTL Lv 4 Term 07/09/06 39w0d 3147 g NORMAL SPONT FUAD 3 Term 03/28/04 38w0d 3912 g NORMAL SPONT FUAD 2 Term 09/03/00 40w0d 3912 g NORMAL SPONT FUAD 1 Term 04/12/99 40w0d 3345 g NORMAL SPONT FUAD ROS: Constitutional: negative Eyes: negative ENT/Mouth: negative Cardiovascular: negative Respiratory: negative Gastrointestinal: +mild abdominal pain in RLQ Genitourinary: negative Musculoskeletal: negative Vital Signs BP 125/64 | Pulse 61 | Temp 37 ?C (98.6 ?F) (Tympanic) | Resp 18 | Ht 1.575 m (5' 2") | Wt 92.7 kg (204 lb 5.9 oz) | SpO2 99% | BMI 37.38 kg/m? Physical Exam: Constitutional: alert, no apparent distress, appearing age appropriate Respiratory: breathing non-labored Cardiovascular: regular rate and rhythm Gastrointestinal: Abdomen soft, mild RLQ tenderness to palpation, nondistended Neurological/Psychiatric: Alert and oriented times three, normal mood and affect Gynecologic: deferred Labs: CBC WBC (10*3/?L) Date Value 10/16/2023 6.77 RBC (10*6/?L) Date Value 10/16/2023 4.64 PLT (10*3/?L) Date Value 10/16/2023 365 (H) HGB (g/dL) Date Value 10/16/2023 7.9 (L) HCT (%) Date Value 10/16/2023 28.1 (L) ALTv (U/L) Date Value 02/13/2023 13 AST(SGOT) (U/L) Date Value 02/13/2023 30 CREATININE (mg/dL) Date Value 02/13/2023 0.45 (L) No results found for: "LDHU" No results found for: "URICACID" No results found for: "UPROTEIN" No results found for: "UPH" No results found for: "UGLUCOSE" No results found for: "UKETONES" No results found for: "UBILI" No results found for: "UBLOOD" No results found for: "UUROBILIN" No results found for: "ULEUKEST" No results found for: "UNITRITE" No results found for: "USPGRAV" No results found for: "T4" TSH (mIU/L) Date Value 01/12/2022 0.97 Assessment/Plan: Chantel Davis is a 43 year old female presenting for scheduled Total hysterectomy with bilateral salpingectomy, right ovarian cystectomy with possible right oophorectomy. Tight Adnexal Mass Abnormal Uterine Bleeding - Patient reports hx of R adnexal mass first seen on imaging in 2015 - Reports symptoms of pelvic pressure, early satiety, and urinary frequncy that have progressively been getting worse - Hx of heavy menstrual bleeding twice per month 2160-1620, improved and regulated with COCPs however patient is persistently anemic - TVUS on 06/09 showed 1mm endometrial stripe and cystic right adnexal mass measuring 13.5 cm measures similar in size compared with the CT from 06/02/2023. The right ovary measures 3.9 x 2 x 2.2 cm with volume of 8.9 cc - Repeat TVUS on 07/15, thickened endometrium measuring up to 2 cm, unilocular simple cyst in the right adnexa measuring 12.7 x 9.2 x 13.7 cm. It is difficult to determine whether this may be pedunculated from the right ovary or lie external/adjacent to the ovary. - EMBx: 08/01/23: Chronic endometritis - Pap Smear NILM, -HRHPV on 01/15/23 - CA-125, CEA, and CA 19-9 WNL - PSHx: BTL and Laparoscopic Cholecystectomy - Preop Hgb 7.9- 1u PRBCs on hold - Blood type Opos on admission type and screen - UPT neg on admission - Prophylactic abx: 2g Ancef - Risks/benefits/alternatives discussed, consents signed and in chart Plan: Proceed with scheduled surgery Discussed with Dr. Ish Torres MD Associated attestation - Woody Deng MD - 10/16/2023 6:53 AM CDT After discussion with Dr. Torres, I examined this patient. I agree with resident's note as written and plan to proceed with TLH/Bilateral Salpingectomy/Cystoscopy/possible right ovarian cystectomy vs RSO and any other indicated procedures. [facility] - Health Notes Date/Time Note Provider Source 2023-10-30 10:58:42 Spoke with pt and FMLA forms faxed to employer again and emailed to pts personal email as well. FMLA forms to be scanned in chart as well. Carol Hugo RN [facility] 2023-10-30 09:08:55 Chantel Davis is a 43 year old female Pt wants to speak to someone, her employer still hasn't received her FMLA forms as of yet (10/15) called back on 10/27 and was told they would be faxed again and loaded up to her [email or web address] on that day. Pt calling back as the forms still haven't been received by employer and she does not see them on her mychart either. Pt has to have these forms turned in no later than 11/02 to her employer. Requesting to speak to someone in office [phone] (home) Reanna Wilhelm [facility] 2023-10-28 10:10:54 FMLA paperwork was faxed on 10/16/23 to employer and given to PSS to scan in chart. Message sent to PSS to fax completed FMLA paperwork to employer again for pt. Carol Hugo RN [facility] 2023-10-28 09:35:09 Chantel Davis is a 43 year old female requesting FMLA paperwork needs to be resent to patient's job dianelys. Please contact patient at [phone] (home) to confirm Valarie Anderson [facility] 2023-10-16 14:38:50 FMLA paperwork complete and signed by today. Faxed to [phone] and confirmation received. Left message informing pt as well. Carol Hugo RN [facility] 2023-10-16 13:22:13 Chantel Davis is a 43 year old female Pt calling on status of [place] paperwork that was received on 10/08/2023. Please call pt at [phone] (home) Please fax to [phone] [employer] [facility] 2023-10-16 07:47:00 BRIEF OPERATIVE NOTE Date of Surgery: 10/16/2023 Surgeons and Role: * Woody Deng MD - Primary * Holly Beal MD - Resident - Assisting * Sukhdev Scott MD - Resident - Assisting * Haley Torres MD - Resident - Assisting Pre-Op Diagnosis: Abnormal uterine bleeding (AUB) [N93.9] Post-Op Diagnosis Codes: * Abnormal uterine bleeding (AUB) [N93.9] Procedures: Procedure(s) (LRB): LAPAROSCOPIC ASSISTED VAGINAL HYSTERECTOMY WITH SALPINGECTOMY (Left) CYSTOSCOPY (N/A) SALPINGO-OOPHORECTOMY (Right) CPT: 63027, Any Complications Encounters: none Estimated Blood Loss: 50 Specimens Removed: ID Type Source Tests Collected by Time Destination 1 : Uterus with Cervix and Left Fallopian Tube Tissue UTERUS W/FALLOPIAN TUBE, LEFT SURGICAL PATHOLOGY EXAM Woody Deng MD 10/16/2023 0953 2 : Right Fallopian tube and Right Ovarian mass Tissue FALLOPIAN TUBE, RIGHT SURGICAL PATHOLOGY EXAM Woody Deng MD 10/16/2023 0954 * No implants in log * Patient's Condition: good Findings: About 13 cm right paratubal cyst, normal appearing ovaries, uterus. Site of previous tubal ligation noted. [facility] 2023-10-09 16:44:20 Email and telephone contact to Dr. Deng related to surgical procedure and consent. [facility] 2023-10-08 15:36:44 Patient wants to know if FMLA paperwork has been received. Please call patient and advise. Mindy Jain [facility] 2023-10-08 08:43:20 Chantel Davis is a 43 year old female calling to verify that received FMLA paperwork yesterday for surgery on 10/15. Please contact patient at [phone] (home) Valarie Anderson [facility] 2023-10-07 14:01:59 Spoke with pt states she will have employer fax forms today. Carol Hugo RN [facility] 2023-10-06 09:06:41 Pt calling because she needs paperwork for her medical leave for her surgery upcoming 10/15 susi. 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 Pt did not have the the fax number to provide but said she would, she has to locate it. Pt is faxing over the forms that need to be filled out today. Arely Braun [facility] 2023-10-02 07:27:21 Letter written and sent via [employer] Carol Hugo RN [facility] 2023-10-01 15:55:17 Yes that is correct. If she works a physical job that requires any heavy lifting or strenuous activity she needs 6 weeks off. Some patients will require less if their job is less strenuous but most will take the full 6 weeks. Owen Epps MD [facility] 2023-10-01 11:10:47 Pt called asking for paperwork regarding her upcoming surgery on 10/16/2023. She is stating she needs something saying she will be having surgery on that day and how many days she will be out for work. I suggested bringing FMLA or some sort of paperwork from her job for the provider to fill out. Please advise. Brianda Sanchez [facility] 2023-09-12 07:43:32 Access Center: [facility] Open Encounter Maintenance Chart Review: Patient was seen in Clinic 08/01/2023. Nurse Note: RN closing encounter in [facility] r/t clinical action items completed. Viviana Grande RN [facility] Access Center Triage Nurse Viviana Grande RN [facility] 2023-08-21 13:20:15 Called and discussed with patient. She will be for surgery on October [address] Deng. Patient to get HgbA1c before surgery, sent appointment request to [facility]. Owen Epps MD [facility] 2023-08-19 09:14:21 Copied from [facility] #[id number]. Topic: Clinical - Medical Advice >> Aug 19, 2023 9:06 AM Patient Financial Aid Advisor wrote: Chantel Davis is a 43 year old female Pt requesting call back,wanting to know what the status is of the date for her surgery she had the pre op appt on 08/06. Pt states she needs to know the date as she needs to notify her employer and her casebook is valid to September of this year. Please all pt [phone] (home) Reanna Wilhelm [facility] 2023-07-30 10:57:31 Copied from CRM #[id number]. Topic: Clinical - Medical Advice >> July 30, 2023 10:55 AM Patient Financial Aid Advisor wrote: Patient calling to speak to nurse regarding Surgery for uterus removal date and information so she can let her employer know . Please call back Marya Sanchez [facility] 2023-07-21 12:01:17 Copied from CRM #[id number]. Topic: Clinical - Results >> July 21, 2023 11:58 AM Patient Financial Aid Advisor wrote: Chantel Davis is a 43 year old female Patient requesting results from transvaginal ultrasound, please call [phone] (home) Marleny Jerez [facility] 2023-06-16 09:07:12 Telephone Encounter note Contacted pt regarding lab results Confirmed pts name and before continuing w pt health information. 06/12/23 16:13 RBC x10 6 4.94 HGB 8.2 (L) HCT 30.3 (L) MCV 61.3 (L) MCH 16.6 (L) MCHC 27.1 (L) RDW-SD 39.1 RDW-CV 18.8 (H) PLT x10 3 936 (H) MPV 9.7 NRBC /100 WBC 0.0 NRBC x10 3 <0.01 CEA 0.4 CA-125 20.3 CA 19-9 1.2 Assessment and Plan: Chantel Davis is a 43 year old calling regarding lab results. Anemia - H/H: 8.2/30.3 Hormone level - CEA, CA 125, CA 19-9 wnl Plan: RTC for appt on 07/02. All questions answered Carmella Lee MD Obstetrics and Gynecology PGY-1 06/16/23 9:00AM OG-OBSTETRICS & GYNECOLOGY [facility] 2023-06-13 13:24:39 Copied from [facility] #[id number]. Topic: Clinical - Medical Advice >> Jun 13, 2023 1:23 PM Patient Financial Aid Advisor wrote: Patient calling to speak to nurse regarding lab results, please call back Marya Sanchez [facility] 2023-06-12 16:15:00 Images from the original note were not included. Venipuncture collection performed by clean technique on the right anticubitus. Total of 1 attempts were made. Slight pressure and a bandage/dressing were applied to the site(s). The patient experienced no complications. The following specimens were processed according to instructions and sent to [facility] laboratories per lab order on 06/12/2023 : LT BLUE SST 1 RED LAV 1 PPT DK GREEN (LiHep) DK GREEN (SodH) FAYE DK BLUE (K2) DK BLUE (S) ACD Blood Culture NIPT/NTD [facility] 2023-06-10 16:17:59 Called pt, advised will FU on 06/12/2023 with alia as scheduled. Pt verbalized understanding. Ann Brown RN 06/10/23 4:18 PM [facility] 2023-06-10 16:13:11 Copied from [facility] #[id number]. Topic: Appointment - Appointment Request >> Jun 10, 2023 4:08 PM Patient Financial Aid Advisor wrote: Chantel Davis is a 43 year old female Patient requesting apt for ER follow up from this morning, states she haves pain on ovaries and an infection. Patient already scheduled in [place] with residents for 06/11 Please call [phone] (home) Marleny Jerez [facility]
--- NOTE | 2023-11-05 08:05 | EDPHYS ---
Physician Documentation [facility] Name: Chantel Davis Age: 43 yrs Sex: Female : 1980 Arrival Date: 11/05/2023 Time: 07:35 Bed 4 Private MD: ED Physician Paulino Tanner HPI: 11/04 11:19 This 43 yrs old Female presents to ER via Ambulatory with complaints of Sore ms3 Throat. 11:19 43-year-old female with past medical history of anemia presents to the emergency ms3 department for sore throat that has been ongoing for 1 to 2 months. Patient states the discomfort is worse with eating or drinking. She denies fevers, chills, cough. Patient endorses metallic taste in her mouth on waking up in the mornings. Historical: - Allergies: 07:51 iodine-topical; iw - PMHx: 07:51 Anemia; iw - PSHx: 07:51 Ligation of fallopian tube; hysterectomy; iw 07:53 Cholecystectomy; iw - Immunization history:: Adult Immunizations up to date. - Infectious Disease History:: Denies. - Social history:: Smoking status: Patient denies any tobacco usage or history of. ROS: 11:19 Constitutional: Negative for fever, and chills. Cardiovascular: Negative for chest ms3 pain, and palpitations. Respiratory: Negative for shortness of breath, cough, wheezing, and pleuritic chest pain, Abdomen/GI: Negative for abdominal pain, nausea, vomiting, diarrhea, and constipation, 11:19 Skin: Negative for injury, rash, and discoloration, 11:19 ENT: Positive for sore throat, Exam: 11:19 Constitutional: This is a well developed, well nourished patient who is awake, alert, ms3 and in no acute distress. ENT: Nares patent. No nasal discharge, no septal abnormalities noted. Tympanic membranes are normal and external auditory canals are clear. Oropharynx with no redness, swelling, or masses, exudates, or evidence of obstruction, uvula midline. Mucous membranes moist. Chest/axilla: Normal chest wall appearance and motion. Nontender with no deformity. Cardiovascular: Regular rate and rhythm with a normal S1 and S2. No gallops, murmurs, or rubs. Normal PMI, no JVD. No pulse deficits. Respiratory: Lungs have equal breath sounds bilaterally, clear to auscultation and percussion. No rales, rhonchi or wheezes noted. No increased work of breathing, no retractions or nasal flaring. Abdomen/GI: Soft, non-tender, with normal bowel sounds. No distension or tympany. No guarding or rebound. No evidence of tenderness throughout. Vital Signs: 07:49 BP 134 / 94; Pulse 66; Resp 16; Temp 98.4; Pulse Ox 99% on R/A; Weight 92.53 kg; Height iw 5 ft. 2 in. ; 07:49 Body Mass Index 37.31 (92.53 kg, 157.48 cm) iw MDM: 08:02 Patient medically screened. ms3 11:19 Differential diagnosis: gastroesophageal reflux disease, pharyngitis, viral syndrome. ms3 Data reviewed: vital signs, nurses notes, and as a result, I will discharge patient. I considered the following discharge prescriptions or medication management in the emergency department Medications were administered in the Emergency Department. See MAR. Counseling: I had a detailed discussion with the patient and/or guardian regarding the historical points, exam findings, and any diagnostic results supporting the discharge/admit diagnosis, the need for outpatient follow up, to return to the emergency department if symptoms worsen or persist or if there are any questions or concerns that arise at home. ED course: Discussed [id number] medications Claritin and Pepcid with patient. Patient given Pepcid in the emergency department. Discussed with patient could be commendation of allergic rhinitis versus GERD creating her symptoms. Patient to follow-up with primary care physician in 2 to 3 days. Patient understands and agrees with plan. All questions were answered. Return precautions discussed include worsening symptoms, or any other concerns. Administered Medications: 08:11 Drug: Famotidine PO 20 mg PO once Route: PO; ll1 09:00 Follow up: Response: No adverse reaction ph Disposition Summary: 11/05/23 08:05 Discharge Ordered Notes: Location: Home ms3 Condition: Stable ms3 Diagnosis - Pain in throat ms3 Followup: ms3 - With: Dutch Ponce DO - When: 2 - 3 days - Reason: Recheck today's complaints Forms: - Medication Reconciliation Form ms3 - Antibiotic Education ms3 - Prescription Opioid Use ms3 - Patient Portal Instructions ms3 - Leadership Thank You Letter ms3 Signatures: Zainab Arce, NATAN RN iw Katelyn Abdalla RN RN 1 Paulino Tanner DO DO ms3 Steph Baez RN ph Corrections: (The following items were deleted from the chart) 07:53 07:51 PMHx: diabetes mellitus; iw
--- NOTE | 2023-11-05 08:05 | ER ---
Nurse's Notes [facility] Name: Chantel Davis Age: 43 yrs Sex: Female : 1980 Arrival Date: 11/05/2023 Time: 07:35 Bed 4 Private MD: Diagnosis: Pain in throat Presentation: 11/04 07:49 Chief complaint: Patient states: when I swallow my throat is hurting bad, has been iw going on for a month , feels like food gets stuck , it hurts when i swallow water too. Coronavirus screen: At this time, the client does not indicate any symptoms associated with coronavirus-19. Ebola Screen: No symptoms or risks identified at this time. Initial Sepsis Screen: Does the patient meet any 2 criteria? No. Patient's initial sepsis screen is negative. Does the patient have a suspected source of infection? No. Patient's initial sepsis screen is negative. Risk Assessment: Do you want to hurt yourself or someone else? Patient reports no desire to harm self or others. Onset of symptoms was September 2023. 07:49 Method Of Arrival: Ambulatory iw 07:49 Acuity: XENIA 3 iw Historical: - Allergies: 07:51 iodine-topical; iw - PMHx: 07:51 Anemia; iw - PSHx: 07:51 Ligation of fallopian tube; hysterectomy; iw 07:53 Cholecystectomy; iw - Immunization history:: Adult Immunizations up to date. - Infectious Disease History:: Denies. - Social history:: Smoking status: Patient denies any tobacco usage or history of. Screenin:01 [facility] ED Fall Risk Assessment (Adult) History of falling in the last 3 months, ph including since admission No falls in past 3 months (0 pts) Confusion or Disorientation No (0 pts) Intoxicated or Sedated No (0 pts) Impaired Gait No (0 pts) Mobility Assist Device Used No (0 pt) Altered Elimination No (0 pt) Score/Fall Risk Level 0 - 2 = Low Risk Oriented to surroundings, Maintained a safe environment, Hourly rounding (assess needs \T\ fall precautionary measures) done. Abuse screen: Denies threats or abuse. Denies injuries from another. Nutritional screening: No deficits noted. Tuberculosis screening: No symptoms or risk factors identified. Assessment: 09:01 General: Appears in no apparent distress. Behavior is calm, cooperative. Pain: ph Complains of pain in throat. Neuro: Level of Consciousness is awake, alert, obeys commands, Oriented to person, place, time, situation. Respiratory: Airway is patent Respiratory effort is even, unlabored, Breath sounds are clear bilaterally. EENT: Throat is clear Reports pain when swallowing. Vital Signs: 07:49 BP 134 / 94; Pulse 66; Resp 16; Temp 98.4; Pulse Ox 99% on R/A; Weight 92.53 kg; Height iw 5 ft. 2 in. ; 07:49 Body Mass Index 37.31 (92.53 kg, 157.48 cm) ED Course: 07:40 Patient arrived in ED. ra3 07:51 Triage completed. iw 07:53 Arm band placed on. iw 07:54 Paulino Tanner DO is Attending Physician. ms3 08:01 Steph Baez, RN is Primary Nurse. ph 08:05 Dutch Ponce DO is Referral Physician. ms3 09:01 Patient has correct armband on for positive identification. Bed in low position. Call ph light in reach. Side rails up X 1. Door closed. Noise minimized. Warm blanket given. 09:05 No provider procedures requiring assistance completed. Patient did not have IV access ph during this emergency room visit. Administered Medications: 08:11 Drug: Famotidine PO 20 mg PO once Route: PO; ll1 09:00 Follow up: Response: No adverse reaction ph Medication: 09:01 VIS not applicable for this client. ph Outcome: 08:05 Discharge ordered by . ms3 09:00 Discharged to home ambulatory, ph 09:00 Discharge instructions given to patient, Instructed on discharge instructions, follow up and referral plans. 09:05 Condition: good ph 09:35 Patient left the ED. iw Signatures: Zainab Acre RN RN Steph Baez RN RN Katelyn Abdalla RN RN [facility] Paulino Tanner DO DO ms3 Oneida Carr ra3 Corrections: (The following items were deleted from the chart) 07:53 07:51 PMHx: diabetes mellitus; iw
[2023-11-05] MEDS ORDERED: FAMOTIDINE 20 MG TAB ONE (08:06)
[2023-11-05 09:40] VITALS: BP 134/94; TEMP 98.4; O2SAT 99
== END 2023-11-05 09:35 | disposition home or self-care (01) ==
LOC: ER 07:35
DX: R07.0 Pain in throat (principal)

== ENCOUNTER 2024-12-02 15:29 | Emergency (ER) | payer OTHER, SELFPAY ==
--- OUTSIDE RECORDS SUMMARY | 2024-12-02 15:43 | XMS REPORT | Continuity of Care Document ---
Author Name Unknown Address [address] [facility] [address] [place] [address] [facility] [place] Address [address] [facility] [address] [place] [address] Care Team Providers Care Casket Trimmer Name Role Phone Pepper Leach Primary Care Physician WOODY DENG Attending Clinician Unavailable Lauren Maya CNM Attending Clinician [phone] Woody Deng MD Attending Clinician [phone] Ankita Doan MD Attending Clinician + KAROLINA MULLINS Attending Clinician Unavailable [facility] Resident Attending Clinician U Karolina Pope DO Attending Clinician [phone] Doctor Unassigned, [place] Attending Clinician U Tanvi Dsouza MD Attending Clinician [phone] RADU SHAFFER Attending Clinician Unavailable RADU SHAFFER Attending Clinician Unavailable Radu Shaffer MD Attending Clinician [phone] Patt Kan Attending Clinician [phone] Shayne Felicia VELASQUEZ Attending Clinician + Doctor Unassigned, [place] Attending Clinician U fox Garcia [facility] Attending Clinician Unavailable Monica Rodriguez CNM Attending Clinician [phone] MONICA RODRIGUEZ Attending Clinician Unavaila armando Deng MD, Woody Vazquez Attending Clinician [phone] Carmella Lee MD Attending Clinician Shayne Felicia VELASQUEZ Attending Clinician + Owen Epps MD Attending Clinician [phone] [facility] Resident Attending Clinician U navailable Pgy3 Attending Clinician Unavailable [facility] Attending Clinician Unavailable FELICIA BELLA Attending Clinician Unavail able Sonia BANKS, Sukhdev Vicente Attending Clinician [phone] JENS OLSON Attending Clinician Unavailable Pgy2 Attending Clinician Unavailable Jens Olson MD Attending Clinician [phone] Arina Daniels PA-C Attending Clinician [phone] Kita Grey MD Attending Clinician [phone] LINDA ABDALLA Attending Clinician Unavailable LINDA ABDALLA Attending Clinician Unavailable ARINA DANIELS Attending Clinician [facility] Orbyn vailable DAVID ARMENDARIZ Attending Clinician Unavailab le UNKNOWN, ATTENDING Attending Clinician Unavailab JUDITH Santana Attending Clinician Unavailable TIFF MUNOZ Attending Clinician Unavailable PEYMAN HALLMAN Attending Clinician Unavail able Peyman Hallman DO Attending Clinician [phone] David Lynne Attending Clinician + [phone] WOODY DENG Admitting Clinician Unavailable Woody Deng MD Admitting Clinician [phone] RADU SHAFFER Admitting Clinician Unavailable Payers Payer Name Policy Type Policy Number Effective Date Expirati on Date Source [facility] [id number] 2017 00:00:00 [facility] [id number] 2022 00:00:00 Problems Condition Name Condition Details Condition Category Status Onset Date Resolution Date Last Treatment Date Treating Clinician Comments Source Abnormal uterine bleeding Abnormal uterine bleeding Disease Active 08-06 00:00: 00 [facility] Right ovarian cyst Right ovarian cyst Disease Active 08-06 00:00: 00 [facility] Morbid obesity with body mass index (BMI) of 40.0 or higher Morbid obesity with body mass index (BMI) of 40.0 or higher Disease Active 2021-03 00:00: 00 [facility] Type 2 diabetes mellitus with morbid obesity Type 2 diabetes mellitus with morbid obesity Disease Active 2021-03 00:00: 00 [facility] Abnormal uterine bleeding (AUB) Abnormal uterine bleeding (AUB) Disease Active 2021-03 00:00: 00 [facility] Bulky or enlarged uterus Bulky or enlarged uterus Disease Active 2021-03 00:00: 00 [facility] Papanicola ou smear of cervix with high grade squamous intraepith elial lesion (HGSIL) Papanicola ou smear of cervix with high grade squamous intraepith elial lesion (HGSIL) Disease Active 05-16 00:00: 00 [facility] Dysplasia of cervix, high grade YUE 2 Dysplasia of cervix, high grade YUE 2 Disease Active 2017-03 0 00:00: 00 Overview: Formattin g of this note might be different from the original. 38 year old with ASCUS pap 8. Colpo and bx 01/15/2018 - YUE 2Will need cotesting in 1 year [facility] Screening for STD (sexually transmitte d disease) Screening for STD (sexually transmitte d disease) Disease Active 06-28 00:00: 00 Overview: Formattin g of this note might be different from the original. ICD10 Diagnosis Term Management Developer Utility [facility] History of bilateral tubal ligation History of bilateral tubal ligation Disease Active 06-28 00:00: 00 [facility] Other and unspecifie d ovarian cyst Other and unspecifie d ovarian cyst Disease Active 06-28 00:00: 00 [facility] Metrorrhag ia Metrorrhag ia Disease Active 06-28 00:00: 00 [facility] Morbid obesity Morbid obesity Disease Active 4 00:00: 00 [facility] BMI 45.0-49.9, adult BMI 45.0-49.9, adult Disease Resolve d 3-09 00:00: 00 2022-01-12 00:00:00 2022-01-12 11:25:19 [facility] Nipple discharge Nipple discharge Disease Resolve d 2017-03 010 00:00: 00 2022-01-12 00:00:00 2022-01-12 11:48:38 [facility] Encounter for surveillan ce of contracept darvin, unspecifie d contracept jazmin Encounter for surveillan ce of contracept darvin, unspecifie d contracept jazmin Disease Resolve d 06-28 00:00: 00 2022-01-12 00:00:00 2022-01-12 11:25:11 Overview: Formattin g of this note might be different from the original. ICD10 Diagnosis Term Management Developer Utility [facility] Obesity, unspecifie d classifica tion, unspecifie d obesity type, unspecifie d whether serious comorbidit y present Obesity, unspecifie d classifica tion, unspecifie d obesity type, unspecifie d whether serious comorbidit y present Disease Resolve d 06-28 00:00: 00 2022-01-12 00:00:00 2022-01-12 11:25:22 [facility] Cervical high risk human papillomav irus (HPV) DNA test positive Cervical high risk human papillomav irus (HPV) DNA test positive Disease Resolve d 07-04 00:00: 00 2018-05-15 00:00:00 2021-09-23 00:35:45 [facility] Allergies, Adverse Reactions, Alerts Allergy Name Allergy Type Status Severity Reaction(s) Onset Date Inactive Date Treating Clinician Comments Source POVIDONE -IODINE- ETHYL ALCOHOL DRUG Active Rash 10-15 00:00: 00 [facility] Povidone -Iodine- Ethyl Alcohol Propensi ty to adverse reaction s Active Rash 10-15 00:00: 00 Skin noted to be peeling after applicati on for surgical prep post-oper atively. [facility] NO KNOWN ALLERGIE S Drug Class Active [facility] Social History Social Habit Start Date Stop Date Quantity Comments Source History of tobacco use Cigarette Smoker [facility] ASSERTION Not [facility] Sexual orientation U [facility] Tobacco use and exposure 2023-10-09 00:00:00 2023-10-09 00:00:00 Smokeless tobacco non-user [facility] Alcohol intake 2023-06-03 00:00:00 2023-06-03 00:00:00 Current non-drinker of alcohol (finding) [facility] History of Social function 2023-06-03 00:00:00 2023-06-03 00:00:00 [facility] Exposure to SARS-CoV-2 (event) 2022-01-14 00:00:00 2022-01-24 13:20:00 Not sure [facility] Alcoholic beverage intake 2014-06-28 00:00:00 2014-06-28 00:00:00 Current non-drinker of alcohol (finding) [facility] Sex assigned at 1980 00:00:00 1980 00:00:00 [facility] Smoking Status Start Date Stop Date Source Ex-smoker 2023-10-09 00:00:00 2023-10-09 00:00:[address] [facility] Never smoked tobacco [facility] Medications Ordered Medication Name Filled Medication Name Start Date Stop Date Current Medication? Ordering Clinician Indication Dosage Frequency Signature (SIG) Comments Components Source estradiol 0.5 mg tablet 10-05 00:00: 00 Yes 1mg Parthscarlet Torres progesteron e micronized 100 mg capsule 10-05 00:00: 00 Yes 1mg Parthscarlet Torres losartan 25 mg tablet 16 00:00: 00 Yes 1mg Parth Torres losartan 25 mg tablet - 00:00: 00 Yes 1mg Parth Torres ondansetron 8 mg disintegrat ing tablet 2025-0 5-13 00:00: 00 Yes 1mg Parth Torres losartan 25 mg tablet 3-14 00:00: 00 Yes 1mg Parth Torres losartan 25 mg tablet 3-06 00:00: 00 Yes 1mg Parth Torres atorvastati n 20 mg tablet 2-25 00:00: 00 Yes 1mg Parth Trores lisinopril 10 mg tablet 2-25 00:00: 00 Yes 1mg Parth Torres ondansetron (ZOFRAN (PF)) injection 4 mg 10-15 17:30: 00 10-15 16:30 :00 No 4mg 4 mg, Slow IV Push, ONCE, On Richa 10/16/23 at 1230, For 1 dose, Doses of ondansetro n 16 mg and above need to be administer ed via IV piggyback. For Dose >=24mg ECG monitoring is advisable. [facility] ketorolac (TORADOL) injection 30 mg 10-15 17:00: 00 10-15 16:12 :00 No 30mg 30 mg, Slow IV Push, ONCE, 1 dose, On Richa 10/16/23 at 1200, Routine [facility] ibuprofen (IBU) tablet 800 mg 10-15 15:17: 22 10-15 18:45 :50 No 800mg [facility] acetaminoph en (TYLENOL) tablet 650 mg 10-15 15:17: 22 10-15 18:45 :50 No 650mg [facility] HYDROcodone -acetaminop hen (NORCO 5) tablet 1 tablet 10-15 15:00: 00 10-15 15:27 :00 No 1{tbl} 1 tablet, Oral, ONCE, 1 dose, On Richa 10/16/23 at 1000, Routine, PACU [facility] lactated ringers IV infusion 1,000 mL 10-15 15:00: 00 10-15 18:45 :50 No 1000mL at 75 mL/hr, 1,000 mL, IV Infusion, CONTINUOUS , Starting on Richa 10/16/23 at 1000, Until Richa 10/16/23 at 1345, Routine, PACU [facility] HYDROmorpho ne (DILAUDID) injection 0.2 mg 10-15 14:57: 39 10-15 18:45 :50 No .2mg 0.2 mg, Slow IV Push, Q5MIN PRN, 10 doses, Starting on Richa 10/16/23 at 0957, Until Richa 10/16/23 at 1345, Routine, Pain (scale 7-10), PACU, Is this medication approved by a Faculty level provider? Yes, restaurant team member approving Restricted medication : RAFAEL GARCIA [facility] FENTanyl PF (SUBLIMAZE (PF)) injection 25 mcg 10-15 14:57: 39 10-15 15:46 :00 No 25ug 25 mcg, Slow IV Push, Q5MIN PRN, 4 doses, Starting on Richa 10/16/23 at 0957, Until Richa 10/16/23 at 1046, Routine, Pain (scale 4-6), PACU [facility] proMETHazin e (PHENERGAN) 12.5 mg in NS 50 mL IV piggyback (CNR) 10-15 14:57: 39 10-15 18:45 :50 No 12.5mg 12.5 mg, IV Piggyback, at 200 mL/hr Administer over 15 Minutes, PRN, 1 dose, Starting on Richa 10/16/23 at 0957, Until Richa 10/16/23 at 1345, Routine, Nausea and Vomiting (N/V), PACU [facility] bupivacaine (preserv free) (SENSORCAIN E MPF) 0.25 % (2.5 mg/mL) injection 10-15 12:46: 00 10-15 15:15 :50 No PRN, Starting on Richa 10/16/23 at 0746, Until Richa 10/16/23 at 1015, Routine, Intra-op [facility] ibuprofen 600 mg tablet 10-15 00:00: 00 Yes [id number] 100 600mg Take 1 tablet by mouth every 6 (six) hours as needed for Pain (scale 4-6). [facility] acetaminoph en (TYLENOL) 325 mg tablet 10-15 00:00: 00 10-16 04:59 :00 No [id number] 100 650mg Take 2 tablets by mouth every 6 (six) hours as needed for Pain (scale 1-3). [facility] oxyCODONE 5 mg immediate release tablet 10-15 00:00: 00 10-23 04:59 :00 No [id number] 5mg Take 1 tablet by mouth every 6 (six) hours as needed for Pain (scale 7-10) for up to 7 days. Indication s: acute pain [facility] docusate 100 mg capsule 10-10 00:00: 00 11-10 04:59 :00 No [id number] 100mg Take 1 capsule by mouth in the morning for 30 days. [facility] Ibuprofen 200 mg capsule 10-08 16:25: 28 10-15 00:00 :00 No Take by mouth. [facility] ferrous sulfate 325 mg (65 mg iron) tablet 05-28 00:00: 00 Yes 1(65 mg iron) Parth Torres lactulose 10 gram/15 mL oral solution 05-28 00:00: 00 Yes 15gram/ 15 mL Parth Torres triamcinolo ne acetonide 0.1 % topical cream 05-25 00:00: 00 Yes 1% Parth Torres atorvastati n 20 mg tablet 05-25 00:00: 00 Yes 1mg Parth Torres ferrous sulfate (IRON, FERROUS SULFATE,) 325 mg (65 mg iron) tablet 2022-03 00:00: 00 Yes [id number] 325mg Take 1 tablet by mouth in the morning and 1 tablet at noon and 1 tablet in the evening. Take with meals. [facility] docusate 100 mg capsule 2022-03 00:00: 00 10-15 00:00 :00 No [id number] 100mg Take 1 capsule by mouth in the morning. [facility] norethindro ne 0.35 mg tablet 2022-03 00:00: 00 01-15 00:00 :00 No [id number] 1{tbl} Take 1 tablet by mouth in the morning. [facility] NORETHINDRO NE 0.35 MG 12-04 00:00: 00 Yes Parth Torres TAKE 1 TABLET 3 TIMES DAILY WITH FOOD. 16 00:00: 00 06-10 00:00 :00 No [id number] Parth Torres TAKE 1 TABLET EVERY 12 HOURS DAILY. 06-20 00:00: 00 06-10 00:00 :00 No 1000 Parth Torres TAKE 1 TABLET DAILY. 06-20 00:00: 00 06-10 00:00 :00 No 4 Parth Torres TAKE 1 TABLET DAILY. 06-20 00:00: 00 06-10 00:00 :00 No 10 Parth Torres TAKE 1 TABLET BY MOUTH EVERY 12 HOURS FOR 5 DAYS 2021-03 00:00: 00 Yes Parth Torres TAKE 1 TABLET BY MOUTH 1 TIME NOW FOR 1 DOSE 2021-03 00:00: 00 Yes Parth Torres metroNIDAZO LE 500 mg tablet 2021-03 00:00: 00 02-04 05:59 :00 No [id number] 500mg Take 1 tablet by mouth every 12 (twelve) hours for 5 days. [facility] fluconazole (DIFLUCAN) 150 mg tablet 2021-03 00:00: 00 01-30 05:59 :00 No [id number] 150mg Take 1 tablet by mouth once now for 1 dose. [facility] NORETHINDRO NE 0.35 MG TABLE 2021-03 00:00: 00 Yes Parth Torres norethindro ne 0.35 mg tablet 2021-03 00:00: 00 01-15 00:00 :00 No [id number] 100 1{tbl} Take 1 tablet by mouth in the morning. [facility] ferrous sulfate 325 mg (65 mg iron) EC tablet 2021-03 00:00: 00 04-15 05:59 :00 No [id number] 325mg Take 1 tablet by mouth in the morning and 1 tablet in the evening. Take with meals. Do all this for 90 days. [facility] No known medications 2021-03 11:48: 31 No No known medication s [facility] TAKE 10 MILLILITERS BY MOUTH EVERY 4 HOURS NEEDED FOR COUGH AND CONGESTION -20 00:00: 00 Yes Parth Torres Dose Unknown 0 - 00:00: 00 Yes Parth Fay Brian Dose Unknown 0 - 00:00: 00 Yes Parth Fay Brian Dose Unknown 0 - 00:00: 00 Yes Parth Aponte Brian Dose Unknown 0 - 00:00: 00 Yes Parth Fay Brian Dose Unknown 0 5-13 00:00: 00 Yes Parth Aponte Brian Dose Unknown 0 3-08 00:00: 00 Yes Parth Fay Brian Dose Unknown 0 3-08 00:00: 00 Yes Parth Fay Brian Dose Unknown 0 3-08 00:00: 00 Yes Parth Fay Brian Dose Unknown 0 3-08 00:00: 00 Yes Parth Aponte Brian Dose Unknown 0 3-08 00:00: 00 Yes Parth Torres amoxicillin 500 mg tablet 3-03 00:00: 00 Yes 1mg Parth Torres azithromyci n 250 mg tablet -18 00:00: 00 Yes mg Parth Torres Bromfed DM 2 mg-30 mg-10 mg/5 mL oral syrup 2020-03 2-28 00:00: 00 Yes 10mg/5 mL Parth Torres IBU 800 mg tablet 2020-03- 00:00: 00 Yes 1mg Parth Torres Bromfed DM 2 mg-30 mg-10 mg/5 mL oral syrup 2020-03 1- 00:00: 00 Yes 10mg/5 mL Parth Torres glimepiride 2 mg tablet 2020-03 0-14 00:00: 00 Yes 1mg Parth Torres Dose Unknown 2020-03 0-12 00:00: 00 Yes Parth Torres Dose Unknown 7-17 00:00: 00 Yes Parth Torres Dose Unknown 7-05 00:00: 00 Yes Parth Torres Dose Unknown 1-21 00:00: 00 Yes Parth Torres No known medications 3-09 16:02: 19 No No known medication s [facility] ORTHO TRI-CYCLEN- 28 (ORTHO TRI-CYCLEN, 28,) 0.18/0.215/ 0.25 mg-35 mcg (28) tablet 06-28 00:00: 00 05-15 00:00 :00 No [id number] 1{tbl} Take 1 Tab by mouth daily. [facility] No [facility] known [facility] No [facility] No known medications No [facility] No known medications No [facility] No known medications No Un charan [facility] No known medications No Un charan [facility] Immunizations Ordered Immunization Name Filled Immunization Name Date Status Comments Source HPV9 2023-12-30 00:00:00 Completed [facility] TDAP 2023-11-18 00:00:00 Completed [facility] Influenza Virus Vaccine Quad .5 mL IM 6+ MO (FLUZONE/FLULAVAL/F LUARIX) 2023-11-18 00:00:00 Completed [facility] SARS-COV-2 COVID-19 PFIZER VACCINE 2023-11-18 00:00:00 Completed [facility] HPV9 2023-11-18 00:00:00 Completed [facility] TDAP 2023-08-21 00:00:00 Completed [facility] Influenza Virus Vaccine Quad .5 mL IM 6+ MO (FLUZONE/FLULAVAL/F LUARIX) 2023-08-21 00:00:00 Completed [facility] SARS-COV-2 COVID-19 PFIZER VACCINE 2023-08-21 00:00:00 Completed [facility] HPV9 2023-08-21 00:00:00 Completed [facility] TDAP 2023-08-19 00:00:00 Completed [facility] Influenza Virus Vaccine Quad .5 mL IM 6+ MO (FLUZONE/FLULAVAL/F LUARIX) 2023-08-19 00:00:00 Completed [facility] SARS-COV-2 COVID-19 PFIZER VACCINE 2023-08-19 00:00:00 Completed [facility] HPV9 2023-08-19 00:00:00 Completed [facility] TDAP 2023-08-07 13:45:00 Completed [facility] Influenza Virus Vaccine Quad .5 mL IM 6+ MO (FLUZONE/FLULAVAL/F LUARIX) 2023-08-07 13:45:00 Completed [facility] SARS-COV-2 COVID-19 PFIZER VACCINE 2023-08-07 13:45:00 Completed [facility] HPV9 2023-08-07 13:45:00 Completed [facility] TDAP 2023-08-01 10:45:00 Completed [facility] Influenza Virus Vaccine Quad .5 mL IM 6+ MO (FLUZONE/FLULAVAL/F LUARIX) 2023-08-01 10:45:00 Completed [facility] SARS-COV-2 COVID-19 PFIZER VACCINE 2023-08-01 10:45:00 Completed [facility] HPV9 2023-08-01 10:45:00 Completed [facility] TDAP 2023-07-22 00:00:00 Completed [facility] Influenza Virus Vaccine Quad .5 mL IM 6+ MO (FLUZONE/FLULAVAL/F LUARIX) 2023-07-22 00:00:00 Completed [facility] SARS-COV-2 COVID-19 PFIZER VACCINE 2023-07-22 00:00:00 Completed [facility] HPV9 2023-07-22 00:00:00 Completed [facility] TDAP 2023-07-22 00:00:00 Completed [facility] Influenza Virus Vaccine Quad .5 mL IM 6+ MO (FLUZONE/FLULAVAL/F LUARIX) 2023-07-22 00:00:00 Completed [facility] SARS-COV-2 COVID-19 PFIZER VACCINE 2023-07-22 00:00:00 Completed [facility] HPV9 2023-07-22 00:00:00 Completed [facility] TDAP 2023-07-21 00:00:00 Completed [facility] Influenza Virus Vaccine Quad .5 mL IM 6+ MO (FLUZONE/FLULAVAL/F LUARIX) 2023-07-21 00:00:00 Completed [facility] SARS-COV-2 COVID-19 PFIZER VACCINE 2023-07-21 00:00:00 Completed [facility] HPV9 2023-07-21 00:00:00 Completed [facility] TDAP 2023-07-18 00:00:00 Completed [facility] Influenza Virus Vaccine Quad .5 mL IM 6+ MO (FLUZONE/FLULAVAL/F LUARIX) 2023-07-18 00:00:00 Completed [facility] SARS-COV-2 COVID-19 PFIZER VACCINE 2023-07-18 00:00:00 Completed [facility] HPV9 2023-07-18 00:00:00 Completed [facility] TDAP 2023-07-16 10:47:55 Completed [facility] Influenza Virus Vaccine Quad .5 mL IM 6+ MO (FLUZONE/FLULAVAL/F LUARIX) 2023-07-16 10:47:55 Completed [facility] SARS-COV-2 COVID-19 PFIZER VACCINE 2023-07-16 10:47:55 Completed [facility] HPV9 2023-07-16 10:47:55 Completed [facility] TDAP 2023-07-03 11:00:00 Completed [facility] Influenza Virus Vaccine Quad .5 mL IM 6+ MO (FLUZONE/FLULAVAL/F LUARIX) 2023-07-03 11:00:00 Completed [facility] SARS-COV-2 COVID-19 PFIZER VACCINE 2023-07-03 11:00:00 Completed [facility] HPV9 2023-07-03 11:00:00 Completed [facility] TDAP 2023-06-12 16:15:00 Completed [facility] Influenza Virus Vaccine Quad .5 mL IM 6+ MO (FLUZONE/FLULAVAL/F LUARIX) 2023-06-12 16:15:00 Completed [facility] SARS-COV-2 COVID-19 PFIZER VACCINE 2023-06-12 16:15:00 Completed [facility] HPV9 2023-06-12 16:15:00 Completed [facility] TDAP 2023-06-12 14:30:00 Completed [facility] Influenza Virus Vaccine Quad .5 mL IM 6+ MO (FLUZONE/FLULAVAL/F LUARIX) 2023-06-12 14:30:00 Completed [facility] SARS-COV-2 COVID-19 PFIZER VACCINE 2023-06-12 14:30:00 Completed [facility] HPV9 2023-06-12 14:30:00 Completed [facility] TDAP 2023-06-10 00:00:00 Completed [facility] Influenza Virus Vaccine Quad .5 mL IM 6+ MO (FLUZONE/FLULAVAL/F LUARIX) 2023-06-10 00:00:00 Completed [facility] SARS-COV-2 COVID-19 PFIZER VACCINE 2023-06-10 00:00:00 Completed [facility] HPV9 2023-06-10 00:00:00 Completed [facility] TDAP 2023-06-10 00:00:00 Completed [facility] Influenza Virus Vaccine Quad .5 mL IM 6+ MO (FLUZONE/FLULAVAL/F LUARIX) 2023-06-10 00:00:00 Completed [facility] SARS-COV-2 COVID-19 PFIZER VACCINE 2023-06-10 00:00:00 Completed [facility] HPV9 2023-06-10 00:00:00 Completed [facility] TDAP 2023-06-09 00:00:00 Completed [facility] Influenza Virus Vaccine Quad .5 mL IM 6+ MO (FLUZONE/FLULAVAL/F LUARIX) 2023-06-09 00:00:00 Completed [facility] SARS-COV-2 COVID-19 PFIZER VACCINE 2023-06-09 00:00:00 Completed [facility] HPV9 2023-06-09 00:00:00 Completed [facility] TDAP 2023-06-03 09:15:00 Completed [facility] Influenza Virus Vaccine Quad .5 mL IM 6+ MO (FLUZONE/FLULAVAL/F LUARIX) 2023-06-03 09:15:00 Completed [facility] HPV9 2023-06-03 09:15:00 Completed [facility] SARS-COV-2 COVID-19 PFIZER VACCINE 2023-06-03 09:15:00 Completed [facility] TDAP 2023-06-03 00:00:00 Completed [facility] Influenza Virus Vaccine Quad .5 mL IM 6+ MO (FLUZONE/FLULAVAL/F LUARIX) 2023-06-03 00:00:00 Completed [facility] SARS-COV-2 COVID-19 PFIZER VACCINE 2023-06-03 00:00:00 Completed [facility] HPV9 2023-06-03 00:00:00 Completed [facility] TDAP 2023-06-02 00:00:00 Completed [facility] Influenza Virus Vaccine Quad .5 mL IM 6+ MO (FLUZONE/FLULAVAL/F LUARIX) 2023-06-02 00:00:00 Completed [facility] SARS-COV-2 COVID-19 PFIZER VACCINE 2023-06-02 00:00:00 Completed [facility] HPV9 2023-06-02 00:00:00 Completed [facility] TDAP 2023-04-01 07:14:37 Completed [facility] Influenza Virus Vaccine Quad .5 mL IM 6+ MO (FLUZONE/FLULAVAL/F LUARIX) 2023-04-01 07:14:37 Completed [facility] SARS-COV-2 COVID-19 PFIZER VACCINE 2023-04-01 07:14:37 Completed [facility] HPV9 2023-04-01 07:14:37 Completed [facility] TDAP 2023-04-01 00:00:00 Completed [facility] Influenza Virus Vaccine Quad .5 mL IM 6+ MO (FLUZONE/FLULAVAL/F LUARIX) 2023-04-01 00:00:00 Completed [facility] SARS-COV-2 COVID-19 PFIZER VACCINE 2023-04-01 00:00:00 Completed [facility] HPV9 2023-04-01 00:00:00 Completed [facility] TDAP 2023-04-01 00:00:00 Completed [facility] Influenza Virus Vaccine Quad .5 mL IM 6+ MO (FLUZONE/FLULAVAL/F LUARIX) 2023-04-01 00:00:00 Completed [facility] SARS-COV-2 COVID-19 PFIZER VACCINE 2023-04-01 00:00:00 Completed [facility] HPV9 2023-04-01 00:00:00 Completed [facility] TDAP 2023-02-21 00:00:00 Completed [facility] Influenza Virus Vaccine Quad .5 mL IM 6+ MO (FLUZONE/FLULAVAL/F LUARIX) 2023-02-21 00:00:00 Completed [facility] SARS-COV-2 COVID-19 PFIZER VACCINE 2023-02-21 00:00:00 Completed [facility] HPV9 2023-02-21 00:00:00 Completed [facility] TDAP 2023-02-19 00:00:00 Completed [facility] Influenza Virus Vaccine Quad .5 mL IM 6+ MO (FLUZONE/FLULAVAL/F LUARIX) 2023-02-19 00:00:00 Completed [facility] SARS-COV-2 COVID-19 PFIZER VACCINE 2023-02-19 00:00:00 Completed [facility] HPV9 2023-02-19 00:00:00 Completed [facility] TDAP 2023-02-18 00:00:00 Completed [facility] Influenza Virus Vaccine Quad .5 mL IM 6+ MO (FLUZONE/FLULAVAL/F LUARIX) 2023-02-18 00:00:00 Completed [facility] SARS-COV-2 COVID-19 PFIZER VACCINE 2023-02-18 00:00:00 Completed [facility] HPV9 2023-02-18 00:00:00 Completed [facility] TDAP 2023-02-17 00:00:00 Completed [facility] Influenza Virus Vaccine Quad .5 mL IM 6+ MO (FLUZONE/FLULAVAL/F LUARIX) 2023-02-17 00:00:00 Completed [facility] SARS-COV-2 COVID-19 PFIZER VACCINE 2023-02-17 00:00:00 Completed [facility] HPV9 2023-02-17 00:00:00 Completed [facility] TDAP 2023-02-17 00:00:00 Completed [facility] Influenza Virus Vaccine Quad .5 mL IM 6+ MO (FLUZONE/FLULAVAL/F LUARIX) 2023-02-17 00:00:00 Completed [facility] SARS-COV-2 COVID-19 PFIZER VACCINE 2023-02-17 00:00:00 Completed [facility] HPV9 2023-02-17 00:00:00 Completed [facility] TDAP 2023-02-15 00:00:00 Completed [facility] Influenza Virus Vaccine Quad .5 mL IM 6+ MO (FLUZONE/FLULAVAL/F LUARIX) 2023-02-15 00:00:00 Completed [facility] SARS-COV-2 COVID-19 PFIZER VACCINE 2023-02-15 00:00:00 Completed [facility] HPV9 2023-02-15 00:00:00 Completed [facility] TDAP 2023-02-13 08:30:00 Completed [facility] Influenza Virus Vaccine Quad .5 mL IM 6+ MO (FLUZONE/FLULAVAL/F LUARIX) 2023-02-13 08:30:00 Completed [facility] SARS-COV-2 COVID-19 PFIZER VACCINE 2023-02-13 08:30:00 Completed [facility] HPV9 2023-02-13 08:30:00 Completed [facility] TDAP 2023-02-13 00:00:00 Completed [facility] Influenza Virus Vaccine Quad .5 mL IM 6+ MO (FLUZONE/FLULAVAL/F LUARIX) 2023-02-13 00:00:00 Completed [facility] HPV9 2023-02-13 00:00:00 Completed [facility] SARS-COV-2 COVID-19 PFIZER VACCINE 2023-02-13 00:00:00 Completed [facility] TDAP 2023-02-05 00:00:00 Completed [facility] Influenza Virus Vaccine Quad .5 mL IM 6+ MO (FLUZONE/FLULAVAL/F LUARIX) 2023-02-05 00:00:00 Completed [facility] SARS-COV-2 COVID-19 PFIZER VACCINE 2023-02-05 00:00:00 Completed [facility] HPV9 2023-02-05 00:00:00 Completed [facility] TDAP 2023-01-28 14:15:00 Completed [facility] Influenza Virus Vaccine Quad .5 mL IM 6+ MO (FLUZONE/FLULAVAL/F LUARIX) 2023-01-28 14:15:00 Completed [facility] SARS-COV-2 COVID-19 PFIZER VACCINE 2023-01-28 14:15:00 Completed [facility] HPV9 2023-01-28 14:15:00 Completed [facility] TDAP 2023-01-28 00:00:00 Completed [facility] Influenza Virus Vaccine Quad .5 mL IM 6+ MO (FLUZONE/FLULAVAL/F LUARIX) 2023-01-28 00:00:00 Completed [facility] SARS-COV-2 COVID-19 PFIZER VACCINE 2023-01-28 00:00:00 Completed [facility] HPV9 2023-01-28 00:00:00 Completed [facility] TDAP 2023-01-27 00:00:00 Completed [facility] Influenza Virus Vaccine Quad .5 mL IM 6+ MO (FLUZONE/FLULAVAL/F LUARIX) 2023-01-27 00:00:00 Completed [facility] SARS-COV-2 COVID-19 PFIZER VACCINE 2023-01-27 00:00:00 Completed [facility] HPV9 2023-01-27 00:00:00 Completed [facility] TDAP 2023-01-24 00:00:00 Completed [facility] Influenza Virus Vaccine Quad .5 mL IM 6+ MO (FLUZONE/FLULAVAL/F LUARIX) 2023-01-24 00:00:00 Completed [facility] SARS-COV-2 COVID-19 PFIZER VACCINE 2023-01-24 00:00:00 Completed [facility] HPV9 2023-01-24 00:00:00 Completed [facility] TDAP 2023-01-22 00:00:00 Completed [facility] Influenza Virus Vaccine Quad .5 mL IM 6+ MO (FLUZONE/FLULAVAL/F LUARIX) 2023-01-22 00:00:00 Completed [facility] SARS-COV-2 COVID-19 PFIZER VACCINE 2023-01-22 00:00:00 Completed [facility] HPV9 2023-01-22 00:00:00 Completed [facility] TDAP 2023-01-15 16:00:00 Completed [facility] Influenza Virus Vaccine Quad .5 mL IM 6+ MO (FLUZONE/FLULAVAL/F LUARIX) 2023-01-15 16:00:00 Completed [facility] SARS-COV-2 COVID-19 PFIZER VACCINE 2023-01-15 16:00:00 Completed [facility] HPV9 2023-01-15 16:00:00 Completed [facility] TDAP 2023-01-13 00:00:00 Completed [facility] Influenza Virus Vaccine Quad .5 mL IM 6+ MO (FLUZONE/FLULAVAL/F LUARIX) 2023-01-13 00:00:00 Completed [facility] SARS-COV-2 COVID-19 PFIZER VACCINE 2023-01-13 00:00:00 Completed [facility] MMR MMR 2022-10-23 00:00:00 Completed [facility] Hep B, adult Hep B, adult 2022-10-23 00:00:00 Completed [facility] Tdap Tdap 2022-10-15 00:00:00 Completed [facility] TDAP 2022-02-07 00:00:00 Completed [facility] Influenza Virus Vaccine Quad .5 mL IM 6+ MO (FLUZONE/FLULAVAL/F LUARIX) 2022-02-07 00:00:00 Completed [facility] SARS-COV-2 COVID-19 PFIZER VACCINE 2022-02-07 00:00:00 Completed [facility] TDAP 2022-02-07 00:00:00 Completed [facility] Influenza Virus Vaccine Quad .5 mL IM 6+ MO (FLUZONE/FLULAVAL/F LUARIX) 2022-02-07 00:00:00 Completed [facility] SARS-COV-2 COVID-19 PFIZER VACCINE 2022-02-07 00:00:00 Completed [facility] TDAP 2022-01-28 00:00:00 Completed [facility] Influenza Virus Vaccine Quad .5 mL IM 6+ MO (FLUZONE/FLULAVAL/F LUARIX) 2022-01-28 00:00:00 Completed [facility] SARS-COV-2 COVID-19 PFIZER VACCINE 2022-01-28 00:00:00 Completed [facility] TDAP 2022-01-25 00:00:00 Completed [facility] Influenza Virus Vaccine Quad .5 mL IM 6+ MO (FLUZONE/FLULAVAL/F LUARIX) 2022-01-25 00:00:00 Completed [facility] SARS-COV-2 COVID-19 PFIZER VACCINE 2022-01-25 00:00:00 Completed [facility] TDAP 2021-02-09 00:00:00 Completed [facility] Influenza Virus Vaccine Quad .5 mL IM 6+ MO (FLUZONE/FLULAVAL/F LUARIX) 2021-02-09 00:00:00 Completed [facility] SARS-COV-2 COVID-19 PFIZER VACCINE 2021-02-09 00:00:00 Completed [facility] SARS-COV-2 COVID-19 PFIZER VACCINE 2020-06-23 00:00:00 Completed [facility] SARS-COV-2 COVID-19 PFIZER VACCINE 2020-06-23 00:00:00 Completed [facility] SARS-COV-2 COVID-19 PFIZER VACCINE 2020-06-23 00:00:00 Completed [facility] SARS-COV-2 COVID-19 PFIZER VACCINE 2020-06-23 00:00:00 Completed [facility] SARS-COV-2 COVID-19 PFIZER VACCINE 2020-06-23 00:00:00 Completed [facility] SARS-COV-2 COVID-19 PFIZER VACCINE 2020-06-23 00:00:00 Completed [facility] SARS-COV-2 COVID-19 PFIZER VACCINE 2020-06-23 00:00:00 Completed [facility] SARS-COV-2 COVID-19 PFIZER VACCINE 2020-06-23 00:00:00 Completed [facility] SARS-COV-2 COVID-19 PFIZER VACCINE 2020-06-23 00:00:00 Completed [facility] SARS-COV-2 COVID-19 PFIZER VACCINE 2020-06-23 00:00:00 Completed [facility] SARS-COV-2 COVID-19 PFIZER VACCINE 2020-06-02 00:00:00 Completed [facility] SARS-COV-2 COVID-19 PFIZER VACCINE 2020-06-02 00:00:00 Completed [facility] SARS-COV-2 COVID-19 PFIZER VACCINE 2020-06-02 00:00:00 Completed [facility] SARS-COV-2 COVID-19 PFIZER VACCINE 2020-06-02 00:00:00 Completed [facility] SARS-COV-2 COVID-19 PFIZER VACCINE 2020-06-02 00:00:00 Completed [facility] SARS-COV-2 COVID-19 PFIZER VACCINE 2020-06-02 00:00:00 Completed [facility] SARS-COV-2 COVID-19 PFIZER VACCINE 2020-06-02 00:00:00 Completed [facility] SARS-COV-2 COVID-19 PFIZER VACCINE 2020-06-02 00:00:00 Completed [facility] SARS-COV-2 COVID-19 PFIZER VACCINE 2020-06-02 00:00:00 Completed [facility] Influenza Virus Vaccine Quad .5 mL IM 6+ MO 2019-05-17 00:00:00 Completed [facility] Influenza Virus Vaccine Quad .5 mL IM 6+ MO 2019-05-17 00:00:00 Completed [facility] Influenza Virus Vaccine Quad .5 mL IM 6+ MO 2019-05-17 00:00:00 Completed [facility] Influenza Virus Vaccine Quad .5 mL IM 6+ MO 2019-05-17 00:00:00 Completed [facility] Influenza Virus Vaccine Quad .5 mL IM 6+ MO 2019-05-17 00:00:00 Completed [facility] Influenza Virus Vaccine Quad .5 mL IM 6+ MO 2019-05-17 00:00:00 Completed [facility] Influenza Virus Vaccine Quad .5 mL IM 6+ MO 2019-05-17 00:00:00 Completed [facility] Influenza Virus Vaccine Quad .5 mL IM 6+ MO 2019-05-17 00:00:00 Completed [facility] Influenza Virus Vaccine Quad .5 mL IM 6+ MO 2019-05-17 00:00:00 Completed [facility] Influenza Virus Vaccine Quad .5 mL IM 6+ MO 2019-05-17 00:00:00 Completed [facility] Influenza Virus Vaccine Quad .5 mL IM 6+ MO 2019-05-17 00:00:00 Completed [facility] Influenza Virus Vaccine Quad .5 mL IM 6+ MO 2019-05-17 00:00:00 Completed [facility] TDAP 2014-01-28 00:00:00 Completed [facility] TDAP 2014-01-28 00:00:00 Completed [facility] TDAP 2014-01-28 00:00:00 Completed [facility] TDAP 2014-01-28 00:00:00 Completed [facility] TDAP 2014-01-28 00:00:00 Completed [facility] TDAP 2014-01-28 00:00:00 Completed [facility] TDAP 2014-01-28 00:00:00 Completed [facility] TDAP 2014-01-28 00:00:00 Completed [facility] TDAP 2014-01-28 00:00:00 Completed [facility] Tdap 2014-01-28 00:00:00 Completed [facility] Tdap 2014-01-28 00:00:00 Completed [facility] Tdap 2014-01-28 00:00:00 Completed [facility] TDAP 2014-01-28 00:00:00 Completed [facility] Vital Signs Vital Name Observation Time Observation Value Comments S ource Systolic blood pressure 2023-12-30 21:02:00 135 mm[Hg] [facility] Diastolic blood pressure 2023-12-30 21:02:00 76 mm[Hg] [facility] Heart rate 2023-12-30 21:02:00 63 /min [facility] Body temperature 2023-12-30 21:02:00 35.94 Marlene [facility] Respiratory rate 2023-12-30 21:02:00 18 /min [facility] Body height 2023-12-30 21:02:00 157.5 cm [facility] Body weight 2023-12-30 21:02:00 94.212 kg [facility] BMI 2023-12-30 21:02:00 37.99 kg/m2 [facility] Systolic blood pressure 2023-11-03 18:15:00 136 mm[Hg] [facility] Diastolic blood pressure 2023-11-03 18:15:00 67 mm[Hg] [facility] Heart rate 2023-11-03 18:15:00 76 /min [facility] Body temperature 2023-11-03 18:15:00 36.17 Marlene [facility] Respiratory rate 2023-11-03 18:15:00 20 /min [facility] Body height 2023-11-03 18:15:00 157.5 cm [facility] Body weight 2023-11-03 18:15:00 92.942 kg [facility] BMI 2023-11-03 18:15:00 37.48 kg/m2 [facility] Oxygen saturation in Arterial blood by Pulse oximetry 2023-11-03 18:15:00 100 /min [facility] Systolic blood pressure 2023-10-16 16:15:00 120 mm[Hg] [facility] Diastolic blood pressure 2023-10-16 16:15:00 74 mm[Hg] [facility] Heart rate 2023-10-16 16:15:00 69 /min [facility] Respiratory rate 2023-10-16 16:15:00 13 /min [facility] Oxygen saturation in Arterial blood by Pulse oximetry 2023-10-16 16:15:00 97 /min [facility] Body temperature 2023-10-16 15:13:00 37 Marlene [facility] Body height 2023-10-16 10:15:00 157.5 cm [facility] Body weight 2023-10-16 10:15:00 92.7 kg [facility] BMI 2023-10-16 10:15:00 37.38 kg/m2 [facility] Systolic blood pressure 2023-10-16 15:13:00 117 mm[Hg] [facility] Diastolic blood pressure 2023-10-16 15:13:00 86 mm[Hg] [facility] Heart rate 2023-10-16 15:13:00 79 /min [facility] Body temperature 2023-10-16 15:13:00 37 Marlene [facility] Oxygen saturation in Arterial blood by Pulse oximetry 2023-10-16 15:13:00 100 /min [facility] Respiratory rate 2023-10-16 10:15:00 18 /min [facility] Body height 2023-10-16 10:15:00 157.5 cm [facility] Body weight 2023-10-16 10:15:00 92.7 kg [facility] BMI 2023-10-16 10:15:00 37.38 kg/m2 [facility] Systolic blood pressure 2023-08-07 18:21:00 137 mm[Hg] [facility] Diastolic blood pressure 2023-08-07 18:21:00 70 mm[Hg] [facility] Heart rate 2023-08-07 18:21:00 57 /min [facility] Body temperature 2023-08-07 18:21:00 35.72 Marlene [facility] Respiratory rate 2023-08-07 18:21:00 18 /min [facility] Body height 2023-08-07 18:21:00 157.5 cm [facility] Body weight 2023-08-07 18:21:00 91.899 kg [facility] BMI 2023-08-07 18:21:00 37.06 kg/m2 [facility] Systolic blood pressure 2023-08-01 15:51:00 133 mm[Hg] [facility] Diastolic blood pressure 2023-08-01 15:51:00 69 mm[Hg] [facility] Heart rate 2023-08-01 15:51:00 70 /min [facility] Body temperature 2023-08-01 15:51:00 36.17 Marlene [facility] Respiratory rate 2023-08-01 15:51:00 18 /min [facility] Body height 2023-08-01 15:51:00 157.5 cm [facility] Body weight 2023-08-01 15:51:00 91.853 kg [facility] BMI 2023-08-01 15:51:00 37.04 kg/m2 [facility] Systolic blood pressure 2023-07-03 15:43:00 132 mm[Hg] [facility] Diastolic blood pressure 2023-07-03 15:43:00 73 mm[Hg] [facility] Heart rate 2023-07-03 15:43:00 65 /min [facility] Body temperature 2023-07-03 15:43:00 35.67 Marlene [facility] Respiratory rate 2023-07-03 15:43:00 18 /min [facility] Body height 2023-07-03 15:43:00 157.5 cm [facility] Body weight 2023-07-03 15:43:00 91.899 kg [facility] BMI 2023-07-03 15:43:00 37.06 kg/m2 [facility] Oxygen saturation in Arterial blood by Pulse oximetry 2023-07-03 15:43:00 100 /min [facility] Systolic blood pressure 2023-06-12 19:06:00 123 mm[Hg] [facility] Diastolic blood pressure 2023-06-12 19:06:00 66 mm[Hg] [facility] Heart rate 2023-06-12 19:06:00 68 /[facility] 2023-06-12 19:06:00 36.22 Marlene [facility] Body height 2023-06-12 19:06:00 [facility] 2023-06-12 19:06:00 93.532 kg [facility] BMI 2023-06-12 19:06:00 37.71 kg/m2 [facility] Systolic blood pressure 2023-06-03 14:49:00 154 mm[Hg] [facility] Diastolic blood pressure 2023-06-03 14:49:00 82 mm[Hg] [facility] Heart rate 2023-06-03 14:49:00 74 /min [facility] Body temperature 2023-06-03 14:49:00 36.22 Marlene [facility] Respiratory rate 2023-06-03 14:49:00 17 /min [facility] Body height 2023-06-03 14:49:00 157.5 cm [facility] Body weight 2023-06-03 14:49:00 93.35 kg [facility] BMI 2023-06-03 14:49:00 37.64 kg/m2 [facility] Systolic blood pressure 2023-01-28 20:42:00 127 mm[Hg] [facility] Diastolic blood pressure 2023-01-28 20:42:00 69 mm[Hg] [facility] Heart rate 2023-01-28 20:42:00 63 /min [facility] Body temperature 2023-01-28 20:42:00 35.89 Marlene [facility] Respiratory rate 2023-01-28 20:42:00 18 /min [facility] Body height 2023-01-28 20:42:00 157[facility] 2023-01-28 20:42:00 95.391 kg [facility] BMI 2023-01-28 20:42:00 38.46 kg/m2 [facility] Systolic blood pressure 2023-01-15 22:04:00 135 mm[Hg] [facility] Diastolic blood pressure 2023-01-15 22:04:00 78 mm[Hg] [facility] Heart rate 2023-01-15 22:04:00 71 /min [facility] Body temperature 2023-01-15 22:04:00 35.83 Marlene [facility] Respiratory rate 2023-01-15 22:04:00 18 /min [facility] Body height 2023-01-15 22:04:00 157.5 cm [facility] Body weight 2023-01-15 22:04:00 95.981 kg [facility] BMI 2023-01-15 22:04:00 38.70 kg/m2 [facility] Systolic blood pressure 2022-01-24 19:19:00 122 mm[Hg] [facility] Diastolic blood pressure 2022-01-24 19:19:00 72 mm[Hg] [facility] Heart rate 2022-01-24 19:19:00 68 /min [facility] Body temperature 2022-01-24 19:19:00 36.06 Marlene [facility] Respiratory rate 2022-01-24 19:19:00 16 /min [facility] Body height 2022-01-24 19:19:00 157.5 cm [facility] Body weight 2022-01-24 19:19:00 106.278 kg [facility] BMI 2022-01-24 19:19:00 42.85 kg/m2 [facility] Systolic blood pressure 2022-01-12 15:57:00 139 mm[Hg] [facility] Diastolic blood pressure 2022-01-12 15:57:00 70 mm[Hg] [facility] Heart rate 2022-01-12 15:57:00 77 /min Un[facility] Body temperature 2022-01-12 15:57:00 36 Marlene [facility] Respiratory rate 2022-01-12 15:57:00 18 /min [facility] Body height 2022-01-12 15:57:00 157.5 cm [facility] Body weight 2022-01-12 15:57:00 106.686 kg [facility] BMI 2022-01-12 15:57:00 43.02 kg/m2 [facility] Systolic blood pressure 2019-05-17 20:33:00 130 mm[Hg] [facility] Diastolic blood pressure 2019-05-17 20:33:00 81 mm[Hg] [facility] Heart rate 2019-05-17 20:33:00 74 /min [facility] Body temperature 2019-05-17 20:33:00 36.44 Marlene [facility] Respiratory rate 2019-05-17 20:33:00 16 /min [facility] Body height 2019-05-17 20:33:00 157.5 cm [facility] Body weight 2019-05-17 20:33:00 118.559 kg [facility] BMI 2019-05-17 20:33:00 47.81 kg/m2 [facility] BP Systolic 2024-10-05 11:33:00 126 mm[Hg] Step hen F Brian BP Diastolic 2024-10-05 11:33:00 84 mm[Hg] Kurtis phen F Brian Weight Measured 2024-10-05 11:33:00 201.40 pounds Parth F Brian Height Measured 2024-10-05 11:33:00 62.00 inches Parth F Brian Body Temperature 2024-10-05 11:33:00 98.10 degrees Parth F Brian Heart Rate 2024-10-05 11:33:00 61.00 /min Anushka en F Brian Respiratory Rate 2024-10-05 11:33:00 18.00 /min Parth F Brian BP Systolic 2024-09-30 16:15:00 136 mm[Hg] Step hen F Brian BP Diastolic 2024-09-30 16:15:00 86 mm[Hg] Kurtis phen F Brian Weight Measured 2024-09-30 16:15:00 205.20 pounds Parth F Brian Height Measured 2024-09-30 16:15:00 62.00 inches Parth F Brian Body Temperature 2024-09-30 16:15:00 98.30 degrees Parth F Brian Heart Rate 2024-09-30 16:15:00 66.00 /min Anushka en F Brian Respiratory Rate 2024-09-30 16:15:00 18.00 /min Parth F Brian BP Systolic 2024-08-23 10:39:00 95 mm[Hg] Step hen F Brian BP Diastolic 2024-08-23 10:39:00 67 mm[Hg] Kurtis phen F Brian Weight Measured 2024-08-23 10:39:00 206.60 pounds Parth F Brian Height Measured 2024-08-23 10:39:00 62.00 inches Parth F Brian Body Temperature 2024-08-23 10:39:00 98.20 degrees Parth F Brian Heart Rate 2024-08-23 10:39:00 64.00 /min Anushka en F Brian Respiratory Rate 2024-08-23 10:39:00 Parth F Brian BP Systolic 2024-07-20 10:31:00 156 mm[Hg] Step hen F Brian BP Diastolic 2024-07-20 10:31:00 89 mm[Hg] Kurtis phen F Brian Weight Measured 2024-07-20 10:31:00 206.80 pounds Parth F Brian Height Measured 2024-07-20 10:31:00 62.00 inches Parth F Brian Body Temperature 2024-07-20 10:31:00 98.30 degrees Parth F Brian Heart Rate 2024-07-20 10:31:00 69.00 /min Anushka en F Brian Respiratory Rate 2024-07-20 10:31:00 Parth F Brian BP Systolic 2024-07-20 10:26:00 156 mm[Hg] Step hen F Brian BP Diastolic 2024-07-20 10:26:00 89 mm[Hg] Kurtis phen F Brian Weight Measured 2024-07-20 10:26:00 206.80 pounds Parth F Brian Height Measured 2024-07-20 10:26:00 62.00 inches Parth F Brian Body Temperature 2024-07-20 10:26:00 98.30 degrees Parth F Brian Heart Rate 2024-07-20 10:26:00 69.00 /min Anushka en F Brian Respiratory Rate 2024-07-20 10:26:00 Parth F Brian BP Systolic 2024-06-21 10:50:00 123 mm[Hg] Step hen F Brian BP Diastolic 2024-06-21 10:50:00 83 mm[Hg] Kurtis phen F Brian Weight Measured 2024-06-21 10:50:00 213.20 pounds Parth F Brian Height Measured 2024-06-21 10:50:00 62.00 inches Parth F Brian Body Temperature 2024-06-21 10:50:00 98.50 degrees Parth F Brian Heart Rate 2024-06-21 10:50:00 68.00 /min Anushka en F Brian Respiratory Rate 2024-06-21 10:50:00 Parth F Brian BP Systolic 2024-05-21 11:21:00 126 mm[Hg] Step hen F Brian BP Diastolic 2024-05-21 11:21:00 84 mm[Hg] Kurtis phen F Brian Weight Measured 2024-05-21 11:21:00 211.80 pounds Parth F Brian Height Measured 2024-05-21 11:21:00 62.00 inches Parth F Brian Body Temperature 2024-05-21 11:21:00 98.30 degrees Parth F Brian Heart Rate 2024-05-21 11:21:00 69.00 /min Anushka en F Brian Respiratory Rate 2024-05-21 11:21:00 Parth F Brian BP Systolic 2024-05-13 10:23:00 141 mm[Hg] Step hen F Brian BP Diastolic 2024-05-13 10:23:00 82 mm[Hg] Kurtis phen F Brian Weight Measured 2024-05-13 10:23:00 216.00 pounds Parth F Brian Height Measured 2024-05-13 10:23:00 62.00 inches Parth F Brian Body Temperature 2024-05-13 10:23:00 98.20 degrees Parth F Brian Heart Rate 2024-05-13 10:23:00 71.00 /min Anushka en F Brian Respiratory Rate 2024-05-13 10:23:00 19.00 /min Parth F Brian BP Diastolic 2024-05-04 11:10:00 100 mm[Hg] Kurtis phen F Brian Weight Measured 2024-05-04 11:10:00 212.00 pounds Parth F Brian Height Measured 2024-05-04 11:10:00 62.00 inches Parth F Brian Body Temperature 2024-05-04 11:10:00 98.00 degrees Parth F Brian Heart Rate 2024-05-04 11:10:00 74.00 /min Anushka en F Brian Respiratory Rate 2024-05-04 11:10:00 18.00 /min Parth F Brian BP Systolic 2024-05-04 11:10:00 151 mm[Hg] Step hen F Brian BP Systolic 2023-05-29 16:58:00 116 mm[Hg] Step hen F Brian BP Diastolic 2023-05-29 16:58:00 70 mm[Hg] Kurtis phen F Brian Weight Measured 2023-05-29 16:58:00 205.00 pounds Parth F Brian Height Measured 2023-05-29 16:58:00 62.00 inches Parth F Brian Body Temperature 2023-05-29 16:58:00 98.20 degrees Parth F Brian Heart Rate 2023-05-29 16:58:00 75.00 /min Anushka en F Brian Respiratory Rate 2023-05-29 16:58:00 19.00 /min Parth F Brian BP Systolic 2023-05-26 10:48:00 133 mm[Hg] Step hen F Brian BP Diastolic 2023-05-26 10:48:00 77 mm[Hg] Kurtis phen F Brian Weight Measured 2023-05-26 10:48:00 203.30 pounds Parth F Brian Height Measured 2023-05-26 10:48:00 62.00 inches Parth F Brian Body Temperature 2023-05-26 10:48:00 98.20 degrees Parth F Brian Heart Rate 2023-05-26 10:48:00 73.00 /min Anushka en F Brian Respiratory Rate 2023-05-26 10:48:00 17.00 /min Parth F Brian BP Systolic 2022-10-15 15:02:00 119 mm[Hg] Step hen F Brian BP Diastolic 2022-10-15 15:02:00 66 mm[Hg] Kurtis phen F Brian Weight Measured 2022-10-15 15:02:00 214.00 pounds Parth F Brian Height Measured 2022-10-15 15:02:00 62.00 inches Parth F Brian Body Temperature 2022-10-15 15:02:00 97.60 degrees Parth F Brian Heart Rate 2022-10-15 15:02:00 Anushka en F Brian Respiratory Rate 2022-10-15 15:02:00 Parth F Brian BP Systolic 2022-06-20 08:10:00 109 mm[Hg] Step hen F Brian BP Diastolic 2022-06-20 08:10:00 64 mm[Hg] Kurtis phen F Brian Weight Measured 2022-06-20 08:10:00 224.40 pounds Parth F Brian Height Measured 2022-06-20 08:10:00 62.00 inches Parth F Brian Body Temperature 2022-06-20 08:10:00 97.60 degrees Parth F Brian Heart Rate 2022-06-20 08:10:00 65.00 /min Anushka en F Brian Respiratory Rate 2022-06-20 08:10:00 Parth F Brian BP Systolic 2021-04-27 19:55:00 Step hen F Brian BP Diastolic 2021-04-27 19:55:00 Kurtis phen F Brian Weight Measured 2021-04-27 19:55:00 220.00 pounds Parth F Brian Height Measured 2021-04-27 19:55:00 62.00 inches Parth F Brian Body Temperature 2021-04-27 19:55:00 Parth F Brian Heart Rate 2021-04-27 19:55:00 Anushka en F Brian Respiratory Rate 2021-04-27 19:55:00 Parth F Brian BP Systolic 2021-04-24 18:26:00 Step hen F Brian BP Diastolic 2021-04-24 18:26:00 Kurtis phen F Brian Weight Measured 2021-04-24 18:26:00 220.00 pounds Parth F Brian Height Measured 2021-04-24 18:26:00 62.00 inches Parth F Brian Body Temperature 2021-04-24 18:26:00 Parth F Brian Heart Rate 2021-04-24 18:26:00 Anushka en F Brian Respiratory Rate 2021-04-24 18:26:00 Parth F Brian BP Systolic 2020-12-19 15:58:00 136 mm[Hg] Step hen F Brian BP Diastolic 2020-12-19 15:58:00 88 mm[Hg] Kurtis phen F Brian Weight Measured 2020-12-19 15:58:00 260.40 pounds Parth F Brian Height Measured 2020-12-19 15:58:00 62.00 inches Parth F Brian Body Temperature 2020-12-19 15:58:00 98.70 degrees Parth F Brian Heart Rate 2020-12-19 15:58:00 87.00 /min Anushka en F Brian Respiratory Rate 2020-12-19 15:58:00 17.00 /min Parth F Brian BP Systolic 2020-03-30 10:40:00 130 mm[Hg] Step hen F Brian BP Diastolic 2020-03-30 10:40:00 80 mm[Hg] Kurtis phen F Brian Weight Measured 2020-03-30 10:40:00 265.40 pounds Parth F Brian Height Measured 2020-03-30 10:40:00 62.00 inches Parth F Brian Body Temperature 2020-03-30 10:40:00 97.90 degrees Parth F Brian Heart Rate 2020-03-30 10:40:00 75.00 /min Anushak en F Brian Respiratory Rate 2020-03-30 10:40:00 17.00 /min Parth F Brian BP Systolic 2020-03-23 15:12:00 124 mm[Hg] Step hen F Brian BP Diastolic 2020-03-23 15:12:00 77 mm[Hg] Kurtsi phen F Brian Weight Measured 2020-03-23 15:12:00 267.80 pounds Parth F Brian Height Measured 2020-03-23 15:12:00 62.00 inches Parth F Brian Body Temperature 2020-03-23 15:12:00 98.70 degrees Parth F Brian Heart Rate 2020-03-23 15:12:00 77.00 /min Anushka en F Brian Respiratory Rate 2020-03-23 15:12:00 18.00 /min Parth F Brian Procedures Procedure Date / Time Performed Performing Clinician Source GARDASIL 9 (HPV 9V) VACCINE 2023-12-30 21:30:19 Doctor Unassigned, Tornado [facility] PREPARE PACKED RBC 2023-10-16 12:47:13 Filippo Torres [facility] POCT GLUCOSE (AUTOMATED) 2023-10-16 12:02:00 Woody Deng [facility] POCT GLUCOSE (AUTOMATED) 2023-10-16 12:02:00 Woody Deng [facility] [id number] - [place] LAPS VAGINAL HYSTERECTOMY UTERUS 250 GM/< 2023-10-16 11:53:00 Woody Deng [facility] CYSTOSCOPY 2023-10-16 11:53:00 Woody Deng [facility] SALPINGO-OOPHORECTOMY 2023-10-16 11:53:00 Julio Deng [facility] LAPAROSCOPIC OVARIAN CYSTECTOMY 2023-10-16 11:53:00 Woody Deng [facility] CBC WITHOUT DIFF 2023-10-16 10:36:00 Elina Torres [facility] HB ABO GROUPING 2023-10-16 10:36:00 Holly Beal [facility] CBC WITHOUT DIFF 2023-10-16 10:36:00 Elina Torres [facility] HB ABO GROUPING 2023-10-16 10:36:00 Holly Beal [facility] POCT TEST 2023-10-16 10:30:00 Trice Torres [facility] POCT TEST 2023-10-16 10:30:00 Trice Torres [facility] POCT TEST 2023-10-16 10:20:[address] [facility] POCT TEST 2023-10-16 10:20:[address] [facility] CBC WITH DIFF 2023-08-07 19:55:00 Owen Epps [facility] HB ABO GROUPING 2023-08-07 19:55:00 Owen Epps in [facility] GALV ONLY - VAGINAL PATHOGENS BY NUCLEIC ACID TESTING 2023-08-07 19:33:00 Owen Epps [facility] POCT TEST 2023-08-07 18:29:00 Woody Deng [facility] CANCER ANTIGEN-GI (CA 19-9) 2023-02-13 14:28:00 Sukhdev Scott [facility] COMP. METABOLIC PANEL ([id number]) 2023-02-13 14:28:00 Jens Olson [facility] CA-125 2023-02-13 14:28:00 Sukhdev Scott [facility] CBC WITH DIFF 2023-02-13 14:28:00 Sukhdev Scott [facility] AUTHORIZATION TO RELEASE PHI TO [facility] 2023-01-28 06:01:00 Doctor Unassigned, [place]ado [facility] HIGH RISK HPV-THIN PREP 2023-01-15 22:49:00 Felicia Bella [facility] PAP SMEAR-LIQUID BASED-CP 2023-01-15 22:49:00 Felicia Bella [facility] GARDASIL 9 (HPV 9V) VACCINE 2023-01-15 22:13:15 Felicia Bella [facility] DISCLOSURE AND CONSENT, MEDICAL AND SURGICAL PROCEDURES 2022-01-24 06:01:00 Doctor Unassigned, [place] [facility] POCT TEST 2022-01-12 18:57:00 Arina Daniels [facility] ASSIGNMENT OF BENEFITS 2022-01-12 15:50:36 Docto r Unassigned, [place]ado [facility] FLU VACC ([id number]), 6+ MONTHS, IM, QUAD 2019-05-17 21:08:32 David Armendariz [facility] NOTICE OF PRIVACY PRACTICES 2019-05-17 20:15:00 Doctor Unassigned, [place] [facility] Encounters Start Date/Time End Date/Time Encounter Type Admission Type Attending Clinicians Care Facility Care Department Encounter ID Source 2023-08-07 14:38:47 Outpatient WOODY CARLTON [facility] INDUSTRIAL RELATIONS REPRESENTATIVE [id number] [facility] 2024-10-05 11:29:54 2024-10-05 11:29:54 Outpatient SFA [facility] [id number] Parth Torres 2024-10-05 00:00:00 2024-10-05 00:00:00 Outpatient Visit SFA [id number] Parth Torres 2024-09-30 16:13:43 2024-09-30 16:13:43 Outpatient SFA S[facility] [id number] Parth Torres 2024-09-30 00:00:00 2024-09-30 00:00:00 Outpatient Visit SFA [id number] Parth Torres 2024-09-24 08:04:51 2024-09-24 08:04:51 Outpatient SFA SFA [id number] Parth Torres 2024-08-23 10:35:46 2024-08-23 10:35:46 Outpatient SFA S[facility] [id number] Parth Torres 2024-08-23 00:00:00 2024-08-23 00:00:00 Outpatient Visit SFA [id number] Parth Torres 2024-07-20 10:23:25 2024-07-20 10:23:25 Outpatient SFA S[facility] [id number] Parth Torres 2024-07-20 00:00:00 2024-07-20 00:00:00 Outpatient Visit SFA [id number] Parth Torres 2015-12-18 00:00:00 2024-07-01 22:34:25 Lauren Colbert [facility] CUSTOMER TECHNICAL SERVICES MANAGER [facility] 1.2.840.114 350.1.13.10 4.2.7.2.686 [id number] [facility] 2024-06-21 10:47:29 2024-06-21 10:47:29 Outpatient SFA S[facility] [id number] Parth Torres 2024-06-21 00:00:00 2024-06-21 00:00:00 Outpatient Visit SFA [id number] Parth Torres 2024-05-21 11:09:20 2024-05-21 11:09:20 Outpatient SFA S[facility] [id number] Parth Torres 2024-05-21 00:00:00 2024-05-21 00:00:00 Outpatient Visit SFA [id number] Parth Torres 2024-05-13 10:17:27 2024-05-13 10:17:27 Outpatient SFA [facility] [id number] Parth Torres 2024-05-13 00:00:00 2024-05-13 00:00:00 Outpatient Visit SFA [id number] Parth Torres 2024-05-06 08:23:35 2024-05-06 08:23:35 Outpatient SFA [facility] [id number] Parth Aponte Brian 2024-05-04 11:03:36 2024-05-04 11:03:36 Outpatient SFA [facility] [id number] Parth Aponte Brian 2024-05-04 00:00:00 2024-05-04 00:00:00 Outpatient Visit SFA [id number] Parth Aponte Brian 2024-04-27 09:00:00 2024-04-27 09:00:00 Outpatient R [facility] [id number] [facility] 2024-01-15 00:00:00 2024-02-21 18:23:54 Patient Secure Woody Carrasquillo [facility] 1.2.840.114 350.1.13.10 4.2.7.2.686 [id number] [facility] 2024-01-22 00:00:00 2024-01-22 22:43:49 Ankita Haley [facility] 1.2.840.114 350.1.13.10 4.2.7.2.686 [id number] [facility] 2023-12-30 15:45:00 2023-12-30 16:37:06 Outpatient R KAROLINA MULLINS [facility] [id number] [facility] 2023-12-30 15:45:00 2023-12-30 16:37:06 Office Visit [facility] Karolina Mullins [facility] 1.2.840.114 350.1.13.10 4.2.7.2.686 [id number] [facility] 2023-12-24 00:00:00 2023-12-26 09:10:39 Telephone Clinic, [facility] 1.2.840.114 350.1.13.10 4.2.7.2.686 [id number] [facility] 2023-11-19 00:00:00 2023-12-20 18:18:11 Patient Secure Msg Doctor Unassigned, [place] Doctor Unassigned, [place] [facility] 1.2.840.114 350.1.13.10 4.2.7.2.686 [id number] [facility] 2023-12-01 15:00:00 2023-12-01 15:00:00 Outpatient R [facility] [id number] [facility] 2023-11-24 08:15:00 2023-11-24 08:15:00 Outpatient R [facility] [id number] [facility] 2023-11-18 00:00:00 2023-11-19 13:13:01 [address] Patricia [facility] 1.2.840.114 350.1.13.10 4.2.7.2.686 [id number] [facility] 2023-11-14 00:00:00 2023-11-18 08:40:23 Telephone Tanvi Patricia [facility] 1.2.840.114 350.1.13.10 4.2.7.2.686 [id number] [facility] 2023-11-14 00:00:00 2023-11-14 16:47:39 Patient Secure g Woody Deng [facility] 1.2.840.114 350.1.13.10 4.2.7.2.686 [id number] [facility] 2023-11-04 00:00:00 2023-11-12 15:36:42 Patient Secure g Woody Deng [facility] 1.2.840.114 350.1.13.10 4.2.7.2.686 [id number] [facility] 2023-11-12 00:00:00 2023-11-12 15:36:09 Letter (Out) Tanvi Patricia [facility] 1.2.840.114 350.1.13.10 4.2.7.2.686 [id number] [facility] 2023-11-03 13:15:00 2023-11-03 13:34:46 Outpatient R RADU SHAFFER YVETTE [facility] [id number] [facility] 2023-11-03 13:15:00 2023-11-03 13:34:46 Office Visit Clinic[facility] Radu [facility] 1.2.840.114 350.1.13.10 4.2.7.2.686 [id number] [facility] 2023-10-30 00:00:00 2023-10-30 10:59:26 Telephone Patt Barnes [facility] 1.2.840.114 350.1.13.10 4.2.7.2.686 [id number] [facility] 2023-10-28 00:00:00 2023-10-28 10:11:40 Telephone Patt Barnes [facility] 1..840.114 350.1.13.10 4.2.7.2.686 [id number] [facility] 2023-09-22 00:00:00 2023-10-25 18:21:40 Patient Secure Msg Woody Deng [facility] 1.840.114 350.1.13.10 4.2.7.2.686 [id number] [facility] 2023-09-24 00:00:00 2023-10-25 18:18:39 Patient Secure Msg Felicia Bella [facility] CUSTOMER TECHNICAL SERVICES MANAGER [facility] 1.840.114 350.1.13.10 4.2.7.2.686 [id number] [facility] 2023-10-17 00:00:00 2023-10-17 15:37:44 Patient Secure Msg Doctor Unassigned, [place] Doctor Unassigned, [place] [facility] 1.2.840.114 350.1.13.10 4.2.7.2.686 [id number] [facility] 2023-10-16 00:00:00 2023-10-16 14:40:35 Telephone Patt Barnes [facility] 1.840.114 350.1.13.10 4.2.7.2.686 [id number] [facility] 2023-10-16 05:05:00 2023-10-16 11:45:00 Hospital Encounter Woody Deng [facility] 1.2.840.114 350.1.13.10 4.2.7.2.686 [id number] [facility] 2023-10-16 05:05:00 2023-10-16 11:45:00 Outpatient R DENGWOODY LEIGH [facility] INDUSTRIAL RELATIONS REPRESENTATIVE [id number] [facility] 2023-10-16 07:00:00 2023-10-16 10:28:00 Surgery Woody Deng [facility] 1.2.840.114 350.1.13.10 4.2.7.2.686 [id number] [facility] 2023-10-08 00:00:00 2023-10-14 12:29:16 Telephone Patt Barnes [facility] 1.2.840.114 350.1.13.10 4.2.7.2.686 [id number] [facility] 2023-10-09 00:00:00 2023-10-11 17:53:55 Patient Secure Msg Doctor Unassigned, [place] [facility] 1.2.840.114 350.1.13.10 4.2.7.2.686 [id number] [facility] 2023-10-09 08:15:00 2023-10-09 08:30:00 Electric Switch Tester Visit Lab, Ang-RmchMonica Luis [facility] CUSTOMER TECHNICAL SERVICES MANAGER [facility] 1.2.840.114 350.1.13.10 4.2.7.2.686 [id number] [facility] 2023-10-09 08:15:00 2023-10-09 08:15:00 Outpatient MONICA DEL CID [facility] [id number] [facility] 2023-10-06 00:00:00 2023-10-07 14:02:28 Telephone Woody Dneg [facility] 1.2.840.114 350.1.13.10 4.2.7.2.686 [id number] [facility] 2023-10-03 12:00:00 2023-10-03 12:00:00 Outpatient R [facility] [id number] [facility] 2023-10-02 00:00:00 2023-10-02 12:49:52 Patient Secure Woody Panchal [facility] 1.2.840.114 350.1.13.10 4.2.7.2.686 [id number] [facility] 2023-10-02 00:00:00 2023-10-02 09:22:43 Patient Secure Woody Panchal [facility] 1.2.840.114 350.1.13.10 4.2.7.2.686 [id number] [facility] 2023-10-01 00:00:00 2023-10-02 07:27:45 Telephone Woody Deng [facility] 1.2.840.114 350.1.13.10 4.2.7.2.686 [id number] [facility] 2023-07-21 00:00:00 2023-09-12 07:45:04 Telephone Carmella Lee [facility] 1.2.840.114 350.1.13.10 4.2.7.2.686 [id number] [facility] 2023-09-08 14:30:00 2023-09-08 14:30:00 Outpatient R [facility] [id number] [facility] 2023-08-05 00:00:00 2023-09-06 18:18:39 Patient Secure Msg Doctor Unassigned, [place] [facility] 1.2.840.114 350.1.13.10 4.2.7.2.686 [id number] [facility] 2023-08-06 00:00:00 2023-09-06 18:15:34 Patient Secure Msg Doctor Unassigned, [place] [facility] 1.2.840.114 350.1.13.10 4.2.7.2.686 [id number] [facility] 2023-08-25 13:15:00 2023-08-25 13:15:00 Outpatient R [facility] [id number] [facility] 2023-07-18 00:00:00 2023-08-23 18:22:50 Patient Secure Msg Doctor Unassigned, [place] [facility] 1.2840.114 350.1.13.10 4.2.7.2.686 [id number] [facility] 2023-07-21 00:00:00 2023-08-23 18:20:31 Patient Secure Msg ShayneFelicia [facility] CUSTOMER TE[employer] SERVICES MANAGER [facility] 1.2.840.114 350.1.13.10 4.2.7.2.686 [id number] [facility] 2023-07-22 00:00:00 2023-08-23 18:19:23 Patient Secure Msg Shayne Felicia C [facility] CUSTOMER TECHNICAL SERVICES MANAGER [facility] 1.2.840.114 350.1.13.10 4.2.7.2.686 [id number] [facility] 2023-07-22 00:00:00 2023-08-23 18:19:03 Patient Secure Msg Doctor Unassigned, [place] [facility] 1.2.840.114 350.1.13.10 4.2.7.2.686 [id number] [facility] 2023-08-19 00:00:00 2023-08-21 13:48:33 Telephone Woody Deng [facility] [facility] 1.2.840.114 350.1.13.10 4.2.7.2.686 [id number] 113 [id number] [facility] 2023-08-21 00:00:00 2023-08-21 08:42:48 Case Management Owen Epps [facility] 1.2.840.114 350.1.13.10 4.2.7.2.686 [id number] 113 [id number] [facility] 2023-08-07 13:45:00 2023-08-07 14:56:37 Outpatient R WOODY DENG [facility] [id number] [facility] 2023-08-07 13:45:00 2023-08-07 14:56:37 Office Visit Clinic, [facility] Resident [facility] 1.2.840.114 350.1.13.10 4.2.7.2.686 [id number] 113 [id number] [facility] 2023-08-01 10:45:00 2023-08-01 11:59:29 Outpatient R KAROLINA MULLINS [facility] [id number] [facility] 2023-08-01 10:45:00 2023-08-01 11:59:29 Office Visit Pgy3 Karolina Mullins [facility] 1.2.840.114 350.1.13.10 4.2.7.2.686 [id number] 113 [id number] [facility] 2023-07-23 14:00:00 2023-07-23 14:00:00 Outpatient R [facility] [id number] [facility] 2023-07-23 09:30:00 2023-07-23 09:30:00 Outpatient R [facility] [id number] [facility] 2023-07-16 10:47:55 2023-07-16 23:59:00 Outpatient R RADU SHAFFER YVETTE [facility] [id number] [facility] 2023-07-16 10:47:55 2023-07-16 23:59:00 Hospital Encounter CodyRadu [facility] 1..114 350.1.13.10 4.2.7.2.686 [id number] [facility] 2023-07-03 11:00:00 2023-07-03 11:20:24 Outpatient R RADU SHAFFER [facility] [id number] [facility] 2023-07-03 11:00:00 2023-07-03 11:20:24 [facility]..114 350.1.13.10 4.2.7.2.686 [id number] 113 [id number] [facility] 2023-06-12 16:15:00 2023-06-12 16:30:00 Electric Switch Tester Visit [facility] 1.114 350.1.13.10 4.2.7.2.686 [id number] [facility] 2023-06-12 16:15:00 2023-06-12 16:15:00 Outpatient R RADU SHAFFER [facility] [id number] [facility] 2023-06-12 14:30:00 2023-06-12 16:01:28 Outpatient R RADU SHAFFER YVETTE [facility] [id number] [facility] 2023-06-12 14:30:00 2023-06-12 16:01:28 Office Visit Clinic, [facility] Resident Radu Shaffer [facility] 1..114 350.1.13.10 4.2.7.2.686 [id number] 113 [id number] [facility] 2023-06-10 00:00:00 2023-06-10 00:00:00 Telephone Felicia Bella [facility] CUSTOMER TECHNICAL SERVICES MANAGER [facility] & CHILD [facility] 1.840.114 350.1.13.10 4.2.7.2.686 [id number] 107 [id number] [facility] 2023-06-10 00:00:00 2023-06-10 00:00:00 Patient Secure Msg Doctor Unassigned, [place] [facility] 1.0.114 350.1.13.10 4.2.7.2.686 [id number] 044 [id number] [facility] 2023-06-09 00:00:00 2023-06-09 00:00:00 Patient Secure Msg Doctor Unassigned, [place] [facility] 1..114 350.1.13.10 4.2.7.2.686 [id number] [id number] [facility] 2023-06-03 09:15:00 2023-06-03 10:15:37 Outpatient R FELICIA BELLA [facility] [id number] [facility] 2023-06-03 09:15:00 2023-06-03 10:15:37 Office Visit eFlicia Bella [facility] CUSTOMER TECHNICAL SERVICES MANAGER [facility] CHILD [facility] 1.84.114 350.1.13.10 4.2.7.2.686 [id number] 107 [id number] [facility] 2023-06-03 00:00:00 2023-06-03 00:00:00 Patient Secure Msg Doctor Unassigned, [place] [facility] 1.0.114 350.1.13.10 4.2.7.2.686 [id number] 044 [id number] [facility] 2023-06-02 00:00:00 2023-06-02 00:00:00 Patient Secure Msg Akinsipe, Felicia C [facility] CUSTOMER TECHNICAL SERVICES MANAGER [facility] & CHILD [facility] 1.840.114 350.1.13.10 4.2.7.2.686 [id number] 107 [id number] [facility] 2023-05-29 16:52:59 2023-05-29 16:52:59 Outpatient [facility] [id number] Parth Torres 2023-05-26 10:55:58 2023-05-26 10:55:58 Outpatient [facility] [id number] Parth Torres 2023-04-01 07:14:37 2023-04-01 23:59:00 Outpatient R FELICIA BELLA [facility] [id number] [facility] 2023-04-01 07:14:37 2023-04-01 23:59:00 Hospital Encounter Felicia Bella [facility] .84.114 350.1.13.10 4.2.7.2.686 [id number] [facility] 2023-04-01 15:00:00 2023-04-01 15:00:00 Outpatient R [facility] [id number] [facility] 2023-04-01 00:00:00 2023-04-01 00:00:00 Patient Secure Msg Doctor Unassigned, [place] [facility] .84.114 350.1.13.10 4.2.7.2.686 [id number] [facility] 2023-04-01 00:00:00 2023-04-01 00:00:00 Patient Secure Msg Felicia Bella [facility] CUSTOMER TECHNICAL SERVICES MANAGER [facility] CHILD [facility] 1.84.114 350.1.13.10 4.2.7.2.686 [id number] 107 [id number] [facility] 2023-03-17 10:45:00 2023-03-17 10:45:00 Outpatient R [facility] [id number] [facility] 2023-02-26 10:30:00 2023-02-26 10:30:00 Outpatient R FELICIA BELLA [facility] [id number] [facility] 2023-02-21 00:00:00 2023-02-21 00:00:00 Patient Secure Msg Doctor Unassigned, [place] [facility] 1.0.114 350.1.13.10 4.2.7.2.686 [id number] [facility] 2023-02-19 14:00:00 2023-02-19 14:00:00 Outpatient R [facility] [id number] [facility] 2023-02-19 00:00:00 2023-02-19 00:00:00 Telephone Sukhdev Scott Y [facility] 1.0.114 350.1.13.10 4.2.7.2.686 [id number] 113 [id number] [facility] 2023-02-18 00:00:00 2023-02-18 00:00:00 Patient Secure Msg Doctor Unassigned, [place] [facility] 1..114 350.1.13.10 4.2.7.2.686 [id number] [id number] [facility] 2023-02-17 00:00:00 2023-02-17 00:00:00 Telephone Felicia Bella [facility] CUSTOMER TECHNICAL SERVICES MANAGER [facility] 1.0.114 350.1.13.10 4.2.7.2.686 [id number] 107 [id number] [facility] 2023-02-17 00:00:00 2023-02-17 00:00:00 Patient Secure Msg Doctor Unassigned, [place] [facility] 1..114 350.1.13.10 4.2.7.2.686 [id number] [facility] 2023-02-15 00:00:00 2023-02-15 00:00:00 Patient Secure Msg Doctor Unassigned, [place] [facility] 1..114 350.1.13.10 4.2.7.2.686 [id number] 044 [id number] [facility] 2023-02-13 08:30:00 2023-02-13 08:30:00 Electric Switch Tester Visit Lab, [facility] Felicia Bella [facility] CUSTOMER TECHNICAL SERVICES MANAGER [facility] 1..114 350.1.13.10 4.2.7.2.686 [id number] 107 [id number] [facility] 2023-02-13 08:30:00 2023-02-13 08:26:42 Outpatient R FELICIA BELLA [facility] [id number] [facility] 2023-02-13 00:00:00 2023-02-13 00:00:00 Patient Secure Msg Felicia Bella [facility] CUSTOMER TECHNICAL SERVICES MANAGER [facility] CHILD [facility] 1..114 350.1.13.10 4.2.7.2.686 [id number] 107 [id number] [facility] 2023-02-05 00:00:00 2023-02-05 00:00:00 Patient Secure Msg Doctor Unassigned, [place] [facility] 1..114 350.1.13.10 4.2.7.2.686 [id number] [id number] [facility] 2023-01-28 14:15:00 2023-01-28 16:15:24 Outpatient R JENS OLSON [facility] [id number] [facility] 2023-01-28 14:15:00 2023-01-28 16:15:24 Office Visit Pgy2 Jens Olson [facility] 1..114 350.1.13.10 4.2.7.2.686 [id number] 113 [id number] [facility] 2023-01-28 00:00:00 2023-01-28 00:00:00 Orders Only Doctor Unassigned, [place] [facility] 1.2.840.114 350.1.13.10 4.2.7.2.686 [id number] [facility] 2023-01-27 00:00:00 2023-01-27 00:00:00 Patient Secure Msg Doctor Unassigned, [place] [facility] 1.2.840.114 350.1.13.10 4.2.7.2.686 [id number] [id number] [facility] 2023-01-24 00:00:00 2023-01-24 00:00:00 Patient Secure Msg Doctor Unassigned, [place] [facility] 1.2840.114 350.1.13.10 4.2.7.2.686 [id number] 044 [id number] [facility] 2023-01-22 00:00:00 2023-01-22 00:00:00 Patient Secure Msg Felicia Bella [facility] CUSTOMER TECHNICAL SERVICES MANAGER [facility] CHILD [facility] 1..840.114 350.1.13.10 4.2.7.2.686 [id number] 107 [id number] [facility] 2023-01-15 16:00:00 2023-01-15 16:46:46 Outpatient R FELICIA BELLA [facility] [id number] [facility] 2023-01-15 16:00:00 2023-01-15 16:46:46 Office Visit Felicia Bella [facility] CUSTOMER TECHNICAL SERVICES MANAGER [facility]ILD [facility] 1..840.114 350.1.13.10 4.2.7.2.686 [id number] [facility] 2023-01-13 00:00:00 2023-01-13 00:00:00 Patient Secure Msg Doctor Unassigned, [place] [facility] 1.840.114 350.1.13.10 4.2.7.2.686 [id number] [id number] [facility] 2022-10-23 13:22:44 2022-10-23 13:22:44 Outpatient [facility] [id number] Parth Aponte Donner 2022-10-15 16:03:53 2022-10-15 16:03:53 Outpatient [place] [id number] Parth Aponte Donner 2022-10-14 15:56:07 2022-10-14 15:56:07 Outpatient [place] [id number] Parth Aponte Donner 2022-06-20 08:09:58 2022-06-20 08:09:58 Outpatient [place] [id number] Parth Aponte Donner 2022-03-26 13:00:00 2022-03-26 13:00:00 Outpatient R [facility] [id number] [facility] 2022-02-14 10:30:00 2022-02-14 10:30:00 Outpatient R FELICIA BELLA [facility] [id number] [facility] 2022-02-08 00:00:00 2022-02-08 00:00:00 Telephone Arina Daniels [facility] CUSTOMER TECHNICAL SERVICES MANAGER [facility] 1.0.114 350.1.13.10 4.2.7.2.686 [id number] [facility] 2022-02-07 00:00:00 2022-02-07 00:00:00 Patient Secure Msg Doctor Unassigned, [place] [facility] 1.0.114 350.1.13.10 4.2.7.2.686 [id number] [facility] 2022-02-07 00:00:00 2022-02-07 00:00:00 Patient Secure Msg Doctor Unassigned, [place] [facility] 1.840.114 350.1.13.10 4.2.7.2.686 [id number] [facility] 2022-02-05 00:00:00 2022-02-05 00:00:00 Telephone Pgy3 [facility] 1.2.840.114 350.1.13.10 4.2.7.2.686 [id number] 113 [id number] [facility] 2022-01-29 00:00:00 2022-01-29 00:00:00 Telephone Kasia Greyie [facility] 1.2.840.114 350.1.13.10 4.2.7.2.686 [id number] 113 [id number] [facility] 2022-01-28 00:00:00 2022-01-28 00:00:00 Telephone Pgy3 [facility] 1.2.840.114 350.1.13.10 4.2.7.2.686 [id number] 113 [id number] [facility] 2022-01-28 00:00:00 2022-01-28 00:00:00 Patient Secure Msg Doctor Unassigned, [place] [facility] 1.2840.114 350.1.13.10 4.2.7.2.686 [id number] 113 [id number] [facility] 2022-01-25 00:00:00 2022-01-25 00:00:00 Patient Secure Msg Doctor Unassigned, [place] [facility] 1.2840.114 350.1.13.10 4.2.7.2.686 [id number] [facility] 2022-01-24 13:30:00 2022-01-24 14:57:38 Outpatient R LINDA ABDALLA KARREN [facility] [id number] [facility] 2022-01-24 13:30:00 2022-01-24 14:57:38 Office Visit Pgy3 Linda Abdalla [facility] 1.2.840.114 350.1.13.10 4.2.7.2.686 [id number] [facility] 2022-01-24 00:00:00 2022-01-24 00:00:00 Orders Only Doctor Unassigned, [place] [facility] 1.2.840.114 350.1.13.10 4.2.7.2.686 [id number] [facility] 2022-01-14 00:00:00 2022-01-14 00:00:00 Telephone Arina Daniels [facility] CUSTOMER TECHNICAL SERVICES MANAGER [facility]ILD [facility] 1.2.840.114 350.1.13.10 4.2.7.2.686 [id number] [facility] 2022-01-12 10:45:00 2022-01-12 11:56:21 [id number] 2022-01-12 10:45:00 2022-01-12 11:56:21 Office Visit Provider, [facility] Tem Jeremiah [facility] CUSTOMER TECHNICAL SERVICES MANAGER [facility]ILD [facility] 1.2.840.114 350.1.13.10 4.2.7.2.686 [id number] 107 [id number] [facility] 2022-01-12 00:00:00 2022-01-12 00:00:00 Orders Only Doctor Unassigned, [place] [facility] 1.2840.114 350.1.13.10 4.2.7.2.686 [id number] [facility] 2022-01-07 08:15:00 2022-01-07 08:15:00 Outpatient R DAVID ARMENDARIZ [facility] [id number] [facility] 2022-01-03 11:00:00 2022-01-03 11:00:00 Outpatient R JASE, RAQUEL [facility] [id number] [facility] 2021-02-12 10:00:00 2021-02-12 10:00:00 Outpatient R [facility] [id number] [facility] 2021-02-09 00:00:00 2021-02-09 00:00:00 Patient Secure Msg Doctor Unassigned, [place] [facility] .840.114 350.1.13.10 4.2.7.2.686 [id number] [facility] 2020-10-26 11:20:00 2020-10-26 11:20:00 Outpatient R JUDITH GUTHRIE [facility] [id number] [facility] 2020-06-23 11:30:00 2020-06-23 11:14:33 Outpatient R TIFF MUNOZ [facility] [id number] [facility] 2020-06-02 11:30:00 2020-06-02 11:30:00 Outpatient PEYMAN HALLMAN [facility] [id number] [facility] 2020-05-30 11:00:00 2020-05-30 11:00:00 Outpatient PEYMAN HALLMAN [facility] [id number] [facility] 2020-05-29 00:00:00 2020-05-29 00:00:00 Patient Outreach Peyman Hallman [facility] ..840.114 350.1.13.10 4.2.7.2.686 [id number] [facility] 2020-05-16 09:30:00 2020-05-16 09:30:00 Outpatient R DAVID ARMENDARIZ [facility] [id number] [facility] 2019-05-25 00:00:00 2019-05-25 00:00:00 Patient Secure Msg Felicia Bella [facility] CUSTOMER TECHNICAL SERVICES MANAGER [facility] ..840.114 350.1.13.10 4.2.7.2.686 [id number] 107 [id number] [facility] 2019-05-17 15:19:29 2019-05-17 16:34:26 Office Visit David Armendariz Radha [facility] CUSTOMER TECHNICAL SERVICES MANAGER [facility] 1.2.840.114 350.1.13.10 4.2.7.2.686 [id number] [facility] 2019-05-17 15:30:00 2019-05-17 15:30:00 Outpatient JOHAN KIRKANTONIETA [facility] [id number] [facility] 2019-05-17 15:30:00 2019-05-17 15:30:00 Outpatient JOHAN KIRKANTONIETA [facility] [id number] [facility] 2019-05-17 00:00:00 2019-05-17 00:00:00 Orders Only Doctor Unassigned, [place] [facility] 1..840.114 350.1.13.10 4.2.7.2.686 [id number] [facility] Results Test Description Test Time Test Comments Results Result Co mments Source Parth Fay [facility] (INCLUDES DIFF/PLT)2024-05-07 00:00:00* Test Item Value Reference Range Interpretation Comme nts WHITE BLOOD CELL COUNT (test code = 6690-2) 7.0 Thousand/uL RED BLOOD CELL COUNT (test code = 789-8) 5.06 Million/uL HEMOGLOBIN (test code = 718-7) 10.7 g/dL HEMATOCRIT (test code = 4544-3) 36.5 % MCV (test code = 787-2) 72.1 fL MCH (test code = 785-6) 21.1 pg MCHC (test code = 786-4) 29.3 g/dL RDW (test code = 788-0) 19.3 % PLATELET COUNT (test code = 777-3) 432 Thousand/uL MPV (test code = 776-5) 11.7 fL ABSOLUTE NEUTROPHILS (test code = 751-8) 4410 cells/uL ABSOLUTE BAND NEUTROPHILS (test code = 57068-3) DNR cells/uL ABSOLUTE METAMYELOCYTES (nathalia t code = 60649-9) DNR cells/uL ABSOLUTE MYELOCYTES (test code = 39908-9) DNR cells/uL ABSOLUTE PROMYELOCYTES (test code = 23836-0) DNR cells/uL ABSOLUTE LYMPHOCYTES (test code = 731-0) 1792 cells/uL ABSOLUTE MONOCYTES (test cod e = 742-7) 595 cells/uL ABSOLUTE EOSINOPHILS (test code = 711-2) 161 cells/uL ABSOLUTE BASOPHILS (test cod e = 704-7) 42 cells/uL ABSOLUTE BLASTS (test code = 46999-3) DNR cells/uL ABSOLUTE NUCLEATED RBC (test code = 00840-5) DNR cells/uL NEUTROPHILS (test code = 770-8) 63 % BAND NEUTROPHILS (test code = 764-1) DNR % METAMYELOCYTES (test code = 740-1) DNR % MYELOCYTES (test code = 749-2) DNR % PROMYELOCYTES (test code = 783-1) DNR % LYMPHOCYTES (test code = 736-9) 25.6 % REACTIVE LYMPHOCYTES (test code = 41373-1) DNR % MONOCYTES (test code = 5905-5) 8.5 % EOSINOPHILS (test code = 713-8) 2.3 % BASOPHILS (test code = 706-2) 0.6 % BLASTS (test code = 709-6) DNR % NUCLEATED RBC (test code = 71891-0) DNR /100WBC COMMENT(S) (test code = 8251-1) DNR Parth TorresLIPID [id number] 00:00:00* Test Item Value Reference Range Interpretation Comme nts CHOLESTEROL, TOTAL (test cod e = 2093-3) 147 mg/dL HDL CHOLESTEROL (test code = 2085-9) 50 mg/dL TRIGLYCERIDES (test code = 2571-8) 99 mg/dL LDL-CHOLESTEROL (test code = 30209-6) 79 mg/dL(calc) CHOL/HDLC RATIO (test code = 9830-1) 2.9 (calc) NON HDL CHOLESTEROL (test co de = 79484-5) 97 mg/dL(calc) Parth TorresHEMOGLOBIN [id number] 00:00:00* Test Item Value Reference Range Interpretation Comme nts HEMOGLOBIN A1c (test code = 4548-4) 6.1 %oftotalHgb Parth TorresCOMPREHENSIVE METABOLIC [id number] 00:00:00* Test Item Value Reference Range Interpretation Comme nts GLUCOSE (test code = 2345-7) 85 mg/dL UREA NITROGEN (BUN) (test code = 3094-0) 10 mg/dL CREATININE (test code = 2160-0) 0.55 mg/dL EGFR (test code = 30707-0) 117 mL/min/1.73m2 BUN/CREATININE RATIO (test code = 3097-3) SEE NOTE: (calc) SODIUM (test code = 2951-2) 138 mmol/L POTASSIUM (test code = 2823-3) 4.1 mmol/L CHLORIDE (test code = 2075-0) 103 mmol/L CARBON DIOXIDE (test code = 2027-9) 26 mmol/L CALCIUM (test code = 80991-7) 9.2 mg/dL PROTEIN, TOTAL (test code = 2885-2) 7.5 g/dL ALBUMIN (test code = 1751-7) 4.1 g/dL GLOBULIN (test code = 06540-8) 3.4 g/dL(calc) ALBUMIN/GLOBULIN RATIO (test code = 1759-0) 1.2 (calc) BILIRUBIN, TOTAL (test code = 1975-2) 0.5 mg/dL ALKALINE PHOSPHATASE (test code = 6768-6) 76 U/L AST (test code = 1920-8) 19 U/L ALT (test code = 1742-6) 17 U/L Parth TorresRETICULOCYTE [id number] 00:00:00* Test Item Value Reference Range Interpretation Comme [facility] RETICULOCYTE COUNT, AUTOMATE D (test code = 30528-8) 1.1 % RETICULOCYTE, ABSOLUTE (test code = 83398-8) 64622 cells/uL Parth TorresCBC (INCLUDES DIFF/PLT)2024-05-07 00:00:00* Test Item Value Reference Range Interpretation Comme [facility] WHITE BLOOD CELL COUNT (test code = 6690-2) 7.0 Thousand/uL RED BLOOD CELL COUNT (test code = 789-8) 5.06 Million/uL HEMOGLOBIN (test code = 718-7) 10.7 g/dL HEMATOCRIT (test code = 4544-3) 36.5 % MCV (test code = 787-2) 72.1 fL MCH (test code = 785-6) 21.1 pg MCHC (test code = 786-4) 29.3 g/dL RDW (test code = 788-0) 19.3 % PLATELET COUNT (test code = 777-3) 432 Thousand/uL MPV (test code = 776-5) 11.7 fL ABSOLUTE NEUTROPHILS (test code = 751-8) 4410 cells/uL ABSOLUTE BAND NEUTROPHILS (test code = 04965-3) DNR cells/uL ABSOLUTE METAMYELOCYTES (nathalia t code = 73723-8) DNR cells/uL ABSOLUTE MYELOCYTES (test code = 51803-8) DNR cells/uL ABSOLUTE PROMYELOCYTES (test code = 67448-6) DNR cells/uL ABSOLUTE LYMPHOCYTES (test code = 731-0) 1792 cells/uL ABSOLUTE MONOCYTES (test cod e = 742-7) 595 cells/uL ABSOLUTE EOSINOPHILS (test code = 711-2) 161 cells/uL ABSOLUTE BASOPHILS (test cod e = 704-7) 42 cells/uL ABSOLUTE BLASTS (test code = 24363-2) DNR cells/uL ABSOLUTE NUCLEATED RBC (test code = 73683-7) DNR cells/uL NEUTROPHILS (test code = 770-8) 63 % BAND NEUTROPHILS (test code = 764-1) DNR % METAMYELOCYTES (test code = 740-1) DNR % MYELOCYTES (test code = 749-2) DNR % PROMYELOCYTES (test code = 783-1) DNR % LYMPHOCYTES (test code = 736-9) 25.6 % REACTIVE LYMPHOCYTES (test code = 87703-4) DNR % MONOCYTES (test code = 5905-5) 8.5 % EOSINOPHILS (test code = 713-8) 2.3 % BASOPHILS (test code = 706-2) 0.6 % BLASTS (test code = 709-6) DNR % NUCLEATED RBC (test code = 63114-3) DNR /100WBC COMMENT(S) (test code = 8251-1) DNR Parth Aponte AustinLIPID [id number] 00:00:00* Test Item Value Reference Range Interpretation Comme nts CHOLESTEROL, TOTAL (test cod e = 2093-3) 147 mg/dL HDL CHOLESTEROL (test code = 2085-9) 50 mg/dL TRIGLYCERIDES (test code = 2571-8) 99 mg/dL LDL-CHOLESTEROL (test code = 35349-7) 79 mg/dL(calc) CHOL/HDLC RATIO (test code = 9830-1) 2.9 (calc) NON HDL CHOLESTEROL (test co de = 56802-0) 97 mg/dL(calc) Parth TorresHEMOGLOBIN [id number] 00:00:00* Test Item Value Reference Range Interpretation Comme nts HEMOGLOBIN A1c (test code = 4548-4) 6.1 %oftotalHgb Parth TorresCOMPREHENSIVE METABOLIC [id number] 00:00:00* Test Item Value Reference Range Interpretation Comme nts GLUCOSE (test code = 2345-7) 85 mg/dL UREA NITROGEN (BUN) (test code = 3094-0) 10 mg/dL CREATININE (test code = 2160-0) 0.55 mg/dL EGFR (test code = 16476-8) 117 mL/min/1.73m2 BUN/CREATININE RATIO (test code = 3097-3) SEE NOTE: (calc) SODIUM (test code = 2951-2) 138 mmol/L POTASSIUM (test code = 2823-3) 4.1 mmol/L CHLORIDE (test code = 2075-0) 103 mmol/L CARBON DIOXIDE (test code = 2027-9) 26 mmol/L CALCIUM (test code = 30340-7) 9.2 mg/dL PROTEIN, TOTAL (test code = 2885-2) 7.5 g/dL ALBUMIN (test code = 1751-7) 4.1 g/dL GLOBULIN (test code = 27031-3) 3.4 g/dL(calc) ALBUMIN/GLOBULIN RATIO (test code = 1759-0) 1.2 (calc) BILIRUBIN, TOTAL (test code = 1975-2) 0.5 mg/dL ALKALINE PHOSPHATASE (test code = 6768-6) 76 U/L AST (test code = 1920-8) 19 U/L ALT (test code = 1742-6) 17 U/L Parth TorresRETICULOCYTE [id number] 00:00:00* Test Item Value Reference Range Interpretation Comme nts RETICULOCYTE COUNT, AUTOMATE D (test code = 86235-1) 1.1 % RETICULOCYTE, ABSOLUTE (test code = 72926-0) 57375 cells/uL Parth Aponte [facility] (INCLUDES DIFF/PLT)2024-05-07 00:00:00* Test Item Value Reference Range Interpretation Comme nts WHITE BLOOD CELL COUNT (test code = 6690-2) 7.0 Thousand/uL RED BLOOD CELL COUNT (test code = 789-8) 5.06 Million/uL HEMOGLOBIN (test code = 718-7) 10.7 g/dL HEMATOCRIT (test code = 4544-3) 36.5 % MCV (test code = 787-2) 72.1 fL MCH (test code = 785-6) 21.1 pg MCHC (test code = 786-4) 29.3 g/dL RDW (test code = 788-0) 19.3 % PLATELET COUNT (test code = 777-3) 432 Thousand/uL MPV (test code = 776-5) 11.7 fL ABSOLUTE NEUTROPHILS (test code = 751-8) 4410 cells/uL ABSOLUTE BAND NEUTROPHILS (test code = 29911-9) DNR cells/uL ABSOLUTE METAMYELOCYTES (nathalia t code = 88753-8) DNR cells/uL ABSOLUTE MYELOCYTES (test code = 43880-9) DNR cells/uL ABSOLUTE PROMYELOCYTES (test code = 69615-6) DNR cells/uL ABSOLUTE LYMPHOCYTES (test code = 731-0) 1792 cells/uL ABSOLUTE MONOCYTES (test cod e = 742-7) 595 cells/uL ABSOLUTE EOSINOPHILS (test code = 711-2) 161 cells/uL ABSOLUTE BASOPHILS (test cod e = 704-7) 42 cells/uL ABSOLUTE BLASTS (test code = 35411-3) DNR cells/uL ABSOLUTE NUCLEATED RBC (test code = 08252-0) DNR cells/uL NEUTROPHILS (test code = 770-8) 63 % BAND NEUTROPHILS (test code = 764-1) DNR % METAMYELOCYTES (test code = 740-1) DNR % MYELOCYTES (test code = 749-2) DNR % PROMYELOCYTES (test code = 783-1) DNR % LYMPHOCYTES (test code = 736-9) 25.6 % REACTIVE LYMPHOCYTES (test code = 64911-5) DNR % MONOCYTES (test code = 5905-5) 8.5 % EOSINOPHILS (test code = 713-8) 2.3 % BASOPHILS (test code = 706-2) 0.6 % BLASTS (test code = 709-6) DNR % NUCLEATED RBC (test code = 96244-4) DNR /100WBC COMMENT(S) (test code = 8251-1) DNR Parth TorresLIPID [id number] 00:00:00* Test Item Value Reference Range Interpretation Comme nts CHOLESTEROL, TOTAL (test cod e = 2093-3) 147 mg/dL HDL CHOLESTEROL (test code = 2085-9) 50 mg/dL TRIGLYCERIDES (test code = 2571-8) 99 mg/dL LDL-CHOLESTEROL (test code = 49766-9) 79 mg/dL(calc) CHOL/HDLC RATIO (test code = 9830-1) 2.9 (calc) NON HDL CHOLESTEROL (test co de = 16593-8) 97 mg/dL(calc) Parth TorresHEMOGLOBIN [id number] 00:00:00* Test Item Value Reference Range Interpretation Comme nts HEMOGLOBIN A1c (test code = 4548-4) 6.1 %oftotalHgb Parth TorresCOMPREHENSIVE METABOLIC [id number] 00:00:00* Test Item Value Reference Range Interpretation Comme nts GLUCOSE (test code = 2345-7) 85 mg/dL UREA NITROGEN (BUN) (test code = 3094-0) 10 mg/dL CREATININE (test code = 2160-0) 0.55 mg/dL EGFR (test code = 48877-2) 117 mL/min/1.73m2 BUN/CREATININE RATIO (test code = 3097-3) SEE NOTE: (calc) SODIUM (test code = 2951-2) 138 mmol/L POTASSIUM (test code = 2823-3) 4.1 mmol/L CHLORIDE (test code = 2075-0) 103 mmol/L CARBON DIOXIDE (test code = 2027-9) 26 mmol/L CALCIUM (test code = 39474-7) 9.2 mg/dL PROTEIN, TOTAL (test code = 2885-2) 7.5 g/dL ALBUMIN (test code = 1751-7) 4.1 g/dL GLOBULIN (test code = 36469-8) 3.4 g/dL(calc) ALBUMIN/GLOBULIN RATIO (test code = 1759-0) 1.2 (calc) BILIRUBIN, TOTAL (test code = 1974-2) 0.5 mg/dL ALKALINE PHOSPHATASE (test code = 6768-6) 76 U/L AST (test code = 1920-8) 19 U/L ALT (test code = 1742-6) 17 U/L Parth TorresRETICULOCYTE [id number] 00:00:00* Test Item Value Reference Range Interpretation Comme nts RETICULOCYTE COUNT, AUTOMATE D (test code = 23529-3) 1.1 % RETICULOCYTE, ABSOLUTE (test code = 32178-0) 22295 cells/uL Parth TorresCBC (INCLUDES DIFF/PLT)2024-05-07 00:00:00* Test Item Value Reference Range Interpretation Comme nts WHITE BLOOD CELL COUNT (test code = 6690-2) 7.0 Thousand/uL RED BLOOD CELL COUNT (test code = 789-8) 5.06 Million/uL HEMOGLOBIN (test code = 718-7) 10.7 g/dL HEMATOCRIT (test code = 4544-3) 36.5 % MCV (test code = 787-2) 72.1 fL MCH (test code = 785-6) 21.1 pg MCHC (test code = 786-4) 29.3 g/dL RDW (test code = 788-0) 19.3 % PLATELET COUNT (test code = 777-3) 432 Thousand/uL MPV (test code = 776-5) 11.7 fL ABSOLUTE NEUTROPHILS (test code = 751-8) 4410 cells/uL ABSOLUTE BAND NEUTROPHILS (test code = 99586-3) DNR cells/uL ABSOLUTE METAMYELOCYTES (nathalia t code = 58343-8) DNR cells/uL ABSOLUTE MYELOCYTES (test code = 80701-8) DNR cells/uL ABSOLUTE PROMYELOCYTES (test code = 58986-3) DNR cells/uL ABSOLUTE LYMPHOCYTES (test code = 731-0) 1792 cells/uL ABSOLUTE MONOCYTES (test cod e = 742-7) 595 cells/uL ABSOLUTE EOSINOPHILS (test code = 711-2) 161 cells/uL ABSOLUTE BASOPHILS (test cod e = 704-7) 42 cells/uL ABSOLUTE BLASTS (test code = 45670-7) DNR cells/uL ABSOLUTE NUCLEATED RBC (test code = 54490-7) DNR cells/uL NEUTROPHILS (test code = 770-8) 63 % BAND NEUTROPHILS (test code = 764-1) DNR % METAMYELOCYTES (test code = 740-1) DNR % MYELOCYTES (test code = 749-2) DNR % PROMYELOCYTES (test code = 783-1) DNR % LYMPHOCYTES (test code = 736-9) 25.6 % REACTIVE LYMPHOCYTES (test code = 36299-8) DNR % MONOCYTES (test code = 5905-5) 8.5 % EOSINOPHILS (test code = 713-8) 2.3 % BASOPHILS (test code = 706-2) 0.6 % BLASTS (test code = 709-6) DNR % NUCLEATED RBC (test code = 79540-4) DNR /100WBC COMMENT(S) (test code = 8251-1) DNR Parth TorresLIPID [id number] 00:00:00* Test Item Value Reference Range Interpretation Comme nts CHOLESTEROL, TOTAL (test cod e = 2093-3) 147 mg/dL HDL CHOLESTEROL (test code = 2085-9) 50 mg/dL TRIGLYCERIDES (test code = 2571-8) 99 mg/dL LDL-CHOLESTEROL (test code = 80974-2) 79 mg/dL(calc) CHOL/HDLC RATIO (test code = 9830-1) 2.9 (calc) NON HDL CHOLESTEROL (test co de = 88449-2) 97 mg/dL(calc) Parth TorresHEMOGLOBIN [id number] 00:00:00* Test Item Value Reference Range Interpretation Comme nts HEMOGLOBIN A1c (test code = 4548-4) 6.1 %oftotalHgb Parth Aponte BrianCOMPREHENSIVE METABOLIC [id number] 00:00:00* Test Item Value Reference Range Interpretation Comme nts GLUCOSE (test code = 2345-7) 85 mg/dL UREA NITROGEN (BUN) (test code = 3094-0) 10 mg/dL CREATININE (test code = 2160-0) 0.55 mg/dL EGFR (test code = 32740-9) 117 mL/min/1.73m2 BUN/CREATININE RATIO (test code = 3097-3) SEE NOTE: (calc) SODIUM (test code = 2951-2) 138 mmol/L POTASSIUM (test code = 2823-3) 4.1 mmol/L CHLORIDE (test code = 2075-0) 103 mmol/L CARBON DIOXIDE (test code = 2027-9) 26 mmol/L CALCIUM (test code = 01037-0) 9.2 mg/dL PROTEIN, TOTAL (test code = 2885-2) 7.5 g/dL ALBUMIN (test code = 1751-7) 4.1 g/dL GLOBULIN (test code = 42166-2) 3.4 g/dL(calc) ALBUMIN/GLOBULIN RATIO (test code = 1759-0) 1.2 (calc) BILIRUBIN, TOTAL (test code = 1975-2) 0.5 mg/dL ALKALINE PHOSPHATASE (test code = 6768-6) 76 U/L AST (test code = 1920-8) 19 U/L ALT (test code = 1742-6) 17 U/L Parth TorresRETICULOCYTE [id number] 00:00:00* Test Item Value Reference Range Interpretation Comme [facility] RETICULOCYTE COUNT, AUTOMATE D (test code = 99993-9) 1.1 % RETICULOCYTE, ABSOLUTE (test code = 02681-6) 36328 cells/uL Parth TorresCBC (INCLUDES DIFF/PLT)2024-05-07 00:00:00* Test Item Value Reference Range Interpretation Comme [facility] WHITE BLOOD CELL COUNT (test code = 6690-2) 7.0 Thousand/uL RED BLOOD CELL COUNT (test code = 789-8) 5.06 Million/uL HEMOGLOBIN (test code = 718-7) 10.7 g/dL HEMATOCRIT (test code = 4544-3) 36.5 % MCV (test code = 787-2) 72.1 fL MCH (test code = 785-6) 21.1 pg MCHC (test code = 786-4) 29.3 g/dL RDW (test code = 788-0) 19.3 % PLATELET COUNT (test code = 777-3) 432 Thousand/uL MPV (test code = 776-5) 11.7 fL ABSOLUTE NEUTROPHILS (test code = 751-8) 4410 cells/uL ABSOLUTE BAND NEUTROPHILS (test code = 04607-9) DNR cells/uL ABSOLUTE METAMYELOCYTES (nathalia t code = 28327-4) DNR cells/uL ABSOLUTE MYELOCYTES (test code = 14120-6) DNR cells/uL ABSOLUTE PROMYELOCYTES (test code = 79727-9) DNR cells/uL ABSOLUTE LYMPHOCYTES (test code = 731-0) 1792 cells/uL ABSOLUTE MONOCYTES (test cod e = 742-7) 595 cells/uL ABSOLUTE EOSINOPHILS (test code = 711-2) 161 cells/uL ABSOLUTE BASOPHILS (test cod e = 704-7) 42 cells/uL ABSOLUTE BLASTS (test code = 60261-2) DNR cells/uL ABSOLUTE NUCLEATED RBC (test code = 87097-8) DNR cells/uL NEUTROPHILS (test code = 770-8) 63 % BAND NEUTROPHILS (test code = 764-1) DNR % METAMYELOCYTES (test code = 740-1) DNR % MYELOCYTES (test code = 749-2) DNR % PROMYELOCYTES (test code = 783-1) DNR % LYMPHOCYTES (test code = 736-9) 25.6 % REACTIVE LYMPHOCYTES (test code = 36343-2) DNR % MONOCYTES (test code = 5905-5) 8.5 % EOSINOPHILS (test code = 713-8) 2.3 % BASOPHILS (test code = 706-2) 0.6 % BLASTS (test code = 709-6) DNR % NUCLEATED RBC (test code = 01096-9) DNR /100WBC COMMENT(S) (test code = 8251-1) DNR Parth Aponte BrianLIPID [id number] 00:00:00* Test Item Value Reference Range Interpretation Comme nts CHOLESTEROL, TOTAL (test cod e = 2093-3) 147 mg/dL HDL CHOLESTEROL (test code = 2085-9) 50 mg/dL TRIGLYCERIDES (test code = 2571-8) 99 mg/dL LDL-CHOLESTEROL (test code = 84013-7) 79 mg/dL(calc) CHOL/HDLC RATIO (test code = 9830-1) 2.9 (calc) NON HDL CHOLESTEROL (test co de = 72571-3) 97 mg/dL(calc) Parth TorresHEMOGLOBIN [id number] 00:00:00* Test Item Value Reference Range Interpretation Comme [facility] HEMOGLOBIN A1c (test code = 4548-4) 6.1 %oftotalHgb Parth TorresCOMPREHENSIVE METABOLIC [id number] 00:00:00* Test Item Value Reference Range Interpretation Comme nts GLUCOSE (test code = 2345-7) 85 mg/dL UREA NITROGEN (BUN) (test code = 3094-0) 10 mg/dL CREATININE (test code = 2160-0) 0.55 mg/dL EGFR (test code = 13722-7) 117 mL/min/1.73m2 BUN/CREATININE RATIO (test code = 3097-3) SEE NOTE: (calc) SODIUM (test code = 2951-2) 138 mmol/L POTASSIUM (test code = 2823-3) 4.1 mmol/L CHLORIDE (test code = 2075-0) 103 mmol/L CARBON DIOXIDE (test code = 8-9) 26 mmol/L CALCIUM (test code = 24386-3) 9.2 mg/dL PROTEIN, TOTAL (test code = 2885-2) 7.5 g/dL ALBUMIN (test code = 1751-7) 4.1 g/dL GLOBULIN (test code = 15635-7) 3.4 g/dL(calc) ALBUMIN/GLOBULIN RATIO (test code = 1759-0) 1.2 (calc) BILIRUBIN, TOTAL (test code = 1975-2) 0.5 mg/dL ALKALINE PHOSPHATASE (test code = 6768-6) 76 U/L AST (test code = 1920-8) 19 U/L ALT (test code = 1742-6) 17 U/L Parth TorresRETICULOCYTE [id number] 00:00:00* Test Item Value Reference Range Interpretation Comme nts RETICULOCYTE COUNT, AUTOMATE D (test code = 72730-5) 1.1 % RETICULOCYTE, ABSOLUTE (test code = 55988-5) 83815 cells/uL Parth TorresCBC (INCLUDES DIFF/PLT)2024-05-07 00:00:00* Test Item Value Reference Range Interpretation Comme nts WHITE BLOOD CELL COUNT (test code = 6690-2) 7.0 Thousand/uL RED BLOOD CELL COUNT (test code = 789-8) 5.06 Million/uL HEMOGLOBIN (test code = 718-7) 10.7 g/dL HEMATOCRIT (test code = 4544-3) 36.5 % MCV (test code = 787-2) 72.1 fL MCH (test code = 785-6) 21.1 pg MCHC (test code = 786-4) 29.3 g/dL RDW (test code = 788-0) 19.3 % PLATELET COUNT (test code = 777-3) 432 Thousand/uL MPV (test code = 776-5) 11.7 fL ABSOLUTE NEUTROPHILS (test code = 751-8) 4410 cells/uL ABSOLUTE BAND NEUTROPHILS (test code = 01936-2) DNR cells/uL ABSOLUTE METAMYELOCYTES (nathalia t code = 70804-2) DNR cells/uL ABSOLUTE MYELOCYTES (test code = 50227-1) DNR cells/uL ABSOLUTE PROMYELOCYTES (test code = 98214-8) DNR cells/uL ABSOLUTE LYMPHOCYTES (test code = 731-0) 1792 cells/uL ABSOLUTE MONOCYTES (test cod e = 742-7) 595 cells/uL ABSOLUTE EOSINOPHILS (test code = 711-2) 161 cells/uL ABSOLUTE BASOPHILS (test cod e = 704-7) 42 cells/uL ABSOLUTE BLASTS (test code = 70874-1) DNR cells/uL ABSOLUTE NUCLEATED RBC (test code = 62998-9) DNR cells/uL NEUTROPHILS (test code = 770-8) 63 % BAND NEUTROPHILS (test code = 764-1) DNR % METAMYELOCYTES (test code = 740-1) DNR % MYELOCYTES (test code = 749-2) DNR % PROMYELOCYTES (test code = 783-1) DNR % LYMPHOCYTES (test code = 736-9) 25.6 % REACTIVE LYMPHOCYTES (test code = 86553-2) DNR % MONOCYTES (test code = 5905-5) 8.5 % EOSINOPHILS (test code = 713-8) 2.3 % BASOPHILS (test code = 706-2) 0.6 % BLASTS (test code = 709-6) DNR % NUCLEATED RBC (test code = 15548-2) DNR /100WBC COMMENT(S) (test code = 8251-1) DNR Parth Aponte BrianLIPID [id number] 00:00:00* Test Item Value Reference Range Interpretation Comme nts CHOLESTEROL, TOTAL (test cod e = 2093-3) 147 mg/dL HDL CHOLESTEROL (test code = 2085-9) 50 mg/dL TRIGLYCERIDES (test code = 2571-8) 99 mg/dL LDL-CHOLESTEROL (test code = 64591-4) 79 mg/dL(calc) CHOL/HDLC RATIO (test code = 9830-1) 2.9 (calc) NON HDL CHOLESTEROL (test co de = 45128-7) 97 mg/dL(calc) Parth TorresHEMOGLOBIN [id number] 00:00:00* Test Item Value Reference Range Interpretation Comme nts HEMOGLOBIN A1c (test code = 4548-4) 6.1 %oftotalHgb Parth TorresCOMPREHENSIVE METABOLIC [id number] 00:00:00* Test Item Value Reference Range Interpretation Comme nts GLUCOSE (test code = 2345-7) 85 mg/dL UREA NITROGEN (BUN) (test code = 3094-0) 10 mg/dL CREATININE (test code = 2160-0) 0.55 mg/dL EGFR (test code = 77802-8) 117 mL/min/1.73m2 BUN/CREATININE RATIO (test code = 3097-3) SEE NOTE: (calc) SODIUM (test code = 2951-2) 138 mmol/L POTASSIUM (test code = 2823-3) 4.1 mmol/L CHLORIDE (test code = 2075-0) 103 mmol/L CARBON DIOXIDE (test code = 2027-9) 26 mmol/L CALCIUM (test code = 31039-7) 9.2 mg/dL PROTEIN, TOTAL (test code = 2885-2) 7.5 g/dL ALBUMIN (test code = 1751-7) 4.1 g/dL GLOBULIN (test code = 52133-4) 3.4 g/dL(calc) ALBUMIN/GLOBULIN RATIO (test code = 1759-0) 1.2 (calc) BILIRUBIN, TOTAL (test code = 1975-2) 0.5 mg/dL ALKALINE PHOSPHATASE (test code = 6768-6) 76 U/L AST (test code = 1920-8) 19 U/L ALT (test code = 1742-6) 17 U/L Parth TorresRETICULOCYTE [id number] 00:00:00* Test Item Value Reference Range Interpretation Comme nts RETICULOCYTE COUNT, AUTOMATE D (test code = 00942-5) 1.1 % RETICULOCYTE, ABSOLUTE (test code = 58072-8) 22063 cells/uL Parth TorresCBC (INCLUDES DIFF/PLT)2024-05-07 00:00:00* Test Item Value Reference Range Interpretation Comme nts WHITE BLOOD CELL COUNT (test code = 6690-2) 7.0 Thousand/uL RED BLOOD CELL COUNT (test code = 789-8) 5.06 Million/uL HEMOGLOBIN (test code = 718-7) 10.7 g/dL HEMATOCRIT (test code = 4544-3) 36.5 % MCV (test code = 787-2) 72.1 fL MCH (test code = 785-6) 21.1 pg MCHC (test code = 786-4) 29.3 g/dL RDW (test code = 788-0) 19.3 % PLATELET COUNT (test code = 777-3) 432 Thousand/uL MPV (test code = 776-5) 11.7 fL ABSOLUTE NEUTROPHILS (test code = 751-8) 4410 cells/uL ABSOLUTE BAND NEUTROPHILS (test code = 93462-8) DNR cells/uL ABSOLUTE METAMYELOCYTES (nathalia t code = 30650-3) DNR cells/uL ABSOLUTE MYELOCYTES (test code = 40994-0) DNR cells/uL ABSOLUTE PROMYELOCYTES (test code = 21949-7) DNR cells/uL ABSOLUTE LYMPHOCYTES (test code = 731-0) 1792 cells/uL ABSOLUTE MONOCYTES (test cod e = 742-7) 595 cells/uL ABSOLUTE EOSINOPHILS (test code = 711-2) 161 cells/uL ABSOLUTE BASOPHILS (test cod e = 704-7) 42 cells/uL ABSOLUTE BLASTS (test code = 71804-3) DNR cells/uL ABSOLUTE NUCLEATED RBC (test code = 93915-9) DNR cells/uL NEUTROPHILS (test code = 770-8) 63 % BAND NEUTROPHILS (test code = 764-1) DNR % METAMYELOCYTES (test code = 740-1) DNR % MYELOCYTES (test code = 749-2) DNR % PROMYELOCYTES (test code = 783-1) DNR % LYMPHOCYTES (test code = 736-9) 25.6 % REACTIVE LYMPHOCYTES (test code = 07894-1) DNR % MONOCYTES (test code = 5905-5) 8.5 % EOSINOPHILS (test code = 713-8) 2.3 % BASOPHILS (test code = 706-2) 0.6 % BLASTS (test code = 709-6) DNR % NUCLEATED RBC (test code = 72969-4) DNR /100WBC COMMENT(S) (test code = 8251-1) DNR Parth TorresLIPID [id number] 00:00:00* Test Item Value Reference Range Interpretation Comme nts CHOLESTEROL, TOTAL (test cod e = 2093-3) 147 mg/dL HDL CHOLESTEROL (test code = 2085-9) 50 mg/dL TRIGLYCERIDES (test code = 2571-8) 99 mg/dL LDL-CHOLESTEROL (test code = 95369-6) 79 mg/dL(calc) CHOL/HDLC RATIO (test code = 9830-1) 2.9 (calc) NON HDL CHOLESTEROL (test co de = 08411-1) 97 mg/dL(calc) Parth TorresHEMOGLOBIN [id number] 00:00:00* Test Item Value Reference Range Interpretation Comme nts HEMOGLOBIN A1c (test code = 4548-4) 6.1 %oftotalHgb Parth TorresCOMPREHENSIVE METABOLIC [id number] 00:00:00* Test Item Value Reference Range Interpretation Comme nts GLUCOSE (test code = 2345-7) 85 mg/dL UREA NITROGEN (BUN) (test code = 3094-0) 10 mg/dL CREATININE (test code = 2160-0) 0.55 mg/dL EGFR (test code = 75960-4) 117 mL/min/1.73m2 BUN/CREATININE RATIO (test code = 3097-3) SEE NOTE: (calc) SODIUM (test code = 2951-2) 138 mmol/L POTASSIUM (test code = 2823-3) 4.1 mmol/L CHLORIDE (test code = 2075-0) 103 mmol/L CARBON DIOXIDE (test code = 2027-9) 26 mmol/L CALCIUM (test code = 58573-1) 9.2 mg/dL PROTEIN, TOTAL (test code = 2885-2) 7.5 g/dL ALBUMIN (test code = 1751-7) 4.1 g/dL GLOBULIN (test code = 96110-1) 3.4 g/dL(calc) ALBUMIN/GLOBULIN RATIO (test code = 1759-0) 1.2 (calc) BILIRUBIN, TOTAL (test code = 1975-2) 0.5 mg/dL ALKALINE PHOSPHATASE (test code = 6768-6) 76 U/L AST (test code = 1920-8) 19 U/L ALT (test code = 1742-6) 17 U/L Parth TorresPreparjakob Packed RBC (in units), 1 [id number] 12:47:13* Test Item Value Reference Range Interpretation Comme nts Cross Match Result (test code = 4409) Compatible ISBT Blood Type Code (test code = 377931) 5100 Unit Blood Type (test code = 4410) O Pos Unit Number (test code = 4411) [id number] Blood Expiration Date & Time (test code = 120745) [id number] Status Information (test code = 4412) Issued Product Identification (test code = 4413) Red Blood Cells Product Code (test code = 4414) [id number] Performed at [facility] Laboratory Services - [facility] Blood [address] [address] Free: [phone] No. [id number] [facility] GLUCOSE (AUTOMATED)2023-10-16 12:03:34* Test Item Value Reference Range Interpretation Comme nts POCT GLU (test code = 6014917589) 109 mg/dL 70-110 Lab Interpretation (test cod e = 03665-0) Normal [facility] GLUCOSE (AUTOMATED)2023-10-16 12:03:34* Test Item Value Reference Range Interpretation Comme nts POCT GLU (test code = 8513343624) 109 mg/dL 70-110 Lab Interpretation (test cod e = 29885-5) [facility] This is a pre-surgical type and screen. ONCE [id number] 11:39:00* Test Item Value Reference Range Interpretation Comme nts ABO & RH (test code = 20) O POSITIVE IAT (test code = 1185) [facility] This is a pre-surgical type and screen. ONCE [id number] 11:39:00* Test Item Value Reference Range Interpretation Comme nts ABO & RH (test code = 20) O POSITIVE IAT (test code = 1185) Negative [facility] without [id number] 11:25:57* Test Item Value Reference Range Interpretation [...] 365 166-358 H MPV (test code = 98475-3) 10.0 fL 9.5-12.9 RDW-CV (test code = 788-0) 18.6 % 12.0-15.5 H RDW-SD (test code = 36735-4) 39.2 fL 39.0-49.9 NRBC x10^3 (test code = 7539532789) See_Comment [Automated messa ge] The system which generated this result transmitted reference range: 10*3/?L. The reference range was not used to interpret this result as normal/abnormal. NRBC/100 WBC (test code = 7849204605) 0.0 0.0-10.0 IPF % (test code = 4635163879) Lab Interpretation (test code = 81119-3) Abnormal [facility] without [id number] 11:25:57* Test Item Value Reference Range Interpretation [...] 365 166-358 H MPV (test code = 58911-1) 10.0 fL 9.5-12.9 RDW-CV (test code = 788-0) 18.6 % 12.0-15.5 H RDW-SD (test code = 94982-0) 39.2 fL 39.0-49.9 NRBC x10^3 (test code = 6295550924) See_Comment [Automated messa ge] The system which generated this result transmitted reference range: 10*3/?L. The reference range was not used to interpret this result as normal/abnormal. NRBC/100 WBC (test code = 0710692055) 0.0 0.0-10.0 IPF % (test code = 7924444466) Lab Interpretation (test code = 43279-7) Abnormal [facility] [id number] 10:50:00* Test Item Value Reference Range Interpretation Comme nts POCT PREG (test code = 1605) Negative On board controls acceptable with C Line (test code = 3574) Yes POCT PREG LOT # (test code = 3575) POCT PREG TEST DATE ( test code = 3576) Lab Interpretation (test cod e = 68216-0) Normal [facility] [id number] 10:50:00* Test Item Value Reference Range Interpretation Comme nts POCT PREG (test code = 1605) Negative On board controls acceptable with C Line (test code = 3574) Yes POCT PREG LOT # (test code = 3575) POCT PREG TEST DATE ( test code = 3576) Lab Interpretation (test cod e = 83533-6) Normal [facility] [id number] 10:25:00* Test Item Value Reference Range Interpretation Comme nts POCT PREG (test code = 1605) Negative On board controls acceptable with C Line (test code = 3574) Yes POCT PREG LOT # (test code = 3575) POCT PREG TEST DATE ( test code = 3576) [facility] [id number] 10:25:00* Test Item Value Reference Range Interpretation Comme nts POCT PREG (test code = 1605) Negative On board controls acceptable with C Line (test code = 3574) Yes POCT PREG LOT # (test code = 3575) POCT PREG TEST DATE ( test code = 3576) [facility] [id number] 18:30:00* Test Item Value Reference Range Interpretation Comme nts POCT PREG (test code = 1605) Negative On board controls acceptable with C Line (test code = 3574) Yes POCT PREG LOT # (test code = 3575) POCT PREG TEST DATE ( test code = 3576) Lab Interpretation (test cod e = 22917-0) Normal [facility] [id number] 18:30:00* Test Item Value Reference Range Interpretation Comme nts POCT PREG (test code = 1605) Negative On board controls acceptable with C Line (test code = 3574) Yes POCT PREG LOT # (test code = 3575) POCT PREG TEST DATE ( test code = 3576) Lab Interpretation (test cod e = 44399-1) Normal [facility] [id number] 18:30:00* Test Item Value Reference Range Interpretation Comme nts POCT PREG (test code = 1605) Negative On board controls acceptable with C Line (test code = 3574) Yes POCT PREG LOT # (test code = 3575) POCT PREG TEST DATE ( test code = 3576) Lab Interpretation (test cod e = 44890-6) Normal [facility] [id number] 18:30:00* Test Item Value Reference Range Interpretation Comme nts POCT PREG (test code = 1605) Negative On board controls acceptable with C Line (test code = 3574) Yes POCT PREG LOT # (test code = 3575) POCT PREG TEST DATE ( test code = 3576) Lab Interpretation (test cod e = 58857-0) [facility] [id number] 00:00:00* Test Item Value Reference Range Interpretation Comme nts Occult Blood, Fecal, IA (nathalia t code = 50458-4) Negative [facility], Fecal, [id number] 00:00:00* Test Item Value Reference Range Interpretation Comme nts Occult Blood, Fecal, IA (nathalia t code = 80082-8) Negative [facility], Fecal, [id number] 00:00:00* Test Item Value Reference Range Interpretation Comme nts Occult Blood, Fecal, IA (nathalia t code = 55093-8) Negative [facility], Fecal, [id number] 00:00:00* Test Item Value Reference Range Interpretation Comme nts Occult Blood, Fecal, IA (nathalia t code = 90995-2) Negative [facility], Fecal, [id number] 00:00:00* Test Item Value Reference Range Interpretation Comme nts Occult Blood, Fecal, IA (nathalia t code = 09674-5) Negative [facility], Fecal, [id number] 00:00:00* Test Item Value Reference Range Interpretation Comme nts Occult Blood, Fecal, IA (nathalia t code = 82031-8) Negative [facility], Fecal, [id number] 00:00:00* Test Item Value Reference Range Interpretation Comme nts Occult Blood, Fecal, IA (nathalia t code = 67602-1) Negative [facility] Blood, Fecal, [id number] 00:00:00* Test Item Value Reference Range Interpretation Comme nts Occult Blood, Fecal, IA (nathalia t code = 26458-3) Negative Parth F AustinALBUMIN/CREATININE RATIO, RANDOM [id number] 00:00:00* Test Item Value Reference Range Interpretation Comme nts CREATININE, URINE, CONC. (te st code = 2072) 44.2 MG/DL ALBUMIN, URINE, RANDOM (test code = 29701) <0.2 MG/DL CALC ALBUMIN/CREAT, RND (nathalia t code = 06710) <5 MG/G Parth TorresCOMPREHENSIVE METABOLIC [id number] 00:00:00* Test Item Value Reference Range Interpretation Comme nts GLUCOSE (test code = 2217) 87 MG/DL BUN (test code = 2208) 6 MG/DL CREATININE (test code = 2214) 0.57 MG/DL eGFR (2020 CKD-EPI) (test code = 53808) 117 ML/MIN/1.73 CALC BUN/CREAT (test code = 2235) 11 RATIO SODIUM (test code = 2231) 137 MEQ/L POTASSIUM (test code = 2228) 4.0 MEQ/L CHLORIDE (test code = 2215) 101 MEQ/L CARBON DIOXIDE (test code = 2206) 24 MEQ/L CALCIUM (test code = 2209) 8.8 MG/DL PROTEIN, TOTAL (test code = 2229) 7.6 G/DL ALBUMIN (test code = 2201) 4.5 G/DL CALC GLOBULIN (test code = 2240) 3.1 G/DL CALC A/G RATIO (test code = 2234) 1.5 RATIO BILIRUBIN, TOTAL (test code = 2207) 0.3 MG/DL ALKALINE PHOSPHATASE (test code = 2204) 62 U/L AST (test code = 2218) 14 U/L ALT (test code = 2219) 10 U/L Parth TorresHEMOGLOBIN [id number] 00:00:00* Test Item Value Reference Range Interpretation Comme gurpreet HEMOGLOBIN A1c (test code = 37833) 5.6 % Parth TorresLIPID [id number] 00:00:00* Test Item Value Reference Range Interpretation Comme nts CHOLESTEROL (test code = 2210) 133 MG/DL TRIGLYCERIDES (test code = 2232) 89 MG/DL HDL CHOLESTEROL (test code = 2220) 44 MG/DL CALC LDL CHOL (test code = 2237) 72 MG/DL RISK RATIO LDL/HDL (test cod e = 2238) 1.64 RATIO Parth TorresCBC W/AUTO [id number] 00:00:00* Test Item Value Reference Range Interpretation Comme nts WBC (test code = 1001) 7.4 K/UL RBC (test code = 1002) 4.82 M/UL HEMOGLOBIN (test code = 1003) 8.0 G/DL HEMATOCRIT (test code = 1004) 30.5 % MCV (test code = 1005) 63.3 fL MCH (test code = 1006) 16.6 PG MCHC (test code = 1007) 26.2 G/DL RDW (test code = 1038) 18.7 % NEUTROPHILS (test code = 1008) 66.5 % LYMPHOCYTES (test code = 1010) 23.0 % MONOCYTES (test code = 1011) 7.9 % EOSINOPHILS (test code = 1012) 1.7 % BASOPHILS (test code = 1013) 0.5 % IMMATURE GRANULOCYTES (test code = 1036) 0.4 % NUCLEATED RBCS (test code = 1065) 0.0 /100WBC'S PLATELET COUNT (test code = 1015) 411 K/UL ABSOLUTE NEUTROPHILS (test c ode = 1066) 4.93 K/UL ABSOLUTE LYMPHOCYTES (test c ode = 1067) 1.71 K/UL ABSOLUTE MONOCYTES (test cod e = 1068) 0.59 K/UL ABSOLUTE EOSINOPHILS (test c ode = 1040) 0.13 K/UL ABSOLUTE BASOPHILS (test cod e = 1069) 0.04 K/UL ABS IMMATURE GRANULOCYTES (t est code = 1020) 0.03 K/UL ABS NUCLEATED RBCS (test cod e = 98452) 0.00 K/UL COMMENTS (test code = 1016) (NOTE) Parth Aponte BrianALBUMIN/CREATININE RATIO, RANDOM [id number] 00:00:00* Test Item Value Reference Range Interpretation Comme nts CREATININE, URINE, CONC. (te st code = 2072) 44.2 MG/DL ALBUMIN, URINE, RANDOM (test code = 26330) <0.2 MG/DL CALC ALBUMIN/CREAT, RND (nathalia t code = 72549) <5 MG/G Parth Aponte BrianCOMPREHENSIVE METABOLIC [id number] 00:00:00* Test Item Value Reference Range Interpretation Comme nts GLUCOSE (test code = 2217) 87 MG/DL BUN (test code = 2208) 6 MG/DL CREATININE (test code = 2214) 0.57 MG/DL eGFR (2020 CKD-EPI) (test code = 07758) 117 ML/MIN/1.73 CALC BUN/CREAT (test code = 2235) 11 RATIO SODIUM (test code = 2231) 137 MEQ/L POTASSIUM (test code = 2228) 4.0 MEQ/L CHLORIDE (test code = 2215) 101 MEQ/L CARBON DIOXIDE (test code = 2206) 24 MEQ/L CALCIUM (test code = 2209) 8.8 MG/DL PROTEIN, TOTAL (test code = 2229) 7.6 G/DL ALBUMIN (test code = 2201) 4.5 G/DL CALC GLOBULIN (test code = 2240) 3.1 G/DL CALC A/G RATIO (test code = 2234) 1.5 RATIO BILIRUBIN, TOTAL (test code = 2207) 0.3 MG/DL ALKALINE PHOSPHATASE (test code = 2204) 62 U/L AST (test code = 2218) 14 U/L ALT (test code = 2219) 10 U/L Parth TorresHEMOGLOBIN [id number] 00:00:00* Test Item Value Reference Range Interpretation Comme [facility] HEMOGLOBIN A1c (test code = 68513) 5.6 % Parth TorresLIPID [id number] 00:00:00* Test Item Value Reference Range Interpretation Comme nts CHOLESTEROL (test code = 2210) 133 MG/DL TRIGLYCERIDES (test code = 2232) 89 MG/DL HDL CHOLESTEROL (test code = 2220) 44 MG/DL CALC LDL CHOL (test code = 2237) 72 MG/DL RISK RATIO LDL/HDL (test cod e = 2238) 1.64 RATIO Parth TorresCBC W/AUTO [id number] 00:00:00* Test Item Value Reference Range Interpretation Comme nts WBC (test code = 1001) 7.4 K/UL RBC (test code = 1002) 4.82 M/UL HEMOGLOBIN (test code = 1003) 8.0 G/DL HEMATOCRIT (test code = 1004) 30.5 % MCV (test code = 1005) 63.3 fL MCH (test code = 1006) 16.6 PG MCHC (test code = 1007) 26.2 G/DL RDW (test code = 1038) 18.7 % NEUTROPHILS (test code = 1008) 66.5 % LYMPHOCYTES (test code = 1010) 23.0 % MONOCYTES (test code = 1011) 7.9 % EOSINOPHILS (test code = 1012) 1.7 % BASOPHILS (test code = 1013) 0.5 % IMMATURE GRANULOCYTES (test code = 1036) 0.4 % NUCLEATED RBCS (test code = 1065) 0.0 /100WBC'S PLATELET COUNT (test code = 1015) 411 K/UL ABSOLUTE NEUTROPHILS (test c ode = 1066) 4.93 K/UL ABSOLUTE LYMPHOCYTES (test c ode = 1067) 1.71 K/UL ABSOLUTE MONOCYTES (test cod e = 1068) 0.59 K/UL ABSOLUTE EOSINOPHILS (test c ode = 1040) 0.13 K/UL ABSOLUTE BASOPHILS (test cod e = 1069) 0.04 K/UL ABS IMMATURE GRANULOCYTES (t est code = 1020) 0.03 K/UL ABS NUCLEATED RBCS (test cod e = 46673) 0.00 K/UL COMMENTS (test code = 1016) (NOTE) Parth Aponte BrianALBUMIN/CREATININE RATIO, RANDOM [id number] 00:00:00* Test Item Value Reference Range Interpretation Comme nts CREATININE, URINE, CONC. (te st code = 2072) 44.2 MG/DL ALBUMIN, URINE, RANDOM (test code = 91499) <0.2 MG/DL CALC ALBUMIN/CREAT, RND (nathalia t code = 86279) <5 MG/G Parth Aponte BrianCOMPREHENSIVE METABOLIC [id number] 00:00:00* Test Item Value Reference Range Interpretation Comme nts GLUCOSE (test code = 2217) 87 MG/DL BUN (test code = 2208) 6 MG/DL CREATININE (test code = 2214) 0.57 MG/DL eGFR (2020 CKD-EPI) (test code = 08142) 117 ML/MIN/1.73 CALC BUN/CREAT (test code = 2235) 11 RATIO SODIUM (test code = 2231) 137 MEQ/L POTASSIUM (test code = 2228) 4.0 MEQ/L CHLORIDE (test code = 2215) 101 MEQ/L CARBON DIOXIDE (test code = 2206) 24 MEQ/L CALCIUM (test code = 2209) 8.8 MG/DL PROTEIN, TOTAL (test code = 2229) 7.6 G/DL ALBUMIN (test code = 2201) 4.5 G/DL CALC GLOBULIN (test code = 2240) 3.1 G/DL CALC A/G RATIO (test code = 2234) 1.5 RATIO BILIRUBIN, TOTAL (test code = 2207) 0.3 MG/DL ALKALINE PHOSPHATASE (test code = 2204) 62 U/L AST (test code = 2218) 14 U/L ALT (test code = 2219) 10 U/L Parth TorresHEMOGLOBIN [id number] 00:00:00* Test Item Value Reference Range Interpretation Comme gurpreet HEMOGLOBIN A1c (test code = 25465) 5.6 % Parth TorresLIPID [id number] 00:00:00* Test Item Value Reference Range Interpretation Comme nts CHOLESTEROL (test code = 2210) 133 MG/DL TRIGLYCERIDES (test code = 2232) 89 MG/DL HDL CHOLESTEROL (test code = 2220) 44 MG/DL CALC LDL CHOL (test code = 2237) 72 MG/DL RISK RATIO LDL/HDL (test cod e = 2238) 1.64 RATIO Parth TorresCBC W/AUTO [id number] 00:00:00* Test Item Value Reference Range Interpretation Comme nts WBC (test code = 1001) 7.4 K/UL RBC (test code = 1002) 4.82 M/UL HEMOGLOBIN (test code = 1003) 8.0 G/DL HEMATOCRIT (test code = 1004) 30.5 % MCV (test code = 1005) 63.3 fL MCH (test code = 1006) 16.6 PG MCHC (test code = 1007) 26.2 G/DL RDW (test code = 1038) 18.7 % NEUTROPHILS (test code = 1008) 66.5 % LYMPHOCYTES (test code = 1010) 23.0 % MONOCYTES (test code = 1011) 7.9 % EOSINOPHILS (test code = 1012) 1.7 % BASOPHILS (test code = 1013) 0.5 % IMMATURE GRANULOCYTES (test code = 1036) 0.4 % NUCLEATED RBCS (test code = 1065) 0.0 /100WBC'S PLATELET COUNT (test code = 1015) 411 K/UL ABSOLUTE NEUTROPHILS (test c ode = 1066) 4.93 K/UL ABSOLUTE LYMPHOCYTES (test c ode = 1067) 1.71 K/UL ABSOLUTE MONOCYTES (test cod e = 1068) 0.59 K/UL ABSOLUTE EOSINOPHILS (test c ode = 1040) 0.13 K/UL ABSOLUTE BASOPHILS (test cod e = 1069) 0.04 K/UL ABS IMMATURE GRANULOCYTES (t est code = 1020) 0.03 K/UL ABS NUCLEATED RBCS (test cod e = 48181) 0.00 K/UL COMMENTS (test code = 1016) (NOTE) Parth Aponte AustinALBUMIN/CREATININE RATIO, RANDOM [id number] 00:00:00* Test Item Value Reference Range Interpretation Comme nts CREATININE, URINE, CONC. (te st code = 2072) 44.2 MG/DL ALBUMIN, URINE, RANDOM (test code = 14130) <0.2 MG/DL CALC ALBUMIN/CREAT, RND (nathalia t code = 32721) <5 MG/G Parth TorresCOMPREHENSIVE METABOLIC [id number] 00:00:00* Test Item Value Reference Range Interpretation Comme nts GLUCOSE (test code = 7) 87 MG/DL BUN (test code = 2208) 6 MG/DL CREATININE (test code = 2214) 0.57 MG/DL eGFR (2020 CKD-EPI) (test code = 26859) 117 ML/MIN/1.73 CALC BUN/CREAT (test code = 2235) 11 RATIO SODIUM (test code = 2231) 137 MEQ/L POTASSIUM (test code = 2228) 4.0 MEQ/L CHLORIDE (test code = 2215) 101 MEQ/L CARBON DIOXIDE (test code = 2206) 24 MEQ/L CALCIUM (test code = 2209) 8.8 MG/DL PROTEIN, TOTAL (test code = 2229) 7.6 G/DL ALBUMIN (test code = 2201) 4.5 G/DL CALC GLOBULIN (test code = 2240) 3.1 G/DL CALC A/G RATIO (test code = 2234) 1.5 RATIO BILIRUBIN, TOTAL (test code = 2207) 0.3 MG/DL ALKALINE PHOSPHATASE (test code = 2204) 62 U/L AST (test code = 2218) 14 U/L ALT (test code = 2219) 10 U/L Parth TorresHEMOGLOBIN [id number] 00:00:00* Test Item Value Reference Range Interpretation Comme nts HEMOGLOBIN A1c (test code = 48257) 5.6 % Parth TorresLIPID [id number] 00:00:00* Test Item Value Reference Range Interpretation Comme nts CHOLESTEROL (test code = 2210) 133 MG/DL TRIGLYCERIDES (test code = 2232) 89 MG/DL HDL CHOLESTEROL (test code = 2220) 44 MG/DL CALC LDL CHOL (test code = 2237) 72 MG/DL RISK RATIO LDL/HDL (test cod e = 2238) 1.64 RATIO Parth TorresCBC W/AUTO [id number] 00:00:00* Test Item Value Reference Range Interpretation Comme nts WBC (test code = 1001) 7.4 K/UL RBC (test code = 1002) 4.82 M/UL HEMOGLOBIN (test code = 1003) 8.0 G/DL HEMATOCRIT (test code = 1004) 30.5 % MCV (test code = 1005) 63.3 fL MCH (test code = 1006) 16.6 PG MCHC (test code = 1007) 26.2 G/DL RDW (test code = 1038) 18.7 % NEUTROPHILS (test code = 1008) 66.5 % LYMPHOCYTES (test code = 1010) 23.0 % MONOCYTES (test code = 1011) 7.9 % EOSINOPHILS (test code = 1012) 1.7 % BASOPHILS (test code = 1013) 0.5 % IMMATURE GRANULOCYTES (test code = 1036) 0.4 % NUCLEATED RBCS (test code = 1065) 0.0 /100WBC'S PLATELET COUNT (test code = 1015) 411 K/UL ABSOLUTE NEUTROPHILS (test c ode = 1066) 4.93 K/UL ABSOLUTE LYMPHOCYTES (test c ode = 1067) 1.71 K/UL ABSOLUTE MONOCYTES (test cod e = 1068) 0.59 K/UL ABSOLUTE EOSINOPHILS (test c ode = 1040) 0.13 K/UL ABSOLUTE BASOPHILS (test cod e = 1069) 0.04 K/UL ABS IMMATURE GRANULOCYTES (t est code = 1020) 0.03 K/UL ABS NUCLEATED RBCS (test cod e = 85341) 0.00 K/UL COMMENTS (test code = 1016) (NOTE) Parth TorresALBUMIN/CREATININE RATIO, RANDOM [id number] 00:00:00* Test Item Value Reference Range Interpretation Comme nts CREATININE, URINE, CONC. (te st code = 2072) 44.2 MG/DL ALBUMIN, URINE, RANDOM (test code = 87273) <0.2 MG/DL CALC ALBUMIN/CREAT, RND (nathalia t code = 88489) <5 MG/G Parth TorresCOMPREHENSIVE METABOLIC [id number] 00:00:00* Test Item Value Reference Range Interpretation Comme nts GLUCOSE (test code = 2217) 87 MG/DL BUN (test code = 2208) 6 MG/DL CREATININE (test code = 2214) 0.57 MG/DL eGFR (2020 CKD-EPI) (test code = 93612) 117 ML/MIN/1.73 CALC BUN/CREAT (test code = 2235) 11 RATIO SODIUM (test code = 2231) 137 MEQ/L POTASSIUM (test code = 2228) 4.0 MEQ/L CHLORIDE (test code = 2215) 101 MEQ/L CARBON DIOXIDE (test code = 2206) 24 MEQ/L CALCIUM (test code = 2209) 8.8 MG/DL PROTEIN, TOTAL (test code = 2229) 7.6 G/DL ALBUMIN (test code = 2201) 4.5 G/DL CALC GLOBULIN (test code = 2240) 3.1 G/DL CALC A/G RATIO (test code = 2234) 1.5 RATIO BILIRUBIN, TOTAL (test code = 2207) 0.3 MG/DL ALKALINE PHOSPHATASE (test code = 2204) 62 U/L AST (test code = 2218) 14 U/L ALT (test code = 2219) 10 U/L Parth TorresHEMOGLOBIN [id number] 00:00:00* Test Item Value Reference Range Interpretation Comme gurpreet HEMOGLOBIN A1c (test code = 82829) 5.6 % Parth TorresLIPID [id number] 00:00:00* Test Item Value Reference Range Interpretation Comme nts CHOLESTEROL (test code = 2210) 133 MG/DL TRIGLYCERIDES (test code = 2232) 89 MG/DL HDL CHOLESTEROL (test code = 2220) 44 MG/DL CALC LDL CHOL (test code = 2237) 72 MG/DL RISK RATIO LDL/HDL (test cod e = 2238) 1.64 RATIO Parth TorresCBC W/AUTO [id number] 00:00:00* Test Item Value Reference Range Interpretation Comme nts WBC (test code = 1001) 7.4 K/UL RBC (test code = 1002) 4.82 M/UL HEMOGLOBIN (test code = 1003) 8.0 G/DL HEMATOCRIT (test code = 1004) 30.5 % MCV (test code = 1005) 63.3 fL MCH (test code = 1006) 16.6 PG MCHC (test code = 1007) 26.2 G/DL RDW (test code = 1038) 18.7 % NEUTROPHILS (test code = 1008) 66.5 % LYMPHOCYTES (test code = 1010) 23.0 % MONOCYTES (test code = 1011) 7.9 % EOSINOPHILS (test code = 1012) 1.7 % BASOPHILS (test code = 1013) 0.5 % IMMATURE GRANULOCYTES (test code = 1036) 0.4 % NUCLEATED RBCS (test code = 1065) 0.0 /100WBC'S PLATELET COUNT (test code = 1015) 411 K/UL ABSOLUTE NEUTROPHILS (test c ode = 1066) 4.93 K/UL ABSOLUTE LYMPHOCYTES (test c ode = 1067) 1.71 K/UL ABSOLUTE MONOCYTES (test cod e = 1068) 0.59 K/UL ABSOLUTE EOSINOPHILS (test c ode = 1040) 0.13 K/UL ABSOLUTE BASOPHILS (test cod e = 1069) 0.04 K/UL ABS IMMATURE GRANULOCYTES (t est code = 1020) 0.03 K/UL ABS NUCLEATED RBCS (test cod e = 44615) 0.00 K/UL COMMENTS (test code = 1016) (NOTE) Parth TorresALBUMIN/CREATININE RATIO, RANDOM [id number] 00:00:00* Test Item Value Reference Range Interpretation Comme nts CREATININE, URINE, CONC. (te st code = 2072) 44.2 MG/DL ALBUMIN, URINE, RANDOM (test code = 65125) <0.2 MG/DL CALC ALBUMIN/CREAT, RND (nathalia t code = 18272) <5 MG/G Parth TorresCOMPREHENSIVE METABOLIC [id number] 00:00:00* Test Item Value Reference Range Interpretation Comme nts GLUCOSE (test code = 2217) 87 MG/DL BUN (test code = 2208) 6 MG/DL CREATININE (test code = 2214) 0.57 MG/DL eGFR (2020 CKD-EPI) (test code = 49472) 117 ML/MIN/1.73 CALC BUN/CREAT (test code = 2235) 11 RATIO SODIUM (test code = 2231) 137 MEQ/L POTASSIUM (test code = 2228) 4.0 MEQ/L CHLORIDE (test code = 2215) 101 MEQ/L CARBON DIOXIDE (test code = 2206) 24 MEQ/L CALCIUM (test code = 2209) 8.8 MG/DL PROTEIN, TOTAL (test code = 2229) 7.6 G/DL ALBUMIN (test code = 220) 4.5 G/DL CALC GLOBULIN (test code = 2240) 3.1 G/DL CALC A/G RATIO (test code = 223) 1.5 RATIO BILIRUBIN, TOTAL (test code = 2206) 0.3 MG/DL ALKALINE PHOSPHATASE (test code = 2203) 62 U/L AST (test code = 221) 14 U/L ALT (test code = 221) 10 U/L Parth TorresHEMOGLOBIN [id number] 00:00:00* Test Item Value Reference Range Interpretation Comme nts HEMOGLOBIN A1c (test code = 25420) 5.6 % Parth TorresLIPID [id number] 00:00:00* Test Item Value Reference Range Interpretation Comme nts CHOLESTEROL (test code = 2210) 133 MG/DL TRIGLYCERIDES (test code = 2232) 89 MG/DL HDL CHOLESTEROL (test code = 2220) 44 MG/DL CALC LDL CHOL (test code = 2237) 72 MG/DL RISK RATIO LDL/HDL (test cod e = 2238) 1.64 RATIO Parth TorresCBC W/AUTO [id number] 00:00:00* Test Item Value Reference Range Interpretation Comme nts WBC (test code = 1001) 7.4 K/UL RBC (test code = 1002) 4.82 M/UL HEMOGLOBIN (test code = 1003) 8.0 G/DL HEMATOCRIT (test code = 1004) 30.5 % MCV (test code = 1005) 63.3 fL MCH (test code = 1006) 16.6 PG MCHC (test code = 1007) 26.2 G/DL RDW (test code = 1038) 18.7 % NEUTROPHILS (test code = 1008) 66.5 % LYMPHOCYTES (test code = 1010) 23.0 % MONOCYTES (test code = 1011) 7.9 % EOSINOPHILS (test code = 1012) 1.7 % BASOPHILS (test code = 1013) 0.5 % IMMATURE GRANULOCYTES (test code = 1036) 0.4 % NUCLEATED RBCS (test code = 1065) 0.0 /100WBC'S PLATELET COUNT (test code = 1015) 411 K/UL ABSOLUTE NEUTROPHILS (test c ode = 1066) 4.93 K/UL ABSOLUTE LYMPHOCYTES (test c ode = 1067) 1.71 K/UL ABSOLUTE MONOCYTES (test cod e = 1068) 0.59 K/UL ABSOLUTE EOSINOPHILS (test c ode = 1040) 0.13 K/UL ABSOLUTE BASOPHILS (test cod e = 1069) 0.04 K/UL ABS IMMATURE GRANULOCYTES (t est code = 1020) 0.03 K/UL ABS NUCLEATED RBCS (test cod e = 94364) 0.00 K/UL COMMENTS (test code = 1016) (NOTE) Parth TorresALBUMIN/CREATININE RATIO, RANDOM [id number] 00:00:00* Test Item Value Reference Range Interpretation Comme nts CREATININE, URINE, CONC. (te st code = 2072) 44.2 MG/DL ALBUMIN, URINE, RANDOM (test code = 61202) <0.2 MG/DL CALC ALBUMIN/CREAT, RND (nathalia t code = 86515) <5 MG/G Parth Aponte BrianCOMPREHENSIVE METABOLIC [id number] 00:00:00* Test Item Value Reference Range Interpretation Comme nts GLUCOSE (test code = 2217) 87 MG/DL BUN (test code = 2208) 6 MG/DL CREATININE (test code = 2214) 0.57 MG/DL eGFR (2020 CKD-EPI) (test code = 68735) 117 ML/MIN/1.73 CALC BUN/CREAT (test code = 2235) 11 RATIO SODIUM (test code = 2231) 137 MEQ/L POTASSIUM (test code = 2228) 4.0 MEQ/L CHLORIDE (test code = 2215) 101 MEQ/L CARBON DIOXIDE (test code = 2206) 24 MEQ/L CALCIUM (test code = 2209) 8.8 MG/DL PROTEIN, TOTAL (test code = 2229) 7.6 G/DL ALBUMIN (test code = 2201) 4.5 G/DL CALC GLOBULIN (test code = 2240) 3.1 G/DL CALC A/G RATIO (test code = 2234) 1.5 RATIO BILIRUBIN, TOTAL (test code = 2207) 0.3 MG/DL ALKALINE PHOSPHATASE (test code = 2204) 62 U/L AST (test code = 2218) 14 U/L ALT (test code = 2219) 10 U/L Parth TorresHEMOGLOBIN [id number] 00:00:00* Test Item Value Reference Range Interpretation Comme gurpreet HEMOGLOBIN A1c (test code = 04867) 5.6 % Parth TorresLIPID [id number] 00:00:00* Test Item Value Reference Range Interpretation Comme nts CHOLESTEROL (test code = 2210) 133 MG/DL TRIGLYCERIDES (test code = 2232) 89 MG/DL HDL CHOLESTEROL (test code = 2220) 44 MG/DL CALC LDL CHOL (test code = 2237) 72 MG/DL RISK RATIO LDL/HDL (test cod e = 2238) 1.64 RATIO Parth TorresCBC W/AUTO [id number] 00:00:00* Test Item Value Reference Range Interpretation Comme nts WBC (test code = 1001) 7.4 K/UL RBC (test code = 1002) 4.82 M/UL HEMOGLOBIN (test code = 1003) 8.0 G/DL HEMATOCRIT (test code = 1004) 30.5 % MCV (test code = 1005) 63.3 fL MCH (test code = 1006) 16.6 PG MCHC (test code = 1007) 26.2 G/DL RDW (test code = 1038) 18.7 % NEUTROPHILS (test code = 1008) 66.5 % LYMPHOCYTES (test code = 1010) 23.0 % MONOCYTES (test code = 1011) 7.9 % EOSINOPHILS (test code = 1012) 1.7 % BASOPHILS (test code = 1013) 0.5 % IMMATURE GRANULOCYTES (test code = 1036) 0.4 % NUCLEATED RBCS (test code = 1065) 0.0 /100WBC'S PLATELET COUNT (test code = 1015) 411 K/UL ABSOLUTE NEUTROPHILS (test c ode = 1066) 4.93 K/UL ABSOLUTE LYMPHOCYTES (test c ode = 1067) 1.71 K/UL ABSOLUTE MONOCYTES (test cod e = 1068) 0.59 K/UL ABSOLUTE EOSINOPHILS (test c ode = 1040) 0.13 K/UL ABSOLUTE BASOPHILS (test cod e = 1069) 0.04 K/UL ABS IMMATURE GRANULOCYTES (t est code = 1020) 0.03 K/UL ABS NUCLEATED RBCS (test cod e = 20256) 0.00 K/UL COMMENTS (test code = 1016) (NOTE) Parth Aponte AustinALBUMIN/CREATININE RATIO, RANDOM [id number] 00:00:00* Test Item Value Reference Range Interpretation Comme nts CREATININE, URINE, CONC. (te st code = 2072) 44.2 MG/DL ALBUMIN, URINE, RANDOM (test code = 03289) <0.2 MG/DL CALC ALBUMIN/CREAT, RND (nathalia t code = 68341) <5 MG/G Parth Aponte BrianCOMPREHENSIVE METABOLIC [id number] 00:00:00* Test Item Value Reference Range Interpretation Comme nts GLUCOSE (test code = 2217) 87 MG/DL BUN (test code = 2208) 6 MG/DL CREATININE (test code = 2214) 0.57 MG/DL eGFR (2020 CKD-EPI) (test code = 24874) 117 ML/MIN/1.73 CALC BUN/CREAT (test code = 2235) 11 RATIO SODIUM (test code = 2231) 137 MEQ/L POTASSIUM (test code = 2228) 4.0 MEQ/L CHLORIDE (test code = 2215) 101 MEQ/L CARBON DIOXIDE (test code = 2206) 24 MEQ/L CALCIUM (test code = 2209) 8.8 MG/DL PROTEIN, TOTAL (test code = 2229) 7.6 G/DL ALBUMIN (test code = 2201) 4.5 G/DL CALC GLOBULIN (test code = 2240) 3.1 G/DL CALC A/G RATIO (test code = 2234) 1.5 RATIO BILIRUBIN, TOTAL (test code = 2207) 0.3 MG/DL ALKALINE PHOSPHATASE (test code = 2204) 62 U/L AST (test code = 2218) 14 U/L ALT (test code = 2219) 10 U/L Parth F AustinHEMOGLOBIN [id number] 00:00:00* Test Item Value Reference Range Interpretation Comme nts HEMOGLOBIN A1c (test code = 46903) 5.6 % Parth TorresLIPID [id number] 00:00:00* Test Item Value Reference Range Interpretation Comme nts CHOLESTEROL (test code = 2210) 133 MG/DL TRIGLYCERIDES (test code = 2232) 89 MG/DL HDL CHOLESTEROL (test code = 2220) 44 MG/DL CALC LDL CHOL (test code = 2237) 72 MG/DL RISK RATIO LDL/HDL (test cod e = 2238) 1.64 RATIO Parth TorresCBC W/AUTO [id number] 00:00:00* Test Item Value Reference Range Interpretation Comme nts WBC (test code = 1001) 7.4 K/UL RBC (test code = 1002) 4.82 M/UL HEMOGLOBIN (test code = 1003) 8.0 G/DL HEMATOCRIT (test code = 1004) 30.5 % MCV (test code = 1005) 63.3 fL MCH (test code = 1006) 16.6 PG MCHC (test code = 1007) 26.2 G/DL RDW (test code = 1038) 18.7 % NEUTROPHILS (test code = 1008) 66.5 % LYMPHOCYTES (test code = 1010) 23.0 % MONOCYTES (test code = 1011) 7.9 % EOSINOPHILS (test code = 1012) 1.7 % BASOPHILS (test code = 1013) 0.5 % IMMATURE GRANULOCYTES (test code = 1036) 0.4 % NUCLEATED RBCS (test code = 1065) 0.0 /100WBC'S PLATELET COUNT (test code = 1015) 411 K/UL ABSOLUTE NEUTROPHILS (test c ode = 1066) 4.93 K/UL ABSOLUTE LYMPHOCYTES (test c ode = 1067) 1.71 K/UL ABSOLUTE MONOCYTES (test cod e = 1068) 0.59 K/UL ABSOLUTE EOSINOPHILS (test c ode = 1040) 0.13 K/UL ABSOLUTE BASOPHILS (test cod e = 1069) 0.04 K/UL ABS IMMATURE GRANULOCYTES (t est code = 1020) 0.03 K/UL ABS NUCLEATED RBCS (test cod e = 92628) 0.00 K/UL COMMENTS (test code = 1016) (NOTE) Parth TorresCOMP. METABOLIC PANEL (60976)2023-02-14 17:33:39* Test Item Value Reference Range Interpretation Comme nts NA (test code = 2397366630) 140 mmol/L 135-145 K (test code = 8501331439) 3.7 mmol/L 3.5-5.0 CL (test code = 9269388183) 107 mmol/L 98-108 CO2 TOTAL (test code = 9200605297) 21 mmol/L 23-31 L AGAP (test code = 7388403725) 12 2-16 BUN (test code = 3463877928) 9 mg/dL 7-23 GLUCOSE (test code = 9818443309) 98 mg/dL 70-110 CREATININE (test code = 4757314225) 0.45 mg/dL 0.50-1.04 L TOTAL BILI (test code = 2798243637) 0.2 mg/dL 0.1-1.1 CALCIUM (test code = 6071639833) 8.8 mg/dL 8.6-10.6 T PROTEIN (test code = 5167942507) 8.0 g/dL 6.3-8.2 ALBUMIN (test code = 9798576536) 4.3 g/dL 3.5-5.0 ALK PHOS (test code = 7452520150) 62 U/L 34-122 ALTv (test code = 1742-6) 13 U/L 5-35 AST(SGOT) (test code = 7724786987) 30 U/L 13-40 eGFR (test code = 34133-0) 124.9 mL/min/1.73m2 CKD-EPI eGFR (2020). Assuming creatinine has been stable day-to-day for at least three months, the eGFR indicates Category G1 (>= 90 mL/min/1.73 m2) Lab Interpretation (test code = 14944-2) [facility] 19-9)2023-02-14 13:26:26 * Test Item Value Reference Range Interpretation Comme nts CA 19-9 (test code = 8602968440) 1.8 U/mL 0.0-35.0 SUE (test code = SUE) Biotin has been reported to cause a negative bias, interpret results relative to patient's use of biotin. Lab Interpretation (test code = 46295-6) [id number] 13:26:25* Test Item Value Reference Range Interpretation Comme nts CA-125 (test code = 6903743965) 5.0 U/mL 0.0-35.0 Lab Interpretation (test cod e = 45567-5) [facility] [id number] 07:21:34* Test Item Value Reference Range Interpretation Comme nts WBC (test code = 6690-2) 8.86 See_Comment [Automated [employer]] The system which generated this result transmitted reference range: 4.30 - 11.10 10*3/?L. The reference range was not used to interpret this result as normal/abnormal. RBC (test code = 789-8) 4.66 See_Comment [Automated [employer]] The system which generated this result [...] g/dL 31.6-35.1 L RDW-SD (test code = 22284-5) 39.4 fL 39.0-49.9 RDW-CV (test code = 788-0) 21.3 % 12.0-15.5 H PLT (test code = 777-3) 351 See_Comment [Automated [employer]] The system which generated this result transmitted reference range: 166 - 358 10*3/?L. The reference range was not used to interpret this result as normal/abnormal. MPV (test code = 67712-3) Not Measured IPF % (test code = 6762690934) 6.5 % 1.3-7.7 Platelet count measured by fluorescence method. NRBC/100 WBC (test code = 4990615494) 0.0 See_Comment [Automated me ssage] The system which generated this result transmitted reference range: 0.0 - 10.0 /100 WBCs. The reference range was not used to interpret this result as normal/abnormal. NRBC x10^3 (test code = 7068690429) See_Comment [Automated messa ge] The system which generated this result transmitted reference range: 10*3/?L. The reference range was not used to interpret this result as normal/abnormal. GRAN MAT (NEUT) % (test code = 770-8) 69.7 % IMM GRAN % (test code = 8389063770) 0.30 % LYMPH % (test code = 736-9) 20.2 % MONO % (test code = 5905-5) 7.7 % EOS % (test code = 713-8) 1.6 % BASO % (test code = 706-2) 0.5 % GRAN MAT x10^3(ANC) (test code = 5982467425) 6.18 10*3/uL 1.88-7.09 IMM GRAN x10^3 (test code = 2677226605) 0.03 10*3/uL 0.00-0.06 LYMPH x10^3 (test code = 731-0) 1.79 10*3/uL 1.32-3.29 MONO x10^3 (test code = 742-7) 0.68 10*3/uL 0.33-0.92 EOS x10^3 (test code = 711-2) 0.14 10*3/uL 0.03-0.39 BASO x10^3 (test code = 704-7) 0.04 10*3/uL 0.01-0.07 Lab Interpretation (test code = 38215-9) Abnormal [facility] IgG AND [id number] 00:12:07* Test Item Value Reference Range Interpretation Comme nts MUMPS VIRUS IgG (test code = 89276) <5.0 AU/mL INTERPRETIVE INF ORMATION: Mumps Ab, [...] at the same time. TESTING PERFORMED AT [facility], [facility] [address], [place] [address] [place]. [id number] CLIA NO. [id number] MUMPS VIRUS IgM (test code = 4587) [...] months post-infection or immunization. TESTING PERFORMED AT [facility], [facility] [address], [place] [address] [place]. [id number] CLIA NO. [id number] [Automated message] The system which generated this result transmitted reference range: <=0.79. The reference range was not used to interpret this result as normal/abnormal. MUMPS IgG AND [id number] 00:00:00* Test Item Value Reference Range Interpretation Comme nts MUMPS VIRUS IgG (test code = 94421) <5.0 AU/mL MUMPS VIRUS IgM (test code = 4587) 0.39 IV Parth AustinMUMPS IgG AND [id number] 00:00:00* Test Item Value Reference Range Interpretation Comme nts MUMPS VIRUS IgG (test code = 42594) <5.0 AU/mL MUMPS VIRUS IgM (test code = 4587) 0.39 IV Parth F AustinMUMPS IgG AND [id number] 00:00:00* Test Item Value Reference Range Interpretation Comme nts MUMPS VIRUS IgG (test code = 82633) <5.0 AU/mL MUMPS VIRUS IgM (test code = 4587) 0.39 IV Parth F AustinMUMPS IgG AND [id number] 00:00:00* Test Item Value Reference Range Interpretation Comme nts MUMPS VIRUS IgG (test code = 49727) <5.0 AU/mL MUMPS VIRUS IgM (test code = 4587) 0.39 IV Parth Aponte AustinMUMPS IgG AND [id number] 00:00:00* Test Item Value Reference Range Interpretation Comme nts MUMPS VIRUS IgG (test code = 50414) <5.0 AU/mL MUMPS VIRUS IgM (test code = 4587) 0.39 IV Parth Aponte AustinMUMPS IgG AND [id number] 00:00:00* Test Item Value Reference Range Interpretation Comme nts MUMPS VIRUS IgG (test code = 13546) <5.0 AU/mL MUMPS VIRUS IgM (test code = 4587) 0.39 IV Parth TorresMUMPS IgG AND [id number] 00:00:00* Test Item Value Reference Range Interpretation Comme nts MUMPS VIRUS IgG (test code = 87581) <5.0 AU/mL MUMPS VIRUS IgM (test code = 4587) 0.39 IV Parth Aponte AustinMUMPS IgG AND [id number] 00:00:00* Test Item Value Reference Range Interpretation Comme nts MUMPS VIRUS IgG (test code = 46731) <5.0 AU/mL MUMPS VIRUS IgM (test code = 4587) 0.39 IV Parth TorresVARICELLA ZOSTER [id number] 11:43:28* Test Item Value Reference Range Interpretation Comme nts VARICELLA ZOSTER IgG (test code = 12478) 1013 INDEX SEE BELOW INTERPRETATION V ZV [...] TESTING PERFORMED AT [facility] [address] [place] [address] AUTOGRAPHER: AI TAYLOR M.D. CLIA NUMBER [id number] [facility] [place]. [id number] BHAKTI AB, [id number] 11:43:28* Test Item Value Reference Range Interpretation Comme nts RUBEOLA AB, IgG (test code = 07119) 68.0 AU/ML SEE BELOW INTERPRETATION UNITS RANGE ----- ----- NEGATIVE AU/ML <13.5 EQUIVOCAL AU/ML 13.5-16.4 NOTE: CONSIDER RETESTING IN A CLINICALLY SUITABLE PERIOD OF TIME, NO SOONER THAN 1-2 WEEKS. POSITIVE AU/ML >=16.5 RUBELLA ANTIBODY [id number] 04:13:02* Test Item Value Reference Range Interpretation Comme nts RUBELLA ANTIBODY SCREEN (test code = 4600) 29 IU/ML SEE BELOW RUBELLA IgG INTERP (test code = 64057) REACTIVE REACTIVE INTERPRETATI ON UNITS RANGE NON-REACTIVE/NON-IMMUNE IU/ML <10 REACTIVE/IMMUNE IU/ML >=10 HEPATITIS A TOTAL AB REFLEX TO [id number] 04:13:02* Test Item Value Reference Range Interpretation Comme nts HEPATITIS A TOTAL AB (test c ode = 2725) NON-REACTIVE NON-REACTIVE HEPATITIS B SURFACE [id number] 04:13:02* Test Item Value Reference Range Interpretation Comme nts HEPATITIS B SURFACE AB (test code = 2737) NON-REACTIVE NON-REACTIVE HEPATITIS A TOTAL AB REFLEX TO [id number] 00:00:00* Test Item Value Reference Range Interpretation Comme nts HEPATITIS A TOTAL AB (test c ode = 2725) NON-REACTIVE Parth F AustinHEPATITIS B SURFACE [id number] 00:00:00* Test Item Value Reference Range Interpretation Comme nts HEPATITIS B SURFACE AB (test code = 2737) NON-REACTIVE Parth F AustinRUBEOLA IgG [id number] 00:00:00* Test Item Value Reference Range Interpretation Comme nts RUBEOLA AB, IgG (test code = 17488) 68.0 AU/ML Parth F AustinRUBELLA ANTIBODY [id number] 00:00:00* Test Item Value Reference Range Interpretation Comme nts RUBELLA ANTIBODY SCREEN (nathalia t code = 4600) 29 IU/ML RUBELLA IgG INTERP (test cod e = 05818) REACTIVE Parth F AustinVARICELLA ZOSTER [id number] 00:00:00* Test Item Value Reference Range Interpretation Comme nts VARICELLA ZOSTER IgG (test c ode = 69115) 1013 INDEX Parth Aponte AustinHEPATITIS A TOTAL AB REFLEX TO [id number] 00:00:00* Test Item Value Reference Range Interpretation Comme nts HEPATITIS A TOTAL AB (test c ode = 2725) NON-REACTIVE Parth Aponte AustinHEPATITIS B SURFACE [id number] 00:00:00* Test Item Value Reference Range Interpretation Comme nts HEPATITIS B SURFACE AB (test code = 2737) NON-REACTIVE Parth F AustinRUBEOLA IgG [id number] 00:00:00* Test Item Value Reference Range Interpretation Comme nts RUBEOLA AB, IgG (test code = 55909) 68.0 AU/ML Parth F AustinRUBELLA ANTIBODY [id number] 00:00:00* Test Item Value Reference Range Interpretation Comme nts RUBELLA ANTIBODY SCREEN (nathalia t code = 4600) 29 IU/ML RUBELLA IgG INTERP (test cod e = 39449) REACTIVE Parth Aponte AustinVARICELLA ZOSTER [id number] 00:00:00* Test Item Value Reference Range Interpretation Comme nts VARICELLA ZOSTER IgG (test c ode = 88327) 1013 INDEX Parth Aponte AustinHEPATITIS A TOTAL AB REFLEX TO [id number] 00:00:00* Test Item Value Reference Range Interpretation Comme nts HEPATITIS A TOTAL AB (test c ode = 2725) NON-REACTIVE Parth Aponte AustinHEPATITIS B SURFACE [id number] 00:00:00* Test Item Value Reference Range Interpretation Comme nts HEPATITIS B SURFACE AB (test code = 2737) NON-REACTIVE Parth F AustinRUBEOLA IgG [id number] 00:00:00* Test Item Value Reference Range Interpretation Comme nts RUBEOLA AB, IgG (test code = 31968) 68.0 AU/ML Parth F AustinRUBELLA ANTIBODY [id number] 00:00:00* Test Item Value Reference Range Interpretation Comme nts RUBELLA ANTIBODY SCREEN (nathalia t code = 4600) 29 IU/ML RUBELLA IgG INTERP (test cod e = 10695) REACTIVE Parth F AustinVARICELLA ZOSTER [id number] 00:00:00* Test Item Value Reference Range Interpretation Comme nts VARICELLA ZOSTER IgG (test c ode = 06964) 1013 INDEX Parth Aponte AustinHEPATITIS A TOTAL AB REFLEX TO [id number] 00:00:00* Test Item Value Reference Range Interpretation Comme nts HEPATITIS A TOTAL AB (test c ode = 2725) NON-REACTIVE Parth Aponte AustinHEPATITIS B SURFACE [id number] 00:00:00* Test Item Value Reference Range Interpretation Comme nts HEPATITIS B SURFACE AB (test code = 2737) NON-REACTIVE Parth F AustinRUBEOLA IgG [id number] 00:00:00* Test Item Value Reference Range Interpretation Comme nts RUBEOLA AB, IgG (test code = 63262) 68.0 AU/ML Parth F AustinRUBELLA ANTIBODY [id number] 00:00:00* Test Item Value Reference Range Interpretation Comme nts RUBELLA ANTIBODY SCREEN (nathalia t code = 4600) 29 IU/ML RUBELLA IgG INTERP (test cod e = 43550) REACTIVE Parth Apotne AustinVARICELLA ZOSTER [id number] 00:00:00* Test Item Value Reference Range Interpretation Comme nts VARICELLA ZOSTER IgG (test c ode = 30494) 1013 INDEX Parth Aponte AustinHEPATITIS A TOTAL AB REFLEX TO [id number] 00:00:00* Test Item Value Reference Range Interpretation Comme nts HEPATITIS A TOTAL AB (test c ode = 2725) NON-REACTIVE Parth Aponte AustinHEPATITIS B SURFACE [id number] 00:00:00* Test Item Value Reference Range Interpretation Comme nts HEPATITIS B SURFACE AB (test code = 2737) NON-REACTIVE Parth F AustinRUBEOLA IgG [id number] 00:00:00* Test Item Value Reference Range Interpretation Comme nts RUBEOLA AB, IgG (test code = 22455) 68.0 AU/ML Parth F AustinRUBELLA ANTIBODY [id number] 00:00:00* Test Item Value Reference Range Interpretation Comme nts RUBELLA ANTIBODY SCREEN (nathalia t code = 4600) 29 IU/ML RUBELLA IgG INTERP (test cod e = 05564) REACTIVE Parth F AustinVARICELLA ZOSTER [id number] 00:00:00* Test Item Value Reference Range Interpretation Comme nts VARICELLA ZOSTER IgG (test c ode = 17202) 1013 INDEX Parth Aponte AustinHEPATITIS A TOTAL AB REFLEX TO [id number] 00:00:00* Test Item Value Reference Range Interpretation Comme nts HEPATITIS A TOTAL AB (test c ode = 2725) NON-REACTIVE Parth Aponte AustinHEPATITIS B SURFACE [id number] 00:00:00* Test Item Value Reference Range Interpretation Comme nts HEPATITIS B SURFACE AB (test code = 2737) NON-REACTIVE Parth F AustinRUBEOLA IgG [id number] 00:00:00* Test Item Value Reference Range Interpretation Comme nts RUBEOLA AB, IgG (test code = 31552) 68.0 AU/ML Parth F AustinRUBELLA ANTIBODY [id number] 00:00:00* Test Item Value Reference Range Interpretation Comme nts RUBELLA ANTIBODY SCREEN (nathalia t code = 4600) 29 IU/ML RUBELLA IgG INTERP (test cod e = 28909) REACTIVE Parth Aponte AustinVARICELLA ZOSTER [id number] 00:00:00* Test Item Value Reference Range Interpretation Comme nts VARICELLA ZOSTER IgG (test c ode = 32018) 1013 INDEX Parth Aponte AustinHEPATITIS A TOTAL AB REFLEX TO [id number] 00:00:00* Test Item Value Reference Range Interpretation Comme nts HEPATITIS A TOTAL AB (test c ode = 2725) NON-REACTIVE Parth Aponte AustinHEPATITIS B SURFACE [id number] 00:00:00* Test Item Value Reference Range Interpretation Comme nts HEPATITIS B SURFACE AB (test code = 2737) NON-REACTIVE Parth F AustinRUBEOLA IgG [id number] 00:00:00* Test Item Value Reference Range Interpretation Comme nts RUBEOLA AB, IgG (test code = 39465) 68.0 AU/ML Parth F AustinRUBELLA ANTIBODY [id number] 00:00:00* Test Item Value Reference Range Interpretation Comme nts RUBELLA ANTIBODY SCREEN (nathalia t code = 4600) 29 IU/ML RUBELLA IgG INTERP (test cod e = 51373) REACTIVE Parth F AustinVARICELLA ZOSTER [id number] 00:00:00* Test Item Value Reference Range Interpretation Comme nts VARICELLA ZOSTER IgG (test c ode = 34442) 1013 INDEX Parth TorresHEPATITIS A TOTAL AB REFLEX TO [id number] 00:00:00* Test Item Value Reference Range Interpretation Comme nts HEPATITIS A TOTAL AB (test c ode = 2725) NON-REACTIVE Parth TorresHEPATITIS B SURFACE [id number] 00:00:00* Test Item Value Reference Range Interpretation Comme nts HEPATITIS B SURFACE AB (test code = 2737) NON-REACTIVE Parth TorresRUBEOLA IgG [id number] 00:00:00* Test Item Value Reference Range Interpretation Comme gurpreet RUBEOLA AB, IgG (test code = 23145) 68.0 AU/ML Parth TorresRUBELLA ANTIBODY [id number] 00:00:00* Test Item Value Reference Range Interpretation Comme gurpreet RUBELLA ANTIBODY SCREEN (nathalia t code = 4600) 29 IU/ML RUBELLA IgG INTERP (test cod e = 15145) REACTIVE Parth TorresVARICELLA ZOSTER [id number] 00:00:00* Test Item Value Reference Range Interpretation Comme gurpreet VARICELLA ZOSTER IgG (test c ode = 74612) 1013 INDEX Parth TorresHEMOGLOBIN [id number] 21:01:29* Test Item Value Reference Range Interpretation Comme gurpreet HEMOGLOBIN A1c (test code = 47877) 6.8 % 4.2-5.6 H [employer] GUIDELINES FOR HGB A1C: [...] OR LABORATORY CONSULTATION. CBC W/AUTO DIFF WITH [id number] 15:06:18* Test Item Value Reference Range Interpretation [...] 0.00-0.10 ABS NUCLEATED RBCS (test code = 35879) 0.00 K/UL 0.00-0.11 COMMENTS (test code = 1016) (NOTE) MODERATE ANISOCY TOSIS FEW ELLIPTOCYTES MARKED HYPOCHROMASIA MARKED MICROCYTOSIS MODERATE POIKILOCYTOSIS SLIGHT POLYCHROMASIA FEW SCHISTOCYTES FEW TEAR DROP CELLS PLATELETS APPEAR NORMAL [facility] has important pathology staff changes effective 05/08/2022. New pathology staff will provide uninterrupted, excellent patient care and clinical consultation. See URL: [email or web address] UNLESS OTHERWISE INDICATED, ALL TESTING PERFORMED AT [facility] [address] [place] [address] AUTOGRAPHER: AI TAYLOR M.D. CLIA NUMBER [id number] [facility] [place]. [id number] LIPID [id number] 05:59:27* Test Item Value Reference Range Interpretation [...] SPECIMENS. FOR MOREINFORMATION, SEE CLIENT ANNOUNCEMENT AT [email or web address] RISK RATIO LDL/HDL (test code = 2238) 1.84 RATIO <3.22 COMPREHENSIVE METABOLIC [id number] 05:59:27* Test Item Value Reference Range Interpretation Comme nts GLUCOSE (test code = 2217) 102 MG/DL 70-99 H BUN (test code = 2208) 6 MG/DL 6-20 CREATININE (test code = 2214) 0.61 MG/DL 0.60-1.30 eGFR (2020 CKD-EPI) (test code = 19360) 116 ML/MIN/1.73 >60 CALC BUN/CREAT (test code = 2235) 10 RATIO 6-28 SODIUM (test code = 2231) 139 MEQ/L 133-146 POTASSIUM (test code = 2228) 4.1 MEQ/L 3.5-5.4 CHLORIDE (test code = 2215) 104 MEQ/L 95-107 CARBON DIOXIDE (test code = 2206) 24 MEQ/L 19-31 CALCIUM (test code = 2209) 8.9 MG/DL 8.5-10.5 PROTEIN, TOTAL (test code = 222) 7.5 G/DL 6.1-8.3 ALBUMIN (test code = [...] (test code = 2219) 10 U/L 5-40 HEMOGLOBIN [id number] 00:00:00* Test Item Value Reference Range Interpretation Comme gurpreet HEMOGLOBIN A1c (test code = 43590) 6.8 % Parth TorresLIPID [id number] 00:00:00* Test Item Value Reference Range Interpretation Comme nts CHOLESTEROL (test code = 2210) 121 MG/DL TRIGLYCERIDES (test code = 2232) 79 MG/DL HDL CHOLESTEROL (test code = 2220) 37 MG/DL CALC LDL CHOL (test code = 2237) 68 MG/DL RISK RATIO LDL/HDL (test cod e = 2238) 1.84 RATIO Parth TorresCOMPREHENSIVE METABOLIC [id number] 00:00:00* Test Item Value Reference Range Interpretation Comme nts GLUCOSE (test code = 2217) 102 MG/DL BUN (test code = 2208) 6 MG/DL CREATININE (test code = 2214) 0.61 MG/DL eGFR (2020 CKD-EPI) (test code = 69285) 116 ML/MIN/1.73 CALC BUN/CREAT (test code = 2235) 10 RATIO SODIUM (test code = 2231) 139 MEQ/L POTASSIUM (test code = 2228) 4.1 MEQ/L CHLORIDE (test code = 2215) 104 MEQ/L CARBON DIOXIDE (test code = 2206) 24 MEQ/L CALCIUM (test code = 2209) 8.9 MG/DL PROTEIN, TOTAL (test code = 2229) 7.5 G/DL ALBUMIN (test code = 2201) 4.4 G/DL CALC GLOBULIN (test code = 2240) 3.1 G/DL CALC A/G RATIO (test code = 2234) 1.4 RATIO BILIRUBIN, TOTAL (test code = 2207) 0.3 MG/DL ALKALINE PHOSPHATASE (test code = 2204) 63 U/L AST (test code = 2218) 16 U/L ALT (test code = 2219) 10 U/L Parth TorresCBC W/AUTO [id number] 00:00:00* Test Item Value Reference Range Interpretation Comme nts WBC (test code = 1001) 6.6 K/UL RBC (test code = 1002) 4.60 M/UL HEMOGLOBIN (test code = 1003) 7.4 G/DL HEMATOCRIT (test code = 1004) 27.9 % MCV (test code = 1005) 60.7 fL MCH (test code = 1006) 16.1 PG MCHC (test code = 1007) 26.5 G/DL RDW (test code = 1038) 18.9 % NEUTROPHILS (test code = 1008) 58.2 % LYMPHOCYTES (test code = 1010) 31.4 % MONOCYTES (test code = 1011) 8.1 % EOSINOPHILS (test code = 1012) 1.8 % BASOPHILS (test code = 1013) 0.3 % IMMATURE GRANULOCYTES (test code = 1036) 0.2 % NUCLEATED RBCS (test code = 1065) 0.0 /100WBC'S PLATELET COUNT (test code = 1015) 399 K/UL ABSOLUTE NEUTROPHILS (test c ode = 1066) 3.82 K/UL ABSOLUTE LYMPHOCYTES (test c ode = 1067) 2.06 K/UL ABSOLUTE MONOCYTES (test cod e = 1068) 0.53 K/UL ABSOLUTE EOSINOPHILS (test c ode = 1040) 0.12 K/UL ABSOLUTE BASOPHILS (test cod e = 1069) 0.02 K/UL ABS IMMATURE GRANULOCYTES (t est code = 1020) 0.01 K/UL ABS NUCLEATED RBCS (test cod e = 00726) 0.00 K/UL COMMENTS (test code = 1016) (NOTE) Parth TorresHEMOGLOBIN [id number] 00:00:00* Test Item Value Reference Range Interpretation Comme nts HEMOGLOBIN A1c (test code = 40636) 6.8 % Parth TorresLIPID [id number] 00:00:00* Test Item Value Reference Range Interpretation Comme nts CHOLESTEROL (test code = 2210) 121 MG/DL TRIGLYCERIDES (test code = 2232) 79 MG/DL HDL CHOLESTEROL (test code = 2220) 37 MG/DL CALC LDL CHOL (test code = 2237) 68 MG/DL RISK RATIO LDL/HDL (test cod e = 2238) 1.84 RATIO Parth TorresCOMPREHENSIVE METABOLIC [id number] 00:00:00* Test Item Value Reference Range Interpretation Comme nts GLUCOSE (test code = 2217) 102 MG/DL BUN (test code = 2208) 6 MG/DL CREATININE (test code = 2214) 0.61 MG/DL eGFR (2020 CKD-EPI) (test code = 30933) 116 ML/MIN/1.73 CALC BUN/CREAT (test code = 2235) 10 RATIO SODIUM (test code = 2231) 139 MEQ/L POTASSIUM (test code = 2228) 4.1 MEQ/L CHLORIDE (test code = 2215) 104 MEQ/L CARBON DIOXIDE (test code = 2206) 24 MEQ/L CALCIUM (test code = 2209) 8.9 MG/DL PROTEIN, TOTAL (test code = 2229) 7.5 G/DL ALBUMIN (test code = 2201) 4.4 G/DL CALC GLOBULIN (test code = 2240) 3.1 G/DL CALC A/G RATIO (test code = 2234) 1.4 RATIO BILIRUBIN, TOTAL (test code = 2207) 0.3 MG/DL ALKALINE PHOSPHATASE (test code = 2204) 63 U/L AST (test code = 2218) 16 U/L ALT (test code = 2219) 10 U/L Parth TorresCBC W/AUTO [id number] 00:00:00* Test Item Value Reference Range Interpretation Comme nts WBC (test code = 1001) 6.6 K/UL RBC (test code = 1002) 4.60 M/UL HEMOGLOBIN (test code = 1003) 7.4 G/DL HEMATOCRIT (test code = 1004) 27.9 % MCV (test code = 1005) 60.7 fL MCH (test code = 1006) 16.1 PG MCHC (test code = 1007) 26.5 G/DL RDW (test code = 1038) 18.9 % NEUTROPHILS (test code = 1008) 58.2 % LYMPHOCYTES (test code = 1010) 31.4 % MONOCYTES (test code = 1011) 8.1 % EOSINOPHILS (test code = 1012) 1.8 % BASOPHILS (test code = 1013) 0.3 % IMMATURE GRANULOCYTES (test code = 1036) 0.2 % NUCLEATED RBCS (test code = 1065) 0.0 /100WBC'S PLATELET COUNT (test code = 1015) 399 K/UL ABSOLUTE NEUTROPHILS (test c ode = 1066) 3.82 K/UL ABSOLUTE LYMPHOCYTES (test c ode = 1067) 2.06 K/UL ABSOLUTE MONOCYTES (test cod e = 1068) 0.53 K/UL ABSOLUTE EOSINOPHILS (test c ode = 1040) 0.12 K/UL ABSOLUTE BASOPHILS (test cod e = 1069) 0.02 K/UL ABS IMMATURE GRANULOCYTES (t est code = 1020) 0.01 K/UL ABS NUCLEATED RBCS (test cod e = 73302) 0.00 K/UL COMMENTS (test code = 1016) (NOTE) Parth TorresHEMOGLOBIN [id number] 00:00:00* Test Item Value Reference Range Interpretation Comme nts HEMOGLOBIN A1c (test code = 97405) 6.8 % Parth TorresLIPID [id number] 00:00:00* Test Item Value Reference Range Interpretation Comme nts CHOLESTEROL (test code = 2210) 121 MG/DL TRIGLYCERIDES (test code = 2232) 79 MG/DL HDL CHOLESTEROL (test code = 2220) 37 MG/DL CALC LDL CHOL (test code = 2237) 68 MG/DL RISK RATIO LDL/HDL (test cod e = 2238) 1.84 RATIO Parth TorresCOMPREHENSIVE METABOLIC [id number] 00:00:00* Test Item Value Reference Range Interpretation Comme nts GLUCOSE (test code = 2217) 102 MG/DL BUN (test code = 2208) 6 MG/DL CREATININE (test code = 2214) 0.61 MG/DL eGFR (2020 CKD-EPI) (test code = 63417) 116 ML/MIN/1.73 CALC BUN/CREAT (test code = 2235) 10 RATIO SODIUM (test code = 2231) 139 MEQ/L POTASSIUM (test code = 2228) 4.1 MEQ/L CHLORIDE (test code = 2215) 104 MEQ/L CARBON DIOXIDE (test code = 2206) 24 MEQ/L CALCIUM (test code = 2209) 8.9 MG/DL PROTEIN, TOTAL (test code = 2229) 7.5 G/DL ALBUMIN (test code = 2201) 4.4 G/DL CALC GLOBULIN (test code = 2240) 3.1 G/DL CALC A/G RATIO (test code = 2234) 1.4 RATIO BILIRUBIN, TOTAL (test code = 2207) 0.3 MG/DL ALKALINE PHOSPHATASE (test code = 2204) 63 U/L AST (test code = 2218) 16 U/L ALT (test code = 2219) 10 U/L [facility] W/AUTO [id number] 00:00:00* Test Item Value Reference Range Interpretation Comme nts WBC (test code = 1001) 6.6 K/UL RBC (test code = 1002) 4.60 M/UL HEMOGLOBIN (test code = 1003) 7.4 G/DL HEMATOCRIT (test code = 1004) 27.9 % MCV (test code = 1005) 60.7 fL MCH (test code = 1006) 16.1 PG MCHC (test code = 1007) 26.5 G/DL RDW (test code = 1038) 18.9 % NEUTROPHILS (test code = 1008) 58.2 % LYMPHOCYTES (test code = 1010) 31.4 % MONOCYTES (test code = 1011) 8.1 % EOSINOPHILS (test code = 1012) 1.8 % BASOPHILS (test code = 1013) 0.3 % IMMATURE GRANULOCYTES (test code = 1036) 0.2 % NUCLEATED RBCS (test code = 1065) 0.0 /100WBC'S PLATELET COUNT (test code = 1015) 399 K/UL ABSOLUTE NEUTROPHILS (test c ode = 1066) 3.82 K/UL ABSOLUTE LYMPHOCYTES (test c ode = 1067) 2.06 K/UL ABSOLUTE MONOCYTES (test cod e = 1068) 0.53 K/UL ABSOLUTE EOSINOPHILS (test c ode = 1040) 0.12 K/UL ABSOLUTE BASOPHILS (test cod e = 1069) 0.02 K/UL ABS IMMATURE GRANULOCYTES (t est code = 1020) 0.01 K/UL ABS NUCLEATED RBCS (test cod e = 07759) 0.00 K/UL COMMENTS (test code = 1016) (NOTE) Parth TorresHEMOGLOBIN [id number] 00:00:00* Test Item Value Reference Range Interpretation Comme nts HEMOGLOBIN A1c (test code = 58992) 6.8 % Parth TorresLIPID [id number] 00:00:00* Test Item Value Reference Range Interpretation Comme nts CHOLESTEROL (test code = 2210) 121 MG/DL TRIGLYCERIDES (test code = 2232) 79 MG/DL HDL CHOLESTEROL (test code = 2220) 37 MG/DL CALC LDL CHOL (test code = 2237) 68 MG/DL RISK RATIO LDL/HDL (test cod e = 2238) 1.84 RATIO Parth TorresCOMPREHENSIVE METABOLIC [id number] 00:00:00* Test Item Value Reference Range Interpretation Comme nts GLUCOSE (test code = 2217) 102 MG/DL BUN (test code = 2208) 6 MG/DL CREATININE (test code = 2214) 0.61 MG/DL eGFR (2020 CKD-EPI) (test code = 98699) 116 ML/MIN/1.73 CALC BUN/CREAT (test code = 2235) 10 RATIO SODIUM (test code = 2231) 139 MEQ/L POTASSIUM (test code = 2228) 4.1 MEQ/L CHLORIDE (test code = 2215) 104 MEQ/L CARBON DIOXIDE (test code = 2206) 24 MEQ/L CALCIUM (test code = 2209) 8.9 MG/DL PROTEIN, TOTAL (test code = 2229) 7.5 G/DL ALBUMIN (test code = 2201) 4.4 G/DL CALC GLOBULIN (test code = 2240) 3.1 G/DL CALC A/G RATIO (test code = 2234) 1.4 RATIO BILIRUBIN, TOTAL (test code = 2207) 0.3 MG/DL ALKALINE PHOSPHATASE (test code = 2204) 63 U/L AST (test code = 2218) 16 U/L ALT (test code = 2219) 10 U/L Parth TorresCBC W/AUTO [id number] 00:00:00* Test Item Value Reference Range Interpretation Comme nts WBC (test code = 1001) 6.6 K/UL RBC (test code = 1002) 4.60 M/UL HEMOGLOBIN (test code = 1003) 7.4 G/DL HEMATOCRIT (test code = 1004) 27.9 % MCV (test code = 1005) 60.7 fL MCH (test code = 1006) 16.1 PG MCHC (test code = 1007) 26.5 G/DL RDW (test code = 1038) 18.9 % NEUTROPHILS (test code = 1008) 58.2 % LYMPHOCYTES (test code = 1010) 31.4 % MONOCYTES (test code = 1011) 8.1 % EOSINOPHILS (test code = 1012) 1.8 % BASOPHILS (test code = 1013) 0.3 % IMMATURE GRANULOCYTES (test code = 1036) 0.2 % NUCLEATED RBCS (test code = 1065) 0.0 /100WBC'S PLATELET COUNT (test code = 1015) 399 K/UL ABSOLUTE NEUTROPHILS (test c ode = 1066) 3.82 K/UL ABSOLUTE LYMPHOCYTES (test c ode = 1067) 2.06 K/UL ABSOLUTE MONOCYTES (test cod e = 1068) 0.53 K/UL ABSOLUTE EOSINOPHILS (test c ode = 1040) 0.12 K/UL ABSOLUTE BASOPHILS (test cod e = 1069) 0.02 K/UL ABS IMMATURE GRANULOCYTES (t est code = 1020) 0.01 K/UL ABS NUCLEATED RBCS (test cod e = 64091) 0.00 K/UL COMMENTS (test code = 1016) (NOTE) Parth TorresHEMOGLOBIN [id number] 00:00:00* Test Item Value Reference Range Interpretation Comme nts HEMOGLOBIN A1c (test code = 06045) 6.8 % Parth TorresLIPID [id number] 00:00:00* Test Item Value Reference Range Interpretation Comme nts CHOLESTEROL (test code = 2210) 121 MG/DL TRIGLYCERIDES (test code = 2232) 79 MG/DL HDL CHOLESTEROL (test code = 2220) 37 MG/DL CALC LDL CHOL (test code = 2237) 68 MG/DL RISK RATIO LDL/HDL (test cod e = 2238) 1.84 RATIO Parth TorresCOMPREHENSIVE METABOLIC [id number] 00:00:00* Test Item Value Reference Range Interpretation Comme nts GLUCOSE (test code = 2217) 102 MG/DL BUN (test code = 2208) 6 MG/DL CREATININE (test code = 2214) 0.61 MG/DL eGFR (2020 CKD-EPI) (test code = 11371) 116 ML/MIN/1.73 CALC BUN/CREAT (test code = 2235) 10 RATIO SODIUM (test code = 2231) 139 MEQ/L POTASSIUM (test code = 2228) 4.1 MEQ/L CHLORIDE (test code = 2215) 104 MEQ/L CARBON DIOXIDE (test code = 2206) 24 MEQ/L CALCIUM (test code = 2209) 8.9 MG/DL PROTEIN, TOTAL (test code = 2229) 7.5 G/DL ALBUMIN (test code = 2201) 4.4 G/DL CALC GLOBULIN (test code = 2240) 3.1 G/DL CALC A/G RATIO (test code = 2234) 1.4 RATIO BILIRUBIN, TOTAL (test code = 2207) 0.3 MG/DL ALKALINE PHOSPHATASE (test code = 2204) 63 U/L AST (test code = 2218) 16 U/L ALT (test code = 2219) 10 U/L Parth [facility] W/AUTO [id number] 00:00:00* Test Item Value Reference Range Interpretation Comme nts WBC (test code = 1001) 6.6 K/UL RBC (test code = 1002) 4.60 M/UL HEMOGLOBIN (test code = 1003) 7.4 G/DL HEMATOCRIT (test code = 1004) 27.9 % MCV (test code = 1005) 60.7 fL MCH (test code = 1006) 16.1 PG MCHC (test code = 1007) 26.5 G/DL RDW (test code = 1038) 18.9 % NEUTROPHILS (test code = 1008) 58.2 % LYMPHOCYTES (test code = 1010) 31.4 % MONOCYTES (test code = 1011) 8.1 % EOSINOPHILS (test code = 1012) 1.8 % BASOPHILS (test code = 1013) 0.3 % IMMATURE GRANULOCYTES (test code = 1036) 0.2 % NUCLEATED RBCS (test code = 1065) 0.0 /100WBC'S PLATELET COUNT (test code = 1015) 399 K/UL ABSOLUTE NEUTROPHILS (test c ode = 1066) 3.82 K/UL ABSOLUTE LYMPHOCYTES (test c ode = 1067) 2.06 K/UL ABSOLUTE MONOCYTES (test cod e = 1068) 0.53 K/UL ABSOLUTE EOSINOPHILS (test c ode = 1040) 0.12 K/UL ABSOLUTE BASOPHILS (test cod e = 1069) 0.02 K/UL ABS IMMATURE GRANULOCYTES (t est code = 1020) 0.01 K/UL ABS NUCLEATED RBCS (test cod e = 69275) 0.00 K/UL COMMENTS (test code = 1016) (NOTE) Parth TorresHEMOGLOBIN [id number] 00:00:00* Test Item Value Reference Range Interpretation Comme nts HEMOGLOBIN A1c (test code = 29998) 6.8 % Parth TorresLIPID [id number] 00:00:00* Test Item Value Reference Range Interpretation Comme nts CHOLESTEROL (test code = 2210) 121 MG/DL TRIGLYCERIDES (test code = 2232) 79 MG/DL HDL CHOLESTEROL (test code = 2220) 37 MG/DL CALC LDL CHOL (test code = 2237) 68 MG/DL RISK RATIO LDL/HDL (test cod e = 2238) 1.84 RATIO Parth TorresCOMPREHENSIVE METABOLIC [id number] 00:00:00* Test Item Value Reference Range Interpretation Comme nts GLUCOSE (test code = 2217) 102 MG/DL BUN (test code = 2208) 6 MG/DL CREATININE (test code = 2214) 0.61 MG/DL eGFR (2020 CKD-EPI) (test code = 86684) 116 ML/MIN/1.73 CALC BUN/CREAT (test code = 2235) 10 RATIO SODIUM (test code = 2231) 139 MEQ/L POTASSIUM (test code = 2228) 4.1 MEQ/L CHLORIDE (test code = 2215) 104 MEQ/L CARBON DIOXIDE (test code = 2206) 24 MEQ/L CALCIUM (test code = 2209) 8.9 MG/DL PROTEIN, TOTAL (test code = 2229) 7.5 G/DL ALBUMIN (test code = 2201) 4.4 G/DL CALC GLOBULIN (test code = 2240) 3.1 G/DL CALC A/G RATIO (test code = 2234) 1.4 RATIO BILIRUBIN, TOTAL (test code = 2207) 0.3 MG/DL ALKALINE PHOSPHATASE (test code = 2204) 63 U/L AST (test code = 2218) 16 U/L ALT (test code = 2219) 10 U/L Parth TorresCBC W/AUTO [id number] 00:00:00* Test Item Value Reference Range Interpretation Comme nts WBC (test code = 1001) 6.6 K/UL RBC (test code = 1002) 4.60 M/UL HEMOGLOBIN (test code = 1003) 7.4 G/DL HEMATOCRIT (test code = 1004) 27.9 % MCV (test code = 1005) 60.7 fL MCH (test code = 1006) 16.1 PG MCHC (test code = 1007) 26.5 G/DL RDW (test code = 1038) 18.9 % NEUTROPHILS (test code = 1008) 58.2 % LYMPHOCYTES (test code = 1010) 31.4 % MONOCYTES (test code = 1011) 8.1 % EOSINOPHILS (test code = 1012) 1.8 % BASOPHILS (test code = 1013) 0.3 % IMMATURE GRANULOCYTES (test code = 1036) 0.2 % NUCLEATED RBCS (test code = 1065) 0.0 /100WBC'S PLATELET COUNT (test code = 1015) 399 K/UL ABSOLUTE NEUTROPHILS (test c ode = 1066) 3.82 K/UL ABSOLUTE LYMPHOCYTES (test c ode = 1067) 2.06 K/UL ABSOLUTE MONOCYTES (test cod e = 1068) 0.53 K/UL ABSOLUTE EOSINOPHILS (test c ode = 1040) 0.12 K/UL ABSOLUTE BASOPHILS (test cod e = 1069) 0.02 K/UL ABS IMMATURE GRANULOCYTES (t est code = 1020) 0.01 K/UL ABS NUCLEATED RBCS (test cod e = 12546) 0.00 K/UL COMMENTS (test code = 1016) (NOTE) Parth TorresHEMOGLOBIN [id number] 00:00:00* Test Item Value Reference Range Interpretation Comme nts HEMOGLOBIN A1c (test code = 97664) 6.8 % Parth TorresLIPID [id number] 00:00:00* Test Item Value Reference Range Interpretation Comme nts CHOLESTEROL (test code = 2210) 121 MG/DL TRIGLYCERIDES (test code = 2232) 79 MG/DL HDL CHOLESTEROL (test code = 2220) 37 MG/DL CALC LDL CHOL (test code = 2237) 68 MG/DL RISK RATIO LDL/HDL (test cod e = 2238) 1.84 RATIO Parth TorresCOMPREHENSIVE METABOLIC [id number] 00:00:00* Test Item Value Reference Range Interpretation Comme nts GLUCOSE (test code = 2217) 102 MG/DL BUN (test code = 2208) 6 MG/DL CREATININE (test code = 2214) 0.61 MG/DL eGFR (2020 CKD-EPI) (test code = 00777) 116 ML/MIN/1.73 CALC BUN/CREAT (test code = 2235) 10 RATIO SODIUM (test code = 2231) 139 MEQ/L POTASSIUM (test code = 2228) 4.1 MEQ/L CHLORIDE (test code = 2215) 104 MEQ/L CARBON DIOXIDE (test code = 2206) 24 MEQ/L CALCIUM (test code = 2209) 8.9 MG/DL PROTEIN, TOTAL (test code = 2229) 7.5 G/DL ALBUMIN (test code = 2201) 4.4 G/DL CALC GLOBULIN (test code = 2240) 3.1 G/DL CALC A/G RATIO (test code = 2234) 1.4 RATIO BILIRUBIN, TOTAL (test code = 2207) 0.3 MG/DL ALKALINE PHOSPHATASE (test code = 2204) 63 U/L AST (test code = 2218) 16 U/L ALT (test code = 2219) 10 U/L Parth TorresCBC W/AUTO [id number] 00:00:00* Test Item Value Reference Range Interpretation Comme nts WBC (test code = 1001) 6.6 K/UL RBC (test code = 1002) 4.60 M/UL HEMOGLOBIN (test code = 1003) 7.4 G/DL HEMATOCRIT (test code = 1004) 27.9 % MCV (test code = 1005) 60.7 fL MCH (test code = 1006) 16.1 PG MCHC (test code = 1007) 26.5 G/DL RDW (test code = 1038) 18.9 % NEUTROPHILS (test code = 1008) 58.2 % LYMPHOCYTES (test code = 1010) 31.4 % MONOCYTES (test code = 1011) 8.1 % EOSINOPHILS (test code = 1012) 1.8 % BASOPHILS (test code = 1013) 0.3 % IMMATURE GRANULOCYTES (test code = 1036) 0.2 % NUCLEATED RBCS (test code = 1065) 0.0 /100WBC'S PLATELET COUNT (test code = 1015) 399 K/UL ABSOLUTE NEUTROPHILS (test c ode = 1066) 3.82 K/UL ABSOLUTE LYMPHOCYTES (test c ode = 1067) 2.06 K/UL ABSOLUTE MONOCYTES (test cod e = 1068) 0.53 K/UL ABSOLUTE EOSINOPHILS (test c ode = 1040) 0.12 K/UL ABSOLUTE BASOPHILS (test cod e = 1069) 0.02 K/UL ABS IMMATURE GRANULOCYTES (t est code = 1020) 0.01 K/UL ABS NUCLEATED RBCS (test cod e = 61603) 0.00 K/UL COMMENTS (test code = 1016) (NOTE) Parth TorresHEMOGLOBIN [id number] 00:00:00* Test Item Value Reference Range Interpretation Comme nts HEMOGLOBIN A1c (test code = 15369) 6.8 % Parth TorresLIPID [id number] 00:00:00* Test Item Value Reference Range Interpretation Comme nts CHOLESTEROL (test code = 2210) 121 MG/DL TRIGLYCERIDES (test code = 2232) 79 MG/DL HDL CHOLESTEROL (test code = 2220) 37 MG/DL CALC LDL CHOL (test code = 2237) 68 MG/DL RISK RATIO LDL/HDL (test cod e = 2238) 1.84 RATIO Parth TorresCOMPREHENSIVE METABOLIC [id number] 00:00:00* Test Item Value Reference Range Interpretation Comme nts GLUCOSE (test code = 2217) 102 MG/DL BUN (test code = 2208) 6 MG/DL CREATININE (test code = 2214) 0.61 MG/DL eGFR (2020 CKD-EPI) (test code = 90301) 116 ML/MIN/1.73 CALC BUN/CREAT (test code = 2235) 10 RATIO SODIUM (test code = 2231) 139 MEQ/L POTASSIUM (test code = 2228) 4.1 MEQ/L CHLORIDE (test code = 2215) 104 MEQ/L CARBON DIOXIDE (test code = 2206) 24 MEQ/L CALCIUM (test code = 2209) 8.9 MG/DL PROTEIN, TOTAL (test code = 2229) 7.5 G/DL ALBUMIN (test code = 2201) 4.4 G/DL CALC GLOBULIN (test code = 2240) 3.1 G/DL CALC A/G RATIO (test code = 2234) 1.4 RATIO BILIRUBIN, TOTAL (test code = 2207) 0.3 MG/DL ALKALINE PHOSPHATASE (test code = 2204) 63 U/L AST (test code = 2218) 16 U/L ALT (test code = 2219) 10 U/L Parth TorresCBC W/AUTO [id number] 00:00:00* Test Item Value Reference Range Interpretation Comme nts WBC (test code = 1001) 6.6 K/UL RBC (test code = 1002) 4.60 M/UL HEMOGLOBIN (test code = 1003) 7.4 G/DL HEMATOCRIT (test code = 1004) 27.9 % MCV (test code = 1005) 60.7 fL MCH (test code = 1006) 16.1 PG MCHC (test code = 1007) 26.5 G/DL RDW (test code = 1038) 18.9 % NEUTROPHILS (test code = 1008) 58.2 % LYMPHOCYTES (test code = 1010) 31.4 % MONOCYTES (test code = 1011) 8.1 % EOSINOPHILS (test code = 1012) 1.8 % BASOPHILS (test code = 1013) 0.3 % IMMATURE GRANULOCYTES (test code = 1036) 0.2 % NUCLEATED RBCS (test code = 1065) 0.0 /100WBC'S PLATELET COUNT (test code = 1015) 399 K/UL ABSOLUTE NEUTROPHILS (test c ode = 1066) 3.82 K/UL ABSOLUTE LYMPHOCYTES (test c ode = 1067) 2.06 K/UL ABSOLUTE MONOCYTES (test cod e = 1068) 0.53 K/UL ABSOLUTE EOSINOPHILS (test c ode = 1040) 0.12 K/UL ABSOLUTE BASOPHILS (test cod e = 1069) 0.02 K/UL ABS IMMATURE GRANULOCYTES (t est code = 1020) 0.01 K/UL ABS NUCLEATED RBCS (test cod e = 12696) 0.00 K/UL COMMENTS (test code = 1016) (NOTE) Parth TorresPOCT [id number] 18:57:00* Test Item Value Reference Range Interpretation Comme nts POCT PREG (test code = 1605) Negative On board controls acceptable with C Line (test code = 3574) Yes POCT PREG LOT # (test code = 3575) POCT PREG TEST DATE ( test code = 3576) [facility] [id number] 18:57:00* Test Item Value Reference Range Interpretation Comme nts POCT PREG (test code = 1605) Negative On board controls acceptable with C Line (test code = 3574) Yes POCT PREG LOT # (test code = 3575) POCT PREG TEST DATE ( test code = 3576) [facility] ([facility]), RT-PCR/[id number] 06:23:46* Test Item Value Reference Range Interpretation Comments SARS-CoV-2 INTERPRETATION (test code = 55297) NEGATIVE SEE NOTE SARS-CoV-2 R NA NOT [...] prevalence is high. SOURCE (test code = 18895) NASOPHARYNGEAL Note: Methodolog y is Candice Zenia Real-Time RT-PCR. The expected result or reference range is NEGATIVE (Not Detected). For more information regarding COVID-19 testing to include clinicalinformation, methodology detail, intended use, FDA authorization andrecommended fact sheets for patients or healthcare providers, see [facility] Announcement: SARS-CoV-2 (COVID-19) by NAAT at URL below (note,fact sheets are provided by method given in report:[email or web address] Alternatively, see downloadable PDF fact sheet at:[email or web address] UNLESS OTHERWISE INDICATED, ALL TESTING PERFORMED [facility] [address] [place] [address] AUTOGRAPHER: CHU HAAS M.D. IA NUMBER [id number] [facility]. [id number] SARS-CoV-2 (COVID-19) by RT-PCR (HIGH RISK)2021-04-29 00:00:00* Test Item Value Reference Range Interpretation Comme nts SARS-CoV-2 INTERPRETATION (test code = 39113) NEGATIVE SOURCE (test code = 99293) NASOPHARYNGEAL Parth F GmpykpAQJZ-YdZ-3 (COVID-19) by RT-PCR (HIGH RISK)2021-04-29 00:00:00* Test Item Value Reference Range Interpretation Comme nts SARS-CoV-2 INTERPRETATION (test code = 80098) NEGATIVE SOURCE (test code = 94537) NASOPHARYNGEAL Parth F WdmmgqGMIV-[id number] (COVID-19) by RT-PCR (HIGH RISK)2021-04-29 00:00:00* Test Item Value Reference Range Interpretation Comme nts SARS-CoV-2 INTERPRETATION (test code = 52702) NEGATIVE SOURCE (test code = 45249) NASOPHARYNGEAL Parth F JgsukjCXYU-KbH-2 (COVID-19) by RT-PCR (HIGH RISK)2021-04-29 00:00:00* Test Item Value Reference Range Interpretation Comme nts SARS-CoV-2 INTERPRETATION (test code = 21162) NEGATIVE SOURCE (test code = 16428) NASOPHARYNGEAL Parth F AopamdVZUG-EyP-2 (COVID-19) by RT-PCR (HIGH RISK)2021-04-29 00:00:00* Test Item Value Reference Range Interpretation Comme nts SARS-CoV-2 INTERPRETATION (test code = 46966) NEGATIVE SOURCE (test code = 10191) NASOPHARYNGEAL Parth F OtheyaHQDN-SvY-3 (COVID-19) by RT-PCR (HIGH RISK)2021-04-29 00:00:00* Test Item Value Reference Range Interpretation Comme nts SARS-CoV-2 INTERPRETATION (test code = 58918) NEGATIVE SOURCE (test code = 19989) NASOPHARYNGEAL Parth F XwfyukJWSJ-NxW-1 (COVID-19) by RT-PCR (HIGH RISK)2021-04-29 00:00:00* Test Item Value Reference Range Interpretation Comme nts SARS-CoV-2 INTERPRETATION (test code = 08452) NEGATIVE SOURCE (test code = 13320) NASOPHARYNGEAL Parth TorresSARS-CoV-2 (COVID-19) by RT-PCR (HIGH RISK)2021-04-29 00:00:00* Test Item Value Reference Range Interpretation Comme nts SARS-CoV-2 INTERPRETATION (test code = 85553) NEGATIVE SOURCE (test code = 93605) NASOPHARYNGEAL Parth TorresHEMOGLOBIN [id number] 00:00:00* Test Item Value Reference Range Interpretation Comme gurpreet HEMOGLOBIN A1c (test code = 09547) 12.4 % Parth [id number] 00:00:00* Test Item Value Reference Range Interpretation Comme gurpreet TSH, THIRD GENERATION (test code = 2821) 1.550 UIU/ML Parth TorresCBC W/AUTO [id number] 00:00:00* Test Item Value Reference Range Interpretation Comme nts WBC (test code = 1001) 8.4 K/UL RBC (test code = 1002) 4.33 M/UL HEMOGLOBIN (test code = 1003) 8.9 G/DL HEMATOCRIT (test code = 1004) 29.4 % MCV (test code = 1005) 67.9 fL MCH (test code = 1006) 20.6 PG MCHC (test code = 1007) 30.3 G/DL RDW (test code = 1038) 15.7 % NEUTROPHILS (test code = 1008) 66.6 % LYMPHOCYTES (test code = 1010) 24.6 % MONOCYTES (test code = 1011) 6.4 % EOSINOPHILS (test code = 1012) 1.5 % BASOPHILS (test code = 1013) 0.5 % IMMATURE GRANULOCYTES (test code = 1036) 0.4 % NUCLEATED RBCS (test code = 1065) 0.0 /100WBC'S PLATELET COUNT (test code = 1015) 413 K/UL ABSOLUTE NEUTROPHILS (test c ode = 1066) 5.60 K/UL ABSOLUTE LYMPHOCYTES (test c ode = 1067) 2.07 K/UL ABSOLUTE MONOCYTES (test cod e = 1068) 0.54 K/UL ABSOLUTE EOSINOPHILS (test c ode = 1040) 0.13 K/UL ABSOLUTE BASOPHILS (test cod e = 1069) 0.04 K/UL ABS IMMATURE GRANULOCYTES (t est code = 1020) 0.03 K/UL ABS NUCLEATED RBCS (test cod e = 65576) 0.00 K/UL Parth [id number] 00:00:00* Test Item Value Reference Range Interpretation Comme nts TESTOSTERONE (test code = 2830) <12 NG/DL Parth TorresFSH + LH [id number] 00:00:00* Test Item Value Reference Range Interpretation Comme nts FOLLICLE STIM HORMONE (test code = 2700) 3.6 IU/L LUTEINIZING HORMONE (test co de = 2776) 7.1 IU/L Parth [id number] 00:00:00* Test Item Value Reference Range Interpretation Comme nts PROLACTIN (test code = 2800) 7.1 NG/ML Parth [id number] 00:00:00* Test Item Value Reference Range Interpretation Comme nts ESTRADIOL (test code = 2505) 112.0 PG/ML Parth TorresHEMOGLOBIN [id number] 00:00:00* Test Item Value Reference Range Interpretation Comme nts HEMOGLOBIN A1c (test code = 54821) 12.4 % Parth [id number] 00:00:00* Test Item Value Reference Range Interpretation Comme nts TSH, THIRD GENERATION (test code = 2821) 1.550 UIU/ML Parth TorresCBC W/AUTO [id number] 00:00:00* Test Item Value Reference Range Interpretation Comme nts WBC (test code = 1001) 8.4 K/UL RBC (test code = 1002) 4.33 M/UL HEMOGLOBIN (test code = 1003) 8.9 G/DL HEMATOCRIT (test code = 1004) 29.4 % MCV (test code = 1005) 67.9 fL MCH (test code = 1006) 20.6 PG MCHC (test code = 1007) 30.3 G/DL RDW (test code = 1038) 15.7 % NEUTROPHILS (test code = 1008) 66.6 % LYMPHOCYTES (test code = 1010) 24.6 % MONOCYTES (test code = 1011) 6.4 % EOSINOPHILS (test code = 1012) 1.5 % BASOPHILS (test code = 1013) 0.5 % IMMATURE GRANULOCYTES (test code = 1036) 0.4 % NUCLEATED RBCS (test code = 1065) 0.0 /100WBC'S PLATELET COUNT (test code = 1015) 413 K/UL ABSOLUTE NEUTROPHILS (test c ode = 1066) 5.60 K/UL ABSOLUTE LYMPHOCYTES (test c ode = 1067) 2.07 K/UL ABSOLUTE MONOCYTES (test cod e = 1068) 0.54 K/UL ABSOLUTE EOSINOPHILS (test c ode = 1040) 0.13 K/UL ABSOLUTE BASOPHILS (test cod e = 1069) 0.04 K/UL ABS IMMATURE GRANULOCYTES (t est code = 1020) 0.03 K/UL ABS NUCLEATED RBCS (test cod e = 19832) 0.00 K/UL Parth [id number] 00:00:00* Test Item Value Reference Range Interpretation Comme nts TESTOSTERONE (test code = 2830) <12 NG/DL Parth TorresFSH + LH [id number] 00:00:00* Test Item Value Reference Range Interpretation Comme nts FOLLICLE STIM HORMONE (test code = 2700) 3.6 IU/L LUTEINIZING HORMONE (test co de = 2776) 7.1 IU/L Parth [id number] 00:00:00* Test Item Value Reference Range Interpretation Comme nts PROLACTIN (test code = 2800) 7.1 NG/ML Parth [id number] 00:00:00* Test Item Value Reference Range Interpretation Comme nts ESTRADIOL (test code = 2505) 112.0 PG/ML Parth TorresHEMOGLOBIN [id number] 00:00:00* Test Item Value Reference Range Interpretation Comme nts HEMOGLOBIN A1c (test code = 90160) 12.4 % Parth [id number] 00:00:00* Test Item Value Reference Range Interpretation Comme nts TSH, THIRD GENERATION (test code = 2821) 1.550 UIU/ML Parth TorresCBC W/AUTO [id number] 00:00:00* Test Item Value Reference Range Interpretation Comme nts WBC (test code = 1001) 8.4 K/UL RBC (test code = 1002) 4.33 M/UL HEMOGLOBIN (test code = 1003) 8.9 G/DL HEMATOCRIT (test code = 1004) 29.4 % MCV (test code = 1005) 67.9 fL MCH (test code = 1006) 20.6 PG MCHC (test code = 1007) 30.3 G/DL RDW (test code = 1038) 15.7 % NEUTROPHILS (test code = 1008) 66.6 % LYMPHOCYTES (test code = 1010) 24.6 % MONOCYTES (test code = 1011) 6.4 % EOSINOPHILS (test code = 1012) 1.5 % BASOPHILS (test code = 1013) 0.5 % IMMATURE GRANULOCYTES (test code = 1036) 0.4 % NUCLEATED RBCS (test code = 1065) 0.0 /100WBC'S PLATELET COUNT (test code = 1015) 413 K/UL ABSOLUTE NEUTROPHILS (test c ode = 1066) 5.60 K/UL ABSOLUTE LYMPHOCYTES (test c ode = 1067) 2.07 K/UL ABSOLUTE MONOCYTES (test cod e = 1068) 0.54 K/UL ABSOLUTE EOSINOPHILS (test c ode = 1040) 0.13 K/UL ABSOLUTE BASOPHILS (test cod e = 1069) 0.04 K/UL ABS IMMATURE GRANULOCYTES (t est code = 1020) 0.03 K/UL ABS NUCLEATED RBCS (test cod e = 97489) 0.00 K/UL Parth [id number] 00:00:00* Test Item Value Reference Range Interpretation Comme nts TESTOSTERONE (test code = 2830) <12 NG/DL Parth TorresFSH + LH [id number] 00:00:00* Test Item Value Reference Range Interpretation Comme nts FOLLICLE STIM HORMONE (test code = 2700) 3.6 IU/L LUTEINIZING HORMONE (test co de = 2776) 7.1 IU/L Parth [id number] 00:00:00* Test Item Value Reference Range Interpretation Comme nts PROLACTIN (test code = 2800) 7.1 NG/ML Parth [id number] 00:00:00* Test Item Value Reference Range Interpretation Comme nts ESTRADIOL (test code = 9415) 112.0 PG/ML Parth TorresHEMOGLOBIN [id number] 00:00:00* Test Item Value Reference Range Interpretation Comme nts HEMOGLOBIN A1c (test code = 33407) 12.4 % Parth [id number] 00:00:00* Test Item Value Reference Range Interpretation Comme nts TSH, THIRD GENERATION (test code = 2821) 1.550 UIU/ML Parth TorresCBC W/AUTO [id number] 00:00:00* Test Item Value Reference Range Interpretation Comme nts WBC (test code = 1001) 8.4 K/UL RBC (test code = 1002) 4.33 M/UL HEMOGLOBIN (test code = 1003) 8.9 G/DL HEMATOCRIT (test code = 1004) 29.4 % MCV (test code = 1005) 67.9 fL MCH (test code = 1006) 20.6 PG MCHC (test code = 1007) 30.3 G/DL RDW (test code = 1038) 15.7 % NEUTROPHILS (test code = 1008) 66.6 % LYMPHOCYTES (test code = 1010) 24.6 % MONOCYTES (test code = 1011) 6.4 % EOSINOPHILS (test code = 1012) 1.5 % BASOPHILS (test code = 1013) 0.5 % IMMATURE GRANULOCYTES (test code = 1036) 0.4 % NUCLEATED RBCS (test code = 1065) 0.0 /100WBC'S PLATELET COUNT (test code = 1015) 413 K/UL ABSOLUTE NEUTROPHILS (test c ode = 1066) 5.60 K/UL ABSOLUTE LYMPHOCYTES (test c ode = 1067) 2.07 K/UL ABSOLUTE MONOCYTES (test cod e = 1068) 0.54 K/UL ABSOLUTE EOSINOPHILS (test c ode = 1040) 0.13 K/UL ABSOLUTE BASOPHILS (test cod e = 1069) 0.04 K/UL ABS IMMATURE GRANULOCYTES (t est code = 1020) 0.03 K/UL ABS NUCLEATED RBCS (test cod e = 95932) 0.00 K/UL Parth [id number] 00:00:00* Test Item Value Reference Range Interpretation Comme nts TESTOSTERONE (test code = 2830) <12 NG/DL Parth TorresFSH + LH [id number] 00:00:00* Test Item Value Reference Range Interpretation Comme nts FOLLICLE STIM HORMONE (test code = 1150) 3.6 IU/L LUTEINIZING HORMONE (test co de = 2776) 7.1 IU/L Parth [id number] 00:00:00* Test Item Value Reference Range Interpretation Comme gurpreet PROLACTIN (test code = 2800) 7.1 NG/ML Parth [id number] 00:00:00* Test Item Value Reference Range Interpretation Comme gurpreet ESTRADIOL (test code = 2505) 112.0 PG/ML Parth TorresHEMOGLOBIN [id number] 00:00:00* Test Item Value Reference Range Interpretation Comme gurpreet HEMOGLOBIN A1c (test code = 67175) 12.4 % Parth [id number] 00:00:00* Test Item Value Reference Range Interpretation Comme nts TSH, THIRD GENERATION (test code = 2821) 1.550 UIU/ML Parth TorresCBC W/AUTO [id number] 00:00:00* Test Item Value Reference Range Interpretation Comme nts WBC (test code = 1001) 8.4 K/UL RBC (test code = 1002) 4.33 M/UL HEMOGLOBIN (test code = 1003) 8.9 G/DL HEMATOCRIT (test code = 1004) 29.4 % MCV (test code = 1005) 67.9 fL MCH (test code = 1006) 20.6 PG MCHC (test code = 1007) 30.3 G/DL RDW (test code = 1038) 15.7 % NEUTROPHILS (test code = 1008) 66.6 % LYMPHOCYTES (test code = 1010) 24.6 % MONOCYTES (test code = 1011) 6.4 % EOSINOPHILS (test code = 1012) 1.5 % BASOPHILS (test code = 1013) 0.5 % IMMATURE GRANULOCYTES (test code = 1036) 0.4 % NUCLEATED RBCS (test code = 1065) 0.0 /100WBC'S PLATELET COUNT (test code = 1015) 413 K/UL ABSOLUTE NEUTROPHILS (test c ode = 1066) 5.60 K/UL ABSOLUTE LYMPHOCYTES (test c ode = 1067) 2.07 K/UL ABSOLUTE MONOCYTES (test cod e = 1068) 0.54 K/UL ABSOLUTE EOSINOPHILS (test c ode = 1040) 0.13 K/UL ABSOLUTE BASOPHILS (test cod e = 1069) 0.04 K/UL ABS IMMATURE GRANULOCYTES (t est code = 1020) 0.03 K/UL ABS NUCLEATED RBCS (test cod e = 54924) 0.00 K/UL Parth [id number] 00:00:00* Test Item Value Reference Range Interpretation Comme nts TESTOSTERONE (test code = 2830) <12 NG/DL Parth TorresFSH + LH [id number] 00:00:00* Test Item Value Reference Range Interpretation Comme nts FOLLICLE STIM HORMONE (test code = 2700) 3.6 IU/L LUTEINIZING HORMONE (test co de = 2776) 7.1 IU/L Parth [id number] 00:00:00* Test Item Value Reference Range Interpretation Comme nts PROLACTIN (test code = 2800) 7.1 NG/ML Parth [id number] 00:00:00* Test Item Value Reference Range Interpretation Comme nts ESTRADIOL (test code = 2505) 112.0 PG/ML Parth TorresHEMOGLOBIN [id number] 00:00:00* Test Item Value Reference Range Interpretation Comme nts HEMOGLOBIN A1c (test code = 30462) 12.4 % Parth [id number] 00:00:00* Test Item Value Reference Range Interpretation Comme nts TSH, THIRD GENERATION (test code = 2821) 1.550 UIU/ML Parth TorresCBC W/AUTO [id number] 00:00:00* Test Item Value Reference Range Interpretation Comme nts WBC (test code = 1001) 8.4 K/UL RBC (test code = 1002) 4.33 M/UL HEMOGLOBIN (test code = 1003) 8.9 G/DL HEMATOCRIT (test code = 1004) 29.4 % MCV (test code = 1005) 67.9 fL MCH (test code = 1006) 20.6 PG MCHC (test code = 1007) 30.3 G/DL RDW (test code = 1038) 15.7 % NEUTROPHILS (test code = 1008) 66.6 % LYMPHOCYTES (test code = 1010) 24.6 % MONOCYTES (test code = 1011) 6.4 % EOSINOPHILS (test code = 1012) 1.5 % BASOPHILS (test code = 1013) 0.5 % IMMATURE GRANULOCYTES (test code = 1036) 0.4 % NUCLEATED RBCS (test code = 1065) 0.0 /100WBC'S PLATELET COUNT (test code = 1015) 413 K/UL ABSOLUTE NEUTROPHILS (test c ode = 1066) 5.60 K/UL ABSOLUTE LYMPHOCYTES (test c ode = 1067) 2.07 K/UL ABSOLUTE MONOCYTES (test cod e = 1068) 0.54 K/UL ABSOLUTE EOSINOPHILS (test c ode = 1040) 0.13 K/UL ABSOLUTE BASOPHILS (test cod e = 1069) 0.04 K/UL ABS IMMATURE GRANULOCYTES (t est code = 1020) 0.03 K/UL ABS NUCLEATED RBCS (test cod e = 34339) 0.00 K/UL Parth [id number] 00:00:00* Test Item Value Reference Range Interpretation Comme nts TESTOSTERONE (test code = 2830) <12 NG/DL Parth TorresFSH + LH [id number] 00:00:00* Test Item Value Reference Range Interpretation Comme nts FOLLICLE STIM HORMONE (test code = 2700) 3.6 IU/L LUTEINIZING HORMONE (test co de = 2776) 7.1 IU/L Parth [id number] 00:00:00* Test Item Value Reference Range Interpretation Comme nts PROLACTIN (test code = 2800) 7.1 NG/ML Parth [id number] 00:00:00* Test Item Value Reference Range Interpretation Comme nts ESTRADIOL (test code = 7655) 112.0 PG/ML Parth TorresHEMOGLOBIN [id number] 00:00:00* Test Item Value Reference Range Interpretation Comme nts HEMOGLOBIN A1c (test code = 79620) 12.4 % Parth [id number] 00:00:00* Test Item Value Reference Range Interpretation Comme nts TSH, THIRD GENERATION (test code = 2821) 1.550 UIU/ML Parth TorresCBC W/AUTO [id number] 00:00:00* Test Item Value Reference Range Interpretation Comme nts WBC (test code = 1001) 8.4 K/UL RBC (test code = 1002) 4.33 M/UL HEMOGLOBIN (test code = 1003) 8.9 G/DL HEMATOCRIT (test code = 1004) 29.4 % MCV (test code = 1005) 67.9 fL MCH (test code = 1006) 20.6 PG MCHC (test code = 1007) 30.3 G/DL RDW (test code = 1038) 15.7 % NEUTROPHILS (test code = 1008) 66.6 % LYMPHOCYTES (test code = 1010) 24.6 % MONOCYTES (test code = 1011) 6.4 % EOSINOPHILS (test code = 1012) 1.5 % BASOPHILS (test code = 1013) 0.5 % IMMATURE GRANULOCYTES (test code = 1036) 0.4 % NUCLEATED RBCS (test code = 1065) 0.0 /100WBC'S PLATELET COUNT (test code = 1015) 413 K/UL ABSOLUTE NEUTROPHILS (test c ode = 1066) 5.60 K/UL ABSOLUTE LYMPHOCYTES (test c ode = 1067) 2.07 K/UL ABSOLUTE MONOCYTES (test cod e = 1068) 0.54 K/UL ABSOLUTE EOSINOPHILS (test c ode = 1040) 0.13 K/UL ABSOLUTE BASOPHILS (test cod e = 1069) 0.04 K/UL ABS IMMATURE GRANULOCYTES (t est code = 1020) 0.03 K/UL ABS NUCLEATED RBCS (test cod e = 41100) 0.00 K/UL Parth [id number] 00:00:00* Test Item Value Reference Range Interpretation Comme nts TESTOSTERONE (test code = 2830) <12 NG/DL Parth TorresFSH + LH [id number] 00:00:00* Test Item Value Reference Range Interpretation Comme nts FOLLICLE STIM HORMONE (test code = 2700) 3.6 IU/L LUTEINIZING HORMONE (test co de = 2776) 7.1 IU/L Parth [id number] 00:00:00* Test Item Value Reference Range Interpretation Comme nts PROLACTIN (test code = 2800) 7.1 NG/ML Parth [id number] 00:00:00* Test Item Value Reference Range Interpretation Comme nts ESTRADIOL (test code = 9765) 112.0 PG/ML Parth TorresHEMOGLOBIN [id number] 00:00:00* Test Item Value Reference Range Interpretation Comme nts HEMOGLOBIN A1c (test code = 16264) 12.4 % Parth [id number] 00:00:00* Test Item Value Reference Range Interpretation Comme nts TSH, THIRD GENERATION (test code = 2821) 1.550 UIU/ML Parth TorresCBC W/AUTO [id number] 00:00:00* Test Item Value Reference Range Interpretation Comme nts WBC (test code = 1001) 8.4 K/UL RBC (test code = 1002) 4.33 M/UL HEMOGLOBIN (test code = 1003) 8.9 G/DL HEMATOCRIT (test code = 1004) 29.4 % MCV (test code = 1005) 67.9 fL MCH (test code = 1006) 20.6 PG MCHC (test code = 1007) 30.3 G/DL RDW (test code = 1038) 15.7 % NEUTROPHILS (test code = 1008) 66.6 % LYMPHOCYTES (test code = 1010) 24.6 % MONOCYTES (test code = 1011) 6.4 % EOSINOPHILS (test code = 1012) 1.5 % BASOPHILS (test code = 1013) 0.5 % IMMATURE GRANULOCYTES (test code = 1036) 0.4 % NUCLEATED RBCS (test code = 1065) 0.0 /100WBC'S PLATELET COUNT (test code = 1015) 413 K/UL ABSOLUTE NEUTROPHILS (test c ode = 1066) 5.60 K/UL ABSOLUTE LYMPHOCYTES (test c ode = 1067) 2.07 K/UL ABSOLUTE MONOCYTES (test cod e = 1068) 0.54 K/UL ABSOLUTE EOSINOPHILS (test c ode = 1040) 0.13 K/UL ABSOLUTE BASOPHILS (test cod e = 1069) 0.04 K/UL ABS IMMATURE GRANULOCYTES (t est code = 1020) 0.03 K/UL ABS NUCLEATED RBCS (test cod e = 90726) 0.00 K/UL Parth [id number] 00:00:00* Test Item Value Reference Range Interpretation Comme gurpreet TESTOSTERONE (test code = 2830) <12 NG/DL Parth TorresFSH + LH [id number] 00:00:00* Test Item Value Reference Range Interpretation Comme gurpreet FOLLICLE STIM HORMONE (test code = 9100) 3.6 IU/L LUTEINIZING HORMONE (test co de = 2776) 7.1 IU/L Parth [id number] 00:00:00* Test Item Value Reference Range Interpretation Comme nts PROLACTIN (test code = 2800) 7.1 NG/ML Parth [id number] 00:00:00* Test Item Value Reference Range Interpretation Comme nts ESTRADIOL (test code = 2505) 112.0 PG/ML Parth TorresHEMOGLOBIN [id number] 00:00:00* Test Item Value Reference Range Interpretation Comme nts HEMOGLOBIN A1c (test code = 22057) 12.3 % Parth [place]onte AustinCOMPREHENSIVE METABOLIC [id number] 00:00:00* Test Item Value Reference Range Interpretation Comme nts GLUCOSE (test code = 2217) 253 MG/DL BUN (test code = 2208) 4 MG/DL CREATININE (test code = 2214) 0.59 MG/DL eGFR AMER. (test cod e = 33758) 135 ML/MIN/1.73 eGFR NON- AMER. (test code = 30857) 116 ML/MIN/1.73 CALC BUN/CREAT (test code = 2235) 7 RATIO SODIUM (test code = 2231) 136 MEQ/L POTASSIUM (test code = 2228) 4.1 MEQ/L CHLORIDE (test code = 2215) 99 MEQ/L CARBON DIOXIDE (test code = 2206) 28 MEQ/L CALCIUM (test code = 2209) 9.4 MG/DL PROTEIN, TOTAL (test code = 2229) 7.1 G/DL ALBUMIN (test code = 2201) 4.1 G/DL CALC GLOBULIN (test code = 2240) 3.0 G/DL CALC A/G RATIO (test code = 2234) 1.4 RATIO BILIRUBIN, TOTAL (test code = 2207) 0.3 MG/DL ALKALINE PHOSPHATASE (test code = 2204) 106 U/L AST (test code = 2218) 25 U/L ALT (test code = 2219) 26 U/L Parth TorresHEMOGLOBIN [id number] 00:00:00* Test Item Value Reference Range Interpretation Comme nts HEMOGLOBIN A1c (test code = 37572) 12.3 % Parth TorresCOMPREHENSIVE METABOLIC [id number] 00:00:00* Test Item Value Reference Range Interpretation Comme nts GLUCOSE (test code = 2217) 253 MG/DL BUN (test code = 2208) 4 MG/DL CREATININE (test code = 2214) 0.59 MG/DL eGFR AMER. (test cod e = 69925) 135 ML/MIN/1.73 eGFR NON- AMER. (test code = 79423) 116 ML/MIN/1.73 CALC BUN/CREAT (test code = 2235) 7 RATIO SODIUM (test code = 2231) 136 MEQ/L POTASSIUM (test code = 2228) 4.1 MEQ/L CHLORIDE (test code = 2215) 99 MEQ/L CARBON DIOXIDE (test code = 2206) 28 MEQ/L CALCIUM (test code = 2209) 9.4 MG/DL PROTEIN, TOTAL (test code = 2229) 7.1 G/DL ALBUMIN (test code = 2201) 4.1 G/DL CALC GLOBULIN (test code = 2240) 3.0 G/DL CALC A/G RATIO (test code = 2234) 1.4 RATIO BILIRUBIN, TOTAL (test code = 2207) 0.3 MG/DL ALKALINE PHOSPHATASE (test code = 2204) 106 U/L AST (test code = 2218) 25 U/L ALT (test code = 2219) 26 U/L Parth TorresHEMOGLOBIN [id number] 00:00:00* Test Item Value Reference Range Interpretation Comme nts HEMOGLOBIN A1c (test code = 09357) 12.3 % Parth TorresCOMPREHENSIVE METABOLIC [id number] 00:00:00* Test Item Value Reference Range Interpretation Comme nts GLUCOSE (test code = 2217) 253 MG/DL BUN (test code = 2208) 4 MG/DL CREATININE (test code = 2214) 0.59 MG/DL eGFR AMER. (test cod e = 05562) 135 ML/MIN/1.73 eGFR NON- AMER. (test code = 24394) 116 ML/MIN/1.73 CALC BUN/CREAT (test code = 2235) 7 RATIO SODIUM (test code = 2231) 136 MEQ/L POTASSIUM (test code = 2228) 4.1 MEQ/L CHLORIDE (test code = 2215) 99 MEQ/L CARBON DIOXIDE (test code = 2206) 28 MEQ/L CALCIUM (test code = 2209) 9.4 MG/DL PROTEIN, TOTAL (test code = 2229) 7.1 G/DL ALBUMIN (test code = 2201) 4.1 G/DL CALC GLOBULIN (test code = 2240) 3.0 G/DL CALC A/G RATIO (test code = 2234) 1.4 RATIO BILIRUBIN, TOTAL (test code = 2207) 0.3 MG/DL ALKALINE PHOSPHATASE (test code = 2204) 106 U/L AST (test code = 2218) 25 U/L ALT (test code = 2219) 26 U/L Parth [place] AustinHEMOGLOBIN [id number] 00:00:00* Test Item Value Reference Range Interpretation Comme [facility] HEMOGLOBIN A1c (test code = 31342) 12.3 % Parth TorresCOMPREHENSIVE METABOLIC [id number] 00:00:00* Test Item Value Reference Range Interpretation Comme nts GLUCOSE (test code = 2217) 253 MG/DL BUN (test code = 2208) 4 MG/DL CREATININE (test code = 2214) 0.59 MG/DL eGFR AMER. (test cod e = 36842) 135 ML/MIN/1.73 eGFR NON- AMER. (test code = 71928) 116 ML/MIN/1.73 CALC BUN/CREAT (test code = 2235) 7 RATIO SODIUM (test code = 2231) 136 MEQ/L POTASSIUM (test code = 2228) 4.1 MEQ/L CHLORIDE (test code = 2215) 99 MEQ/L CARBON DIOXIDE (test code = 2206) 28 MEQ/L CALCIUM (test code = 2209) 9.4 MG/DL PROTEIN, TOTAL (test code = 2229) 7.1 G/DL ALBUMIN (test code = 2201) 4.1 G/DL CALC GLOBULIN (test code = 2240) 3.0 G/DL CALC A/G RATIO (test code = 2234) 1.4 RATIO BILIRUBIN, TOTAL (test code = 2207) 0.3 MG/DL ALKALINE PHOSPHATASE (test code = 2204) 106 U/L AST (test code = 2218) 25 U/L ALT (test code = 2219) 26 U/L Parth [place] AustinHEMOGLOBIN [id number] 00:00:00* Test Item Value Reference Range Interpretation Comme nts HEMOGLOBIN A1c (test code = 12587) 12.3 % Parth TorresCOMPREHENSIVE METABOLIC [id number] 00:00:00* Test Item Value Reference Range Interpretation Comme nts GLUCOSE (test code = 2217) 253 MG/DL BUN (test code = 2208) 4 MG/DL CREATININE (test code = 2214) 0.59 MG/DL eGFR AMER. (test cod e = 11510) 135 ML/MIN/1.73 eGFR NON- AMER. (test code = 91416) 116 ML/MIN/1.73 CALC BUN/CREAT (test code = 2235) 7 RATIO SODIUM (test code = 2231) 136 MEQ/L POTASSIUM (test code = 2228) 4.1 MEQ/L CHLORIDE (test code = 2215) 99 MEQ/L CARBON DIOXIDE (test code = 2206) 28 MEQ/L CALCIUM (test code = 2209) 9.4 MG/DL PROTEIN, TOTAL (test code = 2229) 7.1 G/DL ALBUMIN (test code = 2201) 4.1 G/DL CALC GLOBULIN (test code = 2240) 3.0 G/DL CALC A/G RATIO (test code = 2234) 1.4 RATIO BILIRUBIN, TOTAL (test code = 2207) 0.3 MG/DL ALKALINE PHOSPHATASE (test code = 2204) 106 U/L AST (test code = 2218) 25 U/L ALT (test code = 2219) 26 U/L Parth [place] AustinHEMOGLOBIN [id number] 00:00:00* Test Item Value Reference Range Interpretation Comme nts HEMOGLOBIN A1c (test code = 15123) 12.3 % Parth TorresCOMPREHENSIVE METABOLIC [id number] 00:00:00* Test Item Value Reference Range Interpretation Comme nts GLUCOSE (test code = 2217) 253 MG/DL BUN (test code = 2208) 4 MG/DL CREATININE (test code = 2214) 0.59 MG/DL eGFR AMER. (test cod e = 55868) 135 ML/MIN/1.73 eGFR NON- AMER. (test code = 43816) 116 ML/MIN/1.73 CALC BUN/CREAT (test code = 2235) 7 RATIO SODIUM (test code = 2231) 136 MEQ/L POTASSIUM (test code = 2228) 4.1 MEQ/L CHLORIDE (test code = 2215) 99 MEQ/L CARBON DIOXIDE (test code = 2206) 28 MEQ/L CALCIUM (test code = 2209) 9.4 MG/DL PROTEIN, TOTAL (test code = 2229) 7.1 G/DL ALBUMIN (test code = 2201) 4.1 G/DL CALC GLOBULIN (test code = 2240) 3.0 G/DL CALC A/G RATIO (test code = 2234) 1.4 RATIO BILIRUBIN, TOTAL (test code = 2207) 0.3 MG/DL ALKALINE PHOSPHATASE (test code = 2204) 106 U/L AST (test code = 2218) 25 U/L ALT (test code = 2219) 26 U/L Parth TorresHEMOGLOBIN [id number] 00:00:00* Test Item Value Reference Range Interpretation Comme nts HEMOGLOBIN A1c (test code = 94796) 12.3 % Parth TorresCOMPREHENSIVE METABOLIC [id number] 00:00:00* Test Item Value Reference Range Interpretation Comme nts GLUCOSE (test code = 2217) 253 MG/DL BUN (test code = 2208) 4 MG/DL CREATININE (test code = 2214) 0.59 MG/DL eGFR AMER. (test cod e = 31270) 135 ML/MIN/1.73 eGFR NON- AMER. (test code = 94389) 116 ML/MIN/1.73 CALC BUN/CREAT (test code = 2235) 7 RATIO SODIUM (test code = 2231) 136 MEQ/L POTASSIUM (test code = 2228) 4.1 MEQ/L CHLORIDE (test code = 2215) 99 MEQ/L CARBON DIOXIDE (test code = 2206) 28 MEQ/L CALCIUM (test code = 2209) 9.4 MG/DL PROTEIN, TOTAL (test code = 2229) 7.1 G/DL ALBUMIN (test code = 2201) 4.1 G/DL CALC GLOBULIN (test code = 2240) 3.0 G/DL CALC A/G RATIO (test code = 2234) 1.4 RATIO BILIRUBIN, TOTAL (test code = 2207) 0.3 MG/DL ALKALINE PHOSPHATASE (test code = 2204) 106 U/L AST (test code = 2218) 25 U/L ALT (test code = 2219) 26 U/L Parth TorresHEMOGLOBIN [id number] 00:00:00* Test Item Value Reference Range Interpretation Comme nts HEMOGLOBIN A1c (test code = 34907) 12.3 % Parth TorresCOMPREHENSIVE METABOLIC [id number] 00:00:00* Test Item Value Reference Range Interpretation Comme nts GLUCOSE (test code = 2217) 253 MG/DL BUN (test code = 2208) 4 MG/DL CREATININE (test code = 2214) 0.59 MG/DL eGFR AMER. (test cod e = 32090) 135 ML/MIN/1.73 eGFR NON- AMER. (test code = 04229) 116 ML/MIN/1.73 CALC BUN/CREAT (test code = 2235) 7 RATIO SODIUM (test code = 2231) 136 MEQ/L POTASSIUM (test code = 2228) 4.1 MEQ/L CHLORIDE (test code = 2215) 99 MEQ/L CARBON DIOXIDE (test code = 2206) 28 MEQ/L CALCIUM (test code = 2209) 9.4 MG/DL PROTEIN, TOTAL (test code = 2229) 7.1 G/DL ALBUMIN (test code = 2201) 4.1 G/DL CALC GLOBULIN (test code = 2240) 3.0 G/DL CALC A/G RATIO (test code = 2234) 1.4 RATIO BILIRUBIN, TOTAL (test code = 2207) 0.3 MG/DL ALKALINE PHOSPHATASE (test code = 2204) 106 U/L AST (test code = 2218) 25 U/L ALT (test code = 2219) 26 U/L Parth TorresHEMOGLOBIN [id number] 00:00:00* Test Item Value Reference Range Interpretation Comme gurpreet HEMOGLOBIN A1c (test code = 86966) 9.3 % Parth TorresLIPID [id number] 00:00:00* Test Item Value Reference Range Interpretation Comme nts CHOLESTEROL (test code = 2210) 161 MG/DL TRIGLYCERIDES (test code = 2232) 169 MG/DL HDL CHOLESTEROL (test code = 2220) 43 MG/DL CALC LDL CHOL (test code = 2237) 91 MG/DL RISK RATIO LDL/HDL (test cod e = 2238) 2.12 RATIO Parth TorresCOMPREHENSIVE METABOLIC [id number] 00:00:00* Test Item Value Reference Range Interpretation Comme nts GLUCOSE (test code = 2217) 288 MG/DL BUN (test code = 2208) 7 MG/DL CREATININE (test code = 2214) 0.65 MG/DL eGFR AMER. (test cod e = 42549) 131 ML/MIN/1.73 eGFR NON- AMER. (test code = 01563) 113 ML/MIN/1.73 CALC BUN/CREAT (test code = 2235) 11 RATIO SODIUM (test code = 2231) 135 MEQ/L POTASSIUM (test code = 2228) 4.0 MEQ/L CHLORIDE (test code = 2215) 100 MEQ/L CARBON DIOXIDE (test code = 2206) 24 MEQ/L CALCIUM (test code = 2209) 9.8 MG/DL PROTEIN, TOTAL (test code = 2229) 7.4 G/DL ALBUMIN (test code = 2201) 4.2 G/DL CALC GLOBULIN (test code = 2240) 3.2 G/DL CALC A/G RATIO (test code = 2234) 1.3 RATIO BILIRUBIN, TOTAL (test code = 2207) 0.3 MG/DL ALKALINE PHOSPHATASE (test code = 2204) 82 U/L AST (test code = 2218) 16 U/L ALT (test code = 2219) 14 U/L Parth TorresHEMOGLOBIN [id number] 00:00:00* Test Item Value Reference Range Interpretation Comme nts HEMOGLOBIN A1c (test code = 48261) 9.3 % Parth [place] AustinLIPID [id number] 00:00:00* Test Item Value Reference Range Interpretation Comme nts CHOLESTEROL (test code = 2210) 161 MG/DL TRIGLYCERIDES (test code = 2232) 169 MG/DL HDL CHOLESTEROL (test code = 2220) 43 MG/DL CALC LDL CHOL (test code = 2237) 91 MG/DL RISK RATIO LDL/HDL (test cod e = 2238) 2.12 RATIO Parth TorresCOMPREHENSIVE METABOLIC [id number] 00:00:00* Test Item Value Reference Range Interpretation Comme nts GLUCOSE (test code = 2217) 288 MG/DL BUN (test code = 2208) 7 MG/DL CREATININE (test code = 2214) 0.65 MG/DL eGFR AMER. (test cod e = 57649) 131 ML/MIN/1.73 eGFR NON- AMER. (test code = 02142) 113 ML/MIN/1.73 CALC BUN/CREAT (test code = 2235) 11 RATIO SODIUM (test code = 2231) 135 MEQ/L POTASSIUM (test code = 2228) 4.0 MEQ/L CHLORIDE (test code = 2215) 100 MEQ/L CARBON DIOXIDE (test code = 2206) 24 MEQ/L CALCIUM (test code = 2209) 9.8 MG/DL PROTEIN, TOTAL (test code = 222) 7.4 G/DL ALBUMIN (test code = 2201) 4.2 G/DL CALC GLOBULIN (test code = 2240) 3.2 G/DL CALC A/G RATIO (test code = 2234) 1.3 RATIO BILIRUBIN, TOTAL (test code = 2207) 0.3 MG/DL ALKALINE PHOSPHATASE (test code = 2204) 82 U/L AST (test code = 2218) 16 U/L ALT (test code = 2219) 14 U/L Parth TorresHEMOGLOBIN [id number] 00:00:00* Test Item Value Reference Range Interpretation Comme nts HEMOGLOBIN A1c (test code = 36838) 9.3 % Parth TorresLIPID [id number] 00:00:00* Test Item Value Reference Range Interpretation Comme nts CHOLESTEROL (test code = 2210) 161 MG/DL TRIGLYCERIDES (test code = 2232) 169 MG/DL HDL CHOLESTEROL (test code = 2220) 43 MG/DL CALC LDL CHOL (test code = 2237) 91 MG/DL RISK RATIO LDL/HDL (test cod e = 2238) 2.12 RATIO Parth TorresCOMPREHENSIVE METABOLIC [id number] 00:00:00* Test Item Value Reference Range Interpretation Comme nts GLUCOSE (test code = 2217) 288 MG/DL BUN (test code = 2208) 7 MG/DL CREATININE (test code = 2214) 0.65 MG/DL eGFR AMER. (test cod e = 25985) 131 ML/MIN/1.73 eGFR NON- AMER. (test code = 23874) 113 ML/MIN/1.73 CALC BUN/CREAT (test code = 2235) 11 RATIO SODIUM (test code = 2231) 135 MEQ/L POTASSIUM (test code = 2228) 4.0 MEQ/L CHLORIDE (test code = 2215) 100 MEQ/L CARBON DIOXIDE (test code = 2206) 24 MEQ/L CALCIUM (test code = 2209) 9.8 MG/DL PROTEIN, TOTAL (test code = 2229) 7.4 G/DL ALBUMIN (test code = 2201) 4.2 G/DL CALC GLOBULIN (test code = 2240) 3.2 G/DL CALC A/G RATIO (test code = 2234) 1.3 RATIO BILIRUBIN, TOTAL (test code = 2207) 0.3 MG/DL ALKALINE PHOSPHATASE (test code = 2204) 82 U/L AST (test code = 2218) 16 U/L ALT (test code = 2219) 14 U/L Parth TorresHEMOGLOBIN [id number] 00:00:00* Test Item Value Reference Range Interpretation Comme [facility] HEMOGLOBIN A1c (test code = 71447) 9.3 % Parth TorresLIPID [id number] 00:00:00* Test Item Value Reference Range Interpretation Comme nts CHOLESTEROL (test code = 2210) 161 MG/DL TRIGLYCERIDES (test code = 2232) 169 MG/DL HDL CHOLESTEROL (test code = 2220) 43 MG/DL CALC LDL CHOL (test code = 2237) 91 MG/DL RISK RATIO LDL/HDL (test cod e = 2238) 2.12 RATIO Parth TorresCOMPREHENSIVE METABOLIC [id number] 00:00:00* Test Item Value Reference Range Interpretation Comme nts GLUCOSE (test code = 2217) 288 MG/DL BUN (test code = 2208) 7 MG/DL CREATININE (test code = 2214) 0.65 MG/DL eGFR AMER. (test cod e = 13660) 131 ML/MIN/1.73 eGFR NON- AMER. (test code = 84499) 113 ML/MIN/1.73 CALC BUN/CREAT (test code = 2235) 11 RATIO SODIUM (test code = 2231) 135 MEQ/L POTASSIUM (test code = 2228) 4.0 MEQ/L CHLORIDE (test code = 2215) 100 MEQ/L CARBON DIOXIDE (test code = 2206) 24 MEQ/L CALCIUM (test code = 2209) 9.8 MG/DL PROTEIN, TOTAL (test code = 2229) 7.4 G/DL ALBUMIN (test code = 2201) 4.2 G/DL CALC GLOBULIN (test code = 2240) 3.2 G/DL CALC A/G RATIO (test code = 2234) 1.3 RATIO BILIRUBIN, TOTAL (test code = 2207) 0.3 MG/DL ALKALINE PHOSPHATASE (test code = 2204) 82 U/L AST (test code = 2218) 16 U/L ALT (test code = 2219) 14 U/L Parth TorresHEMOGLOBIN [id number] 00:00:00* Test Item Value Reference Range Interpretation Comme gurpreet HEMOGLOBIN A1c (test code = 62742) 9.3 % Parth TorresLIPID [id number] 00:00:00* Test Item Value Reference Range Interpretation Comme nts CHOLESTEROL (test code = 2210) 161 MG/DL TRIGLYCERIDES (test code = 2232) 169 MG/DL HDL CHOLESTEROL (test code = 2220) 43 MG/DL CALC LDL CHOL (test code = 2237) 91 MG/DL RISK RATIO LDL/HDL (test cod e = 2238) 2.12 RATIO Parth TorresCOMPREHENSIVE METABOLIC [id number] 00:00:00* Test Item Value Reference Range Interpretation Comme nts GLUCOSE (test code = 2217) 288 MG/DL BUN (test code = 2208) 7 MG/DL CREATININE (test code = 2214) 0.65 MG/DL eGFR AMER. (test cod e = 67312) 131 ML/MIN/1.73 eGFR NON- AMER. (test code = 92687) 113 ML/MIN/1.73 CALC BUN/CREAT (test code = 2235) 11 RATIO SODIUM (test code = 2231) 135 MEQ/L POTASSIUM (test code = 2228) 4.0 MEQ/L CHLORIDE (test code = 2215) 100 MEQ/L CARBON DIOXIDE (test code = 2206) 24 MEQ/L CALCIUM (test code = 2209) 9.8 MG/DL PROTEIN, TOTAL (test code = 2229) 7.4 G/DL ALBUMIN (test code = 2201) 4.2 G/DL CALC GLOBULIN (test code = 2240) 3.2 G/DL CALC A/G RATIO (test code = 2234) 1.3 RATIO BILIRUBIN, TOTAL (test code = 2207) 0.3 MG/DL ALKALINE PHOSPHATASE (test code = 2204) 82 U/L AST (test code = 2218) 16 U/L ALT (test code = 2219) 14 U/L Parth TorresHEMOGLOBIN [id number] 00:00:00* Test Item Value Reference Range Interpretation Comme nts HEMOGLOBIN A1c (test code = 25152) 9.3 % Parth TorresLIPID [id number] 00:00:00* Test Item Value Reference Range Interpretation Comme nts CHOLESTEROL (test code = 2210) 161 MG/DL TRIGLYCERIDES (test code = 2232) 169 MG/DL HDL CHOLESTEROL (test code = 2220) 43 MG/DL CALC LDL CHOL (test code = 2237) 91 MG/DL RISK RATIO LDL/HDL (test cod e = 2238) 2.12 RATIO Parth TorresCOMPREHENSIVE METABOLIC [id number] 00:00:00* Test Item Value Reference Range Interpretation Comme nts GLUCOSE (test code = 2217) 288 MG/DL BUN (test code = 8) 7 MG/DL CREATININE (test code = 2214) 0.65 MG/DL eGFR AMER. (test cod e = 60236) 131 ML/MIN/1.73 eGFR NON- AMER. (test code = 87374) 113 ML/MIN/1.73 CALC BUN/CREAT (test code = 2235) 11 RATIO SODIUM (test code = 2231) 135 MEQ/L POTASSIUM (test code = 2228) 4.0 MEQ/L CHLORIDE (test code = 2215) 100 MEQ/L CARBON DIOXIDE (test code = 2206) 24 MEQ/L CALCIUM (test code = 2209) 9.8 MG/DL PROTEIN, TOTAL (test code = 2229) 7.4 G/DL ALBUMIN (test code = 2201) 4.2 G/DL CALC GLOBULIN (test code = 2240) 3.2 G/DL CALC A/G RATIO (test code = 2234) 1.3 RATIO BILIRUBIN, TOTAL (test code = 2207) 0.3 MG/DL ALKALINE PHOSPHATASE (test code = 2204) 82 U/L AST (test code = 2218) 16 U/L ALT (test code = 2219) 14 U/L Parth TorresHEMOGLOBIN [id number] 00:00:00* Test Item Value Reference Range Interpretation Comme nts HEMOGLOBIN A1c (test code = 00203) 9.3 % Parth TorresLIPID [id number] 00:00:00* Test Item Value Reference Range Interpretation Comme nts CHOLESTEROL (test code = 2210) 161 MG/DL TRIGLYCERIDES (test code = 2232) 169 MG/DL HDL CHOLESTEROL (test code = 2220) 43 MG/DL CALC LDL CHOL (test code = 2237) 91 MG/DL RISK RATIO LDL/HDL (test cod e = 2238) 2.12 RATIO Parth TorresCOMPREHENSIVE METABOLIC [id number] 00:00:00* Test Item Value Reference Range Interpretation Comme nts GLUCOSE (test code = 2217) 288 MG/DL BUN (test code = 2208) 7 MG/DL CREATININE (test code = 2214) 0.65 MG/DL eGFR AMER. (test cod e = 94290) 131 ML/MIN/1.73 eGFR NON- AMER. (test code = 18382) 113 ML/MIN/1.73 CALC BUN/CREAT (test code = 2235) 11 RATIO SODIUM (test code = 2231) 135 MEQ/L POTASSIUM (test code = 2228) 4.0 MEQ/L CHLORIDE (test code = 2215) 100 MEQ/L CARBON DIOXIDE (test code = 2206) 24 MEQ/L CALCIUM (test code = 2209) 9.8 MG/DL PROTEIN, TOTAL (test code = 2229) 7.4 G/DL ALBUMIN (test code = 2201) 4.2 G/DL CALC GLOBULIN (test code = 2240) 3.2 G/DL CALC A/G RATIO (test code = 2234) 1.3 RATIO BILIRUBIN, TOTAL (test code = 2207) 0.3 MG/DL ALKALINE PHOSPHATASE (test code = 2204) 82 U/L AST (test code = 2218) 16 U/L ALT (test code = 2219) 14 U/L Parth TorresHEMOGLOBIN [id number] 00:00:00* Test Item Value Reference Range Interpretation Comme nts HEMOGLOBIN A1c (test code = 83949) 9.3 % Parth TorresLIPID [id number] 00:00:00* Test Item Value Reference Range Interpretation Comme nts CHOLESTEROL (test code = 2210) 161 MG/DL TRIGLYCERIDES (test code = 2232) 169 MG/DL HDL CHOLESTEROL (test code = 2220) 43 MG/DL CALC LDL CHOL (test code = 2237) 91 MG/DL RISK RATIO LDL/HDL (test cod e = 2238) 2.12 RATIO Parth TorresCOMPREHENSIVE METABOLIC [id number] 00:00:00* Test Item Value Reference Range Interpretation Comme nts GLUCOSE (test code = 2217) 288 MG/DL BUN (test code = 2208) 7 MG/DL CREATININE (test code = 2214) 0.65 MG/DL eGFR AMER. (test cod e = 38832) 131 ML/MIN/1.73 eGFR NON- AMER. (test code = 36263) 113 ML/MIN/1.73 CALC BUN/CREAT (test code = 2235) 11 RATIO SODIUM (test code = 2231) 135 MEQ/L POTASSIUM (test code = 2228) 4.0 MEQ/L CHLORIDE (test code = 2215) 100 MEQ/L CARBON DIOXIDE (test code = 2206) 24 MEQ/L CALCIUM (test code = 2209) 9.8 MG/DL PROTEIN, TOTAL (test code = 2229) 7.4 G/DL ALBUMIN (test code = 2201) 4.2 G/DL CALC GLOBULIN (test code = 2240) 3.2 G/DL CALC A/G RATIO (test code = 2234) 1.3 RATIO BILIRUBIN, TOTAL (test code = 2207) 0.3 MG/DL ALKALINE PHOSPHATASE (test code = 2204) 82 U/L AST (test code = 2218) 16 U/L ALT (test code = 2219) 14 U/L Parth Torres History and Physical Notes Date/Time Note Provider Source 2023-10-15 10:53:25 [employer] PRE-OP HISTORY & PHYSICAL NOTE Date of [...] of heavy menstrual bleeding twice per month [id number], improved and regulated with COCPs however patient [...] Proceed with scheduled surgery Discussed with Dr. Whit Torres MD Associated attestation - Woody Deng MD - 10/16/2023 6:53 AM CDT After discussion with Dr. Torres, I examined this patient. I agree with resident's note as written and plan to proceed with TLH/Bilateral Salpingectomy/Cystoscopy/possible right ovarian cystectomy vs RSO and any other indicated procedures. [facility] - Health Notes Date/Time Note Provider Source [facility]2025-07-24 00:00:00 [facility]2025-06-16 00:00:00 [facility]2025-05-13 00:00:00 [facility]2025-04-14 00:00:00 [facility]2025-03-14 00:00:00 [facility]2025-03-06 00:00:00 [facility]2025-02-25 00:00:00 [facility]2024-10-18 09:10:15 Pt has been scheduled, will call back if she needs to r/s due to transportation. 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 Pt was not able to come to f/u appt do to transportation issues so she is wondering if dr still needs to see her or if she can just get a note stating she is off the restrictions and can return to work with no restrictions. Please call [phone] Concetta RitterPaulding County HospitalYgmcvy9008-71-17 14:11:11 Dominique release to work forms received and completed, signed by . Spoke with pt to inform and requested forms be emailed to her personal address. Forms emailed to [email or web address] Carol Hugo RNPaulding County HospitalKtzgaw9799-62-64 10:35:52 Chantel Davis is a 43 year old female is calling to check the status of forms being completed to return to work. Please call. Thank you. Cherelle OnealPaulding County HospitalDhwlyg9028-04-15 08:54:18 Chantel Davis is a 43 year old female Patient returning missed call from clinic regarding paperwork to return to work, she is to return to work this Friday11/21/2023. Please call [phone] (home) Marleny JerezPaulding County HospitalNelvyu2430-97-29 08:39:50 lft msg to refax the forms she needs . Zuleyma VazPaulding County HospitalAvnzdh6922-38-90 15:29:46 Pt is needing return to work papers filled out, states were faxed over today. Please call [phone] (home) NISH MariscalPaulding County HospitalXfbbdu0982-22-20 16:36:18 Chantel Davis is a 43 year old female Pt is calling requesting to speak with a nurse to discuss FMLA forms to be filled out by provider. Please contact pt at [phone]. Salvador XiaoPaulding County HospitalEunvon6296-57-27 10:58:42 Spoke with pt and FMLA forms faxed to employer again and emailed to pts personal email as well. FMLA forms to be scanned in chart as well. Carol Hugo RNPaulding County HospitalUncfkx1216-86-97 09:08:55 Chantel Davis is a 43 year old female Pt wants to speak to someone, her employer still hasn't received her FMLA forms as of yet (10/15) called back on 10/27 and was told they would be faxed again and loaded up to her [employer] on that day. Pt calling back as the forms still haven't been received by employer and she does not see them on her mychart either. Pt has to have these forms turned in no later than 11/02 to her employer. Requesting to speak to someone in office [phone] (home) Reanna WilhelmPaulding County HospitalTdyluj4902-31-88 10:10:54 FMLA paperwork was faxed on 10/16/23 to employer and given to PSS to scan in chart. Message sent to PSS to fax completed FMLA paperwork to employer again for pt. Carol Hugo [facility] CareEccflc6032-70-35 09:35:09 Chantel Davis is a 43 year old female requesting FMLA paperwork needs to be resent to patient's job dianelys. Please contact patient at [phone] (home) to confirm Valarie AndersonPaulding County HospitalJqgvpr9623-41-67 14:38:50 FMLA paperwork complete and signed by today. Faxed to [phone] and confirmation received. Left message informing pt as well. Carol Hugo [facility] CareHzuehc2996-96-74 13:22:13 Chantel Davis is a 43 year old female Pt calling on status of FMLA paperwork that was received on 10/08/2023. Please call pt at [phone] (home) Please fax to [phone] Yamilex ApplePaulding County HospitalGcvoch5163-81-95 07:47:00 BRIEF OPERATIVE NOTE Date of Surgery: [...] SALPINGECTOMY (Left) CYSTOSCOPY (N/A) SALPINGO-OOPHORECTOMY (Right) CPT: 46175, Any Complications Encounters: none Estimated Blood Loss: [...] uterus. Site of previous tubal ligation noted. [facility] HospitalPvffse2304-51-88 16:44:20 Email and telephone contact to Dr. Deng related to surgical procedure and consent. [facility] HospitalCgbgsf8147-17-91 15:36:44 Patient wants to know if FMLA paperwork has been received. Please call patient and advise. Mindy JainPaulding County HospitalFsbbqo1177-46-48 08:43:20 Chantel Davis is a 43 year old female calling to verify that received FMLA paperwork yesterday for surgery on 10/15. Please contact patient at [phone] (home) Valarie AndersonPaulding County HospitalBhyoxl1558-02-34 14:01:59 Spoke with pt states she will have employer fax forms today. Carol Hugo [facility] CareRhrzpp9953-58-52 09:06:41 Pt calling because she needs paperwork for her medical leave for her surgery upcoming 10/15 tia/whit. 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 Pt did not have the the fax number to provide but said she would, she has to locate it. Pt is faxing over the forms that need to be filled out today. Arely BraunPaulding County HospitalIfnars1663-28-91 07:27:21 Letter written and sent via [employer] Carol Hugo [facility] CareMmgwqj0021-00-41 15:55:17 Yes that is correct. If she works a physical job that requires any heavy lifting or strenuous activity she needs 6 weeks off. Some patients will require less if their job is less strenuous but most will take the full 6 weeks. Owen Epps MD [facility] HospitalVwdvca2119-62-80 11:10:47 Pt called asking for paperwork regarding her upcoming surgery on 10/16/2023. She is stating she needs something saying she will be having surgery on that day and how many days she will be out for work. I suggested bringing FMLA or some sort of paperwork from her job for the provider to fill out. Please advise. Brianda SanchezPaulding County HospitalRlnfun2549-42-93 07:43:32 Access Center: [facility] Open Encounter Maintenance Chart Review: Patient was seen in Clinic 08/01/2023. Nurse Note: RN closing encounter in [facility] r/t clinical action items completed. Viviana Grande RN [facility] Access Center Triage Nurse Viviana Grande RNPaulding County HospitalJvdspr6442-98-74 13:20:15 Called and discussed with patient. She will be for surgery on October [address] Deng. Patient to get HgbA1c before surgery, sent appointment request to [facility]. Owen Epps MD [facility] HospitalAspswc5840-17-82 09:14:21 Copied from [facility] #[id number]. Topic: Clinical - Medical Advice >> Aug 19, 2023 9:06 AM Patient [employer] Panels Trimmer wrote: Chantel Davis is a 43 year old female Pt requesting call back,wanting to know what the status is of the date for her surgery she had the pre op appt on 08/06. Pt states she needs to know the date as she needs to notify her employer and her casebook is valid to September of this year. Please all pt [phone] (home) Reanna WilhelmPaulding County HospitalDyxero3729-75-88 10:57:31 Copied from [facility] #[id number]. Topic: Clinical - Medical Advice >> July 30, 2023 10:55 AM Patient [employer] Trimmer wrote: Patient calling to speak to nurse regarding Surgery for uterus removal date and information so she can let her employer know . Please call back Marya SanchezPaulding County HospitalYhwpfz4902-11-52 12:01:17 Copied from [facility] #[id number]. Topic: Clinical - Results >> July 21, 2023 11:58 AM Patient [employer] Trimmer wrote: Chantel Davis is a 43 year old female Patient requesting results from transvaginal ultrasound, please call [phone] (home) Marleny Sanchez [facility]2024-04-08 09:07:12 Telephone Encounter note Contacted pt regarding lab results Confirmed pts name and before continuing w pt health information. 06/12/23 16:13 RBC x1064.94 HGB 8.2 (L) HCT 30.3 (L) MCV 61.3 (L) MCH 16.6 (L) MCHC 27.1 (L) RDW-SD 39.1 RDW-CV 18.8 (H) PLT [id number] (H) MPV 9.7 NRBC /100 WBC 0.0 NRBC x103<0.01 CEA 0.4 CA-125 20.3 CA 19-9 1.2 Assessment and Plan: Chantel Davis is a 43 year old calling regarding lab results. Anemia - H/H: 8.2/30.3 Hormone level - CEA, CA 125, CA 19-9 wnl Plan: RTC for appt on 07/02. All questions answered Carmella Lee MD Obstetrics and Gynecology PGY-1 06/16/23 9:00AM OG-OBSTETRICS & GYNECOLOGYPaulding County HospitalKmkfng7858-71-43 13:24:39 Copied from [facility] #[id number]. Topic: Clinical - Medical Advice >> Jun 13, 2023 1:23 PM Patient [employer] Trimmer wrote: Patient calling to speak to nurse regarding lab results, please call back Marya SanchezPaulding County HospitalNlftib3741-23-47 16:15:00 Images from the original note were not included. Venipuncture collection performed by clean technique on the right anticubitus. Total of 1 attempts were made. Slight pressure and a bandage/dressing were applied to the site(s). The patient experienced no complications. The following specimens were processed according to instructions and sent to [facility] laboratories per lab order on 06/12/2023 : LT BLUE SST 1 RED LAV 1 PPT DK GREEN (LiHep) DK GREEN (SodH) FAYE DK BLUE (K2) DK BLUE (S) ACD Blood Culture NIPT/NTD [facility] HospitalYvpabv2337-05-94 16:17:59 Called pt, advised will FU on 06/12/2023 with [place] as scheduled. Pt verbalized understanding. Ann Brown RN 06/10/23 4:18 PM [facility] HospitalPgctnj9261-93-63 16:13:11 Copied from [facility] #[id number]. Topic: Appointment - Appointment Request >> Jun 10, 2023 4:08 PM Patient [employer] Trimmer wrote: Chantel Davis is a 43 year old female Patient requesting apt for ER follow up from this morning, states she haves pain on ovaries and an infection. Patient already scheduled in [place] with residents for 06/11 Please call [phone] (home) Marleny JerezPaulding County HospitalTlkhzj0785-54-71 08:33:16 Pt returning call to nurse Hue KumarPaulding County Hospital
[2024-12-02] MEDS ORDERED: METOCLOPRAMIDE 10 MG/2mL INJ ONE (15:53)
[2024-12-02] MEDS ORDERED: KETOROLAC 30 MG/ML INJ ONE (15:53)
[2024-12-02] MEDS ORDERED: NA CHLORIDE 0.9% 1,000 ML ONE (15:54)
[2024-12-02] MEDS ORDERED: DIPHENHYDRAMINE 50 MG/ML VIAL ONE (15:54)
[2024-12-02 16:26] LABS: Hematocrit 42.4 % (36.0-45.0); Hemoglobin 14.5 g/dL (12.0-15.0); MCH 28.7 pg (27.0-35.0); MCHC 34.3 g/dL (32.0-36.0); MCV 83.7 fL (80-100); MPV 9.0 fL (7.6-11.3); Nucleated Red Blood Cells % 0.1 % (0-0); RBC Red Blood Cell Count 5.06 M/uL (3.86-4.86); White Blood Count 6.90 thou/uL (4.3-10.9)
[2024-12-02 16:27] LABS: Absolute Lymphocytes (CBC) 2.0 K/uL (0.7-4.9); Nucleated RBC Absolute Count 0.0 (0-0)
--- NOTE | 2024-12-02 16:29 | RAD REPORT ---
EXAM: CT brain without contrast HISTORY: Dizziness;Headache COMPARISON: None TECHNIQUE: Multiple contiguous axial images were obtained and a CT of the brain without contrast. Sag ittal and coronal reformats were performed. One or more of the following dose reduction techniques were used: Automated exposure control, adjust ment of the mA and/or kV according to patient size, and/or iterative reconstruction. FINDINGS: No evidence of hydrocephalus, intracranial hemorrhage, or extra-axial fluid collection. The brain is normal in morphology. No evidence of midline shift or areas of brain edema. The calvarium is intact. The visualized paranasal sinuses and mastoid air cells are essentially clear . IMPRESSION: No evidence of acute intracranial abnormality.
[2024-12-02 16:53] LABS: Anion Gap 7.0 mEq/L (5.0-15.0); BUN Blood Urea Nitrogen 9.0 mg/dL (7-18); Glucose Level 90.0 mg/dL (74-106); Magnesium 2.3 mg/dL (1.6-2.4); Potassium 4.0 mEq/L (3.5-5.1); Thyroid Stimulating Hormone 1.16 uIU/mL (0.358-3.740)
--- NOTE | 2024-12-02 16:59 | EDPHYS ---
Physician Documentation [facility] Name: Chantel Davis Age: 44 yrs Sex: Female : 1980 Arrival Date: 12/02/2024 Time: 15:29 Bed 11 Private MD: ED Physician Royer Millan HPI: 12/02 18:22 This 44 yrs old Female presents to ER via Ambulatory with complaints of sb4 Headache. 18:22 Patient reports a migraine headache since yesterday. She denies any history of sb4 migraines. States that she thought it may have been secondary to her blood pressure being elevated so she took a second dose of her lisinopril yesterday. States she woke up today and the pain was better but it was still there. Does report some nausea, dizziness, and blurry vision. Historical: - Allergies: 15:49 iodine-topical; aa5 - Home Meds: 15:51 Lisinopril Oral [Active]; estrogen [Active]; unknown medication for high cholesterol aa5 [Active]; - PMHx: 15:49 Anemia; Hypercholesterolemia; Hypertensive disorder; aa5 - PSHx: 15:49 Cholecystectomy; hysterectomy; Ligation of fallopian tube; aa5 - Immunization history:: Adult Immunizations unknown. - Infectious Disease History:: Denies. - Social history:: Smoking status: Patient denies any tobacco usage or history of. ROS: 18:23 Constitutional: Negative for fever, chills, and weight loss, sb4 18:23 Neuro: Positive for headache, 18:23 All other systems are negative, Exam: 18:23 Constitutional: This is a well developed, well nourished patient who is awake, alert, sb4 and in no acute distress. Head/Face: Normocephalic, atraumatic. Eyes: Extra-ocular motions intact. Periorbital areas with no swelling, redness, or edema. ENT: Mucous membranes moist. Respiratory: No increased work of breathing, no retractions or nasal flaring. Abdomen/GI: Soft, non-tender, no distension. Skin: Warm, dry with normal turgor. Normal color with no rashes, no lesions, and no evidence of cellulitis. MS/ Extremity: Pulses equal, no cyanosis. Neurovascular intact. Full, normal range of motion. Neuro: Awake and alert, GCS 15, oriented to person, place, time, and situation. Motor strength 5/5 in all extremities. Sensory grossly intact. Vital Signs: 15:43 BP 128 / 90; Pulse 85; Resp 18 S; Temp 98.4(O); Pulse Ox 100% on R/A; Weight 85.73 kg aa5 (R); Height 5 ft. 2 in. (R); Pain 8/10; 16:30 BP 114 / 72; Pulse 71; Resp 18; Pulse Ox 100% on R/A; nh2 15:43 Body Mass Index 34.57 (85.73 kg, 157.48 cm) aa5 15:43 Pain Scale: Adult aa5 [place] Coma Score: 18:23 Eye Response: spontaneous(4). Motor Response: obeys commands(6). Verbal Response: sb4 oriented(5). Total: 15. MDM: 15:42 Medical Screening Exam initiated sb4 18:23 Differential diagnosis: cluster headache, hypertensive headache, hyponatremia, sb4 intracerebral hemorrhage, migraine, neoplasm, sinusitis, subarachnoid bleed, tension headache. Data reviewed: vital signs, nurses notes, lab test result(s), radiologic studies, and as a result, I will discharge patient. Care significantly affected by the following chronic conditions: Hypertension. Counseling: I had a detailed discussion with the patient and/or guardian regarding the historical points, exam findings, and any diagnostic results supporting the discharge/admit diagnosis, lab results, radiology results, the need for outpatient follow up, for definitive care, to return to the emergency department if symptoms worsen or persist or if there are any questions or concerns that arise at home. 12/02 15:50 Order name: CBC with Diff; Complete Time: 16:29 sb4 12/02 15:50 Order name: BMP; Complete Time: 16:54 sb4 12/02 15:50 Order name: Magnesium; Complete Time: 16:54 sb4 12/02 15:50 Order name: TSH; Complete Time: 16:54 sb4 12/02 15:50 Order name: Head Brain Wo Cont CT; Complete Time: 16:30 sb4 12/02 15:50 Order name: IV Start; Complete Time: 16:21 sb4 Administered Medications: 16:00 Drug: NS 0.9% IV 1000 ml IV at 1000 ml once; to be given as a bolus over 60 minutes nh2 Route: IV; Rate: 1000 ml; Site: right antecubital; 17:15 Follow up: IV Status: Completed infusion; IV Intake: 1000ml nh2 16:00 Drug: Ketorolac IVP 15 mg IVP once Route: IVP; Site: right antecubital; nh2 16:30 Follow up: Response: No adverse reaction; Pain is decreased nh2 16:00 Drug: diphenhydrAMINE IVP 25 mg IVP once Route: IVP; Site: right antecubital; nh2 16:30 Follow up: Response: No adverse reaction nh2 16:00 Drug: metoCLOPramide IVP 10 mg IVP once; over 1 to 2 minutes Route: IVP; Site: right nh2 antecubital; 16:30 Follow up: Response: No adverse reaction nh2 Disposition: 18:25 Co-signature as Attending Physician, Royer Millan MD I reviewed the patient's care rn provided by the Advanced Practice Provider and agree with the diagnosis and treatment plan. Disposition Summary: 12/02/24 16:58 Discharge Ordered Notes: Location: Home sb4 Problem: new sb4 Symptoms: have improved sb4 Condition: Stable sb4 Diagnosis - Headache sb4 Followup: sb4 - With: Private Physician - When: As needed - Reason: Recheck today's complaints, Re-evaluation by your physician Discharge Instructions: - Discharge Summary Sheet sb4 - General Headache Without Cause sb4 - Migraine Headache, Fyyz-dg-Zjwd sb4 Forms: - Patient Portal Instructions sb4 - Leadership Thank You Letter sb4 Signatures: Dispatcher [employer] EDRoyer Yuan MD MD rn Calderon, Audri RN RN aa5 Radha Edwards PA-C PADarnell sb4 Clive Bronw Jr RN RN nh2 Corrections: (The following items were deleted from the chart) 15:50 15:50 CBC+H.LAB.BRZ ordered. EDMS EDMS 15:50 15:50 BASIC METABOLIC PANEL+C.LAB.BRZ ordered. EDMS EDMS 15:50 15:50 MAGNESIUM+C.LAB.BRZ ordered. EDMS EDMS 15:50 15:50 THYROID STIMULAT HORMONE+C.LAB.BRZ ordered. EDMS EDMS
--- NOTE | 2024-12-02 16:59 | ER ---
Nurse's Notes [facility] Name: Chantel Davis Age: 44 yrs Sex: Female : 1980 Arrival Date: 12/02/2024 Time: 15:29 Bed 11 Private MD: Diagnosis: Headache Presentation: 12/02 15:43 Chief complaint: Patient states: frontal headache that began yesterday. Reports nausea, aa5 denies vomiting. 15:43 Coronavirus screen: headache. Ebola Screen: Patient denies travel to an Ebola-affected [facility] area in the 21 days before illness onset. Initial Sepsis Screen: Does the patient meet any 2 criteria? No. Patient's initial sepsis screen is negative. Does the patient have a suspected source of infection? No. Patient's initial sepsis screen is negative. Risk Assessment: Do you want to hurt yourself or someone else? Patient reports no desire to harm self or others. Onset of symptoms was December 01, 2024. 15:43 Method Of Arrival: Ambulatory aa5 15:43 Acuity: XENIA 3 aa5 Historical: - Allergies: 15:49 iodine-topical; aa5 - Home Meds: 15:51 Lisinopril Oral [Active]; estrogen [Active]; unknown medication for high cholesterol aa5 [Active]; - PMHx: 15:49 Anemia; Hypercholesterolemia; Hypertensive disorder; aa5 - PSHx: 15:49 Cholecystectomy; hysterectomy; Ligation of fallopian tube; aa5 - Immunization history:: Adult Immunizations unknown. - Infectious Disease History:: Denies. - Social history:: Smoking status: Patient denies any tobacco usage or history of. Screenin:00 [facility] ED Fall Risk Assessment (Adult) History of falling in the last 3 months, nh2 including since admission No falls in past 3 months (0 pts) Confusion or Disorientation No (0 pts) Intoxicated or Sedated No (0 pts) Impaired Gait No (0 pts) Mobility Assist Device Used No (0 pt) Altered Elimination No (0 pt) Score/Fall Risk Level 0 - 2 = Low Risk Oriented to surroundings, Maintained a safe environment, Educated pt \T\ family on fall prevention, incl call for assistance when getting out of bed, Assessed \T\ reinforced patient's understanding of fall precautions, Hourly rounding (assess needs \T\ fall precautionary measures) done. Abuse screen: Denies threats or abuse. Denies injuries from another. Nutritional screening: No deficits noted. Tuberculosis screening: No symptoms or risk factors identified. Assessment: 16:00 General: Appears in no apparent distress. Behavior is calm, cooperative, appropriate nh2 for age. Pain: Complains of pain in forehead Pain does not radiate. Pain currently is 8 out of 10 on a pain scale. Quality of pain is described as aching, Pain began 1 day ago. Is intermittent. Neuro: Level of Consciousness is awake, alert, obeys commands, Oriented to person, place, time, situation, Appropriate for age Reports dizziness, headache. Cardiovascular: Patient's skin is warm and dry. Respiratory: Airway is patent Trachea midline Respiratory effort is even, unlabored, Respiratory pattern is regular, symmetrical, Denies cough, shortness of breath. GI: Abdomen is round non-distended, Reports nausea, Patient currently denies vomiting. : No signs and/or symptoms were reported regarding the genitourinary system. Denies burning with urination. EENT: No signs and/or symptoms were reported regarding the EENT system. Derm: Skin is intact, Skin is pink, warm \T\ dry. Musculoskeletal: Circulation, motion, and sensation intact. Range of motion: intact in all extremities. 17:00 Reassessment: Patient and/or family updated on plan of care and expected duration. Pain nh2 level reassessed. Patient is alert, oriented x 3, equal unlabored respirations, skin warm/dry/pink. Patient states feeling better. Vital Signs: 15:43 BP 128 / 90; Pulse 85; Resp 18 S; Temp 98.4(O); Pulse Ox 100% on R/A; Weight 85.73 kg aa5 (R); Height 5 ft. 2 in. (R); Pain 8/10; 16:30 BP 114 / 72; Pulse 71; Resp 18; Pulse Ox 100% on R/A; nh2 15:43 Body Mass Index 34.57 (85.73 kg, 157.48 cm) aa5 15:43 Pain Scale: Adult aa5 [place] Coma Score: 18:23 Eye Response: spontaneous(4). Motor Response: obeys commands(6). Verbal Response: sb4 oriented(5). Total: 15. ED Course: 15:38 Patient arrived in ED. al6 15:39 Radha Edwards PA-C is [facility]. sb4 15:39 Royer Millan MD is Attending Physician. sb4 15:43 Arm band placed on. aa5 15:48 Clive Brown Jr, RN is Primary Nurse. nh2 15:51 Triage completed. aa5 16:00 Patient has correct armband on for positive identification. Bed in low position. Call nh2 light in reach. Side rails up X 1. Provided Education on: using call light for assistance. 16:00 Inserted saline lock: 20 gauge in right antecubital area, using aseptic technique. nh2 Blood collected. Flushed with 10 mL NS. 16:15 Head Brain Wo Cont CT In Process Unspecified. EDMS 17:16 No provider procedures requiring assistance completed. IV discontinued, intact, nh2 bleeding controlled, No redness/swelling at site. Pressure dressing applied. Administered Medications: 16:00 Drug: NS 0.9% IV 1000 ml IV at 1000 ml once; to be given as a bolus over 60 minutes nh2 Route: IV; Rate: 1000 ml; Site: right antecubital; 17:15 Follow up: IV Status: Completed infusion; IV Intake: 1000ml nh2 16:00 Drug: Ketorolac IVP 15 mg IVP once Route: IVP; Site: right antecubital; nh2 16:30 Follow up: Response: No adverse reaction; Pain is decreased nh2 16:00 Drug: diphenhydrAMINE IVP 25 mg IVP once Route: IVP; Site: right antecubital; nh2 16:30 Follow up: Response: No adverse reaction nh2 16:00 Drug: metoCLOPramide IVP 10 mg IVP once; over 1 to 2 minutes Route: IVP; Site: right nh2 antecubital; 16:30 Follow up: Response: No adverse reaction nh2 Medication: 16:00 VIS not applicable for this client. nh2 Intake: 17:15 IV: 1000ml; Total: 1000ml. nh2 Outcome: 16:58 Discharge ordered by . sb4 17:16 Discharged to home ambulatory, nh2 17:16 Condition: stable 17:16 Discharge instructions given to patient, Instructed on discharge instructions, follow up and referral plans. medication usage, Demonstrated understanding of instructions, follow-up care, 17:17 Patient left the ED. nh2 Signatures: Dispatcher [employer] EDTN Nisha Azul RN RN aa5 Radha Edwards PALouieC PA-C sb4 Clive Brown Jr, RN RN nh2 Quita Beauchamp al6
[2024-12-02 17:21] VITALS: TEMP 98.4; O2SAT 100
[2024-12-02 17:23] VITALS: BP 114/72
== END 2024-12-02 17:17 | disposition home or self-care (01) ==
LOC: ER 15:29
DX: R51.9 Headache, unspecified (principal); I10 Essential (primary) hypertension
CPT/HCPCS: 96361; 85025; 80048; 36415; 83735; 84443; 70450; 96375; 96374; 99284; J2765; J1200; J7030; J1885